=== PATIENT | female | born 1955 | race Caucasian/White ===

== ENCOUNTER 2020-12-08 00:32 | Emergency (ER) | payer MEDICARE, SELFPAY ==
[2020-12-08] VITALS (16 sets, daily range): BP systolic 139–165; BP diastolic 67–77; PULSE 75–88; RESP 11–28; TEMP 36.6–36.9; O2SAT 94–99
--- NOTE | ~2020-12-08 | CT_ITS ---
EXAMINATION: CT brain wo con INDICATION: Headache COMPARISON: None TECHNIQUE: Standard unenhanced head CT. The dose-length product (DLP) was 605.33 mGy-cm. The mA was a djusted according to patient size. Iterative reconstruction technique was employed. FINDINGS: There is no acute intraparenchymal hemorrhage. No evidence of mass lesion. No evidence of a cute infarction. There is mild periventricular and subcortical hypodensity probably related to small vessel ischemic disease. There is mild prominence of the sulci and ventricles related to cerebral atr ophy. Intracranial calcified cerebral atherosclerosis is noted. There are no extra-axial collections. There is no mass effect or midline shift. The orbits and soft tissues are unremarkable. The visuali zed sinuses and mastoid air cells are well aerated. IMPRESSION: 1. No acute intracranial abnormality. 2. Age related findings. Reviewed, dictated and finalized at location A. ER MACHINE OPERATOR
--- NOTE | ~2020-12-08 | XR_ITS ---
EXAMINATION: XR chest 1V INDICATION: Chest pain TECHNIQUE: AP view of the chest is obtained. COMPARISON: 01/26/2017 FINDINGS: The lungs are free of acute opacities. There is no pleural effusion or pneumothorax. The ca rdiomediastinal silhouette is normal. IMPRESSION: 1. No acute cardiopulmonary abnormality. Reviewed, dictated and finalized at location A. RT SPECIALIST
--- NOTE | ~2020-12-08 | CT_ITS ---
EXAMINATION: CT thoracic spine wo con DATE: 12/08/2020 01:36 INDICATION: Back pain TECHNIQUE: Computed tomography (CT) of the thoracic spine was performed without intravenous contrast. The dose-length product (DLP) was 1064.88 mGy-cm. Iterative reconstruction was used. COMPARISON: None FINDINGS: There is no fracture, dislocation, or subluxation. The vertebral body heights are maintaine d. There is mild loss of intervertebral disc space height in the mid and upper thoracic spine. The pr evertebral soft tissues are normal. There is severe lumbar spondylosis at L2-3. IMPRESSION: 1. Mild thoracic spondylosis without acute findings. Reviewed, dictated and finalized at location A. CTOR OF INSTITUTIONAL SALES
--- NOTE | ~2020-12-08 | CT_ITS ---
EXAMINATION: CT cervical spine wo con DATE: 12/08/2020 01:36 INDICATION: Neck pain TECHNIQUE: Computed tomography (CT) of the cervical spine was performed without intravenous contrast. The dose-length product (DLP) was 172.75 mGy-cm. Automated exposure control and iterative reconstruc tion technique were employed. COMPARISON: None FINDINGS: There are 2 mm of retrolisthesis of C5 on C6. No fracture is identified. The odontoid is in tact. There is moderate loss of intervertebral disc space height from C3-4 through C6-7. Vertebral faviola dy heights are maintained. The prevertebral soft tissues are normal. There is moderate right and mild left facet osteoarthritis at C3-4. Moderate to severe multilevel uncovertebral joint osteoarthritis is present. There is partial opacification of the mastoid air cells. IMPRESSION: 1. Moderate cervical spondylosis without acute osseous abnormality. Reviewed, dictated and finalized at location A. SPECIALIST
--- NOTE | 2020-12-08 00:44 | ED.FALL ---
HPI - Fall General Chief Complaint: Fall Stated Complaint: falls Source: RN notes reviewed History of Present Illness HPI Narrative: Patient presents emergency department from home via EMS for a fall. Patient states that she has been having frequent falls approximately once per week states that this evening she fell striking her head on the wall she states that since that time she is been having headache feels pain in her neck and upper back patient does states that she has a history of vertigo and is currently dizzy and takes medication for this she denies any vision changes numbness or tingling in the extremities chest pain shortness of breath abdominal pain nausea or vomiting pain in the extremities or any other symptoms Related Data Allergies Allergy/AdvReac Type Severity Reaction Status Date / Time codeine Allergy Unknown HIVES Verified 05/01/19 17:14 Review of Systems Review of Systems: Narrative: Gen.: Denies fevers or chills Eyes: Denies eye pain or visual change ENT: Denies congestion Respiratory: Denies shortness of breath or cough CV: Denies chest pain or palpitations GI: Denies abdominal pain nausea, emesis or diarrhea denies burning, urgency, frequency or hematuria Musculoskeletal: See HPI Neuro: Denies numbness, tingling, weakness or focal weakness, reports dizziness Skin: Denies rash Except as documented, all other systems reviewed and negative FOR[facility]LY [facility] Past Medical History Medical History (Updated 12/08/20 @ 03:41 by Celio Dominguez DO) COPD (chronic obstructive pulmonary disease) Diabetes Social History Social History (Updated 12/08/20 @ 00:45 by Celio Dominguez DO) Smoking status: Never smoker Exam Narrative: Exam Narrative: APPEARANCE: Well appearing, no apparent distress, well-nourished. HEENT: normocephalic atraumtaic. Oral mucosa moist. No tenderness over bilateral zygomatic arch. Full range of motion of jaw without pain. EYES: PERRL NECK: Supple. No midline tenderness to palpation. Full range of motion without pain turn palpation bilateral para 2 muscles C4-7 RESPIRATORY: No respiratory distress. Clear to auscultation bilaterally CARDIOVASCULAR: Regular rate and rhythm without murmurs rubs or gallops. ABDOMINAL: Soft, nontender, nondistended, no rebound or guarding MUSCULOSKELETAl: Moves all extremities. No tenderness to palpation of bilateral upper and lower extremities. No clubbing cyanosis or edema Back: No midline thoracic or lumbar tenderness to palpation tender palpation bilateral paravertebral muscles T2-T8 Pelvis: Stable, nontender NEURO: Awake and alert ?3. Follows commands. Speech normal. No focal deficits. SKIN:: Warm, dry. Normal Color Course Course Emergency Course: Patient able to get up and ambulate in the emergency department with no difficulty. Patient is 49 walking with a walker at home but states she does not use it as often because there is always room I do feel this is why the patient is falling she does state that she wishes to return home Discussed with patient results of workup and diagnosis. Discussed need for follow-up with primary care, proper use of medication, and reasons to return to the emergency department. Patient understands and agrees to current treatment plan Vital Signs Vital signs: Vital Signs Temperature 98.5 F 12/08/20 00:32 Pulse Rate 88 12/08/20 00:32 Respiratory Rate 17 12/08/20 00:32 Blood Pressure 163/67 H 12/08/20 00:32 Pulse Oximetry 99 12/08/20 00:32 Temperature 98.5 F 12/08/20 00:32 Pulse Rate 80 12/08/20 03:01 Respiratory Rate 16 12/08/20 03:01 Blood Pressure 163/75 H 12/08/20 03:01 Pulse Oximetry 96 12/08/20 03:01 MDM - Fall Lab Data Result diagrams: 12/08/20 00:51 12/08/20 00:51 Labs: Lab Results 12/08/20 12/08/20 12/08/20 Range/Units 00:51 00:51 00:51 WBC 8.7 (4.5-10.0) K/mm3 RBC 3.88 L (4.2-5.4) M/mm3 Hgb 9.7 L (12.0-15.0) g/dL Hct 31.3 L
[2020-12-08 01:08] LABS: Basophils Percent Auto 0.5 % (0.2-1.2); Eosinophils Absolute Auto 0.1 K/mm3 (0-0.3); Eosinophils Percent Auto 1.3 % (0-4.4); Hematocrit 31.3 % (37.0-47.0); Hemoglobin 9.7 g/dL (12.0-15.0); Immature Granulocyte Absolute 0.02 K/mm3 (0.00-0.031); Immature Granulocyte Percent A 0.2 % (0-0.5); Lymphocytes Absolute Auto 2.38 K/mm3 (0.9-3.2); Lymphocytes Percent Auto 27.5 % (18.3-44.2); Mean Corpuscular Volume 80.7 fl (80-100); Mean Platelet Volume 10.5 fl (7.4-10.4); Monocytes Absolute Auto 0.6 K/mm3 (0.1-0.6); Monocytes Percent Auto 6.8 % (2.6-8.5); Neutrophils Absolute Auto 5.5 K/mm3 (1.3-6.7); Neutrophils Percent Auto 63.7 % (45.5-73.1); Platelet Count Result 405 k/mm3 (150-375); Red Blood Count 3.88 M/mm3 (4.2-5.4); White Blood Count 8.7 K/mm3 (4.5-10.0)
[2020-12-08 01:12] LABS: Anion Gap 7 mmol/L (8-16); Blood Urea Nitrogen 11 mg/dL (7-17); Calcium 8.7 mg/dL (8.4-10.2); Carbon Dioxide 25 mmol/L (22-30); Chloride 105 mmol/L (98-107); Estimated Glomerular Filt Rate > 60; Glucose 132 mg/dL (65-105); Partial Thromboplastin Time 29.2 SECONDS (22.3-36.8); Potassium 4.1 mmol/L (3.4-5.0); Sodium 137 mmol/L (137-145)
--- NOTE | 2020-12-08 01:12 | ECG_ITS ---
Measurements Intervals [place] Rate: 86 P: 37 [place]: 168 QRS: 28 QRSD: 82 T: 44 QT: 375 QTc: 450 Interpretive Statements SINUS RHYTHM POSSIBLE LEFT ATRIAL ENLARGEMENT BASELINE ARTIFACT- I, III, AVL, V5-V6 BORDERLINE ECG Electronically Signed On 12-08-2020 7:14:17 VETERINARY SURGERY TECHNOLOGIST by Chi Abraham D.O.
[2020-12-08 02:12] LABS: Add Urine Microscopic? NO; Appearance Urine Clear (Clear); Bilirubin Urine Negative (Negative); Blood Urine Negative (Negative); Color Urine Straw (Yellow); Glucose Urine UA Negative (Negative); Ketones Urine Negative (Negative); Leukocyte Esterase Ur Negative LEU/UL (Negative); Nitrate Urine Negative (Negative); Protein Urine Negative (Negative); RBC Urine 0-2 /hpf (0-2); Specific Grav Ur 1.006 (1.001-1.035); Urobilinogen Urine Negative mg/dL (<2.0); WBC Urine 0-3 /hpf
[2020-12-08] MEDS: ACETAMINOPHEN 325 MG TABLET 650 MG PO (03:53)
== END 2020-12-08 04:08 | disposition home or self-care (01) ==
PROVIDERS: Emergency Provider Emergency Medicine; PCP Family Medicine
DX: S00.93XA Contusion of unspecified part of head, initial encounter (principal); S16.1XXA Strain of muscle, fascia and tendon at neck level, initial encounter; M54.6 Pain in thoracic spine; J44.9 Chronic obstructive pulmonary disease, unspecified; E11.9 Type 2 diabetes mellitus without complications; R29.6 Repeated falls; W01.198A Fall on same level from slipping, tripping and stumbling with subsequent striking against other object, initial encounter
CPT/HCPCS: 36415; 51701; 70450; 71045; 72125; 72128; 80048; 81003; 85025; 85610; 85730; 93005; 99284; A9270

== ENCOUNTER 2021-10-16 13:59 | Emergency (ER) | payer MEDICARE, SELFPAY ==
--- NOTE | ~2021-10-16 | CT_ITS ---
EXAMINATION: CT brain wo con DATE: 10/16/2021 14:44 INDICATION: Altered mental status. TECHNIQUE: Computed tomography (CT) of the head was performed without intravenous contrast. The mA wa s adjusted according to patient size. Iterative reconstruction technique was employed. The dose-lengt h product was 605.33 mGy-cm. COMPARISON: Head CT 12/08/2020 FINDINGS: There are scattered areas of low attenuation in the cerebral white matter, which is within normal limits for the patient's age. There is no intracranial hemorrhage, acute infarction, or abnorm al intracranial mass lesion. The ventricles are normal in size. There is mild mucosal thickening in t he paranasal sinuses. The mastoid air cells are normal. The orbits are normal. IMPRESSION: 1. Stable moderate nonspecific cerebral white matter disease, which likely represents chronic small v essel ischemic disease. Reviewed, dictated and finalized at location A. OR SECURITY ARCHITECT IMPRESSION: 1. Stable moderate nonspecific cerebral white matter disease, which likely repr esents chronic small vessel ischemic disease.
--- NOTE | ~2021-10-16 | CT_ITS ---
EXAMINATION: CT cervical spine wo con DATE: 10/16/2021 14:44 INDICATION: Neck injury. Fall. TECHNIQUE: Computed tomography (CT) of the cervical spine was performed without intravenous contrast. Automated exposure control and iterative reconstruction technique were employed. The dose-length pro duct was 219.59 mGy-cm. COMPARISON: CT cervical spine 12/08/2020 FINDINGS: There is hypolordosis of cervical spine. There is 3 degrees levocurvature of cervical spine . Vertebral body heights are normal. There is moderately decreased disc height at C3-C4 and C4-C5 and severely decreased disc height at C5-C6 and C6-C7 with endplate remodeling. The following disc level s are specifically discussed: C2-C3: There is no uncovertebral joint osteoarthritis. There is moderate bilateral facet joint osteoa rthritis. There is no neural foraminal stenosis. There is no central canal stenosis. C3-C4: There is severe bilateral uncovertebral joint osteoarthritis. There is severe right and mild l eft facet joint osteoarthritis. There is mild bilateral neural foraminal stenosis. There is mild cent ral canal stenosis. C4-C5: There is mild right and severe left uncovertebral joint osteoarthritis. There is mild right an d moderate left facet joint osteoarthritis. There is mild bilateral neural foraminal stenosis. There is mild central canal stenosis. C5-C6: There is severe bilateral uncovertebral joint osteoarthritis. There is mild bilateral facet shantal int osteoarthritis. There is mild bilateral neural foraminal stenosis. There is mild central canal st enosis. C6-C7: There is moderate bilateral uncovertebral joint osteoarthritis. There is mild bilateral facet joint osteoarthritis. There is mild bilateral neural foraminal stenosis. There is mild central canal stenosis. C7-T1: There is no uncovertebral joint osteoarthritis. There is moderate right and severe left facet joint osteoarthritis. There is mild left neural foraminal stenosis. There is no central canal stenosi s. IMPRESSION: 1. No fracture. 2. Severe cervical spondylosis, stable from 12/08/2020. Reviewed, dictated and finalized at location A. LITY ENGINEER
[2021-10-16 14:05] VITALS: BP 184/74; PULSE 94; RESP 18; TEMP 37.1; O2SAT 100
--- NOTE | 2021-10-16 14:25 | ED.FALL ---
HPI - Fall General Chief Complaint: Fall Stated Complaint: AMS Time Seen by Provider: 10/16/21 14:08 Source: patient Mode of arrival: EMS Limitations: no limitations History of Present Illness HPI Narrative: Patient is a 66-year-old female brought in by EMS after a fall at home. Patient states that she went to bend over to fish bait picker her dog's poop, dog pulled the leash and she fell, hitting her head on the floor. Patient does not know if she lost consciousness or not. Patient was able to stand up and ambulate after the fall. Patient denies any neck, chest, abdomen, back, hip or any extremity pain/injury. Patient states that she was asymptomatic prior to the fall. Related Data Allergies Allergy/AdvReac Type Severity Reaction Status Date / Time codeine Allergy Unknown Verified 10/16/21 14:54 Review of Systems Review of Systems: All systems reviewed & are unremarkable except as noted in HPI and below Constitutional: Constitutional: Denies body ache(s), Denies chills, Denies excessive sweating, Denies fatigue, Denies fever(s), Denies headache(s), Denies lethargy, Denies malaise, Denies weakness and Denies weight loss Eyes: Eyes: Denies blurry vision, Denies change in vision and Denies loss of vision ENT: Denies dizziness, Denies ear discharge, Denies headache(s), Denies lip swelling, Denies epistaxis, Denies nasal congestion, Denies neck pain, Denies throat swelling and Denies tongue swelling Cardiovascular: Cardiovascular: Denies chest pain, Denies chest pain at rest, Denies chest pain with activity, Denies diaphoresis, Denies rapid heart rate, Denies edema, Denies irregular heart rhythm, Denies lightheadedness, Denies palpitations, Denies dyspnea and Denies dyspnea on exertion Respiratory: Respiratory: Denies chest congestion, Denies cough, Denies hemoptysis, Denies dyspnea and Denies dyspnea on exertion Gastrointestinal: Gastrointestinal: Denies abdominal pain, Denies melena, Denies hematochezia, Denies diarrhea, Denies nausea, Denies vomiting and Denies hematemesis Musculoskeletal: Musculoskeletal: Denies abnormal gait, Denies deformity, Denies joint swelling, Denies limited range of motion, Denies neck pain and Denies numbness Neurologic: Denies Abnormal speech present, Denies abnormal gait, Denies confusion, Denies dizziness, Denies headache(s), Denies focal weakness, Denies loss of vision, Denies numbness, Denies Other visual disturbances, Denies Sensory deficit (Neuro) and Denies weakness Psychiatric: Psychiatric: Denies confusion, Denies depression, Denies auditory hallucinations, Denies homicidal ideation and Denies suicidal ideation Endocrine: Endocrine: Denies cold intolerance, Denies excessive sweating, Denies fatigue, Denies heat intolerance and Denies palpitations Hematologic/Lymphatic: Hematologic/Lymphatic: Denies easy bleeding and Denies easy bruising Allergic/Immunologic: Allergic/Immunologic: Denies lip swelling, Denies throat swelling and Denies tongue swelling PMFSH Comments Past medical history: COPD, hypertension, diabetes, neuropathy Family history: Hypertension diabetes Social history: Positive for smoker, no EtOH or drug use, lives at home alone Exam Const: General: cooperative, healthy appearing, comfortable, no acute distress, well developed, alert and awake; No confusion Orientation/consciousness: oriented to person, oriented to place, oriented to time, patient oriented x3 and No confusion Limitations: no limitations HENMT: Ears: hearing grossly normal bilaterally, TM normal on the right and TM normal on the left General nose exam: Normal external nose present, Normal nares present and No nasal discharge present Face and sinus: normal facial exam Mouth: Yes Normal oral and palatal mucosa present, Yes lip normal, Yes tongue normal and Yes oropharynx normal Throat: posterior oropharynx normal, tonsils normal and uvula midline Other: Abrasion left frontal temporal area Eyes: General: appearance normal,
[2021-10-16] MEDS: TETANUS,DIPHTHERIA,AC PERTUSSIS ADULT (0.5 ML) BOOSTRIX IM (14:55)
[2021-10-16] MEDS: ACETAMINOPHEN 325 MG TABLET 650 MG PO (15:36)
[2021-10-16 15:44] VITALS: BP 163/71; PULSE 81; RESP 18; O2SAT 98
[2021-10-16 16:00] VITALS: TEMP 37.1
== END 2021-10-16 15:50 | disposition home or self-care (01) ==
PROVIDERS: Emergency Provider Emergency Medicine; PCP Family Medicine
DX: S09.90XA Unspecified injury of head, initial encounter (principal); S16.1XXA Strain of muscle, fascia and tendon at neck level, initial encounter; S00.81XA Abrasion of other part of head, initial encounter; Z23 Encounter for immunization; J44.9 Chronic obstructive pulmonary disease, unspecified; I10 Essential (primary) hypertension; E11.40 Type 2 diabetes mellitus with diabetic neuropathy, unspecified; F17.200 Nicotine dependence, unspecified, uncomplicated; W18.39XA Other fall on same level, initial encounter; Y93.K1 Activity, walking an animal
CPT/HCPCS: 70450; 72125; 90471; 90715; 96372; 99284; A9270

== ENCOUNTER 2021-10-23 11:12 | Inpatient (IN) | payer MEDICARE, SELFPAY ==
[2021-10-23] VITALS (32 sets, daily range): BP systolic 102–205; BP diastolic 55–99; PULSE 66–122; RESP 9–29; TEMP 36.1–36.9; O2SAT 95–100; BMI 27.0
--- NOTE | ~2021-10-23 | XR_ITS ---
EXAMINATION: XR chest 1V portable DATE: 11/14/2021 06:06 INDICATION: Respiratory failure. TECHNIQUE: A single frontal view of the chest was obtained. COMPARISON: Chest single view 11/13/2021, chest CT 11/13/2021 FINDINGS: The patient is rotated to her right. There are mild airspace opacities in the lower lung zo norbert. No pleural effusion or pneumothorax. Cardiomegaly is noted. There is a tracheostomy tube in expe cted position. Right-sided rib fractures are noted. IMPRESSION: 1. Metastases opacities in the lower lung zones, consistent with atelectasis versus pneumonia. 2. Cardiomegaly. Reviewed, dictated and finalized at location A. D OFFICER IMPRESSION: 1. Metastases opacities in the lower lung zones, consistent with atelectasis ve rsus pneumonia. 2. Cardiomegaly.
--- NOTE | ~2021-10-23 | XR_ITS ---
EXAMINATION: XR chest 1V portable DATE: 11/06/2021 06:11 INDICATION: Respiratory failure. TECHNIQUE: A single frontal view of the chest was obtained. COMPARISON: Chest single view 11/05/2021, chest CT 10/31/2021 FINDINGS: There is mild scarring at the lung apices. The patient is rotated to her left. There are ai rspace opacities in right lower lung zone. There is a small right pleural effusion. No pneumothorax. The heart size is normal. A tracheostomy tube is noted. A right upper extremity peripherally inserted central venous catheter (PICC) is seen with tip in the superior vena cava. IMPRESSION: 1. Stable airspace opacities in right lower lung zone, consistent with atelectasis versus pneumonia. 2. Small right pleural effusion. Reviewed, dictated and finalized at location A. TECH IMPRESSION: 1. Stable airspace opacities in right lower lung zone, consistent with atelecta sis versus pneumonia. 2. Small right pleural effusion.
--- NOTE | ~2021-10-23 | CT_ITS ---
EXAMINATION: CT sinus wo con DATE: 10/31/2021 18:40 INDICATION: Fever. TECHNIQUE: Computed tomography (CT) of the paranasal sinuses was performed without intravenous contra st. Iterative reconstruction technique was employed. The dose-length product was 307.17 mGy-cm. COMPARISON: Head CT 10/23/2021 FINDINGS: There are bilateral mastoid effusions. The frontal, ethmoid, sphenoid, and right maxillary sinuses are clear. There is mild mucosal thickening in left maxillary sinus. There is leftward deviat ion of the nasal septum with a left lateral spur. The ostiomeatal units are widely patent. IMPRESSION: 1. Mild mucosal thickening in left maxillary sinus. 2. Leftward deviation of the nasal septum. Reviewed, dictated and finalized at location A. STOS ABATEMENT TECHNICIAN
--- NOTE | ~2021-10-23 | XR_ITS ---
EXAMINATION: XR chest 1V portable INDICATION: Respiratory failure TECHNIQUE: Portable AP chest at 0506 hours COMPARISON: 11/10/2021 FINDINGS: A tracheostomy is in expected position. A right upper extremity PICC appears to coil in the subclavian vein. There are minimal airspace opacities of the lung bases. No pleural effusion or pneu mothorax is identified. The cardiomediastinal silhouette is normal. IMPRESSION: 1. Minimal bibasilar airspace opacity, consistent with atelectasis versus pneumonia. 2. Right upper extremity PICC with its tip coiling in the subclavian vein. Reviewed, dictated and finalized at location A. T SALES REPRESENTATIVE IMPRESSION: 1. Minimal bibasilar airspace opacity, consistent with atelectasis versus pneum onia. 2. Right upper extremity PICC with its tip coiling in the subclavian vein.
--- NOTE | ~2021-10-23 | XR_ITS ---
EXAMINATION: XR chest 1V portable INDICATION: Acute respiratory failure TECHNIQUE: Portable AP chest at 0457 hours COMPARISON: 10/24/2021 FINDINGS: The endotracheal tube ends approximately 4.2 cm above the lucius. The tip of nasogastric tu be is in the stomach. The proximal side port is just on the gastroesophageal junction. There are patc hy opacities throughout all lung zones with slight improvement in the upper lung zones. Small pleural effusions are present. There is no pneumothorax. Cardiomegaly is noted. IMPRESSION: 1. Stable diffuse lung disease, consistent with pneumonia. 2. Stable cardiomegaly. Reviewed, dictated and finalized at location A. UT DESIGNER
--- NOTE | ~2021-10-23 | XR_ITS ---
EXAMINATION: XR chest PICC line EXAM DATE: 10/26/2021 12:47 INDICATION: PICC line placement . TECHNIQUE: Portable AP frontal chest x-ray was obtained. Comparison is made to prior examination from 10/26/2021. FINDINGS: Previously seen nasogastric tube has been removed. There is a right-sided PICC line with ti p projecting at least to the mid SVC level, tip pointing inferiorly, adequate. Endotracheal tube tip is 4 centimeters above the lucius. There is retrocardiac consolidation with air bronchograms, less amount of right infrahilar edema or p neumonia. There are no sizable pleural effusions. There is no pneumothorax suspected. The cardio mediastinal silhouette is prominent but magnified on this AP technique. The bones and soft tissues are unremarkable. IMPRESSION: 1. Line and tube in position. 2. Moderate amount of ill-defined basilar edema or pneumonia. Reviewed, dictated and finalized at location A. EDITOR
--- NOTE | ~2021-10-23 | XR_ITS ---
EXAMINATION: XR chest PICC line INDICATION: PICC adjustment TECHNIQUE: Portable AP chest at 0938 and 0948 hours COMPARISON: 0506 hours FINDINGS: The right upper extremity PICC loops in the subclavian vein and ends with its tip near the medial head of the right clavicle. Minimal bibasilar airspace opacities persist in the lung bases wit hout significant change. There is no pleural effusion or pneumothorax. A tracheostomy is unchanged in position. IMPRESSION: 1. Right upper extremity PICC looping in the subclavian vein. This finding was discussed with Sue cates at 0950 hours on 11/11/2021. 2. Bibasilar airspace opacity, consistent with atelectasis versus pneumonia. Reviewed, dictated and finalized at location A. NG PIN GAUGER IMPRESSION: 1. Right upper extremity PICC looping in the subclavian vein. This finding was discussed with Sue Gillespie at 0950 hours on 11/11/2021. 2. Bibasilar airspace opacity, consistent with atelectasis versus pneumonia.
--- NOTE | ~2021-10-23 | XR_ITS ---
EXAMINATION: XR chest 1V portable DATE: 10/29/2021 05:54 INDICATION: Acute respiratory failure TECHNIQUE: frontal view of the chest was obtained. COMPARISON: Chest radiograph dated 10/28/2021 FINDINGS: Endotracheal tube tip 3.9 cm above the lucius. Right upper extremity peripherally inserted central ve nous catheter (PICC) tip at the mid superior vena cava. Nasogastric tube has withdrawn further, now in the mid esophagus. Increasing diffuse interstitial pattern throughout both lungs with Manish B-lines at the lateral mid to lower lung zones. Superimposed small posterior layering right pleural effusion. No pneumothorax. T he cardiomediastinal silhouette is normal. IMPRESSION: 1. Increasing diffuse mild pulmonary edema and new small right pleural effusion. 2. Nasogastric tube in the mid esophagus. Recommend advancement by 25-30 cm. Reviewed, dictated and finalized at location A. NEERING WRITER IMPRESSION: 1. Increasing diffuse mild pulmonary edema and new small right pleural effusion . 2. Nasogastric tube in the mid esophagus. Recommend advancement by 25-30 cm.
--- NOTE | ~2021-10-23 | US_ITS ---
EXAMINATION: US venous doppler UE EXAM DATE: 10/29/2021 09:12 INDICATION: Left arm swelling. TECHNIQUE: Multiple grayscale, color flow, Doppler sonographic images of the left upper extremity vei ns obtained by technologist. Compression was performed where able. There is no prior study for leonela garrett. FINDINGS: Left upper extremity: Jugular vein: ------------> Normal. Subclavian vein: --------> Normal. Axillary vein:------------> Normal. Brachial vein:-----------> Normal. Basilic vein: ------------> Thrombosed. Cephalic vein: ----------> Thrombosed. Radial vein: ------------> Normal. Ulnar vein: > Normal. IMPRESSION: 1. Left basilic and cephalic superficial venous thrombosis. 2. No DVT. Reviewed, dictated and finalized at location A. VERY TRUCK DRIVER
--- NOTE | ~2021-10-23 | XR_ITS ---
EXAMINATION: XR chest 1V portable INDICATION: Respiratory failure TECHNIQUE: Portable AP chest at 0500 hours COMPARISON: 11/06/2021 FINDINGS: A tracheostomy unchanged in position. A right upper extremity PICC ends with its tip in the superior vena cava. Airspace opacities of the right lower lung zone persists without significant sally nge. There is a small, stable right pleural effusion. No pneumothorax is identified. The cardiomedias tinal silhouette is stable. IMPRESSION: 1. Stable right basilar airspace opacity, consistent with atelectasis versus pneumonia. 2. Small right pleural effusion. Reviewed, dictated and finalized at location A. SFER DRIVER IMPRESSION: 1. Stable right basilar airspace opacity, consistent with atelectasis versus pn eumonia. 2. Small right pleural effusion.
--- NOTE | ~2021-10-23 | XR_ITS ---
EXAMINATION: XR chest 1V portable INDICATION: Chest pain TECHNIQUE: Portable AP chest at 1124 hours COMPARISON: 12/08/2020 FINDINGS: There are interstitial and airspace opacities with a mid and lower lung zone predominance. No pleural effusion or pneumothorax is identified. The heart size is upper limits of normal for techn ique. IMPRESSION: 1. Opacities of the mid and lower lung zone, consistent with pulmonary edema and/or pneumonia. Reviewed, dictated and finalized at location A. SHOOTER IMPRESSION: 1. Opacities of the mid and lower lung zone, consistent with pulmonary edema an d/or pneumonia.
--- NOTE | ~2021-10-23 | US_ITS ---
EXAMINATION: US right upper quadrant EXAM DATE: 10/27/2021 11:24 INDICATION: Elevated liver function tests. TECHNIQUE: Multiple grayscale and Doppler images of the abdomen right upper quadrant were obtained (b y a technologist who performed the scan) and subsequently reviewed. There is no prior study for leonela garrett. FINDINGS: The pancreatic head and body are normal in appearance. The pancreatic tail is not visualized. The l iver has normal echogenicity and contour. There are no focal liver lesions identified. There is no evidence of intrahepatic biliary duct dilation. Portal venous flow was seen in the hepatopedal, nor mal direction and has normal Doppler waveform. No right-sided hydronephrosis. Common bile duct measures 6 mm, which is normal. The gallbladder wall is normal in thickness, with ex pected amount of distention. No sonographic evidence of pericholecystic fluid. There is no cholelit hiases. Technologist performing exam reports patient did not demonstrate sonographic Pendleton's sign. Please note that this sign is less reliable in patients who have received pain medication. IMPRESSION: Unremarkable abdominal ultrasound exam. Reviewed, dictated and finalized at location A. Y DEPOSITING MACHINE OPERATOR
--- NOTE | ~2021-10-23 | XR_ITS ---
EXAMINATION: XR chest PICC line DATE: 10/27/2021 11:12 INDICATION: Reassess PICC line positioning. TECHNIQUE: frontal view of the chest was obtained. COMPARISON: Chest radiograph dated 10/27/2021 at 5:07 AM FINDINGS: Right upper extremity peripherally inserted central venous catheter (PICC) has been repositioned with distal tip again within the Endotracheal tube tip 4.1 cm above the lucius. Nasogastric tube extends below the left hemidiaphragm with distal tip collimated off the study. Improved aeration of the lungs with resolution of prior right perihilar opacities. There is also been some improvement in the retrocardiac airspace opacities in the left lower lung zone. No new airspace opacities, pulmonary edema, pleural effusion or pneumothorax. The cardiomediastinal silhouette is no rmal. IMPRESSION: 1. Successful repositioning of a right PICC line with distal tip now in the midsuperior vena cava. 2. Improved aeration of lungs with some improvement in opacities in the left lower lung zone which co uld represent pneumonia and/or atelectasis. Reviewed, dictated and finalized at location A. IT COLLECTIONS MANAGER IMPRESSION: 1. Successful repositioning of a right PICC line with distal tip now in the mid superior vena cava. 2. Improved aeration of lungs with some improvement in opacities in the left lo wer lung zone which could represent pneumonia and/or atelectasis.
--- NOTE | ~2021-10-23 | XR_ITS ---
EXAMINATION: XR chest 1V portable EXAM DATE: 11/08/2021 09:09 INDICATION: Respiratory failure. TECHNIQUE: Portable AP frontal chest x-ray was obtained. Comparison is made to prior examination from 11/07/2021, 11/05. FINDINGS: Tracheostomy tube. Right-sided PICC line. Moderate amount of bilateral ill-defined airspace disease, pneumonia or edema, mild interval progress ion compared to last several days. There are no sizable pleural effusions. There is no pneumothorax suspected. The cardiomediastinal silhouette is prominent but magnified on this AP technique. The bones and soft tissues are unremarkable. IMPRESSION: 1. Line and tube in position. 2. Moderate amount of bilateral pneumonia or edema. Reviewed, dictated and finalized at location A. KING MACHINE SET UP OPERATOR
--- NOTE | ~2021-10-23 | XR_ITS ---
EXAMINATION: XR chest 1V portable DATE: 11/10/2021 06:50 INDICATION: Respiratory failure TECHNIQUE: frontal view of the chest was obtained. COMPARISON: Chest radiograph dated 11/09/2021 FINDINGS: Tracheostomy tube in expected position at the thoracic inlet. Right upper extremity peripherally inse rted central venous catheter (PICC) tip at the mid superior vena cava. Resolution of prior pulmonary edema. There is also been improvement in streaky opacities at the left lung base and favor atelectasis over pneumonia. No pleural effusion or pneumothorax. The cardiomedias tinal silhouette is normal. IMPRESSION: 1. Resolution of prior pulmonary edema and decrease in mild streaky opacities at the left lung base a nd favor atelectasis over pneumonia. Reviewed, dictated and finalized at location A. ATRIC GENETICIST IMPRESSION: 1. Resolution of prior pulmonary edema and decrease in mild streaky opacities a t the left lung base and favor atelectasis over pneumonia.
--- NOTE | ~2021-10-23 | XR_ITS ---
EXAMINATION: XR chest 1V portable DATE: 11/16/2021 06:02 INDICATION: Respiratory failure. TECHNIQUE: A single frontal view of the chest was obtained. COMPARISON: Chest single view 11/15/2021 FINDINGS: There is a small posteriorly layering right pleural effusion. There are airspace opacities in right mid and lower lung zones. No pneumothorax. Cardiomegaly is noted. There is a tracheostomy tu be in expected position. IMPRESSION: 1. Stable small right pleural effusion. 2. Stable airspace opacities in right mid and lower lung zones, consistent with atelectasis versus pn eumonia. 3. Cardiomegaly. Reviewed, dictated and finalized at location A. ARCHITECT IMPRESSION: 1. Stable small right pleural effusion. 2. Stable airspace opacities in right mid and lower lung zones, consistent with atelectasis versus pneumonia. 3. Cardiomegaly.
--- NOTE | ~2021-10-23 | XR_ITS ---
EXAMINATION: XR chest 1V portable DATE: 10/27/2021 05:37 INDICATION: Acute respiratory failure TECHNIQUE: frontal view of the chest was obtained. COMPARISON: Chest radiograph dated 10/26/2021 FINDINGS: Endotracheal tube tip 3.1 cm above the lucius. Nasogastric tube extends below the left hemidiaphragm with distal tip collimated off the study. Right upper extremity peripherally inserted central venous catheter (PICC) has changed in position, now looped back upon itself within the right internal jugul ar vein. Lung volumes have decreased with new patchy airspace opacities in the right perihilar region and no s ignificant change in consolidation with some air bronchograms in the left lower lung zone. The left m ainstem bronchus appears diffusely narrowed relative to the prior study which could be due to broncho malacia and expiratory phase of imaging. The cardiomediastinal silhouette is within normal limits for AP technique. IMPRESSION: 1. Right PICC line has spontaneously repositioned with distal tip now coiled in the caudal right inte rnal jugular vein. Could consider rapid saline flush which can sometimes reposition the catheter. 2. Unchanged consolidation in the left lower lung zone concerning for pneumonia. 3. New opacities in the right perihilar region which could represent additional pneumonia, pulmonary edema or atelectasis related to likely expiratory phase of imaging with decreased lung volumes and di ffuse narrowing at the left mainstem bronchus. Reviewed, dictated and finalized at location A. NSION SUPERVISOR IMPRESSION: 1. Right PICC line has spontaneously repositioned with distal tip now coiled in the caudal right internal jugular vein. Could consider rapid saline flush whic h can sometimes reposition the catheter. 2. Unchanged consolidation in the left lower lung zone concerning for pneumonia . 3. New opacities in the right perihilar region which could represent additional pneumonia, pulmonary edema or atelectasis related to likely expiratory phase o f imaging with decreased lung volumes and diffuse narrowing at the left mainste m bronchus.
--- NOTE | ~2021-10-23 | XR_ITS ---
EXAMINATION: XR chest 1V portable DATE: 11/18/2021 06:28 INDICATION: Respiratory failure. TECHNIQUE: A single frontal view of the chest was obtained. COMPARISON: Chest single view 11/17/2021 FINDINGS: There is a diffuse interstitial pattern. There are mild airspace opacities in the lower ac g zones. No pleural effusion or pneumothorax. Cardiomegaly is noted. There is a tracheostomy tube in expected position. IMPRESSION: 1. Diffuse lung disease, likely mild pulmonary edema and basilar atelectasis versus pneumonia. 2. Cardiomegaly. Reviewed, dictated and finalized at location A. AZZO TILE SETTER IMPRESSION: 1. Diffuse lung disease, likely mild pulmonary edema and basilar atelectasis ve rsus pneumonia. 2. Cardiomegaly.
--- NOTE | ~2021-10-23 | XR_ITS ---
EXAMINATION: XR chest ET placement EXAM DATE: 10/29/2021 08:52 INDICATION: Tube adjustment TECHNIQUE: Portable AP frontal chest x-ray was obtained. Comparison is made to prior examination from earlier same date. FINDINGS: Endotracheal tube tip is 3 centimeters above the lucius, expected position. There is a rig ht-sided PICC line in position. There is a nasogastric tube seen with tip collimated off the study, b ut below the left hemidiaphragm. There is moderate amount of ill-defined bibasilar edema or pneumonia unchanged. Small pleural effusi ons. There is no pneumothorax suspected. Cardiac silhouette is stable in size compared to prior ex am. There are no osseous abnormalities identified. IMPRESSION: 1. Line and tube(s) in position. 2. Stable airspace disease and other findings as above. Reviewed, dictated and finalized at location A. ENTREE COOK AND CASHIER
--- NOTE | ~2021-10-23 | XR_ITS ---
EXAMINATION: XR abdomen NG/feed tube rechec, XR abdomen NG/feed tube insert DATE: 10/28/2021 initial imaging at 9:28 AM with subsequent imaging at 9:33 AM INDICATION: Nasogastric tube replacement TECHNIQUE: 1. A supine view of the abdomen and lower chest was obtained for evaluation of feeding tube placement . 2. A second subsequent supine view of the abdomen and lower chest was obtained for evaluation of feed ing tube placement. COMPARISON: None. FINDINGS: Nasogastric tube tip is in the mid to distal esophagus on the initial image. Subsequent image demonst rates opacification of the nasogastric tube with proximal side-port in the body of the stomach and di stal tip extending below the inferior margin of the [id number] likely in the more distal gastric b preston. Endotracheal tube tip 4.2 cm above the lucius. Right upper extremity peripherally inserted central ve nous catheter (PICC) tip at the mid superior vena cava. Mild bibasilar opacities which could represe nt atelectasis and/or pneumonia. IMPRESSION: 1. Nasogastric tube in the stomach on the final image. Reviewed, dictated and finalized at location A. RIAL HANDLER 1ST SHIFT IMPRESSION: 1. Nasogastric tube in the stomach on the final image.
--- NOTE | ~2021-10-23 | XR_ITS ---
EXAMINATION: XR abdomen NG/feed tube insert DATE: 10/26/2021 13:20 INDICATION: New orogastric tube insertion TECHNIQUE: A supine view of the abdomen and lower chest was obtained for evaluation of feeding tube placement. COMPARISON: 10/23/2021 FINDINGS: Orogastric tube with proximal side-port in the visualized stomach and distal tip collimated beyond th e inferior margin of the [id number] also likely within the body of the stomach. Gas is seen within the stomach, colon and nondilated small bowel. The left lower quadrant and pelvis are excluded from the [id number]. Opacities at the left lower lung zone which represents small pleural effusion, ate lectasis and/or pneumonia. Heart size within normal limits for AP technique. IMPRESSION: 1. Nasogastric tube in stomach. 2. Left basilar opacities which could represent small pleural effusion, atelectasis, pneumonia or robina e combination thereof. Reviewed, dictated and finalized at location A. CTORY CLERK IMPRESSION: 1. Nasogastric tube in stomach. 2. Left basilar opacities which could represent small pleural effusion, atelect asis, pneumonia or some combination thereof.
--- NOTE | ~2021-10-23 | XR_ITS ---
EXAMINATION: XR chest 1V portable DATE: 11/09/2021 06:36 INDICATION: Respiratory failure TECHNIQUE: frontal view of the chest was obtained. COMPARISON: Chest radiograph dated 11/08/2021 FINDINGS: Tracheostomy tube remains in expected position at the thoracic inlet. Right upper extremity periphera lly inserted central venous catheter (PICC) tip at the cephalad superior vena cava. Slight improvement in mild focal airspace opacities at the left lower lung zone which could represent atelectasis and/or pneumonia. Mild increased interstitial pattern in the bilateral lower lung zones more likely mild pulmonary edema. No pleural effusion or pneumothorax. The cardiomediastinal silhouet te is within normal limits for AP technique. IMPRESSION: 1. Mild pulmonary edema in the lower lung zones. 2. Slight improvement in mild patchy opacities in the left lower lung zone which could represent atel ectasis/or pneumonia. Reviewed, dictated and finalized at location A. IT PRODUCT ANALYST IMPRESSION: 1. Mild pulmonary edema in the lower lung zones. 2. Slight improvement in mild patchy opacities in the left lower lung zone whic h could represent atelectasis/or pneumonia.
--- NOTE | ~2021-10-23 | XR_ITS ---
XR chest ET placement 10/23/2021 17:24 Indication: Endotracheal tube placement. Procedure: AP portable chest Comparison: 10/23 and 12/08/2020 Findings: Endotracheal tube tip 4.7 cm above the lucius. Cardiomegaly. Mild interstitial edema. No si gnificant effusion. No pneumothorax. No acute osseous abnormality. Impression: 1: Cardiomegaly with interstitial edema. Cannot exclude superimposed pneumonia. Reviewed, dictated and finalized at location A. CTOR PUBLIC Impression: 1: Cardiomegaly with interstitial edema. Cannot exclude superimposed pneumonia.
--- NOTE | ~2021-10-23 | XR_ITS ---
EXAMINATION: XR abdomen NG/feed tube rechec DATE: 10/29/2021 07:44 INDICATION: Orogastric tube advancement TECHNIQUE: A supine view of the abdomen and lower chest was obtained for evaluation of feeding tube placement. COMPARISON: 10/28/2021 FINDINGS: Orogastric tube tip in proximal side port in the body of the stomach. No dilated loops of gas-filled bowel in the visualized abdomen. Small right pleural effusion. Diffuse increased interstitial pattern in the bilateral mid to lower lung zones consistent with mild pulmonary edema. Heart size within nor mal limits for AP technique. IMPRESSION: 1. Orogastric tube tip in the stomach. 2. Mild pulmonary edema and small right pleural effusion. Reviewed, dictated and finalized at location A. BASE MANAGEMENT SYSTEM SPECIALIST
--- NOTE | ~2021-10-23 | XR_ITS ---
EXAMINATION: XR chest 1V portable DATE: 10/26/2021 05:42 INDICATION: Acute respiratory failure TECHNIQUE: frontal view of the chest was obtained. COMPARISON: Chest radiograph dated 10/25/2021 FINDINGS: Endotracheal tube tip 2.7 cm above the lucius. Nasogastric tube has withdrawn with distal tip now in the upper thoracic esophagus. Hazy opacity in the right mid to lower lung zone with obscuration of the right costophrenic angle con sistent with small posterior layering right pleural effusion. More patchy airspace opacities in the r ight mid and left lower lung zones which could represent atelectasis and/or pneumonia. Minimal pulmon christiano edema with subtle peribronchial cuffing in the left hilar region. No pneumothorax or left-sided p leural effusion. Cardiomediastinal silhouette is normal. IMPRESSION: 1. Nasogastric tube has withdrawn with distal tip now in the cephalad thoracic esophagus approximatel y 18 cm above the level of the gastroesophageal junction. Would recommend advancement by 30 cm. 2. Minimal pulmonary edema and small right pleural effusion. 3. Patchy atelectasis and/or pneumonia the right mid and left lower lung zones. Reviewed, dictated and finalized at location A. NG MANAGER IMPRESSION: 1. Nasogastric tube has withdrawn with distal tip now in the cephalad thoracic esophagus approximately 18 cm above the level of the gastroesophageal junction. Would recommend advancement by 30 cm. 2. Minimal pulmonary edema and small right pleural effusion. 3. Patchy atelectasis and/or pneumonia the right mid and left lower lung zones.
--- NOTE | ~2021-10-23 | XR_ITS ---
EXAMINATION: XR chest 1V portable INDICATION: Respiratory failure TECHNIQUE: Portable AP chest at 0807 hours COMPARISON: 11/12/2021 FINDINGS: A tracheostomy is in expected position. Diffuse opacities persist with interval improvement in the right lung base. The previously described right upper extremity PICC has been removed. There is no pleural effusion or pneumothorax. The cardiomediastinal silhouette is normal. IMPRESSION: 1. Diffuse lung disease with improved opacities of the right lung base, likely atelectasis. 2. Right upper extremity PICC removed. Reviewed, dictated and finalized at location A. R STREET LIGHT
--- NOTE | ~2021-10-23 | XR_ITS ---
EXAMINATION: XR chest PICC line INDICATION: PICC insertion TECHNIQUE: Portable AP chest at 1622 hours COMPARISON: 0508 hours FINDINGS: The right upper extremity PICC has been repositioned and now ends with its tip in the proxi mal superior vena cava. The endotracheal tube ends approximately 4.1 cm above the lucius. The nasogas tric tube is followed as far as the stomach. Its tip is beyond the inferior margin of the radiograph. There are unchanged minimal opacities of the lower lung zones. No pleural effusion or pneumothorax i s identified. Cardiomegaly is noted. IMPRESSION: 1. Repositioned right upper chart PICC ending with its tip in the proximal superior vena cava. Otherw ise no change. Reviewed, dictated and finalized at location A. REPORTER IMPRESSION: 1. Repositioned right upper chart PICC ending with its tip in the proximal supe rior vena cava. Otherwise no change.
--- NOTE | ~2021-10-23 | XR_ITS ---
EXAMINATION: XR chest 1V portable DATE: 11/15/2021 06:01 INDICATION: Respiratory failure. TECHNIQUE: A single frontal view of the chest was obtained. COMPARISON: Chest single view 11/14/2021, chest CT 11/13/2021 FINDINGS: There is a small posteriorly layering right pleural effusion. There are airspace opacities in all right lung zones. No pneumothorax. Cardiomegaly is noted. There is a tracheostomy tube in expe cted position. IMPRESSION: 1. Stable small right pleural effusion. 2. Airspace opacities in right lung, consistent with atelectasis or less likely pneumonia. 3. Cardiomegaly. Reviewed, dictated and finalized at location A. [facility] PROGRAM COORDINATOR
--- NOTE | ~2021-10-23 | XR_ITS ---
EXAMINATION: XR chest 1V portable DATE: 10/30/2021 06:16 INDICATION: Respiratory failure TECHNIQUE: frontal view of the chest was obtained. COMPARISON: Chest radiograph dated 10/29/2021 FINDINGS: Endotracheal tube tip 4.3 cm above the lucius. Nasogastric tube extends below the left hemidiaphragm with distal tip collimated off the study. Right upper extremity peripherally inserted central venous catheter (PICC) is repositioned with distal tip now extending cephalad into the right internal jugul ar vein. Persistent mild opacities at the bilateral lower lung zones. No pleural effusion or pneumothorax. Car diomediastinal silhouette is within normal limits for AP technique. IMPRESSION: 1. Mild opacities in bilateral lower lung zones which could represent atelectasis, pneumonia, mild pu lmonary edema or some combination thereof. Reviewed, dictated and finalized at location A. ER AND CAPPER MACHINE OPERATOR IMPRESSION: 1. Mild opacities in bilateral lower lung zones which could represent atelectas is, pneumonia, mild pulmonary edema or some combination thereof.
--- NOTE | ~2021-10-23 | XR_ITS ---
XR abdomen NG/feed tube insert INDICATION: Evaluate NG tube position. TECHNIQUE: Limited KUB perform for evaluating NG tube . COMPARISON: No prior studies for comparison. FINDINGS: NG tube tip in the stomach. Visualized bowel gas pattern is unremarkable. IMPRESSION: 1: NG tube tip in the stomach. Reviewed, dictated and finalized at location A. SORTER
--- NOTE | ~2021-10-23 | XR_ITS ---
EXAMINATION: XR chest 1V portable INDICATION: Respiratory failure TECHNIQUE: Portable AP chest at 0507 hours COMPARISON: 11/11/2021 FINDINGS: A tracheostomy is in expected position. There are new airspace opacities of the right lung base. The right upper extremity PICC is again noted to coil in the subclavian vein. There is no pleur al effusion or pneumothorax. The cardiomediastinal silhouette is normal. IMPRESSION: 1. New right basilar airspace opacity, likely atelectasis. 2. Right upper extremity PICC remains coiled in the subclavian vein. Reviewed, dictated and finalized at location A. STANT PROFESSOR OF PSYCHOLOGY
--- NOTE | ~2021-10-23 | XR_ITS ---
EXAMINATION: XR chest 1V portable DATE: 11/04/2021 05:44 INDICATION: Respiratory failure. TECHNIQUE: A single frontal view of the chest was obtained. COMPARISON: Chest single view 11/03/2021, chest CT 10/31/2021 FINDINGS: There is mild scarring at the lung apices. There is mild atelectasis in the lower lung zone s. No pleural effusion or pneumothorax. The heart size is normal. The endotracheal tube tip is 4.1 cm above the lucius. The nasogastric tube tip is beyond the inferior margin of the radiograph, but at l east to the stomach. A right upper extremity peripherally inserted central venous catheter (PICC) is seen with tip in the superior vena cava. IMPRESSION: 1. Mild atelectasis in the lower lung zones. 2. Stable mild scarring at the lung apices. Reviewed, dictated and finalized at location A. CLEANER
--- NOTE | ~2021-10-23 | CT_ITS ---
EXAMINATION: CT diagnostic chest wo con DATE: 11/13/2021 17:32 INDICATION: Pneumonia. Atelectasis. Congestive heart failure. TECHNIQUE: Computed tomography (CT) of the chest was performed without intravenous contrast. Automate d exposure control and iterative reconstruction technique were employed. Exam dose: 218.15 mGy-cm to veronica exam DLP. COMPARISON: 11/13/2021 portable AP chest FINDINGS: A tracheostomy tube is present. There is trace pericardial effusion. Mild cardiomegaly. No thoracic aortic aneurysm is evident. Blood pool appears relatively low-attenuation, suggesting ane marta. No hilar or mediastinal mass lesion or lymphadenopathy is noted. There is mild right and slight left pleural effusion. There is bilateral lower lobe dependent atelectasis with air bronchograms, right greater than left. IMPRESSION: Mild right and slight left pleural effusion with associated bilateral lower lobe depende nt atelectasis with air bronchograms, right greater than left Trace pericardial effusion Anemia is suggested Tracheostomy tube Reviewed, dictated and finalized at Location A. Reviewed, dictated and finalized at location A. E TECHNICIAN IMPRESSION: Mild right and slight left pleural effusion with associated bilate ral lower lobe dependent atelectasis with air bronchograms, right greater than left Trace pericardial effusion Anemia is suggested Tracheostomy tube
--- NOTE | ~2021-10-23 | XR_ITS ---
EXAMINATION: XR chest 1V portable DATE: 11/05/2021 06:02 INDICATION: Respiratory failure. TECHNIQUE: A single frontal view of the chest was obtained. COMPARISON: Chest single view 11/04/2021, chest CT 10/31/2021 FINDINGS: There is a diffuse interstitial pattern in the lungs, consistent with mild pulmonary edema. There is mild scarring at the lung apices. There are airspace opacities in right lower lung zone. No pleural effusion or pneumothorax. The heart size is normal. The endotracheal tube tip is 5.1 cm abov e the lucius. A right upper extremity peripherally inserted central venous catheter (PICC) is seen wi th tip in the superior vena cava. IMPRESSION: 1. Mild pulmonary edema. 2. Worsened airspace opacities in right lower lung zone, consistent with atelectasis versus pneumonia . Reviewed, dictated and finalized at location A. TRICAL WORKER IMPRESSION: 1. Mild pulmonary edema. 2. Worsened airspace opacities in right lower lung zone, consistent with atelec tasis versus pneumonia.
--- NOTE | ~2021-10-23 | XR_ITS ---
EXAMINATION: XR chest 1V portable DATE: 10/28/2021 06:22 INDICATION: Acute respiratory failure TECHNIQUE: frontal view of the chest was obtained. COMPARISON: Chest radiograph dated 10/27/2021 FINDINGS: Endotracheal tube tip 6.6 cm above the lucius. Nasogastric tube tip terminates in the midesophagus ap proximately 12 cm above level of the gastroesophageal junction. Right upper extremity peripherally in serted central venous catheter (PICC) tip at the mid superior vena cava. Continued decrease in retrocardiac opacities at the left lower lung zone. No new airspace opacities, pulmonary edema, pleural effusion or pneumothorax. The cardiomediastinal silhouette is normal. IMPRESSION: 1. Endotracheal tube tip 6.6 cm above the lucius and consider advancement by 4 cm. 2. Nasogastric tube tip in the mid esophagus. Recommend advancement by 20 cm. 3. Decreasing opacities in the left lower lobe consistent with improving pneumonia and/or atelectasis . Reviewed, dictated and finalized at location A. NALISM INTERN IMPRESSION: 1. Endotracheal tube tip 6.6 cm above the lucius and consider advancement by 4 cm. 2. Nasogastric tube tip in the mid esophagus. Recommend advancement by 20 cm. 3. Decreasing opacities in the left lower lobe consistent with improving pneumo ricardo and/or atelectasis.
--- NOTE | ~2021-10-23 | CT_ITS ---
EXAMINATION: CT chest abdomen pelvis wo con DATE: 10/31/2021 18:40 INDICATION: Fever. TECHNIQUE: Computed tomography (CT) of the chest, abdomen, and pelvis was performed without intraveno us contrast. Automated exposure control and iterative reconstruction technique were employed. The dos e-length product was 1103.40 mGy-cm. COMPARISON: None FINDINGS: CHEST CT: There are small pleural effusions, right worse than left. There is smooth septal thickening bilateral ly, consistent with mild pulmonary edema. There is mild scarring at the lung apices. There are blebs in left lung apex. There is dependent atelectasis bilaterally. The endotracheal tube tip is in expect ed position above the lucius. The nasogastric tube tip is in the proximal duodenum. There is left atr ial enlargement of the heart. There are coronary artery calcifications. There is a small pericardial effusion. There is mild mediastinal lymphadenopathy, likely reactive. ABDOMEN/PELVIS CT: The liver and spleen are normal. There is contrast in the gallbladder, which is distended. The pancre as, adrenal glands, and kidneys are normal. There are no dilated loops of bowel. There is liquid stoo l in the colon suggestive of diarrhea. There is an endoscopy clip in the cecum. There are no patholog ically enlarged lymph nodes. There is no free intraperitoneal fluid. Pelvic floor relaxation is noted . Severe lumbar spondylosis. IMPRESSION: 1. Small pleural effusions, right worse than left, worsened from 10/23/21. 2. Mild pulmonary edema. 3. Nasogastric tube tip in the proximal duodenum. 4. Small pericardial effusion. 5. Mild mediastinal lymphadenopathy, likely reactive. 6. New gallbladder distention, which may secondary to fasting. Reviewed, dictated and finalized at location A. BATTLE MANAGER
--- NOTE | ~2021-10-23 | XR_ITS ---
EXAMINATION: XR chest 1V portable DATE: 11/17/2021 05:58 INDICATION: Respiratory failure. TECHNIQUE: A single frontal view of the chest was obtained. COMPARISON: Chest single view 11/16/2021, chest CT 11/13/2021 FINDINGS: There is a small right pleural effusion. There are airspace opacities in right mid and lowe r lung zones and left lower lung zone. No pneumothorax. Cardiomegaly is noted. There is a tracheostom y tube in expected position. IMPRESSION: 1. Stable small right pleural effusion. 2. Airspace opacities in right mid and lower lung zones and left lower lung zone with worsening on th e left, consistent with atelectasis versus pneumonia. 3. Cardiomegaly. Reviewed, dictated and finalized at location A. BEAM FITTER IMPRESSION: 1. Stable small right pleural effusion. 2. Airspace opacities in right mid and lower lung zones and left lower lung zon e with worsening on the left, consistent with atelectasis versus pneumonia. 3. Cardiomegaly.
--- NOTE | ~2021-10-23 | XR_ITS ---
EXAMINATION: XR chest 1V portable DATE: 11/03/2021 06:03 INDICATION: Respiratory failure. TECHNIQUE: A single frontal view of the chest was obtained. COMPARISON: Chest single view 10/30/2021, chest CT 10/31/2021 FINDINGS: There are mild airspace opacities in the lower lung zones. No pleural effusion or pneumotho rax. Cardiomegaly is noted. The endotracheal tube tip is 4.4 cm above the lucius. The nasogastric tub e tip is beyond the inferior margin of the radiograph, but at least to the stomach. A right upper ext remity peripherally inserted central venous catheter (PICC) is seen with tip in the right internal ju gular vein beyond the superior margin of the radiograph. IMPRESSION: 1. Stable mild airspace opacities in the lower lung zones, consistent with atelectasis versus pneumon ia. 2. Cardiomegaly. 3. PICC tip in the right internal jugular vein beyond the superior margin of the radiograph. Reviewed, dictated and finalized at location A. CLE FARE COLLECTOR IMPRESSION: 1. Stable mild airspace opacities in the lower lung zones, consistent with atel ectasis versus pneumonia. 2. Cardiomegaly. 3. PICC tip in the right internal jugular vein beyond the superior margin of th e radiograph.
--- NOTE | ~2021-10-23 | CT_ITS ---
EXAMINATION: CTA chest abdomen pelvis DATE: 10/23/2021 17:53 BARREL MAKER INDICATION: Chest and abdomen pain. Cardiopulmonary arrest. TECHNIQUE: Computed tomography (CT) of the chest, abdomen, and pelvis was performed with 100 cc Omnip aque 350 intravenous contrast. The dose-length product was 742.28 mGy-cm. Automated exposure control and iterative reconstruction technique were employed. COMPARISON: None FINDINGS: CHEST CT: There is an endotracheal tube present. NG tube in the stomach which is moderately distended with gas and fluid. There is mediastinal lymphadenopathy. There is right hilar lymphadenopathy. Small pleural effusions. Extensive bilateral airspace disease with patchy groundglass opacification, consistent wit h pneumonia. No endobronchial lesions. No pneumothorax. There is extensive interlobular septal thicke abram. There is lumbar spondylosis. No acute osseous abnormality. No focal lytic or blastic lesions. ABDOMEN/PELVIS CT: Fatty infiltration of the liver. Gallbladder is present. The spleen, pancreas, adrenal glands and kid neys are unremarkable. Nonobstructive bowel gas pattern. Small fat-containing umbilical hernia. Krishna catheter present in decompressed bladder. No abnormal pelvic masses or fluid collections. No free ai r or free fluid. IMPRESSION: 1. Extensive patchy bilateral airspace disease, compatible with pneumonia. 2: Mediastinal lymphadenopathy, likely reactive. 3: Small pleural effusions. Reviewed, dictated and finalized at location A. EL MAKER
--- NOTE | ~2021-10-23 | CT_ITS ---
EXAMINATION: CT brain wo con DATE: 10/23/2021 17:48 INDICATION: Status post fall. Head trauma. TECHNIQUE: Computed tomography (CT) of the head was performed without intravenous contrast. The dose- length product was 681.00 mGy-cm. Automated exposure control and iterative reconstruction technique w ere employed. COMPARISON: 10/16/2021 FINDINGS: No acute intracranial hemorrhage, infarction, mass or mass effect. Generalized atrophy. The re are scattered moderate periventricular and subcortical white matter changes, most likely related t o small vessel ischemic disease (microangiopathy). No ventriculomegaly or midline shift. Basilar cist erns are patent. Paranasal sinuses and mastoids are pneumatized. No depressed skull fractures. IMPRESSION: 1. No acute intracranial abnormality. 2: Chronic age-related findings. Reviewed, dictated and finalized at location A. SHER AND SANDER
--- NOTE | 2021-10-23 11:20 | ECG_ITS ---
Measurements Intervals [place] Rate: 115 P: 58 [place]: 170 QRS: 63 QRSD: 81 T: 51 QT: 321 QTc: 445 Interpretive Statements SINUS TACHYCARDIA POSSIBLE LEFT ATRIAL ENLARGEMENT BASELINE ARTIFACT- I, II, III, AVR, AVL, AVF, V1-V6 ABNORMAL ECG Electronically Signed On 10-23-2021 11:38:14 SHEEPSKIN PICKLER by Chi Abraham D.O.
[2021-10-23 11:41] LABS: Basophils Absolute Auto 0.1 K/mm3 (0.0-0.1); Basophils Percent Auto 0.6 % (0.2-1.2); Eosinophils Absolute Auto 0.2 K/mm3 (0-0.3); Eosinophils Percent Auto 1.4 % (0-4.4); Hematocrit 23.1 % (37.0-47.0); Immature Granulocyte Absolute 0.04 K/mm3 (0.00-0.031); Immature Granulocyte Percent A 0.4 % (0-0.5); Lymphocytes Absolute Auto 2.46 K/mm3 (0.9-3.2); Lymphocytes Percent Auto 22.7 % (18.3-44.2); Mean Corpuscular HGB Conc 27.7 g/dl (32-36); Mean Corpuscular Hemoglobin 19.2 pg (26-34); Mean Corpuscular Volume 69.4 fl (80-100); Mean Platelet Volume 10.1 fl (7.4-10.4); Monocytes Absolute Auto 0.7 K/mm3 (0.1-0.6); Monocytes Percent Auto 6.7 % (2.6-8.5); Neutrophils Absolute Auto 7.4 K/mm3 (1.3-6.7); Neutrophils Percent Auto 68.2 % (45.5-73.1); Platelet Count Result 486 k/mm3 (150-375); Red Blood Count 3.33 M/mm3 (4.2-5.4); Red Cell Distribution Width 19.3 % (11.5-14.5); White Blood Count 10.8 K/mm3 (4.5-10.0)
[2021-10-23 11:51] LABS: Alanine Aminotransferase 14 U/L (4-35); Albumin Level 4.3 g/dL (3.5-5.1); Alkaline Phosphatase 75 U/L (38-126); Anion Gap 10 mmol/L (8-16); Aspartate Amino Transferase 23 U/L (14-36); Bilirubin,Total 0.2 mg/dL (0.2-1.3); Blood Urea Nitrogen 17 mg/dL (7-17); Calcium 8.9 mg/dL (8.4-10.2); Carbon Dioxide 25 mmol/L (22-30); Chloride 100 mmol/L (98-107); Estimated Glomerular Filt Rate > 60; Glucose 255 mg/dL (65-110); Lipase 352 U/L (23-300); Potassium 3.8 mmol/L (3.4-5.0); Sodium 135 mmol/L (137-145)
[2021-10-23 11:52] LABS: Prothrombin Time 12.8 Seconds (11.1-14.7)
[2021-10-23 11:53] LABS: Partial Thromboplastin Time 26.5 SECONDS (22.3-36.8)
[2021-10-23 12:03] LABS: NT Pro B Type Natriuretic Pept 717 pg/mL (5-100); Troponin I 0.014 ng/mL (0.000-0.034)
[2021-10-23 12:10] LABS: Hemoglobin 6.4 g/dL (12.0-15.0)
[2021-10-23 12:11] LABS: Hypochromasia 3+ (NORMAL)
[2021-10-23 12:12] LABS: Large Platelets Present
[2021-10-23 12:13] LABS: Stomatocytes 2+ (NORMAL)
--- NOTE | 2021-10-23 12:22 | ED.CHESTPAIN ---
HPI - Chest Pain General Chief Complaint: Chest Pain Stated Complaint: CP Time Seen by Provider: 10/23/21 11:19 Source: patient History of Present Illness HPI narrative: Patient presents with chest pain. Reports her symptoms started last night she did monitor her symptoms at home they persisted this morning so she came to the ER for evaluation. Rates the pain as an achy sensation in the middle of her chest no clear aggravating or alleviating factors does not radiate down to her abdomen. She does report associated nausea but has not had emesis. She reports diarrhea since last night. She does note scant blood when she wipes. She report associated shortness of breath with her chest pain. She denies any lightheadedness or dizziness denies cough congestion or fevers Related Data Home Medications Medication Instructions Recorded Confirmed clonazepam 1 mg PO TID 10/23/21 10/23/21 cyclobenzaprine 10 mg PO TID PRN 10/23/21 10/23/21 dexlansoprazole [Dexilant] 60 mg PO DAILY 10/23/21 10/23/21 duloxetine 60 mg PO BID 10/23/21 10/23/21 ergocalciferol (vitamin D2) 50,000 unit PO WEEKLY 10/23/21 10/23/21 ezetimibe 10 mg PO DAILY 10/23/21 10/23/21 lancets [Accu-Chek Fastclix Lancet 10/23/21 10/23/21 Drum] lancets [Micro Thin Lancets] 10/23/21 10/23/21 lisinopril 40 mg PO DAILY 10/23/21 10/23/21 meclizine 25 mg PO TID PRN 10/23/21 10/23/21 metformin 1,000 mg PO BID 10/23/21 10/23/21 mirtazapine 30 mg PO HS 10/23/21 10/23/21 quetiapine 600 mg PO HS 10/23/21 10/23/21 sitagliptin [Januvia] 100 mg PO DAILY 10/23/21 10/23/21 triamcinolone acetonide 1 applic TOPICAL TID PRN 10/23/21 10/23/21 Allergies Allergy/AdvReac Type Severity Reaction Status Date / Time codeine Allergy Mild Hives Verified 10/23/21 14:49 Review of Systems Review of Systems: CONSTITUTIONAL: Denies fever, chills, or sweats. EYES: Denies visual changes, redness, or discharge. ENT: Denies rhinorrhea, congestion, sore throat, or otalgia. CARDIOVASCULAR: Denies palpitations, or edema. RESPIRATORY: Reports shortness of breath GASTROINTESTINAL: Denies abdominal pain, nausea, vomiting, or diarrhea. GENITOURINARY: Denies dysuria or hematuria. SKIN: Denies rash or itching. MUSCULOSKELETAL: Denies back pain, joint pain, or myalgia. NEUROLOGIC: Denies headache, numbness, dizziness, or weakness. PSYCHIATRIC: Denies anxiety or depression. All systems reviewed & are unremarkable except as noted in HPI and below PMFSH Past Medical History Medical History (Updated 10/23/21 @ 13:45 by Nikkie Graff PA-C) Anxiety Bipolar disorder Chronic obstructive pulmonary disease Depression Dyslipidemia Gastroesophageal reflux disease Hypertension Type 2 diabetes mellitus Social History Social History (Updated 10/23/21 @ 13:39 by Nikkie Graff PA-C) Social History: Surrogate decision maker: Code status: Smoking packs per day: 0.5 Smoking cigarettes per day: 10.0 Smoking status: Current every day smoker Alcohol intake: never Substance use: never Spiritual care concerns: No Exam Narrative: CONSTITUTIONAL: Denies fever, chills, or sweats. EYES: Denies visual changes, redness, or discharge. ENT: Denies rhinorrhea, congestion, sore throat, or otalgia. CARDIOVASCULAR: Denies chest pain, palpitations, or edema. RESPIRATORY: Denies cough or dyspnea. GASTROINTESTINAL: Reports abdominal pain nausea and diarrhea RECTA: Pit Shoveler present no obvious bleeding no melena guaiac is negative GENITOURINARY: Denies dysuria or hematuria. SKIN: Denies rash or itching. MUSCULOSKELETAL: Denies back pain, joint pain, or myalgia. NEUROLOGIC: Denies headache, numbness, dizziness, or weakness. PSYCHIATRIC: Denies anxiety or depression. Course Reevaluation(s) Reevaluation #1: Patient is resting comfortably reports feeling improved results reviewed with patient. Due to her anemia without clear etiology she will be admitted for further management. Patient is comfortable inpatie
[2021-10-23 13:02] LABS: Immature Reticulocyte Fraction 15.3 % (3.0-15.9); Reticulocyte Hemoglobin Conten 17.6 pg (28.2-35.7); Reticulocyte Percent 1.75 % (0.7-4.3); Reticulocytes Absolute 0.06 B/L (32.2-175.7)
[2021-10-23 13:13] LABS: Add Urine Microscopic? YES; Appearance Urine Clear (Clear); Bilirubin Urine Negative (Negative); Blood Urine Negative (Negative); Color Urine Yellow (Yellow); Glucose Urine UA 3+ mg/dL (Negative); Ketones Urine Negative (Negative); Leukocyte Esterase Ur Negative LEU/UL (Negative); Nitrate Urine Negative (Negative); Protein Urine Negative (Negative); RBC Urine 0-2 /hpf (0-2); Specific Grav Ur 1.016 (1.001-1.035); Squamous Epithelial Cell Urine Rare /hpf (Few); Urobilinogen Urine Negative mg/dL (<2.0); WBC Urine 0-3 /hpf
[2021-10-23 13:17] LABS: Lactate Dehydrogenase 422 U/L (313-618)
[2021-10-23 13:17] LABS: Lactic Acid Reflex 3.5 mmol/L (0.7-2.1)
[2021-10-23 13:29] LABS: Iron 11 ug/dL (37-170)
[2021-10-23 13:38] LABS: Percent Iron Saturation 2 % (20-50)
--- NOTE | 2021-10-23 13:57 | PC.NURSE ---
Rocephin was started after blood cultures were drawn.
[2021-10-23 14:05] LABS: Ferritin 4.38 ng/mL (11.1-264)
[2021-10-23 14:15] LABS: Transferrin 350 mg/dL (206-381)
--- NOTE | 2021-10-23 14:31 | ADMGEN ---
This patient, Albertina Orlando, was admitted to [facility] Surg Room 305-01. Patient/family oriented to hospital policies and general routines including ID bracelet, bed and alarms, visiting hours, pain management, procedures, bathroom and other care routines, personal items, smoking policy, room service/diet, and visiting hours. Information on how to activate the Rapid Response Team has been discussed. Patient/Family are encouraged to report perceived risks to care and to ask questions if they do not understand what they are told or what they should do.
[2021-10-23 15:28] LABS: Lactic Acid Reflex 3.9 mmol/L (0.7-2.1)
[2021-10-23 15:33] LABS: CRP < 0.5 mg/dL (<1.0)
[2021-10-23 15:42] LABS: Hemoglobin A1C 6.9 % (<5.7)
[2021-10-23 15:44] LABS: Troponin I 0.058 ng/mL (0.000-0.034)
[2021-10-23 15:55] LABS: Reflex Lactic Acid Yes or No Add Lactic
--- NOTE | 2021-10-23 16:21 | ECG_ITS ---
Measurements Intervals [place] Rate: 74 P: 51 [place]: 186 QRS: 44 QRSD: 81 T: 55 QT: 410 QTc: 457 Interpretive Statements SINUS RHYTHM BASELINE ARTIFACT- I, II, III, AVR, AVL, V1-V2, V4-V6 NORMAL ECG Electronically Signed On 10-27-2021 17:48:29 HELP DESK REPRESENTATIVE by Chi Abraham D.O.
[2021-10-23 16:45] LABS: Glucose Point of Care 279 mg/dl (65-105)
[2021-10-23 16:48] LABS: Lactic Acid 4.8 mmol/L (0.7-2.1)
--- NOTE | 2021-10-23 16:50 | PDCODEBLUE ---
Code Blue Note Code Blue Note Time Arrived at Code Blue: 16:51 Initial Rhythm on Arrival: PEA. Airway Management: Pt intubated during resuscitation Chest Compressions: In process on arrival to bedside Result of Code Blue: Pt transferred to ICU Cardiac Rhythm Post Code: Sinus rhythm. Code Blue Summary: A rapid response was called overhead as the patient was found bradycardic, minimally responsive, and with agonal breathing. Shortly thereafter the nurse was unable to palpate a pulse and at 16:50 and a code blue was called. I was in route to the room at that time and arrived within a minute or less. On arrival I found CPR in progress and was told that the patient had been in PEA. She received 1 mg of epinephrine and had return of spontaneous circulation within a couple of minutes. She was intubated easily, atraumatically, and on 1st attempt using direct laryngoscopy by myself. Patient was stabilized and transferred to the ICU after discussing the case with Dr. Young. Dr. Singh, attending ED physician, was at bedside during the code.
--- NOTE | 2021-10-23 17:00 | WPDPROCEDUR ---
Procedures Intubation Intubation Date: 10/23/21 <JOHNNIE Chester Last Filed: 10/23/21 19:14> Intubation Time: 17:00 <JOHNNIE Chester Last Filed: 10/23/21 19:14> Consent: Performed emergently. <JOHNNIE Chester Last Filed: 10/23/21 19:14> A pre-procedural Time-Out was completed immediately before starting the procedure and confirmed: Patient Identification, Site, Procedure, Patient Position and the Availability of Requisite Equipment: Yes <JOHNNIE Chester Last Filed: 10/23/21 19:14> Sedative: etomidate <JOHNNIE Chester Last Filed: 10/23/21 19:14> Mg given: 15 <JOHNNIE Chester Last Filed: 10/23/21 19:14> Mg given: 80 <JOHNNIE Chester Last Filed: 10/23/21 19:14> Laryngoscope: Edward (3) <JOHNNIE Chester Last Filed: 10/23/21 19:14> ET tube size: 7.5 <JOHNNIE Chester Last Filed: 10/23/21 19:14> Tube secured depth (cm): 22 <JOHNNIE Chester Last Filed: 10/23/21 19:14> Tube secured location: teeth <JOHNNIE Chester Last Filed: 10/23/21 19:14> Tube placement confirmation: visualized tube passing through cords, equal breath sounds bilaterally, no breath sounds over epigastrium and confirmation by capnometry <JOHNNIE Chester Last Filed: 10/23/21 19:14> Patient tolerated procedure: well <JOHNNIE Chester Last Filed: 10/23/21 19:14> Intubation complications: none <JOHNNIE Chester Last Filed: 10/23/21 19:14> Additional comments: Chest x-ray shows ET tube about 4 cm above the lucius. Ventilator management as per human resources manager manufacturing. Dr. Julio Singh, attending ED physician, was at bedside. <Nikkie Graff PA-C - Last Filed: 10/23/21 19:14>
--- NOTE | 2021-10-23 17:00 | PM.IMHP ---
H&P: HPI History of Present Illness Date/Time: 10/23/21 17:00 Chief Complaint: Chest pain. Narrative: This is a 66-year-old female smoker with hypertension, diabetes, GERD, COPD, and depression who presented to the emergency department earlier today via EMS from home for evaluation of chest pain. I did not have my 1st encounter with the patient until she was found unresponsive and thus all of the following history is obtained via a review of her electronic medical records as well as discussions with her daughter Zeinab and son-in-law Ephraim. The patient lives in her own home and it sounds as though she is very reclusive and typically only interacts with her family and her neighbors. She is independent of activities of daily living however her daughter reports that she has had frequent falls over the last couple of years, most recently on 10/16/2021 in which she was seen in the emergency department after she fell while out walking her dog. At that time she reportedly bent over to brain picker her dogs waste and she fell to the sidewalk, hitting her head with possible brief loss of consciousness. She has not complained to family members since that time of any new issues however Zeinab reports that the patient has frequent chest and abdominal pain. In fact she has had an order for stress test for nearly 2 years though she has been reluctant to go have it done. Zeinab has never heard her complain of exertional chest pain or shortness of breath, however. According to the ED physician documentation, the patient began having chest pain sometime last evening which she described as an aching sensation in the mid chest with some nausea and mild shortness of breath. She was found to be profoundly anemic with a hemoglobin of 6.4 and a subsequent rectal exam was reportedly negative for occult blood. With further questioning Zeinab does report that her mother has a history of ulcers in the past for which she takes dexlansoprazole although she frequently has difficulties refilling that with the pharmacy and she seems to miss a week of medication due to delays each month. In any regard the patient was admitted to the medical floor for transfusion and further evaluation. I received a phone call from the patient's nurse at around 15:35 with reports of the patient's blood pressure being 177/91 as well as audible wheezing. When I returned the phone call the nurse then reported that the patient was once again complaining of chest pain and a stat troponin and EKG were ordered. Approximately 20 minutes thereafter a rapid response was called overhead to the patient's room and shortly before I entered the room the call was changed to a code blue. According to the nurse she had become bradycardic for several minutes prior to the arrest and she seemed to be very agitated and restless. Return of spontaneous circulation was obtained within a couple of minutes and she did receive 1 mg of epinephrine and an amp of bicarb during CPR. She was following commands within approximately 15 minutes thereafter and she has since been moved to the ICU. She is able to shake her head no when questioned if she has any pain with palpation of the chest and abdomen. According to family members, she has no known history of cardiac disease, dysrhythmia, or venous thromboembolism. Review of Systems Review of Systems: Unable to be obtained accurately as she is intubated and now sedated. [facility] Past Medical History Medical History (Updated 10/23/21 @ 22:16 by Nikkie Graff PA-C) Anxiety Bipolar disorder Chronic obstructive pulmonary disease Depression Dyslipidemia Gastroesophageal reflux disease Hypertension Posttraumatic stress disorder Suicide attempt by drug ingestion 16 years ago. Tobacco dependence Type 2 diabetes mellitus Surgical History Surgical History (Updated 10/23/21 @ 21:52 by Nikkie Graff PA-C) No pertinent past surgical history Family History Family History (Updated 10/23/21 @ 21:52 by Malachi
--- NOTE | 2021-10-23 17:47 | PC.NURSE ---
4:48 pm went into room to administer blood. patient found unresponsive, agonial breathing, faint pulse in the 40. rapid response called. unable to find a pulse at 4:50 pm and code blue called. Zeinab, patient's daughter and POA notified. Questions answered at this time. patient intubated and moved to ICU 2. Report given to Angelica in ICU. Son in law Gimenez in waiting room and update given.
[2021-10-23 18:05] LABS: Basophils Absolute Auto 0.1 K/mm3 (0.0-0.1); Basophils Percent Auto 0.3 % (0.2-1.2); Eosinophils Percent Auto 0.1 % (0-4.4); Immature Granulocyte Absolute 0.46 K/mm3 (0.00-0.031); Immature Granulocyte Percent A 2.2 % (0-0.5); Lymphocytes Absolute Auto 1.83 K/mm3 (0.9-3.2); Lymphocytes Percent Auto 8.7 % (18.3-44.2); Mean Corpuscular HGB Conc 27.1 g/dl (32-36); Mean Corpuscular Hemoglobin 19.3 pg (26-34); Mean Corpuscular Volume 71.2 fl (80-100); Monocytes Percent Auto 4.7 % (2.6-8.5); Neutrophils Absolute Auto 17.7 K/mm3 (1.3-6.7); Platelet Count Result 482 k/mm3 (150-375); Red Blood Count 2.85 M/mm3 (4.2-5.4); Red Cell Distribution Width 18.9 % (11.5-14.5); White Blood Count 21.1 K/mm3 (4.5-10.0)
[2021-10-23 18:09] LABS: Fractional Inspired Oxygen 70 %; HCO3 ABG 17.7 mEq/l (22.0-26.0); Methemoglobin ABG 0.4 %THb (0-1.5); Oxygen Content ABG 8.4 %vol (16.0-22.0); Oxygen Saturation ABG 97.1 % (95.0-100.0); Oxyhemoglobin 94.6 % THb (90.0-100.0); PCO2 ABG 42.5 mmHg (35.0-45.0); PO2 ABG 108.4 mmHg (80.0-100.0); PO2 FiO2 Ratio Arterial Blood 1.55 %
[2021-10-23 18:10] LABS: pH ABG 7.237 (7.350-7.450)
[2021-10-23 18:11] LABS: Arterial Blood Gas PEEP 5 cmH2O; Arterial Blood Gas Tidal Volume 350 ml; Arterial Blood Gas Vent Mode CMV; Arterial Blood Gas Ventilator rate 18 /MIN; Device VENTILATOR; Modified Allen's Test Pass; Site Drawn LEFT RADIAL; Total Hemoglobin 6.1 g/dL (12.0-18.0)
[2021-10-23 18:15] LABS: INR 1.2; Prothrombin Time 15.1 Seconds (11.1-14.7)
[2021-10-23] MEDS: MIDAZOLAM 100MG/NS 100ML(*CRX) 100 MG/100 ML BAG IV CONT (18:19)
[2021-10-23 18:20] LABS: Alanine Aminotransferase 37 U/L (4-35); Albumin Level 3.5 g/dL (3.5-5.1); Alkaline Phosphatase 69 U/L (38-126); Anion Gap 13 mmol/L (8-16); Aspartate Amino Transferase 55 U/L (14-36); Bilirubin,Total 0.2 mg/dL (0.2-1.3); Blood Urea Nitrogen 15 mg/dL (7-17); Calcium 7.8 mg/dL (8.4-10.2); Carbon Dioxide 19 mmol/L (22-30); Chloride 98 mmol/L (98-107); Estimated CRCL calculation 62 ml/min; Estimated Glomerular Filt Rate > 60; Glucose 353 mg/dL (65-110); Magnesium 1.5 mg/dL (1.6-2.3); Phosphorus 4.5 mg/dL (2.5-4.5); Potassium 3.8 mmol/L (3.4-5.0); Sodium 130 mmol/L (137-145)
[2021-10-23 18:21] LABS: Lactic Acid Reflex 8.4 mmol/L (0.7-2.1)
[2021-10-23] MEDS: FENTANYL 2,500MCG/NS250ML(*CRX 2,500 MCG/250 ML BAG 15 MCG IV CONT (18:21)
[2021-10-23 18:34] LABS: Hematocrit 20.3 % (37.0-47.0); Hemoglobin 5.5 g/dL (12.0-15.0)
[2021-10-23 18:35] LABS: Hypochromasia 2+ (NORMAL); Ovalocytes 1+ (NORMAL); Platelet Estimate Increased (Adequate)
[2021-10-23 18:36] LABS: Anisocytosis 1+ (NORMAL); Target Cells 1+ (NORMAL)
[2021-10-23 18:36] LABS: Troponin I 0.047 ng/mL (0.000-0.034)
--- NOTE | 2021-10-23 18:40 | PC.NURSE ---
This patient, Albertina Orlando, was received from [[id number]] on 10/23/21 at 1715. Patient/family oriented to unit policies and routines
[2021-10-23] MEDS: LACTATED RINGERS 1,000 ML 999 ML IV CONT (19:06)
[2021-10-23] MEDS: MAGNESIUM SULF 2 GM/WATER 50ML 2 GM/50 ML BAG IVPB (20:03)
[2021-10-23] MEDS: MINERAL OIL/WHITE PETROLATUM OINTMENT 1 APPLIC EACH EYE (20:03)
[2021-10-23] MEDS: PANTOPRAZOLE SODIUM IV 40 MG VIAL IV PUSH (20:03)
[2021-10-23] MEDS: INSULIN ASPART (*BKC) 100 UNITS/ML 8 UNITS SUB-Q (20:04)
[2021-10-23 22:21] LABS: Alveolar/Arterial O2 Gradient 157.4 mmHg; Base Excess ABG -0.5 mEq/l (+/-2.0); Carboxyhemoglobin 0.2 % THb (0-2.0); Fractional Inspired Oxygen 40 %; HCO3 ABG 25.9 mEq/l (22.0-26.0); Methemoglobin ABG 0.3 %THb (0-1.5); Oxygen Content ABG 9.3 %vol (16.0-22.0); Oxygen Saturation ABG 91.2 % (95.0-100.0); Oxyhemoglobin 90.5 % THb (90.0-100.0); PO2 ABG 66.9 mmHg (80.0-100.0); PO2 FiO2 Ratio Arterial Blood 1.67 %; pH ABG 7.307 (7.350-7.450)
[2021-10-23 22:26] LABS: Total Hemoglobin 7.2 g/dL (12.0-18.0)
[2021-10-23 22:27] LABS: Arterial Blood Gas Vent Mode CMV; Arterial Blood Gas Ventilator rate 18 /MIN; Device VENTILATOR; Modified Allen's Test Pass; Site Drawn RIGHT RADIAL
[2021-10-23 22:28] LABS: Arterial Blood Gas PEEP 5 cmH2O; Arterial Blood Gas Tidal Volume 350 ml
[2021-10-23 22:49] LABS: NT Pro B Type Natriuretic Pept 1070 pg/mL (5-100)
[2021-10-24] VITALS (41 sets, daily range): BP systolic 101–158; BP diastolic 46–78; PULSE 61–92; RESP 13–23; TEMP 36.1–37.6; O2SAT 92–100
[2021-10-24 00:07] LABS: Amphetamine Screen Urine Negative (Negative); Barbiturate Screen Urine Negative (Negative); Benzodiazepines Screen Urine Positive (Negative); Cannabinoid Screen Urine Negative (Negative); Cocaine Screen Urine Negative (Negative); Methadone Screen Urine Negative (Negative); Opiate Screen Urine Negative (Negative); Phencyclidine Screen Urine Negative (Negative)
[2021-10-24 00:15] LABS: Glucose Point of Care 91 mg/dl (65-105)
[2021-10-24 02:44] LABS: Hemoglobin 7.6 g/dL (12.0-15.0); Mean Corpuscular HGB Conc 29.2 g/dl (32-36); Mean Corpuscular Hemoglobin 22.2 pg (26-34); Mean Corpuscular Volume 75.8 fl (80-100); Mean Platelet Volume 10.1 fl (7.4-10.4); Platelet Count Result 339 k/mm3 (150-375); Red Blood Count 3.43 M/mm3 (4.2-5.4); Red Cell Distribution Width 22.5 % (11.5-14.5)
[2021-10-24 02:54] LABS: Lactic Acid Reflex 1.1 mmol/L (0.7-2.1)
[2021-10-24 02:56] LABS: Anion Gap 3 mmol/L (8-16); Blood Urea Nitrogen 16 mg/dL (7-17); CRP 0.9 mg/dL (<1.0); Calcium 8.3 mg/dL (8.4-10.2); Carbon Dioxide 30 mmol/L (22-30); Chloride 103 mmol/L (98-107); Estimated CRCL calculation 62 ml/min; Estimated Glomerular Filt Rate > 60; Glucose 71 mg/dL (65-110); Lipase 38 U/L (23-300); Magnesium 2.3 mg/dL (1.6-2.3); Potassium 4.2 mmol/L (3.4-5.0); Sodium 136 mmol/L (137-145)
[2021-10-24 05:11] LABS: Alveolar/Arterial O2 Gradient 149.6 mmHg; Base Excess ABG -2.1 mEq/l (+/-2.0); Fractional Inspired Oxygen 40 %; HCO3 ABG 24.9 mEq/l (22.0-26.0); Methemoglobin ABG 0.3 %THb (0-1.5); Oxygen Content ABG 11.5 %vol (16.0-22.0); Oxygen Saturation ABG 92.5 % (95.0-100.0); Oxyhemoglobin 92.1 % THb (90.0-100.0); PCO2 ABG 54.5 mmHg (35.0-45.0); PO2 ABG 72.9 mmHg (80.0-100.0); PO2 FiO2 Ratio Arterial Blood 1.82 %; Reduced Hemoglobin 7.6 %THb (0-5.0); Total Hemoglobin 8.8 g/dL (12.0-18.0)
[2021-10-24 05:13] LABS: Device VENTILATOR; Site Drawn RIGHT RADIAL; pH ABG 7.278 (7.350-7.450)
[2021-10-24 05:14] LABS: Arterial Blood Gas PEEP 5 cmH2O; Arterial Blood Gas Tidal Volume 350 ml; Arterial Blood Gas Vent Mode CMV; Arterial Blood Gas Ventilator rate 18 /MIN
[2021-10-24 06:34] LABS: Glucose Point of Care 96 mg/dl (65-105)
[2021-10-24] MEDS: IPRATROPIUM BR 0.02% INH SOLN 0.5 MG/2.5 ML VIAL INHALATION ×2 (08:07→20:00)
[2021-10-24] MEDS: ALBUTEROL SULFATE NEB 2.5 MG/0.5 ML INH INHALATION ×2 (08:07→20:00)
[2021-10-24] MEDS: FENTANYL 2,500MCG/NS250ML(*CRX 2,500 MCG/250 ML BAG 17.5 MCG IV CONT (08:27)
[2021-10-24] MEDS: MINERAL OIL/WHITE PETROLATUM OINTMENT 1 APPLIC EACH EYE ×2 (08:31→20:31)
[2021-10-24] MEDS: PANTOPRAZOLE SODIUM IV 40 MG VIAL IV PUSH ×2 (08:31→20:30)
[2021-10-24 08:54] LABS: Troponin I 0.148 ng/mL (0.000-0.034)
[2021-10-24] MEDS: MIDAZOLAM 100MG/NS 100ML(*CRX) 100 MG/100 ML BAG IV CONT (09:27)
--- NOTE | 2021-10-24 09:30 | WPDCNINT ---
Assessment and Plan Assessment and plan (1) Cardiopulmonary arrest with successful resuscitation: Code(s): I46.9 - Cardiac arrest, cause unspecified Status: Acute Assessment and Plan: Patient with cardiopulmonary arrest with successful ROSC after 1 round of epinephrine and 1 amp of bicarb along with CPR. -patient was following commands post ROSC, not a candidate for targeted temperature management/hypothermia -could be multifactorial, proxy a versus coronary artery disease versus severe anemia. -troponins are elevated, -patient currently hemodynamically stable -echocardiogram was done this morning to evaluate wall motion abnormality and cardiac function, report is pending, (2) Chest pain: Qualifiers: Chest pain type: unspecified Qualified Code(s): R07.9 - Chest pain, unspecified Code(s): R07.9 - Chest pain, unspecified Status: Acute Assessment and Plan: Patient presented with chest pain, shortness of breath, nausea with no vomiting, -elevated troponin, could be related to ischemic event versus cardiac arrest and CPR this was very brief -EKG did not show any ST-T changes -cardiology has been consulted (3) Acute respiratory failure: Code(s): J96.00 - Acute respiratory failure, unspecified whether with hypoxia or hypercapnia Status: Acute Assessment and Plan: Acute respiratory failure likely related to cardiac arrest 09/22/2021: CTA chest abdomen and pelvis showed extensive patchy bilateral airspace disease compatible with pneumonia, mediastinal lymphadenopathy, likely reactive, small pleural effusions. -patient has been started on azithromycin, ceftriaxone, vancomycin -currently on CMV mode of ventilation, peep of 5, 40% FiO2 -continue bronchodilators -diurese patient today -sedated with fentanyl and Versed, daily sedation vacation (4) Suspected 2019 novel coronavirus infection: Code(s): Z20.822 - Contact with and (suspected) exposure to COVID-19 Status: Acute Assessment and Plan: Chest x-ray and CTA chest shows extensive patchy bilateral airspace disease -SARS-CoV-2 PCR has been ordered and pending -LDH and to is within normal limits -CRP <0.5 -continue airborne, droplet, contact isolation/precautions (5) Abnormal finding on lung imaging: Code(s): R91.8 - Other nonspecific abnormal finding of lung field Status: Acute Assessment and Plan: Chest x-ray a showed cardiomegaly with interstitial edema, cannot exclude superimposed pneumonia 10/23/2021: CTA chest showed extensive patchy bilateral airspace disease compatible with pneumonia, mediastinal lymphadenopathy, likely reactive, small pleural effusion Patient has been started on azithromycin, ceftriaxone and vancomycin (initiated on 10/23/2020) (6) Anemia: Qualifiers: Anemia type: unspecified type Qualified Code(s): D64.9 - Anemia, unspecified Code(s): D64.9 - Anemia, unspecified Status: Acute Assessment and Plan: Patient presented with anemia could be related to GI bleed -hemoglobin on admission was 5.5, received 2 units of packed RBCs on 10/23/2021: Repeat hemoglobin this morning is 7.6 -patient has been started on Protonix IV q.12 hours -GI has been consulted (7) GI bleed: Code(s): K92.2 - Gastrointestinal hemorrhage, unspecified Status: Acute Assessment and Plan: According the records patient did have some blood streaking when she was wiping her stool -anemia as above (8) COPD (chronic obstructive pulmonary disease): Code(s): J44.9 - Chronic obstructive pulmonary disease, unspecified Status: Acute Assessment and Plan: Patient with history of COPD, will continue bronchodilators and antibiotics. Patient on mechanical ventilator at this time (9) Diabetes: Code(s): E11.9 - Type 2 diabetes mellitus without complications Status: Acute Assessment and Plan: Accu-Cheks and sliding scale insul
[2021-10-24] MEDS: FUROSEMIDE INJ 40 MG/4 ML VIAL IV PUSH (11:09)
[2021-10-24 11:51] LABS: Glucose Point of Care 115 mg/dl (65-105)
--- NOTE | 2021-10-24 12:33 | PM.CNCAR ---
Assessment and Plan Additional Plan NSTEMI, elevated trop likely related to acute anemia and cardiac arrest but could be secondary to NSTEMI, plan rule out acute bleeding and correct HGB to > 8 gm/dL, cont track troponin, TTE, LHC after diagnosis of her acute anemia History of Present Illness History of Present Illness Consult date/time: 10/24/21 12:33 Consult reason: Other (cardiac arrest) Reason For Visit: Anemia Narrative: Patient presented to hospital with chest pain last evening, aching sensation in mid chest and presented to ER where she was found to have severe anemia with HGB 6.4. Soon after admission she was found to have bradycardia followed by cardiac arrest for few minutes. She had PEA arrest. currently she is in ICU and intubated. Review of Systems Review of Systems: All systems reviewed & are unremarkable except as noted in HPI and below ROS unobtainable: Yes unobtainable due to endotracheal tube and unobtainable due to mental status PMFSH Past Medical History Medical History (Updated 10/24/21 @ 11:13 by Vane Young MD) Anxiety Bipolar disorder Chronic obstructive pulmonary disease Depression Dyslipidemia Gastroesophageal reflux disease Hypertension Posttraumatic stress disorder Suicide attempt by drug ingestion 16 years ago. Tobacco dependence Type 2 diabetes mellitus Surgical History Surgical History (Updated 10/23/21 @ 21:52 by Nikkie Graff PA-C) No pertinent past surgical history Family History Family History (Updated 10/23/21 @ 21:52 by Nikkie Graff PA-C) Mother Acute myocardial infarction Social History Social History (Updated 10/23/21 @ 21:53 by Nikkie Graff PA-C) Social History: Surrogate decision maker: Zeinab Carvalho, daughter. Code status: Full code. Smoking packs per day: 1 Smoking cigarettes per day: 20.0 Smoking status: Current every day smoker Alcohol intake: never Substance use: never Additional living arrangements comments: The patient lives in her own home in [place]. Additional occupation/education comments: Retired. Meds Home Medications and Allergies Home Medications Medication Instructions Recorded Confirmed Type clonazepam 1 mg PO TID 10/23/21 10/23/21 History cyclobenzaprine 10 mg PO TID PRN 10/23/21 10/23/21 History dexlansoprazole [Dexilant] 60 mg PO DAILY 10/23/21 10/23/21 History duloxetine 60 mg PO BID 10/23/21 10/23/21 History ergocalciferol (vitamin D2) 50,000 unit PO WEEKLY 10/23/21 10/23/21 History ezetimibe 10 mg PO DAILY 10/23/21 10/23/21 History lancets [Accu-Chek Fastclix Lancet 10/23/21 10/23/21 History Drum] lancets [Micro Thin Lancets] 10/23/21 10/23/21 History lisinopril 40 mg PO DAILY 10/23/21 10/23/21 History meclizine 25 mg PO TID PRN 10/23/21 10/23/21 History metformin 1,000 mg PO BID 10/23/21 10/23/21 History mirtazapine 30 mg PO HS 10/23/21 10/23/21 History quetiapine 600 mg PO HS 10/23/21 10/23/21 History sitagliptin [Januvia] 100 mg PO DAILY 10/23/21 10/23/21 History triamcinolone acetonide 1 applic TOPICAL TID PRN 10/23/21 10/23/21 History Allergies Allergy/AdvReac Type Severity Reaction Status Date / Time codeine Allergy Mild Hives Verified 10/23/21 14:49 Vital Signs Vital Signs - 24 hr 10/23/21 12:45 10/23/21 13:00 10/23/21 13:01 Temperature Pulse Rate 104 H 105 H 104 H Respiratory Rate 29 H 21 H 17 Blood Pressure 182/93 H Pulse Oximetry 98 100 100 10/23/21 13:15 10/23/21 13:30 10/23/21 13:45 Temperature Pulse Rate 105 H 105 H 102 H Respiratory Rate 18 21 H 20 Blood Pressure Pulse Oximetry 97 98 98 10/23/21 15:16 10/23/21 16:00 10/23/21 17:20 Temperature 36.6 C Pulse Rate 109 H 120 H 104 H Respiratory Rate 16 Blood Pressure 177/91 H Pulse Oximetry 96 100 10/23/21 18:09 10/23/21 18:19 10/23/21 18:21 Temperature 36.9 C Pulse Rate 101 H 95 94 Respiratory Rate 27 H 9 L 20 Blood Pressure 163/70 H Pulse Oximetry
[2021-10-24] MEDS: PROPOFOL IV EMULSION 100 ML 2.08 MG IV CONT (12:55)
--- NOTE | 2021-10-24 13:35 | WPDGICN ---
Assessment and Plan Assessment and plan (1) Acute blood loss anemia: Code(s): D62 - Acute posthemorrhagic anemia Status: Acute Assessment and Plan: no overt gib, she had recent cardiac arrest and intubated we will continue to monitor and based on clinical course we will decide when/if need to proceed with endoscopic evaluation she is also on isolation for possible COVID (reviewed CT scan findings) (2) GI bleed: Code(s): K92.2 - Gastrointestinal hemorrhage, unspecified Status: Acute Assessment and Plan: report of small amount blood after wiping but no overt gib here hb responded appropriately to blood transfusion trend h/h iv protonix (3) Acute respiratory failure: Code(s): J96.00 - Acute respiratory failure, unspecified whether with hypoxia or hypercapnia Status: Acute Assessment and Plan: intubated, also pneumonia, ? COVID (4) Suspected 2019 novel coronavirus infection: Code(s): Z20.822 - Contact with and (suspected) exposure to COVID-19 Status: Acute (5) Lactic acidosis: Code(s): E87.2 - Acidosis Status: Acute Assessment and Plan: resolved, s/p cardiac arrest (6) Nausea: Code(s): R11.0 - Nausea Status: Acute (7) Pneumonia: Code(s): J18.9 - Pneumonia, unspecified organism Status: Acute (8) Cardiopulmonary arrest with successful resuscitation: Code(s): I46.9 - Cardiac arrest, cause unspecified Status: Acute Assessment and Plan: ring attacher and cardiology on board (9) Chronic obstructive pulmonary disease: Code(s): J44.9 - Chronic obstructive pulmonary disease, unspecified Status: Acute GI Consult Note Consult date/time: 10/24/21 13:35 Reason for consult: severe anemia HPI: Albertina Orlando is a 66 year old female with past medical history of anxiety, bipolar disorder, chronic obstructive pulmonary disease, essential hypertension, type 2 diabetes, tobacco dependence admitted on 10/23 with complains of chest pain, also nausea but no vomiting, also some diarrhea and scant blood after wiping (history obtained from records as she is intubated now). ED evaluated found severe anemia with hemoglobin of 5.5. INR was 1.0, proBNP was 717, lipase 352 then admitted to the medical floor for blood transfusion where she had more chest pain, EKG showed sinus tachycardia with no ST-T changes. There was a rapid response and after that patient was bradycardic and lost a pulse with cardiac arrest, return pulse within couple of minutes after 1 round of epinephrine and an amp of bicarb, she also was intubated and transferred to ICU. CT scan of the brain did not show any acute intracranial abnormalities. CTA chest abdomen and pelvis reviewed, showed extensive patchy bilateral airspace disease compatible with pneumonia, mediastinal lymphadenopathy, likely reactive, small pleural effusions. She is on isolation for COVID (did not get vaccine), she is sedated, not requiring pressors and RN has not seen obvious bleeding. She responded appropriately to blood transfusion. Lactic acid is 1.1 (from 8.4 post arrest), hb 7.7 Review of Systems Constitutional: Constitutional: Reports weakness Eyes: Eyes: Reports no additional eye complaints ENT: Reports system reviewed and no additional complaints, except as documented Cardiovascular: Cardiovascular: Reports chest pain Respiratory: Respiratory: Denies cough Gastrointestinal: Gastrointestinal: Reports abdominal pain and Reports nausea Genitourinary: Genitourinary: Denies hematuria Musculoskeletal: Musculoskeletal: Reports no additional musculoskeletal complaints Integumentary/Breasts: Skin/Breast: Reports system reviewed and no additional complaints, except as docu Neurologic: Reports system reviewed and no additional complaints, except as documented Psychiatric: Psychiatric: Reports no additional psychiatric complaints PMFSH Past Medical History
[2021-10-24 15:04] LABS: Hematocrit 26.6 % (37.0-47.0); Hemoglobin 7.7 g/dL (12.0-15.0)
[2021-10-24 17:48] LABS: Glucose Point of Care 123 mg/dl (65-105)
[2021-10-24 19:57] LABS: SARS-CoV-2 RNA PCR Negative
[2021-10-24 20:12] LABS: Hematocrit 24.9 % (37.0-47.0); Hemoglobin 7.6 g/dL (12.0-15.0)
[2021-10-24] MEDS: PROPOFOL IV EMULSION 100 ML 12.46 MG IV CONT (20:31)
[2021-10-24] MEDS: FENTANYL 2,500MCG/NS250ML(*CRX 2,500 MCG/250 ML BAG 20 MCG IV CONT (20:32)
--- NOTE | 2021-10-24 22:19 | ECHO_ITS ---
Patient Info Name: Albertina Orlando Age: 66 years : 1955 Gender: Female Ht: 62 in Wt: 150 lbs BSA: 1.74 m2 HR: 87 bpm BP: 107 / 56 mmHg Technical Quality: Poor Exam Date: 10/24/2021 8:37 AM Exam Location: [facility] Patient Status: Outpatient Admit Date: 10/23/2021 Staff Ordering Physician: Nikkie Graff PA-C Glass Sagger: Holly Castro RDCS Attending Provider: Nam Reddy MD Referring Physician: Dajuan WAITE; Exam Type: CA echo dop color flow w con Study Info Indications R07.89 - Other chest pain Complete two-dimensional, color flow and Doppler transthoracic echocardiogram is performed with contrast to opacify the left ventricle and to improve the deliniation of the left ventricle endocardial borders. Contrast/Agitated Saline Contrast/Ag. Saline: Definity Amount: 4.00 ml Summary 1. Left ventricular chamber dimension is normal. 2. Left ventricular systolic function is normal, estimated at >70%. 3. There is no increased left ventricular wall thickness. 4. Left ventricular septal wall motion is normal. 5. The left ventricular diastolic function is grade II diastolic dysfunction. 6. Right ventricular chamber dimension is normal. 7. Right ventricular systolic function is normal. 8. Left atrial chamber dimension is severely enlarged. 9. There is mild to moderate mitral valve regurgitation. Left Ventricle Left ventricular chamber dimension is normal. Left ventricular systolic function is normal, estimated at >70%. There is no increased left ventricular wall thickness. Left ventricular septal wall motion is normal. The left ventricular diastolic function is grade II diastolic dysfunction. Right Ventricle Right ventricular chamber dimension is normal. Right ventricular systolic function is normal. Left Atria Left atrial chamber dimension is severely enlarged. Right Atria Right atrial chamber dimension is normal. Aortic Valve The aortic valve is trileaflet. There is no aortic valve sclerosis. There is no aortic valve stenosis. There is no aortic valve regurgitation. Pulmonic Valve There is no pulmonic valve stenosis. There is no pulmonic regurgitation. Pulmonary valve is not well visualized. Mitral Valve The mitral valve has normal leaflets. There is no mitral valve stenosis. There is mild to moderate mitral valve regurgitation. Tricuspid Valve The tricuspid valve is not well visualized. There is no significant tricuspid valve stenosis. There is mild tricuspid valve regurgitation. Left Ventricular Outflow Tract Name Value Normal LVOT 2D LVOT Diameter 1.86 cm LVOT Doppler LVOT Peak Gradient 6 mmHg LVOT Mean Gradient 3 mmHg LVOT VTI 24.80 cm LVOT VTI/AV VTI Ratio 0.74 LVOT Stroke Volume 67.66 ml LVOT CO 5.74 l/min LVOT CI 3.29 L/min/m2 Pulmonic Valve
[2021-10-24 23:51] LABS: Glucose Point of Care 94 mg/dl (65-105)
[2021-10-25] VITALS (45 sets, daily range): BP systolic 103–182; BP diastolic 47–73; PULSE 56–92; RESP 12–33; TEMP 36.6–38.9; O2SAT 91–99
[2021-10-25] MEDS: PROPOFOL IV EMULSION 100 ML 12.46 MG IV CONT (03:00)
[2021-10-25] MEDS: IPRATROPIUM BR 0.02% INH SOLN 0.5 MG/2.5 ML VIAL INHALATION ×4 (03:00→21:41)
[2021-10-25] MEDS: ALBUTEROL SULFATE NEB 2.5 MG/0.5 ML INH INHALATION ×4 (03:01→21:41)
[2021-10-25 03:17] LABS: Hematocrit 26.6 % (37.0-47.0); Hemoglobin 7.8 g/dL (12.0-15.0); Mean Corpuscular HGB Conc 29.3 g/dl (32-36); Mean Corpuscular Hemoglobin 22.2 pg (26-34); Mean Corpuscular Volume 75.6 fl (80-100); Mean Platelet Volume 10.4 fl (7.4-10.4); Platelet Count Result 318 k/mm3 (150-375); Red Blood Count 3.52 M/mm3 (4.2-5.4); Red Cell Distribution Width 22.5 % (11.5-14.5); White Blood Count 10.8 K/mm3 (4.5-10.0)
[2021-10-25 03:23] LABS: Alanine Aminotransferase 30 U/L (4-35); Alkaline Phosphatase 61 U/L (38-126); Anion Gap 3 mmol/L (8-16); Aspartate Amino Transferase 34 U/L (14-36); Bilirubin,Total 0.3 mg/dL (0.2-1.3); Blood Urea Nitrogen 13 mg/dL (7-17); Calcium 8.5 mg/dL (8.4-10.2); Carbon Dioxide 31 mmol/L (22-30); Chloride 100 mmol/L (98-107); Estimated CRCL calculation 55 ml/min; Estimated Glomerular Filt Rate > 60; Glucose 107 mg/dL (65-110); Lactic Acid Reflex 1.2 mmol/L (0.7-2.1); Magnesium 1.8 mg/dL (1.6-2.3); Phosphorus 3.2 mg/dL (2.5-4.5); Potassium 3.2 mmol/L (3.4-5.0); Sodium 134 mmol/L (137-145)
[2021-10-25 06:34] LABS: Glucose Point of Care 109 mg/dl (65-105)
[2021-10-25 07:06] LABS: Alveolar/Arterial O2 Gradient 102.8 mmHg; Base Excess ABG 0.6 mEq/l (+/-2.0); Carboxyhemoglobin 0.3 % THb (0-2.0); Fractional Inspired Oxygen 30 %; Methemoglobin ABG 0.2 %THb (0-1.5); Oxygen Content ABG 10.7 %vol (16.0-22.0); PCO2 ABG 45.7 mmHg (35.0-45.0); PO2 ABG 57.4 mmHg (80.0-100.0); PO2 FiO2 Ratio Arterial Blood 1.91 %; Reduced Hemoglobin 12.5 %THb (0-5.0); Total Hemoglobin 8.7 g/dL (12.0-18.0); pH ABG 7.373 (7.350-7.450)
[2021-10-25 07:08] LABS: Device VENTILATOR; Modified Allen's Test Pass; Site Drawn RIGHT RADIAL
[2021-10-25 07:09] LABS: Arterial Blood Gas PEEP 5 cmH2O; Arterial Blood Gas Tidal Volume 350 ml; Arterial Blood Gas Vent Mode CMV; Arterial Blood Gas Ventilator rate 22 /MIN
[2021-10-25] MEDS: ACETAMINOPHEN ELIXIR 325 MG/10.15 ML UDC 650 MG PO (07:32)
[2021-10-25] MEDS: FUROSEMIDE INJ 40 MG/4 ML VIAL IV PUSH (08:13)
[2021-10-25] MEDS: POTASSIUM CHLORIDE 20 MEQ PACKET (FOR LIQUID) 80 MEQ FEED TUBE (08:14)
[2021-10-25] MEDS: MAGNESIUM SULF 2 GM/WATER 50ML 2 GM/50 ML BAG IVPB (08:14)
[2021-10-25] MEDS: MINERAL OIL/WHITE PETROLATUM OINTMENT 1 APPLIC EACH EYE (08:14)
[2021-10-25] MEDS: PANTOPRAZOLE SODIUM IV 40 MG VIAL IV PUSH ×2 (08:14→19:55)
[2021-10-25] MEDS: PROPOFOL IV EMULSION 100 ML 16.61 MG IV CONT (08:34)
[2021-10-25] MEDS: FENTANYL 2,500MCG/NS250ML(*CRX 2,500 MCG/250 ML BAG 17.5 MCG IV CONT (08:36)
[2021-10-25 08:40] LABS: Hematocrit 25.1 % (37.0-47.0); Hemoglobin 7.4 g/dL (12.0-15.0)
[2021-10-25] MEDS: dexmedeTOMIDine 400 MCG/100 ML 400 MCG/100 ML BAG IV CONT (11:02)
--- NOTE | 2021-10-25 11:05 | PCRCNOTE ---
10/24 1400 neb treatment not given. Window of time for administration has passed. See next scheduled administration.
--- NOTE | 2021-10-25 11:12 | PM.IMPN ---
Progress Note: A&P Assessment and Plan (1) Cardiopulmonary arrest with successful resuscitation: Code(s): I46.9 - Cardiac arrest, cause unspecified Status: Acute Assessment and Plan: Patient with cardiopulmonary arrest with successful ROSC after 1 round of epinephrine and 1 amp of bicarb along with CPR. -patient was following commands post ROSC, not a candidate for targeted temperature management/hypothermia -could be multifactorial, proxy a versus coronary artery disease versus severe anemia. -troponins are elevated, -patient currently hemodynamically stable (2) Chest pain: Qualifiers: Chest pain type: unspecified Qualified Code(s): R07.9 - Chest pain, unspecified Code(s): R07.9 - Chest pain, unspecified Status: Acute Assessment and Plan: Patient presented with chest pain, shortness of breath, nausea with no vomiting, -elevated troponin, could be related to ischemic event versus cardiac arrest and CPR this was very brief -EKG did not show any ST-T changes -cardiology has been consulted (3) Acute respiratory failure: Code(s): J96.00 - Acute respiratory failure, unspecified whether with hypoxia or hypercapnia Status: Acute Assessment and Plan: Acute respiratory failure likely related to cardiac arrest 09/22/2021: CTA chest abdomen and pelvis showed extensive patchy bilateral airspace disease compatible with pneumonia, mediastinal lymphadenopathy, likely reactive, small pleural effusions. -patient has been started on azithromycin, ceftriaxone, vancomycin -currently on CMV mode of ventilation, peep of 5, 40% FiO2 -continue bronchodilators -diurese patient today -sedated with fentanyl and Versed, daily sedation vacation (4) Suspected 2019 novel coronavirus infection: Code(s): Z20.822 - Contact with and (suspected) exposure to COVID-19 Status: Acute Assessment and Plan: Chest x-ray and CTA chest shows extensive patchy bilateral airspace disease -SARS-CoV-2 PCR has been ordered and pending -LDH and to is within normal limits -CRP <0.5 -continue airborne, droplet, contact isolation/precautions (5) Abnormal finding on lung imaging: Code(s): R91.8 - Other nonspecific abnormal finding of lung field Status: Acute Assessment and Plan: Chest x-ray a showed cardiomegaly with interstitial edema, cannot exclude superimposed pneumonia 10/23/2021: CTA chest showed extensive patchy bilateral airspace disease compatible with pneumonia, mediastinal lymphadenopathy, likely reactive, small pleural effusion Patient has been started on azithromycin, ceftriaxone and vancomycin (initiated on 10/23/2020) (6) Anemia: Qualifiers: Anemia type: unspecified type Qualified Code(s): D64.9 - Anemia, unspecified Code(s): D64.9 - Anemia, unspecified Status: Acute Assessment and Plan: Patient presented with anemia could be related to GI bleed -hemoglobin on admission was 5.5, received 2 units of packed RBCs on 10/23/2021: Repeat hemoglobin this morning is 7.6 -patient has been started on Protonix IV q.12 hours -GI has been consulted (7) GI bleed: Code(s): K92.2 - Gastrointestinal hemorrhage, unspecified Status: Acute Assessment and Plan: According the records patient did have some blood streaking when she was wiping her stool -anemia as above (8) COPD (chronic obstructive pulmonary disease): Code(s): J44.9 - Chronic obstructive pulmonary disease, unspecified Status: Acute Assessment and Plan: Patient with history of COPD, will continue bronchodilators and antibiotics. Patient on mechanical ventilator at this time (9) Diabetes: Code(s): E11.9 - Type 2 diabetes mellitus without complications Status: Acute Assessment and Plan: Accu-Cheks and sliding scale insulin (10) Lactic acidosis: Code(s): E87.2 - Acidosis Status: Acute Assessment and Plan: [place]
--- NOTE | 2021-10-25 11:21 | WPDGIPROGNO ---
Progress Note: A&P Assessment and Plan (1) Acute blood loss anemia: Code(s): D62 - Acute posthemorrhagic anemia Status: Acute Assessment and Plan: responded to blood transfusion, no overt gib wonder if chronic blood loss will talk to icu and cardiology to decide best timing to proceed with scopes, specially if cardiology is planning to proceed with cardiac cath and potential use of blood thinners still intubated and sedated covid-19 negative (2) Pneumonia: Code(s): J18.9 - Pneumonia, unspecified organism Status: Acute Assessment and Plan: on treatment (3) Acute respiratory failure: Code(s): J96.00 - Acute respiratory failure, unspecified whether with hypoxia or hypercapnia Status: Acute Assessment and Plan: still intubated (4) NSTEMI (non-ST elevated myocardial infarction): Code(s): I21.4 - Non-ST elevation (NSTEMI) myocardial infarction Status: Acute Assessment and Plan: had cardiac arrest, PEA and noted elevated troponin cardiology on board (5) Cardiopulmonary arrest with successful resuscitation: Code(s): I46.9 - Cardiac arrest, cause unspecified Status: Acute Subjective Date/time seen: 10/25/21 11:21 Interval history: no report of over gib, still intubated Review of Systems Review of Systems: All systems reviewed & are unremarkable except as noted in HPI and below Exam Const: Other: intubated and sedated HENMT: General nose exam: Normal nares present Eyes: General: appearance normal, both eyes and all related structures Neck: Neck: supple Resp: Auscultation: no wheezes Other: coarse breath sounds Cardio: Rate: regular rate GI: GI Palp: Yes Soft to palpation, No Tenderness to palpation present (GI) and No Guarding due to palpation present (GI) Auscultation: normal bowel sounds Skin: General skin exam: no rashes or lesions noted Neuro: Other: sedated but open eyes to command Extrem: General: normal to inspection Psych: Other: unable to assess Objective Data Vital Signs Vital Signs: Vital Signs - 24 hr 10/24/21 11:29 10/24/21 12:00 10/24/21 12:55 Temperature 99.7 F H 99.7 F H Pulse Rate 85 82 Respiratory Rate 22 H 22 H Blood Pressure 158/68 H Pulse Oximetry 92 10/24/21 13:30 10/24/21 14:00 10/24/21 14:30 Temperature Pulse Rate 74 73 75 Respiratory Rate 22 H 22 H 22 H Blood Pressure 126/55 L Pulse Oximetry 97 10/24/21 14:50 10/24/21 15:00 10/24/21 15:46 Temperature Pulse Rate 71 73 70 Respiratory Rate 22 H 22 H Blood Pressure Pulse Oximetry 98 10/24/21 15:47 10/24/21 16:00 10/24/21 17:24 Temperature 99.7 F H Pulse Rate 73 72 66 Respiratory Rate 22 H 22 H 22 H Blood Pressure 119/52 L Pulse Oximetry 97 10/24/21 17:25 10/24/21 18:00 10/24/21 18:25 Temperature Pulse Rate 66 65 63 Respiratory Rate 22 H 22 H 22 H Blood Pressure 132/56 L Pulse Oximetry 100 10/24/21 20:00 10/24/21 20:02 10/24/21 20:10 Temperature 99 F Pulse Rate 62 62 62 Respiratory Rate 22 H 22 H 22 H Blood Pressure 120/46 L Pulse Oximetry 100 100 10/24/21 20:31 10/24/21 20:32 10/24/21 21:36 Temperature Pulse Rate 62 62 65 Respiratory Rate 13 22 H 22 H Blood Pressure 120/46 L Pulse Oximetry 97 10/24/21 23:00 10/25/21 00:00 10/25/21 02:00 Temperature 98.7 F Pulse Rate 71 69 72 Respiratory Rate 22 H 22 H Blood Pressure 131/52 L 132/47 L Pulse Oximetry 94 94 99 10/25/21 02:02 10/25/21 03:00 10/25/21 03:01 Temperature Pulse Rate 72 79 74 Respiratory Rate 22 H 22 H Blood Pressure Pulse Oximetry 95 10/25/21 03:08 10/25/21 03:55 10/25/21 04:00 Temperature 100.5 F H Pulse Rate 71 76 76 Respiratory Rate 22 H 22 H 22 H Blood Pressure 149/54 H Pulse Oximetry 92 92 10/25/21 04:19 10/25/21 05:00 10/25/21 05:40 Temperature Pulse Rate 79 82 72 Respiratory Rate 22 H 22 H Blood Pressure 144/58 H Pulse
--- NOTE | 2021-10-25 11:23 | WPDINTPN ---
Progress Note: A&P Assessment and Plan (1) Cardiopulmonary arrest with successful resuscitation: Code(s): I46.9 - Cardiac arrest, cause unspecified Status: Acute Assessment and Plan: Patient with cardiopulmonary arrest with successful ROSC after 1 round of epinephrine and 1 amp of bicarb along with CPR. -patient was following commands post ROSC, not a candidate for targeted temperature management/hypothermia -could be multifactorial, proxy a versus coronary artery disease/NSTEMI versus severe anemia. -troponins are elevated, -patient currently hemodynamically stable -echocardiogram 06/23/2021: LV chamber is normal, LV systolic function is normal, EF estimated 70%. Left ventricular septal wall motion is normal, grade 2 diastolic dysfunction, RV chambers normal, RV systolic function is normal. Left atrial chamber dimension severely enlarged there is mild to moderate mitral valve regurgitation. -cardiology following the patient (2) Chest pain: Qualifiers: Chest pain type: unspecified Qualified Code(s): R07.9 - Chest pain, unspecified Code(s): R07.9 - Chest pain, unspecified Status: Acute Assessment and Plan: NSTEMI Patient presented with chest pain, shortness of breath, nausea with no vomiting, -elevated troponin, could be related to ischemic event versus cardiac arrest and CPR this was very brief -EKG did not show any ST-T changes -appreciate cardiology recommendation - patient will require further studies and possibly left heart catheterization this admission (3) Acute respiratory failure: Code(s): J96.00 - Acute respiratory failure, unspecified whether with hypoxia or hypercapnia Status: Acute Assessment and Plan: Acute respiratory failure likely related to cardiac arrest 09/22/2021: CTA chest abdomen and pelvis showed extensive patchy bilateral airspace disease compatible with pneumonia, mediastinal lymphadenopathy, likely reactive, small pleural effusions. -patient has been started on azithromycin, ceftriaxone, vancomycin -currently on CMV mode of ventilation, peep of 5, 30% FiO2 -continue bronchodilators -diurese patient today -will decrease sedation, start patient on Precedex, once more awake she will be placed on SBT to evaluate for extubation (4) Suspected 2019 novel coronavirus infection: Code(s): Z20.822 - Contact with and (suspected) exposure to COVID-19 Status: Acute Assessment and Plan: Chest x-ray and CTA chest shows extensive patchy bilateral airspace disease -SARS-CoV-2 PCR is NEGATIVE -LDH and to is within normal limits -CRP <0.5 -discontinue isolation/precautions (5) Abnormal finding on lung imaging: Code(s): R91.8 - Other nonspecific abnormal finding of lung field Status: Acute Assessment and Plan: Chest x-ray a showed cardiomegaly with interstitial edema, cannot exclude superimposed pneumonia 10/23/2021: CTA chest showed extensive patchy bilateral airspace disease compatible with pneumonia, mediastinal lymphadenopathy, likely reactive, small pleural effusion Continue azithromycin, ceftriaxone and vancomycin (initiated on 10/23/2020) (6) Anemia: Qualifiers: Anemia type: unspecified type Qualified Code(s): D64.9 - Anemia, unspecified Code(s): D64.9 - Anemia, unspecified Status: Acute Assessment and Plan: Patient presented with anemia could be related to GI bleed -hemoglobin on admission was 5.5, received 2 units of packed RBCs on 10/23/2021: Hemoglobin has been stable -patient has been started on Protonix IV q.12 hours -appreciate GI evaluation recommendation, patient will need endoscopy and colonoscopy, GI to check with Cardiology the best time to proceed with the scopes. (7) GI bleed: Code(s): K92.2 - Gastrointestinal hemorrhage, unspecified Status: Acute Assessment and Plan: According the records patient did have some blood streaking when she was wiping her s
--- NOTE | 2021-10-25 11:23 | PM.PNCARD ---
Progress Note: A&P Additional Plan NSTEMI, elevated trop likely related to acute anemia and cardiac arrest could be secondary to NSTEMI, plan rule out acute bleeding and correct HGB to > 8 gm/dL, cont track troponin, TTE, LHC after diagnosis of cause of her acute anemia. Subjective Date/time seen: 10/25/21 11:23 Interval history: no acute events still intubated Review of Systems Review of Systems: ROS unobtainable: Yes unobtainable due to endotracheal tube Exam Const: General: no acute distress and confusion Orientation/consciousness: confusion Other: Able to lie flat HENMT: General nose exam: Normal nares present and no epistaxis Mouth: Yes moist mucous membranes Eyes: Sclera: sclerae normal Pupils: Equal, round and reactive pupils present Neck: Neck: supple and no JVD Carotids: no bruits Resp: Auscultation: clear to auscultation bilaterally and lung sounds not diminished Other: No chest wall tenderness Cardio: Rate: regular rate Rhythm: regular rhythm Heart sounds: no gallops, no murmurs and no rubs GI: Auscultation: normal bowel sounds Skin: General skin exam: normal color, rashes and/or lesions noted and no erythema Other: Warm Neuro: General: confusion Cranial nerves: Yes Equal, round and reactive pupils present Other: No obvious focal deficit or facial asymmetry Extrem: General: no edema Other: Normal capillary refills Intact distal pulses. Objective Data Vital Signs Vital Signs: Vital Signs - 24 hr 10/24/21 11:29 10/24/21 12:00 10/24/21 12:55 Temperature 37.6 C H 37.6 C H Pulse Rate 85 82 Respiratory Rate 22 H 22 H Blood Pressure 158/68 H Pulse Oximetry 92 10/24/21 13:30 10/24/21 14:00 10/24/21 14:30 Temperature Pulse Rate 74 73 75 Respiratory Rate 22 H 22 H 22 H Blood Pressure 126/55 L Pulse Oximetry 97 10/24/21 14:50 10/24/21 15:00 10/24/21 15:46 Temperature Pulse Rate 71 73 70 Respiratory Rate 22 H 22 H Blood Pressure Pulse Oximetry 98 10/24/21 15:47 10/24/21 16:00 10/24/21 17:24 Temperature 37.6 C H Pulse Rate 73 72 66 Respiratory Rate 22 H 22 H 22 H Blood Pressure 119/52 L Pulse Oximetry 97 10/24/21 17:25 10/24/21 18:00 10/24/21 18:25 Temperature Pulse Rate 66 65 63 Respiratory Rate 22 H 22 H 22 H Blood Pressure 132/56 L Pulse Oximetry 100 10/24/21 20:00 10/24/21 20:02 10/24/21 20:10 Temperature 37.2 C Pulse Rate 62 62 62 Respiratory Rate 22 H 22 H 22 H Blood Pressure 120/46 L Pulse Oximetry 100 100 10/24/21 20:31 10/24/21 20:32 10/24/21 21:36 Temperature Pulse Rate 62 62 65 Respiratory Rate 13 22 H 22 H Blood Pressure 120/46 L Pulse Oximetry 97 10/24/21 23:00 10/25/21 00:00 10/25/21 02:00 Temperature 37.1 C Pulse Rate 71 69 72 Respiratory Rate 22 H 22 H Blood Pressure 131/52 L 132/47 L Pulse Oximetry 94 94 99 10/25/21 02:02 10/25/21 03:00 10/25/21 03:01 Temperature Pulse Rate 72 79 74 Respiratory Rate 22 H 22 H Blood Pressure Pulse Oximetry 95 10/25/21 03:08 10/25/21 03:55 10/25/21 04:00 Temperature 38.1 C H Pulse Rate 71 76 76 Respiratory Rate 22 H 22 H 22 H Blood Pressure 149/54 H Pulse Oximetry 92 92 10/25/21 04:19 10/25/21 05:00 10/25/21 05:40 Temperature Pulse Rate 79 82 72 Respiratory Rate 22 H 22 H Blood Pressure 144/58 H Pulse Oximetry 94 92 10/25/21 07:22 10/25/21 07:23 10/25/21 07:27 Temperature Pulse Rate 77 78 77 Respiratory Rate 22 H 22 H 22 H Blood Pressure Pulse Oximetry 10/25/21 07:32 10/25/21 08:00 10/25/21 08:34 Temperature 38.9 C H 38.9 C H Pulse Rate 73 68 Respiratory Rate 22 H 22 H Blood Pressure 121/47 L Pulse Oximetry 94 10/25/21 08:36 10/25/21 09:21 10/25/21 09:25 Temperature 38.2 C H Pulse Rate 67 63 Respiratory Rate 22 H 22 H Blood Pressure Pulse Oximetry 10/25/21 09:30 10/25/21 09:45 10/25/21 10:00 Temperature Pulse Rate 62 63 64 Respi
[2021-10-25 12:25] LABS: Glucose Point of Care 130 mg/dl (65-105)
[2021-10-25] MEDS: INSULIN ASPART (*BKC) 100 UNITS/ML SUB-Q (16:57)
[2021-10-25 18:30] LABS: Glucose Point of Care 208 mg/dl (65-105)
[2021-10-25] MEDS: dexmedeTOMIDine 400 MCG/100 ML 400 MCG/100 ML BAG 11.99 MCG IV CONT (19:23)
[2021-10-25] MEDS: hydrALAZINE HCL 20 MG/ML VIAL 10 MG IV PUSH (19:24)
[2021-10-25] MEDS: PROPOFOL IV EMULSION 100 ML 4.15 MG IV CONT (19:50)
[2021-10-26] VITALS (35 sets, daily range): BP systolic 100–174; BP diastolic 57–67; PULSE 56–130; RESP 18–36; TEMP 35.9–38.9; O2SAT 91–100; BMI 28.3
[2021-10-26 00:36] LABS: Glucose Point of Care 182 mg/dl (65-105)
[2021-10-26] MEDS: PROPOFOL IV EMULSION 100 ML 4.15 MG IV CONT (01:56)
[2021-10-26] MEDS: dexmedeTOMIDine 400 MCG/100 ML 400 MCG/100 ML BAG 13.7 MCG IV CONT ×2 (01:57→09:38)
[2021-10-26] MEDS: IPRATROPIUM BR 0.02% INH SOLN 0.5 MG/2.5 ML VIAL INHALATION ×4 (02:28→20:38)
[2021-10-26] MEDS: ALBUTEROL SULFATE NEB 2.5 MG/0.5 ML INH INHALATION ×4 (02:29→20:38)
[2021-10-26 04:33] LABS: Alveolar/Arterial O2 Gradient 99.2 mmHg; Base Excess ABG 1.8 mEq/l (+/-2.0); Carboxyhemoglobin 0.3 % THb (0-2.0); Fractional Inspired Oxygen 30 %; HCO3 ABG 25.3 mEq/l (22.0-26.0); Methemoglobin ABG 0.2 %THb (0-1.5); Oxygen Content ABG 13.4 %vol (16.0-22.0); Oxygen Saturation ABG 95.7 % (95.0-100.0); Oxyhemoglobin 93.8 % THb (90.0-100.0); PCO2 ABG 35.3 mmHg (35.0-45.0); PO2 ABG 73.2 mmHg (80.0-100.0); PO2 FiO2 Ratio Arterial Blood 2.44 %; Reduced Hemoglobin 5.7 %THb (0-5.0); Total Hemoglobin 10.1 g/dL (12.0-18.0); pH ABG 7.473 (7.350-7.450)
[2021-10-26 04:35] LABS: Device VENTILATOR; Modified Allen's Test Pass; Site Drawn RIGHT RADIAL
[2021-10-26 04:36] LABS: Arterial Blood Gas PEEP 5 cmH2O; Arterial Blood Gas Tidal Volume 350 ml; Arterial Blood Gas Vent Mode CMV; Arterial Blood Gas Ventilator rate 22 /MIN
[2021-10-26 05:19] LABS: Hematocrit 28.6 % (37.0-47.0); Hemoglobin 8.5 g/dL (12.0-15.0); Mean Corpuscular HGB Conc 29.7 g/dl (32-36); Mean Corpuscular Hemoglobin 22.1 pg (26-34); Mean Corpuscular Volume 74.3 fl (80-100); Mean Platelet Volume 10.4 fl (7.4-10.4); Platelet Count Result 357 k/mm3 (150-375); Red Blood Count 3.85 M/mm3 (4.2-5.4); Red Cell Distribution Width 23.2 % (11.5-14.5); White Blood Count 11.6 K/mm3 (4.5-10.0)
[2021-10-26 05:32] LABS: Alanine Aminotransferase 28 U/L (4-35); Albumin Level 3.3 g/dL (3.5-5.1); Alkaline Phosphatase 71 U/L (38-126); Anion Gap 6 mmol/L (8-16); Aspartate Amino Transferase 28 U/L (14-36); Bilirubin,Total 0.5 mg/dL (0.2-1.3); Blood Urea Nitrogen 13 mg/dL (7-17); Calcium 8.9 mg/dL (8.4-10.2); Carbon Dioxide 30 mmol/L (22-30); Chloride 98 mmol/L (98-107); Estimated CRCL calculation 62 ml/min; Estimated Glomerular Filt Rate > 60; Glucose 181 mg/dL (65-110); Phosphorus 3.5 mg/dL (2.5-4.5); Potassium 3.8 mmol/L (3.4-5.0); Sodium 134 mmol/L (137-145)
[2021-10-26 05:54] LABS: Vancomycin Trough 6.2 ug/mL (10.0-20.0)
[2021-10-26 06:11] LABS: Glucose Point of Care 184 mg/dl (65-105)
[2021-10-26] MEDS: hydrALAZINE HCL 20 MG/ML VIAL 10 MG IV PUSH (06:13)
--- NOTE | 2021-10-26 09:02 | PM.IMPN ---
Progress Note: A&P Assessment and Plan (1) Acute respiratory failure: Code(s): J96.00 - Acute respiratory failure, unspecified whether with hypoxia or hypercapnia Status: Acute Assessment and Plan: Acute respiratory failure related to cardiac arrest and PNA. CTA chest on admission showed extensive patchy bilateral airspace disease compatible with pneumonia. Patient was started on azithromycin, ceftriaxone, and vancomycin. BCx NGTD. Sputum cx pending. Wean MV as toelrated. Appreciate steel sampler input. (2) Cardiopulmonary arrest with successful resuscitation: Code(s): I46.9 - Cardiac arrest, cause unspecified Status: Acute Assessment and Plan: Patient with cardiopulmonary arrest with successful ROSC after 1 round of epinephrine and 1 amp of bicarb along with CPR. Patient was following commands post ROSC so was not a candidate for targeted temperature management/hypothermia. Etiology could be multifactorial related to the sepsis/PNA, profound anemia and/or underlying CAD with ischemia. Troponiins elevated to 0.148. Echo not showing any WM abnormalities. Cardiology following along and apprecaite their input (3) Sepsis: Code(s): A41.9 - Sepsis, unspecified organism Status: Acute Assessment and Plan: Patient presents with chest pain and found to have tachycardia, tachypnea, leukocytosis, lactic acidosis and now fevers. Sepsis present on admission related to PNA. BCx NGTD. COntinue current abx. (4) NSTEMI (non-ST elevated myocardial infarction): Code(s): I21.4 - Non-ST elevation (NSTEMI) myocardial infarction Status: Acute Assessment and Plan: Patient presented with chest pain, SOB and nausea. Trop as high as 0.148. EKG showing possible LAE but no acute ST changes. NSTEMI per cardiology notes. Patient also with cardiac arrest, profiund anemia and PNA with sepsis that could be the etiology of the elevated Trop. Echo showing EF 70% with grade II diastolic dysfunction and mild-mod MR but no wall motion abnormalities. Appreciate cardiology recommendation. No ASA due to the possible GI bleed. Add statin therapy when able. (5) Pneumonia: Code(s): J18.9 - Pneumonia, unspecified organism Status: Acute Assessment and Plan: Chest x-ray on admission showing cardiomegaly with interstitial edema but cannot exclude superimposed pneumonia. CTA chest 10/23 showing extensive patchy bilateral airspace disease compatible with pneumonia and small pleural effusion. Started on Rocephin/Azithromycin 10/23 and Vanco added 10/24. Fever developed 10/25 to 102. Sputum pending. BCx NGTD. Continue current abx. (6) GI bleed: Code(s): K92.2 - Gastrointestinal hemorrhage, unspecified Status: Acute Assessment and Plan: Patient presented with anemia that could be related to GI bleed. Stool guaiac negative in ED but according to the records, the patient did have some blood streaking when she was wiping her stool. Hgb 6.4 on admission but dropped to 5.5. Iron deficiency anemia noted. She may be intermittently bleeding or related to poor oral intake and malnutrition. She has received 2 units of packed RBCs on 10/23/2021. Hgb climbed to 7-8 range and has remained stable. No evidence of acute blood loss. Continue Protonix IV q.12 hours. Appreciate GI evaluation and recommendations. Plan for EGD and colonoscopy and GI to check with Cardiology the best time to proceed. (7) Anemia: Qualifiers: Anemia type: unspecified type Qualified Code(s): D64.9 - Anemia, unspecified Code(s): D64.9 - Anemia, unspecified Status: Acute Assessment and Plan: As above. Patient has iron deficiency anemia. (8) COPD (chronic obstructive pulmonary disease): Code(s): J44.9 - Chronic obstructive pulmonary disease, unspecified Status: Acute Assessment and Plan: Patient with history of COPD, will continue bronchodilators and antibioti
[2021-10-26] MEDS: MINERAL OIL/WHITE PETROLATUM OINTMENT 1 APPLIC EACH EYE ×2 (09:37→21:03)
[2021-10-26] MEDS: PANTOPRAZOLE SODIUM IV 40 MG VIAL IV PUSH ×2 (09:37→21:03)
--- NOTE | 2021-10-26 09:39 | WPDINTPN ---
Progress Note: A&P Assessment and Plan (1) Cardiopulmonary arrest with successful resuscitation: Code(s): I46.9 - Cardiac arrest, cause unspecified Status: Acute Assessment and Plan: Patient with cardiopulmonary arrest with successful ROSC after 1 round of epinephrine and 1 amp of bicarb along with CPR. -patient was following commands post ROSC, not a candidate for targeted temperature management/hypothermia -could be multifactorial, proxy a versus coronary artery disease/NSTEMI versus severe anemia. -troponins are elevated, -patient currently hemodynamically stable -echocardiogram 06/23/2021: LV chamber is normal, LV systolic function is normal, EF estimated 70%. Left ventricular septal wall motion is normal, grade 2 diastolic dysfunction, RV chambers normal, RV systolic function is normal. Left atrial chamber dimension severely enlarged there is mild to moderate mitral valve regurgitation. -cardiology following the patient (2) Chest pain: Qualifiers: Chest pain type: unspecified Qualified Code(s): R07.9 - Chest pain, unspecified Code(s): R07.9 - Chest pain, unspecified Status: Acute Assessment and Plan: NSTEMI Patient presented with chest pain, shortness of breath, nausea with no vomiting, -elevated troponin, could be related to ischemic event versus cardiac arrest and CPR this was very brief -EKG did not show any ST-T changes -appreciate cardiology recommendation - patient will require further studies and possibly left heart catheterization this admission -will hold aspirin due to recent severe S patient presented with the hemoglobin of 5.5. -borderline blood pressures will hold beta-rajendra (3) Acute respiratory failure: Code(s): J96.00 - Acute respiratory failure, unspecified whether with hypoxia or hypercapnia Status: Acute Assessment and Plan: Acute respiratory failure likely related to cardiac arrest 09/22/2021: CTA chest abdomen and pelvis showed extensive patchy bilateral airspace disease compatible with pneumonia, mediastinal lymphadenopathy, likely reactive, small pleural effusions. -patient has been started on azithromycin, ceftriaxone, vancomycin -currently on CMV mode of ventilation, peep of 5, 30% FiO2 -continue bronchodilators -diurese patient today -currently on Precedex and propofol infusion will try and wean propofol and increase Precedex. Once patient is more awake will place her on SBT and evaluate for extubation -patient on clonazepam, Seroquel and mirtazapine which are all home medications (4) Suspected 2019 novel coronavirus infection: Code(s): Z20.822 - Contact with and (suspected) exposure to COVID-19 Status: Acute Assessment and Plan: Chest x-ray and CTA chest shows extensive patchy bilateral airspace disease -SARS-CoV-2 PCR is NEGATIVE -LDH and to is within normal limits -CRP <0.5 -discontinue isolation/precautions (5) Abnormal finding on lung imaging: Code(s): R91.8 - Other nonspecific abnormal finding of lung field Status: Acute Assessment and Plan: Chest x-ray a showed cardiomegaly with interstitial edema, cannot exclude superimposed pneumonia 10/23/2021: CTA chest showed extensive patchy bilateral airspace disease compatible with pneumonia, mediastinal lymphadenopathy, likely reactive, small pleural effusion Continue azithromycin, ceftriaxone and vancomycin (initiated on 10/23/2020) (6) Anemia: Qualifiers: Anemia type: unspecified type Qualified Code(s): D64.9 - Anemia, unspecified Code(s): D64.9 - Anemia, unspecified Status: Acute Assessment and Plan: Patient presented with anemia could be related to GI bleed -hemoglobin on admission was 5.5, received 2 units of packed RBCs on 10/23/2021: Hemoglobin has been stable -patient has been started on Protonix IV q.12 hours -appreciate GI evaluation recommendation, patient will need endoscopy and colonoscopy, GI to [facility]
[2021-10-26] MEDS: PROPOFOL IV EMULSION 100 ML 16.61 MG IV CONT (11:08)
[2021-10-26 11:26] LABS: Troponin I 0.498 ng/mL (0.000-0.034)
[2021-10-26] MEDS: LIDOCAINE HCL 1% PF INJ 5 ML VIAL INFILTRATE (12:00)
--- NOTE | 2021-10-26 12:49 | PM.PNCARD ---
Progress Note: A&P Additional Plan 66-year-old lady with: PE a arrest presumably due to profound anemia with which she was admitted to the hospital. There was no other clinical evidence of acute coronary event her ECG does not suggest this and the echocardiogram does not demonstrate any significant regional wall motion abnormalities. In this setting I would recommend proceeding with her anemia workup including endoscopic procedures that are necessary before there is any discussion of bringing this lady to the cardiac catheterization lab. Agree with the gastroenterology consultants opinion that anti-platelet therapy and anticoagulation therapy should be avoided at this time. Unless there is clinical change I would defer any ischemia workup until the anemia workup has been completed in this situation is clarified and she is extubated Hugo Casillas MD [facility] Subjective Date/time seen: Date of service: 10/26/21 12:49 Interval history: Follow-up visit in this 66-year-old woman with: Brief PEA arrest in the setting of severe anemia hemoglobin of 5.5 on admission. Patient is microcytic and iron deficient. Hemoglobin is better following transfusion. Still intubated in the ICU. Presumptive diagnosis is a type 2 CT because of profound anemia. Gastroenterology also consulted for endoscopic evaluation. Check chart reviewed and patient evaluated. Exam Const: General: no acute distress and confusion Orientation/consciousness: confusion Other: Able to lie flat HENMT: General nose exam: Normal nares present and no epistaxis Mouth: Yes moist mucous membranes Eyes: Sclera: sclerae normal Pupils: Equal, round and reactive pupils present Neck: Neck: supple and no JVD Carotids: no bruits Resp: Auscultation: clear to auscultation bilaterally and lung sounds not diminished Other: No chest wall tenderness Cardio: Rate: regular rate Rhythm: regular rhythm Heart sounds: no gallops, no murmurs and no rubs GI: Auscultation: normal bowel sounds Skin: General skin exam: normal color, rashes and/or lesions noted and no erythema Other: Warm Neuro: General: confusion Cranial nerves: Yes Equal, round and reactive pupils present Other: No obvious focal deficit or facial asymmetry Extrem: General: no edema Other: Normal capillary refills Intact distal pulses. Objective Data Vital Signs Vital Signs: Vital Signs - 24 hr 10/25/21 13:00 10/25/21 13:20 10/25/21 14:00 Temperature Pulse Rate 92 57 L 92 Respiratory Rate 22 H 22 H 30 H Blood Pressure 103/51 L Pulse Oximetry 91 10/25/21 14:18 10/25/21 16:00 10/25/21 16:50 Temperature 37.4 C Pulse Rate 56 L 69 64 Respiratory Rate 12 Blood Pressure 159/70 H Pulse Oximetry 98 94 97 10/25/21 16:55 10/25/21 16:56 10/25/21 18:00 Temperature Pulse Rate 63 62 63 Respiratory Rate 22 H 22 H 22 H Blood Pressure 165/64 H Pulse Oximetry 98 10/25/21 19:23 10/25/21 19:50 10/25/21 20:00 Temperature 36.6 C Pulse Rate 63 73 90 Respiratory Rate 22 H 23 H 33 H Blood Pressure 182/73 H Pulse Oximetry 97 10/25/21 21:41 10/25/21 21:48 10/25/21 22:00 Temperature Pulse Rate 68 68 73 Respiratory Rate 22 H 22 H 22 H Blood Pressure 155/57 H Pulse Oximetry 98 10/25/21 23:00 10/26/21 00:00 10/26/21 01:56 Temperature 37.1 C Pulse Rate 64 63 59 L Respiratory Rate 22 H 22 H Blood Pressure 143/59 H Pulse Oximetry 98 97 10/26/21 01:57 10/26/21 02:00 10/26/21 02:29 Temperature Pulse Rate 60 60 58 L Respiratory Rate 22 H 22 H 23 H Blood Pressure 145/58 H Pulse Oximetry 96 10/26/21 02:37 10/26/21 04:00 10/26/21 04:16 Temperature 36.6 C Pulse Rate 59 L 60 60 Respiratory Rate 22 H 22 H Blood Pressure 160/65 H Pulse Oximetry 97 97 10/26/21 06:00 10/26/21 07:59 10/26/21 08:00 Temperature 37.7 C H Pulse Rate 61 130 H 121 H Respiratory Rate 22 H 28 H Blood Pressure 174/59 H 152/66 H Pulse Oximetry 98 91 94
[2021-10-26] MEDS: FUROSEMIDE INJ 40 MG/4 ML VIAL 20 MG IV PUSH (13:19)
[2021-10-26 13:47] LABS: Glucose Point of Care 190 mg/dl (65-105)
[2021-10-26] MEDS: QUEtiapine FUMARATE 100 MG TABLET PO ×2 (13:56→21:03)
[2021-10-26] MEDS: clonazePAM (*CRX) 0.5 MG TABLET 1 MG PO ×2 (13:57→18:21)
[2021-10-26] MEDS: CENTRAL LINE FLUSH 10 ML IV PUSH ×2 (13:58→21:03)
[2021-10-26] MEDS: dexmedeTOMIDine 400 MCG/100 ML 400 MCG/100 ML BAG 15.41 MCG IV CONT (14:17)
--- NOTE | 2021-10-26 15:34 | PC.NURSE ---
[facility] flyer was given to patient.
--- NOTE | 2021-10-26 17:59 | WPDGIPROGNO ---
Progress Note: A&P Assessment and Plan (1) Acute blood loss anemia: Code(s): D62 - Acute posthemorrhagic anemia Status: Acute Assessment and Plan: responded to blood transfusion, no overt gib but she presented with severe anemia and microcytosis, wonder if chronic blood loss will proceed with egd and colonoscopy to assess if gi blood loss, cardiology also agrees to complete work up before doing cardiac cath still intubated and sedated covid-19 negative (2) Pneumonia: Code(s): J18.9 - Pneumonia, unspecified organism Status: Acute Assessment and Plan: on treatment (3) Acute respiratory failure: Code(s): J96.00 - Acute respiratory failure, unspecified whether with hypoxia or hypercapnia Status: Acute Assessment and Plan: still intubated (4) NSTEMI (non-ST elevated myocardial infarction): Code(s): I21.4 - Non-ST elevation (NSTEMI) myocardial infarction Status: Acute Assessment and Plan: had cardiac arrest, PEA and noted elevated troponin cardiology on board they would like to complete GI work up for RETA, holding on any anticoagulant for now (5) Cardiopulmonary arrest with successful resuscitation: Code(s): I46.9 - Cardiac arrest, cause unspecified Status: Acute Subjective Date/time seen: 10/26/21 13:00 Interval history: no overt gib, still intubated Review of Systems Review of Systems: All systems reviewed & are unremarkable except as noted in HPI and below Exam Const: Other: intubated and sedated HENMT: General nose exam: Normal nares present Eyes: General: appearance normal, both eyes and all related structures Neck: Neck: supple Resp: Auscultation: no wheezes Other: coarse breath sounds Cardio: Rate: regular rate GI: GI Palp: Yes Soft to palpation, No Tenderness to palpation present (GI) and No Guarding due to palpation present (GI) Auscultation: normal bowel sounds Skin: General skin exam: no rashes or lesions noted Neuro: Other: sedated but open eyes to command Extrem: General: normal to inspection Psych: Other: unable to assess Objective Data Vital Signs Vital Signs: Vital Signs - 24 hr 10/25/21 18:00 10/25/21 19:23 10/25/21 19:50 Temperature Pulse Rate 63 63 73 Respiratory Rate 22 H 22 H 23 H Blood Pressure 165/64 H Pulse Oximetry 98 10/25/21 20:00 10/25/21 21:41 10/25/21 21:48 Temperature 98 F Pulse Rate 90 68 68 Respiratory Rate 33 H 22 H 22 H Blood Pressure 182/73 H Pulse Oximetry 97 10/25/21 22:00 10/25/21 23:00 10/26/21 00:00 Temperature 98.7 F Pulse Rate 73 64 63 Respiratory Rate 22 H 22 H Blood Pressure 155/57 H 143/59 H Pulse Oximetry 98 98 97 10/26/21 01:56 10/26/21 01:57 10/26/21 02:00 Temperature Pulse Rate 59 L 60 60 Respiratory Rate 22 H 22 H 22 H Blood Pressure 145/58 H Pulse Oximetry 96 10/26/21 02:29 10/26/21 02:37 10/26/21 04:00 Temperature 97.8 F Pulse Rate 58 L 59 L 60 Respiratory Rate 23 H 22 H 22 H Blood Pressure 160/65 H Pulse Oximetry 97 10/26/21 04:16 10/26/21 06:00 10/26/21 07:59 Temperature Pulse Rate 60 61 130 H Respiratory Rate 22 H Blood Pressure 174/59 H Pulse Oximetry 97 98 91 10/26/21 08:00 10/26/21 08:07 10/26/21 09:15 Temperature 99.9 F H Pulse Rate 121 H 94 80 Respiratory Rate 28 H 31 H Blood Pressure 152/66 H Pulse Oximetry 94 10/26/21 09:38 10/26/21 10:00 10/26/21 10:55 Temperature Pulse Rate 79 80 80 Respiratory Rate 29 H 25 H Blood Pressure 106/58 L Pulse Oximetry 96 98 10/26/21 11:08 10/26/21 12:00 10/26/21 13:19 Temperature Pulse Rate 77 64 66 Respiratory Rate 27 H 23 H 26 H Blood Pressure 108/62 Pulse Oximetry 100 10/26/21 13:31 10/26/21 13:32 10/26/21 14:00 Temperature Pulse Rate 64 64 70 Respiratory Rate 22 H 18 Blood Pressure 112/67 Pulse Oximetry 100 100 10/26/21 14:17 10/26/21 16:00 10/26/21 16:40 Temperat
[2021-10-26 18:27] LABS: Glucose Point of Care 238 mg/dl (65-105)
[2021-10-26] MEDS: PROPOFOL IV EMULSION 100 ML 6.23 MG IV CONT (18:28)
[2021-10-26] MEDS: INSULIN ASPART (*BKC) 100 UNITS/ML SUB-Q (18:31)
[2021-10-26] MEDS: polyethylene glycoL 3350 238 GM BOTTLE PO (21:02)
[2021-10-26] MEDS: MIRTAZAPINE 30 MG TABLET PO (21:03)
[2021-10-27] VITALS (41 sets, daily range): BP systolic 95–197; BP diastolic 50–94; PULSE 58–135; RESP 12–35; TEMP 36.5–37.3; O2SAT 96–100
[2021-10-27 00:35] LABS: Glucose Point of Care 188 mg/dl (65-105)
[2021-10-27] MEDS: ALBUTEROL SULFATE NEB 2.5 MG/0.5 ML INH INHALATION ×4 (01:16→20:29)
[2021-10-27] MEDS: IPRATROPIUM BR 0.02% INH SOLN 0.5 MG/2.5 ML VIAL INHALATION ×4 (01:17→20:29)
[2021-10-27] MEDS: dexmedeTOMIDine 400 MCG/100 ML 400 MCG/100 ML BAG 15.41 MCG IV CONT (02:23)
[2021-10-27] MEDS: MAGNESIUM CITRATE 300 ML BTL PO (04:15)
[2021-10-27 04:30] LABS: Hematocrit 27.1 % (37.0-47.0); Hemoglobin 8.3 g/dL (12.0-15.0); Mean Corpuscular HGB Conc 30.6 g/dl (32-36); Mean Corpuscular Hemoglobin 22.6 pg (26-34); Mean Corpuscular Volume 73.6 fl (80-100); Mean Platelet Volume 10.6 fl (7.4-10.4); Platelet Count Result 348 k/mm3 (150-375); Red Blood Count 3.68 M/mm3 (4.2-5.4); Red Cell Distribution Width 23.8 % (11.5-14.5)
[2021-10-27 04:41] LABS: Alanine Aminotransferase 136 U/L (4-35); Albumin Level 3.3 g/dL (3.5-5.1); Alkaline Phosphatase 69 U/L (38-126); Anion Gap 6 mmol/L (8-16); Aspartate Amino Transferase 213 U/L (14-36); Bilirubin,Total 0.4 mg/dL (0.2-1.3); Blood Urea Nitrogen 16 mg/dL (7-17); Calcium 8.9 mg/dL (8.4-10.2); Carbon Dioxide 27 mmol/L (22-30); Chloride 96 mmol/L (98-107); Estimated CRCL calculation 72 ml/min; Estimated Glomerular Filt Rate > 60; Glucose 207 mg/dL (65-110); Magnesium 1.7 mg/dL (1.6-2.3); Phosphorus 3.8 mg/dL (2.5-4.5); Sodium 129 mmol/L (137-145)
[2021-10-27 05:01] LABS: Alveolar/Arterial O2 Gradient 93.3 mmHg; Base Excess ABG 0.2 mEq/l (+/-2.0); Carboxyhemoglobin 0.3 % THb (0-2.0); Fractional Inspired Oxygen 30 %; HCO3 ABG 23.6 mEq/l (22.0-26.0); Methemoglobin ABG 0.1 %THb (0-1.5); Oxygen Content ABG 13.1 %vol (16.0-22.0); Oxygen Saturation ABG 96.7 % (95.0-100.0); Oxyhemoglobin 94.5 % THb (90.0-100.0); PCO2 ABG 33.3 mmHg (35.0-45.0); PO2 ABG 81.5 mmHg (80.0-100.0); PO2 FiO2 Ratio Arterial Blood 2.72 %; Reduced Hemoglobin 5.1 %THb (0-5.0); Total Hemoglobin 9.8 g/dL (12.0-18.0); pH ABG 7.468 (7.350-7.450)
[2021-10-27 05:02] LABS: Arterial Blood Gas PEEP 5 cmH2O; Arterial Blood Gas Vent Mode CMV; Arterial Blood Gas Ventilator rate 22 /MIN; Device VENTILATOR; Modified Allen's Test Pass; Site Drawn RIGHT RADIAL
[2021-10-27 05:03] LABS: Arterial Blood Gas Tidal Volume 350 ml
[2021-10-27] MEDS: PROPOFOL IV EMULSION 100 ML 8.3 MG IV CONT (05:39)
[2021-10-27] MEDS: CENTRAL LINE FLUSH 10 ML IV PUSH ×3 (05:43→21:09)
[2021-10-27 05:54] LABS: Glucose Point of Care 197 mg/dl (65-105)
[2021-10-27 06:32] LABS: Methylmalonic Acid 272 nmol/L (87-318)
--- NOTE | 2021-10-27 08:47 | PC.NURSE ---
Ultrasound scan of right IJ shows the loop of the picc line, as seen on the cxr from this morning. Head of bed raised to sitting position and picc line power flushed with a total of 6- 10 ml of saline flushes. Rescan of the neck with ultrasound does not show picc line in right IJ. Dr. Hough and ATILIO Dominguez, made aware.
--- NOTE | 2021-10-27 09:02 | PC.NURSE ---
Found patient to be on 30mcg/min of Propofol at time of morning assessment. Will inform previous RN of findings so she can correct her charting.
[2021-10-27] MEDS: dexmedeTOMIDine 400 MCG/100 ML 400 MCG/100 ML BAG 17.13 MCG IV CONT ×2 (09:07→14:58)
[2021-10-27] MEDS: PANTOPRAZOLE SODIUM IV 40 MG VIAL IV PUSH ×2 (09:10→21:02)
[2021-10-27] MEDS: MINERAL OIL/WHITE PETROLATUM OINTMENT 1 APPLIC EACH EYE ×2 (09:10→21:03)
[2021-10-27] MEDS: clonazePAM (*CRX) 0.5 MG TABLET 1 MG PO ×3 (09:10→18:34)
[2021-10-27] MEDS: QUEtiapine FUMARATE 100 MG TABLET PO ×2 (09:10→21:03)
[2021-10-27] MEDS: LABETALOL HCL INJ 100 MG/20 ML VIAL 20 MG IV PUSH (09:33)
--- NOTE | 2021-10-27 10:21 | PM.IMPN ---
Progress Note: A&P Assessment and Plan (1) Acute respiratory failure: Code(s): J96.00 - Acute respiratory failure, unspecified whether with hypoxia or hypercapnia Status: Acute Assessment and Plan: Acute respiratory failure related to cardiac arrest and PNA. CTA chest on admission showed extensive patchy bilateral airspace disease compatible with pneumonia. COVID swab was negative. Patient was started on azithromycin, ceftriaxone, and vancomycin. BCx NGTD. Sputum cx no growth. Wean MV as tolerated. 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 (2) Cardiopulmonary arrest with successful resuscitation: Code(s): I46.9 - Cardiac arrest, cause unspecified Status: Acute Assessment and Plan: Patient with cardiopulmonary arrest with successful ROSC after 1 round of epinephrine and 1 amp of bicarb along with CPR. Patient was following commands post ROSC so was not a candidate for targeted temperature management/hypothermia. Etiology could be multifactorial related to the sepsis/PNA, profound anemia and/or underlying CAD with ischemia. Troponiins elevated to 0.148. Echo not showing any WM abnormalities. BP elevated today with episode of sinus tachycardia treated with IV Labetolol. Cardiology following along and appreciate their input. Contineu tele (3) Sepsis: Code(s): A41.9 - Sepsis, unspecified organism Status: Acute Assessment and Plan: Patient presents with chest pain and found to have tachycardia, tachypnea, leukocytosis, lactic acidosis and now fevers. Sepsis present on admission related to PNA. BCx NGTD. No further fevers since 10/25. WBC about the same. Continue current abx. (4) NSTEMI (non-ST elevated myocardial infarction): Code(s): I21.4 - Non-ST elevation (NSTEMI) myocardial infarction Status: Acute Assessment and Plan: Patient presented with chest pain, SOB and nausea. Trop as high as 0.148. EKG showing possible LAE but no acute ST changes. NSTEMI per cardiology notes. Patient also with cardiac arrest, profound anemia and PNA with sepsis that could be the etiology of the elevated Trop. Echo showing EF 70% with grade II diastolic dysfunction and mild-mod MR but no wall motion abnormalities. Appreciate cardiology recommendation. No ASA due to the possible GI bleed. Add statin therapy when able. Heart cath when able. (5) Elevated LFTs: Code(s): R79.89 - Other specified abnormal findings of blood chemistry Status: Acute Assessment and Plan: AST/ALT normal yesterday but up to 213/136 respectfully. No events overnight to explain this and no medications that effect the liver. Will check RUQ US and Hepatitis panel and TCK. Hold acetaminophen. (6) Pneumonia: Code(s): J18.9 - Pneumonia, unspecified organism Status: Acute Assessment and Plan: Chest x-ray on admission showing cardiomegaly with interstitial edema but cannot exclude superimposed pneumonia. CTA chest 10/23 showing extensive patchy bilateral airspace disease compatible with pneumonia and small pleural effusion. Started on Rocephin/Azithromycin 10/23 and Vanco added 10/24. Fever developed 10/25 to 102 but afebrile since. Sputum no growth. BCx NGTD. Continue current abx. (7) GI bleed: Code(s): K92.2 - Gastrointestinal hemorrhage, unspecified Status: Acute Assessment and Plan: Patient presented with anemia that could be related to GI bleed. Stool guaiac negative in ED but according to the records, the patient did have some blood streaking when she was wiping her stool. Hgb 6.4 on admission but dropped to 5.5. Iron deficiency anemia noted. She may be intermittently bleeding or related to poor oral intake and malnutrition. She has received 2 units of packed RBCs on 10/23/2021. Hgb climbed to 7-8 range and has remained stable. No evidence of acute blood loss. Continue Protonix IV q.12 hours. Appreciate GI evaluation and recommendations. Plan for EGD today. Add IV iron when
[2021-10-27] MEDS: MAGNESIUM CITRATE 300 ML BTL FEED TUBE (10:59)
[2021-10-27] MEDS: MAGNESIUM SULF 1 GM/D5W 100 ML 1 GM/100 ML BAG IVPB (10:59)
[2021-10-27 11:29] LABS: Creatine Kinase 110 U/L (30-135)
--- NOTE | 2021-10-27 11:30 | PCNFU ---
Nutrition Follow-Up Complete: Inadequate Oral Intake as related to mechanical vent as evidenced by NPO. Goal: Meet estimated nutritional needs Patient is progressing towards goal. We will continue current goal. Pt current nutrition is Glucerna 1.2 at 50 ml/hr over 22 hours. Last recorded weight is 74.3 kg, up from 71.3 kg on admit. Bowel Motility:+BM reported 10/27 Labs Reviewed:Glu 207, Cr 0.6,Na 129, Alb 3.3 Meds Noted:Propofol at 20.76 ml/hr =548 kcals, Precedex, Rocephin, Fentanyl, Remeron. Skin: WNL Additional Notes: Patient remains on mechanical vent. Tube feedings are currently on hold for colonoscopy today. Recommend to continue tube feedings of Glucerna 1.2 at 20 ml/hr advancing by 10 ml q 4 hours to goal rate of 50 ml/hr. Will monitor daily in ICU rounds and reassessing every Tuesday and Tuesday.
[2021-10-27] MEDS: PROPOFOL IV EMULSION 100 ML 20.76 MG IV CONT (11:31)
[2021-10-27 11:57] LABS: Acetaminophen < 10 ug/mL (10-30)
[2021-10-27 12:01] LABS: Hepatitis B Surface Antigen Negative (Negative)
[2021-10-27 12:07] LABS: HAV RESULT Negative (Negative); Hepatitis B Core IgM Result Negative (Negative)
[2021-10-27 12:14] LABS: Glucose Point of Care 281 mg/dl (65-105)
[2021-10-27 12:18] LABS: Hepatitis C Virus Antibody Negative (Negative)
[2021-10-27] MEDS: INSULIN ASPART (*BKC) 100 UNITS/ML SUB-Q ×2 (12:23→18:21)
--- NOTE | 2021-10-27 12:29 | WPDINTPN ---
Progress Note: A&P Assessment and Plan (1) Cardiopulmonary arrest with successful resuscitation: Code(s): I46.9 - Cardiac arrest, cause unspecified Status: Acute Assessment and Plan: Patient with cardiopulmonary arrest with successful ROSC after 1 round of epinephrine and 1 amp of bicarb along with CPR. -patient was following commands post ROSC, not a candidate for targeted temperature management/hypothermia -could be multifactorial, proxy a versus coronary artery disease/NSTEMI versus severe anemia. -troponins are elevated, -patient currently hemodynamically stable -echocardiogram 06/23/2021: LV chamber is normal, LV systolic function is normal, EF estimated 70%. Left ventricular septal wall motion is normal, grade 2 diastolic dysfunction, RV chambers normal, RV systolic function is normal. Left atrial chamber dimension severely enlarged there is mild to moderate mitral valve regurgitation. -cardiology following the patient and plan for further workup depending on EGD results (2) Chest pain: Qualifiers: Chest pain type: unspecified Qualified Code(s): R07.9 - Chest pain, unspecified Code(s): R07.9 - Chest pain, unspecified Status: Acute Assessment and Plan: NSTEMI Patient presented with chest pain, shortness of breath, nausea with no vomiting, -elevated troponin, could be related to ischemic event versus cardiac arrest and CPR this was very brief -EKG did not show any ST-T changes -appreciate cardiology recommendation - patient will require further studies and possibly left heart catheterization this admission -will hold aspirin due to recent anemia as patient presented with the hemoglobin of 5.5. -resume beta-rajendra (3) Acute respiratory failure: Code(s): J96.00 - Acute respiratory failure, unspecified whether with hypoxia or hypercapnia Status: Acute Assessment and Plan: Acute respiratory failure likely related to cardiac arrest 09/22/2021: CTA chest abdomen and pelvis showed extensive patchy bilateral airspace disease compatible with pneumonia, mediastinal lymphadenopathy, likely reactive, small pleural effusions. -patient has been started on azithromycin, ceftriaxone, vancomycin. Cultures negative hold vancomycin at this time -currently on CMV mode of ventilation, peep of 5, 30% FiO2. Decrease rate to 18 and tidal volume to 320 -continue bronchodilators -DC IV fluids -currently on Precedex and propofol infusion. Will perform sedation holiday post EGD and colonoscopy and evaluate patient for breathing trial -patient on clonazepam, Seroquel and mirtazapine which are all home medications (4) Suspected 2019 novel coronavirus infection: Code(s): Z20.822 - Contact with and (suspected) exposure to COVID-19 Status: Acute Assessment and Plan: Chest x-ray and CTA chest shows extensive patchy bilateral airspace disease -SARS-CoV-2 PCR is NEGATIVE -LDH and to is within normal limits -CRP <0.5 -discontinue isolation/precautions (5) Abnormal finding on lung imaging: Code(s): R91.8 - Other nonspecific abnormal finding of lung field Status: Acute Assessment and Plan: Chest x-ray a showed cardiomegaly with interstitial edema, cannot exclude superimposed pneumonia 10/23/2021: CTA chest showed extensive patchy bilateral airspace disease compatible with pneumonia, mediastinal lymphadenopathy, likely reactive, small pleural effusion Continue azithromycin, ceftriaxone (initiated on 10/23/2020) -cultures are negative will hold vancomycin at this time (6) Anemia: Qualifiers: Anemia type: unspecified type Qualified Code(s): D64.9 - Anemia, unspecified Code(s): D64.9 - Anemia, unspecified Status: Acute Assessment and Plan: Patient presented with anemia could be related to GI bleed -hemoglobin on admission was 5.5, received 2 units of packed RBCs on 10/23/2021: Hemoglobin has been stable. Monitor -patient has been
--- NOTE | 2021-10-27 13:39 | PCCARD ---
10/23/21 a stat EKG ordered at 1621. I went to do test around 1625, Patient refused EKG and was very combative. I notified nursing staff that patient refused EKG and was extremely combative. EKG was no done at this time due to patient refusal.
--- NOTE | 2021-10-27 14:11 | SUR.OPER ---
SEE ICU VITAL SIGNS EGD - [id number] COLONOSCOPY - [phone]
[2021-10-27] MEDS: MIDAZOLAM HCL (*CRX) 2 MG/2 ML VIAL 4 MG IV PUSH (14:15)
[2021-10-27] MEDS: fentaNYL CITRATE INJ (*CRX) 100 MCG/2 ML VIAL 50 MCG IV PUSH (14:15)
[2021-10-27] MEDS: PROPOFOL IV EMULSION 100 ML 16.61 MG IV CONT ×2 (16:39→23:13)
[2021-10-27 18:22] LABS: Glucose Point of Care 233 mg/dl (65-105)
[2021-10-27 18:43] LABS: Hematocrit 23.4 % (37.0-47.0); Hemoglobin 7.4 g/dL (12.0-15.0); Mean Corpuscular HGB Conc 31.6 g/dl (32-36); Mean Corpuscular Hemoglobin 23.9 pg (26-34); Mean Corpuscular Volume 75.5 fl (80-100); Mean Platelet Volume 11.3 fl (7.4-10.4); Platelet Count Result 277 k/mm3 (150-375); Red Cell Distribution Width 23.9 % (11.5-14.5); White Blood Count 11.2 K/mm3 (4.5-10.0)
[2021-10-27] MEDS: MIRTAZAPINE 30 MG TABLET PO (21:03)
[2021-10-28] VITALS (39 sets, daily range): BP systolic 99–186; BP diastolic 53–83; PULSE 50–127; RESP 16–29; TEMP 36.4–37.5; O2SAT 96–100
[2021-10-28] LABS: Glucose Point of Care 168 mg/dl (65-105)
[2021-10-28] MEDS: ALBUTEROL SULFATE NEB 2.5 MG/0.5 ML INH INHALATION ×3 (02:11→19:55)
[2021-10-28] MEDS: IPRATROPIUM BR 0.02% INH SOLN 0.5 MG/2.5 ML VIAL INHALATION ×3 (02:11→19:55)
[2021-10-28] MEDS: dexmedeTOMIDine 400 MCG/100 ML 400 MCG/100 ML BAG 15.41 MCG IV CONT ×2 (02:20→09:11)
[2021-10-28 04:48] LABS: Alveolar/Arterial O2 Gradient 84.4 mmHg; Base Excess ABG 4.5 mEq/l (+/-2.0); Carboxyhemoglobin 0.3 % THb (0-2.0); Fractional Inspired Oxygen 30 %; HCO3 ABG 28.6 mEq/l (22.0-26.0); Methemoglobin ABG 0.2 %THb (0-1.5); Oxygen Content ABG 11.3 %vol (16.0-22.0); Oxygen Saturation ABG 96.6 % (95.0-100.0); Oxyhemoglobin 94.7 % THb (90.0-100.0); PCO2 ABG 40.5 mmHg (35.0-45.0); PO2 ABG 81.9 mmHg (80.0-100.0); PO2 FiO2 Ratio Arterial Blood 2.73 %; Reduced Hemoglobin 4.8 %THb (0-5.0); Total Hemoglobin 8.4 g/dL (12.0-18.0); pH ABG 7.467 (7.350-7.450)
[2021-10-28 04:49] LABS: Device VENTILATOR; Modified Allen's Test Pass; Site Drawn LEFT RADIAL
[2021-10-28 04:50] LABS: Arterial Blood Gas PEEP 5 cmH2O; Arterial Blood Gas Tidal Volume 320 ml; Arterial Blood Gas Vent Mode CMV; Arterial Blood Gas Ventilator rate 18 /MIN
[2021-10-28 05:12] LABS: Hematocrit 25.1 % (37.0-47.0); Hemoglobin 7.5 g/dL (12.0-15.0); Mean Corpuscular HGB Conc 29.9 g/dl (32-36); Mean Corpuscular Hemoglobin 21.9 pg (26-34); Mean Corpuscular Volume 73.2 fl (80-100); Mean Platelet Volume 10.7 fl (7.4-10.4); Platelet Count Result 326 k/mm3 (150-375); Red Blood Count 3.43 M/mm3 (4.2-5.4); Red Cell Distribution Width 24.2 % (11.5-14.5); White Blood Count 10.1 K/mm3 (4.5-10.0)
[2021-10-28 05:28] LABS: Alanine Aminotransferase 128 U/L (4-35); Alkaline Phosphatase 74 U/L (38-126); Anion Gap 6 mmol/L (8-16); Aspartate Amino Transferase 65 U/L (14-36); Bilirubin,Total 0.5 mg/dL (0.2-1.3); Blood Urea Nitrogen 16 mg/dL (7-17); Calcium 8.5 mg/dL (8.4-10.2); Carbon Dioxide 28 mmol/L (22-30); Chloride 96 mmol/L (98-107); Estimated CRCL calculation 64 ml/min; Estimated Glomerular Filt Rate > 60; Glucose 204 mg/dL (65-110); Magnesium 2.6 mg/dL (1.6-2.3); Phosphorus 3.6 mg/dL (2.5-4.5); Potassium 4.4 mmol/L (3.4-5.0); Sodium 130 mmol/L (137-145)
[2021-10-28] MEDS: PROPOFOL IV EMULSION 100 ML 16.61 MG IV CONT (05:46)
[2021-10-28] MEDS: CENTRAL LINE FLUSH 10 ML IV PUSH ×3 (05:50→20:53)
[2021-10-28 06:17] LABS: Glucose Point of Care 187 mg/dl (65-105)
[2021-10-28] MEDS: PANTOPRAZOLE SODIUM IV 40 MG VIAL IV PUSH ×2 (08:57→20:53)
[2021-10-28] MEDS: MINERAL OIL/WHITE PETROLATUM OINTMENT 1 APPLIC EACH EYE ×2 (08:57→20:50)
[2021-10-28] MEDS: clonazePAM (*CRX) 0.5 MG TABLET 1 MG PO ×3 (08:57→18:36)
[2021-10-28] MEDS: QUEtiapine FUMARATE 100 MG TABLET PO ×2 (08:57→20:51)
--- NOTE | 2021-10-28 09:50 | WPDINTPN ---
Progress Note: A&P Assessment and Plan (1) Cardiopulmonary arrest with successful resuscitation: Code(s): I46.9 - Cardiac arrest, cause unspecified Status: Acute Assessment and Plan: Patient with cardiopulmonary arrest with successful ROSC after 1 round of epinephrine and 1 amp of bicarb along with CPR. -patient was following commands post ROSC, not a candidate for targeted temperature management/hypothermia -could be multifactorial, proxy a versus coronary artery disease/NSTEMI versus severe anemia. -troponins are elevated, -patient currently hemodynamically stable -cardiology following the patient and plan for further workup depending on EGD results ECHO Summary 1. Left ventricular chamber dimension is normal. 2. Left ventricular systolic function is normal, estimated at >70%. 3. There is no increased left ventricular wall thickness. 4. Left ventricular septal wall motion is normal. 5. The left ventricular diastolic function is grade II diastolic dysfunction. 6. Right ventricular chamber dimension is normal. 7. Right ventricular systolic function is normal. 8. Left atrial chamber dimension is severely enlarged. 9. There is mild to moderate mitral valve regurgitation. (2) Chest pain: Qualifiers: Chest pain type: unspecified Qualified Code(s): R07.9 - Chest pain, unspecified Code(s): R07.9 - Chest pain, unspecified Status: Acute Assessment and Plan: NSTEMI Patient presented with chest pain, shortness of breath, nausea with no vomiting, -elevated troponin, could be related to ischemic event versus cardiac arrest and CPR this was very brief -EKG did not show any ST-T changes -appreciate cardiology recommendation - patient will require further studies and possibly left heart catheterization this admission -will hold aspirin due to recent anemia as patient presented with the hemoglobin of 5.5. -resume beta-rajendra (3) Acute respiratory failure: Code(s): J96.00 - Acute respiratory failure, unspecified whether with hypoxia or hypercapnia Status: Acute Assessment and Plan: Acute respiratory failure likely related to cardiac arrest 09/22/2021: CTA chest abdomen and pelvis showed extensive patchy bilateral airspace disease compatible with pneumonia, mediastinal lymphadenopathy, likely reactive, small pleural effusions. -patient has been started on azithromycin, ceftriaxone, vancomycin. Cultures negative hold vancomycin at this time -chest x-ray reviewed and advance ET tube by 3 cm. OG tube was also repositioned -currently on CMV mode of ventilation, peep of 5, 30% FiO2. Set rate is at 18 although patient is over breathing and tidal volume to 320 -continue bronchodilators -off IV fluids now -currently on Precedex and propofol infusion. I performed a sedation holiday but I was told by nurse that patient became tachypneic and asynchronous with the ventilator on holding of her propofol. Patient was placed back on sedation. I will maximize Precedex and slowly weaned on propofol -patient on clonazepam, Seroquel and mirtazapine which are all home medications (4) Suspected 2019 novel coronavirus infection: Code(s): Z20.822 - Contact with and (suspected) exposure to COVID-19 Status: Acute Assessment and Plan: Chest x-ray and CTA chest shows extensive patchy bilateral airspace disease -SARS-CoV-2 PCR is NEGATIVE -LDH and to is within normal limits -CRP <0.5 -discontinue isolation/precautions (5) Abnormal finding on lung imaging: Code(s): R91.8 - Other nonspecific abnormal finding of lung field Status: Acute Assessment and Plan: Chest x-ray a showed cardiomegaly with interstitial edema, cannot exclude superimposed pneumonia 10/23/2021: CTA chest showed extensive patchy bilateral airspace disease compatible with pneumonia, mediastinal lymphadenopathy, likely reactive, small pleural effusion Continue azithromycin, ceftriaxone (in
--- NOTE | 2021-10-28 11:22 | PM.PNCARD ---
Progress Note: A&P Additional Plan 66-year-old woman with PEA arrest in the setting of profound anemia. No prior cardiac history and no pathology on her echocardiogram that explains this. I am confident that the anemia is the inciting reason for this event. Following transfusion her hemoglobin is better but still low at 7.5 g. She is obviously microcytic. The reason for this anemia does not appear to be explained following upper and lower endoscopy yesterday. In this setting I personally would not recommend proceeding with a coronary angiogram as I do not believe there is any other evidence to suggest an acute coronary syndrome was the causative event. I will sign-off as of now. If there are cardiac issues please call. Hugo Casillas MD [facility] Subjective Date/time seen: Date of service: 10/28/21 11:22 Interval history: 66-year-old woman with: PE a arrest that occurred in the setting of profound anemia at the time of presentation. Following resuscitation echocardiogram did not show any significant structural cardiac problems and normal left ventricular systolic function without significant wall motion abnormalities. And os could be/colonoscopy has been done with no obvious pathology that explains this degree of anemia according to what I see in the report. Patient remains intubated on ventilator support in the ICU. Exam Const: General: no acute distress and confusion Orientation/consciousness: confusion HENMT: General nose exam: Normal nares present and no epistaxis Mouth: Yes moist mucous membranes Eyes: Sclera: sclerae normal Pupils: Equal, round and reactive pupils present Neck: Neck: supple and no JVD Carotids: no bruits Resp: Auscultation: clear to auscultation bilaterally and lung sounds not diminished Cardio: Rate: regular rate Rhythm: regular rhythm Heart sounds: no gallops, no murmurs and no rubs GI: Auscultation: normal bowel sounds Skin: General skin exam: normal color, rashes and/or lesions noted and no erythema Neuro: General: confusion Cranial nerves: Yes Equal, round and reactive pupils present Extrem: General: no edema Objective Data Vital Signs Vital Signs: Vital Signs - 24 hr 10/27/21 11:31 10/27/21 11:44 10/27/21 12:00 Temperature Pulse Rate 86 83 80 Respiratory Rate 22 H Blood Pressure Pulse Oximetry 98 98 10/27/21 14:00 10/27/21 14:58 10/27/21 15:58 Temperature Pulse Rate 72 75 62 Respiratory Rate 22 H 12 Blood Pressure Pulse Oximetry 10/27/21 16:00 10/27/21 16:06 10/27/21 16:30 Temperature Pulse Rate 80 62 60 Respiratory Rate 20 Blood Pressure Pulse Oximetry 100 100 10/27/21 16:39 10/27/21 17:02 10/27/21 17:25 Temperature Pulse Rate 60 60 60 Respiratory Rate 20 21 H Blood Pressure Pulse Oximetry 99 10/27/21 18:00 10/27/21 18:38 10/27/21 20:00 Temperature 37.3 C 36.5 C Pulse Rate 60 61 61 Respiratory Rate 21 H 20 18 Blood Pressure 101/50 L 105/50 L Pulse Oximetry 99 99 10/27/21 20:29 10/27/21 20:31 10/27/21 20:37 Temperature Pulse Rate 63 62 61 Respiratory Rate 21 H 19 Blood Pressure Pulse Oximetry 100 10/27/21 21:03 10/27/21 22:00 10/27/21 23:13 Temperature Pulse Rate 62 59 L 58 L Respiratory Rate 22 H 20 20 Blood Pressure 95/50 L Pulse Oximetry 100 10/28/21 00:00 10/28/21 01:50 10/28/21 01:55 Temperature 36.4 C Pulse Rate 57 L 64 64 Respiratory Rate 20 18 Blood Pressure 102/53 L Pulse Oximetry 100 100 10/28/21 02:00 10/28/21 02:20 10/28/21 04:00 Temperature 37.5 C Pulse Rate 58 L 62 61 Respiratory Rate 20 22 H 22 H Blood Pressure 113/54 L 121/58 L Pulse Oximetry 100 99 10/28/21 05:15 10/28/21 05:46 10/28/21 06:00 Temperature Pulse Rate 89 89 84 Respiratory Rate 28 H 28 H 28 H Blood Pressure 159/83 H Pulse Oximetry 100 10/28/21 07:52 10/28/21 08:00 10/28/21 08:07 Temperature 37.2 C Pulse Rate 119 H 111 H 121 H Respiratory
--- NOTE | 2021-10-28 12:14 | PCFNICU ---
ICU Rounding Note: Pt current nutrition is Glucerna 1.2 restarted at 20 ml/hr held for procedure. Last recorded weight is 71.3 kg. Bowel Motility:+BM reported 10/28 Labs Reviewed:Mg 2.6, Na 130, Glu 2.4,Na 130, Hct 25.1,Hgb 7.5 Meds Noted:Propofol 16.61 ml/ew=628 kcals, Precedex, Rocephin, Fentanyl,Seroquel, Remeron, Atrovent, Protonix. Skin:WNL Additional Notes: Patient remains on mechanical vent. Tube feeding held for colonoscopy. Finding of gastritis. Spoke with MD today plans for tube feedings to restart of Glucerna 1.2 at 20 ml/hr advance by 10 ml q 4 hours to goal rate of 50 ml/hr. Following daily in ICU rounds. Assessing/reassessing every Tuesday and Tuesday.
[2021-10-28 12:28] LABS: Glucose Point of Care 264 mg/dl (65-105)
[2021-10-28] MEDS: PROPOFOL IV EMULSION 100 ML 12.46 MG IV CONT (12:29)
--- NOTE | 2021-10-28 12:36 | WPDGIPROGNO ---
Progress Note: A&P Assessment and Plan (1) Severe anemia: Code(s): D64.9 - Anemia, unspecified Status: Acute Assessment and Plan: most likely culprit of cardiac event, no overt gib egd and colonoscopy showed erosive gastritis and also AVM in colon but no signs of recent bleeding. continue with iv protonix consult hematology (2) Erosive gastritis: Code(s): K29.60 - Other gastritis without bleeding Status: Acute Assessment and Plan: iv protonix (3) AVM (arteriovenous malformation) of colon: Code(s): K55.20 - Angiodysplasia of colon without hemorrhage Status: Acute Assessment and Plan: non-bleeding avm and small treated with APC (4) Cardiac arrest: Code(s): I46.9 - Cardiac arrest, cause unspecified Status: Acute (5) NSTEMI (non-ST elevated myocardial infarction): Code(s): I21.4 - Non-ST elevation (NSTEMI) myocardial infarction Status: Acute (6) Pneumonia: Code(s): J18.9 - Pneumonia, unspecified organism Status: Acute Assessment and Plan: still 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 She is still intubated, RN reports that she became more tachycardic after breathing trial- still not ready for extubation. No report of GIB Review of Systems Review of Systems: All systems reviewed & are unremarkable except as noted in HPI and below Exam Const: Other: intubated and sedated HENMT: General nose exam: Normal nares present Eyes: General: appearance normal, both eyes and all related structures Neck: Neck: supple Resp: Auscultation: no wheezes Other: coarse breath sounds Cardio: Rate: regular rate GI: GI Palp: Yes Soft to palpation, No Tenderness to palpation present (GI) and No Guarding due to palpation present (GI) Auscultation: normal bowel sounds Skin: General skin exam: no rashes or lesions noted Neuro: Other: sedated but open eyes to command Extrem: General: normal to inspection Psych: Other: unable to assess Objective Data Vital Signs Vital Signs: Vital Signs - 24 hr 10/27/21 14:00 10/27/21 14:58 10/27/21 15:58 Temperature Pulse Rate 72 75 62 Respiratory Rate 22 H 12 Blood Pressure Pulse Oximetry 10/27/21 16:00 10/27/21 16:06 10/27/21 16:30 Temperature Pulse Rate 80 62 60 Respiratory Rate 20 Blood Pressure Pulse Oximetry 100 100 10/27/21 16:39 10/27/21 17:02 10/27/21 17:25 Temperature Pulse Rate 60 60 60 Respiratory Rate 20 21 H Blood Pressure Pulse Oximetry 99 10/27/21 18:00 10/27/21 18:38 10/27/21 20:00 Temperature 99.1 F 97.7 F Pulse Rate 60 61 61 Respiratory Rate 21 H 20 18 Blood Pressure 101/50 L 105/50 L Pulse Oximetry 99 99 10/27/21 20:29 10/27/21 20:31 10/27/21 20:37 Temperature Pulse Rate 63 62 61 Respiratory Rate 21 H 19 Blood Pressure Pulse Oximetry 100 10/27/21 21:03 10/27/21 22:00 10/27/21 23:13 Temperature Pulse Rate 62 59 L 58 L Respiratory Rate 22 H 20 20 Blood Pressure 95/50 L Pulse Oximetry 100 10/28/21 00:00 10/28/21 01:50 10/28/21 01:55 Temperature 97.6 F Pulse Rate 57 L 64 64 Respiratory Rate 20 18 Blood Pressure 102/53 L Pulse Oximetry 100 100 10/28/21 02:00 10/28/21 02:20 10/28/21 04:00 Temperature 99.5 F Pulse Rate 58 L 62 61 Respiratory Rate 20 22 H 22 H Blood Pressure 113/54 L 121/58 L Pulse Oximetry 100 99 10/28/21 05:15 10/28/21 05:46 10/28/21 06:00 Temperature Pulse Rate 89 89 84 Respiratory Rate 28 H 28 H 28 H
[2021-10-28] MEDS: dexmedeTOMIDine 400 MCG/100 ML 400 MCG/100 ML BAG 23.98 MCG IV CONT ×3 (13:17→21:22)
[2021-10-28] MEDS: INSULIN ASPART (*BKC) 100 UNITS/ML SUB-Q ×2 (13:22→18:36)
[2021-10-28] MEDS: METOPROLOL TARTRATE 25 MG TABLET PO (14:02)
--- NOTE | 2021-10-28 17:31 | PM.IMPN ---
Progress Note: A&P Assessment and Plan (1) Acute respiratory failure: Code(s): J96.00 - Acute respiratory failure, unspecified whether with hypoxia or hypercapnia Status: Acute Assessment and Plan: Acute respiratory failure related to cardiac arrest and PNA. CTA chest on admission showed extensive patchy bilateral airspace disease compatible with pneumonia. COVID swab was negative. Patient was started on IV abx. BCx NGTD. Sputum cx negative. Wean MV as tolerated. Appreciate front desk input. (2) Cardiopulmonary arrest with successful resuscitation: Code(s): I46.9 - Cardiac arrest, cause unspecified Status: Acute Assessment and Plan: Patient with cardiopulmonary arrest with successful ROSC after 1 round of epinephrine and 1 amp of bicarb along with CPR. Patient was following commands post ROSC so was not a candidate for targeted temperature management/hypothermia. Etiology could be multifactorial related to the sepsis/PNA, profound anemia and/or underlying CAD with ischemia. Troponiins elevated to 0.148. Echo not showing any WM abnormalities. BP elevated yesterday with episode of sinus tachycardia treated with IV Labetolol. Metoprolol added today. Cardiology following along and appreciate their input. Continue tele. (3) Sepsis: Code(s): A41.9 - Sepsis, unspecified organism Status: Acute Assessment and Plan: Patient presents with chest pain and found to have tachycardia, tachypnea, leukocytosis, lactic acidosis and now fevers. Sepsis present on admission related to PNA. BCx NGTD. No further fevers since 10/25. WBC about the same. Continue current abx. (4) NSTEMI (non-ST elevated myocardial infarction): Code(s): I21.4 - Non-ST elevation (NSTEMI) myocardial infarction Status: Acute Assessment and Plan: Patient presented with chest pain, SOB and nausea. Trop as high as 0.148. EKG showing possible LAE but no acute ST changes. NSTEMI per cardiology notes. Patient also with cardiac arrest, profound anemia and PNA with sepsis that could be the etiology of the elevated Trop. Echo showing EF 70% with grade II diastolic dysfunction and mild-mod MR but no wall motion abnormalities. Appreciate cardiology recommendation. No ASA due to the possible GI bleed. Add statin therapy when able. (5) Elevated LFTs: Code(s): R79.89 - Other specified abnormal findings of blood chemistry Status: Acute Assessment and Plan: AST/ALT climbed to 213/136 respectfully on 10/27. No events overnight to explain this and no medications that affects the liver. RUQ US normal and Hepatitis panel negative. levels trending down. (6) Pneumonia: Code(s): J18.9 - Pneumonia, unspecified organism Status: Acute Assessment and Plan: Chest x-ray on admission showing cardiomegaly with interstitial edema but cannot exclude superimposed pneumonia. CTA chest 10/23 showing extensive patchy bilateral airspace disease compatible with pneumonia and small pleural effusion. Started on Rocephin/Azithromycin 10/23 and Vanco added 10/24. Fever developed 10/25 to 102 but afebrile since. Sputum negative. BCx NGTD. Vancomycin stopped. Continue current abx. (7) GI bleed: Code(s): K92.2 - Gastrointestinal hemorrhage, unspecified Status: Acute Assessment and Plan: Patient presented with anemia that could be related to GI bleed. Stool guaiac negative in ED but according to the records, the patient did have some blood streaking when she was wiping her stool. Hgb 6.4 on admission but dropped to 5.5. Iron deficiency anemia noted. She may be intermittently bleeding or related to poor oral intake and malnutrition. She has received 2 units of packed RBCs on 10/23/2021. Hgb climbed to 7-8 range and has remained stable. No evidence of acute blood loss. EGD showing gastritis and colo showing cecal AVMs that were treated and 3 small polyps removed from the cecum on 10/27. Continue Prot
[2021-10-28 18:33] LABS: Glucose Point of Care 238 mg/dl (65-105)
[2021-10-28] MEDS: MIRTAZAPINE 30 MG TABLET PO (20:51)
[2021-10-28] MEDS: PROPOFOL IV EMULSION 100 ML 6.23 MG IV CONT (21:21)
[2021-10-29] VITALS (43 sets, daily range): BP systolic 103–166; BP diastolic 54–76; PULSE 51–102; RESP 17–35; TEMP 36.4–37.2; O2SAT 95–100
[2021-10-29 00:17] LABS: Glucose Point of Care 146 mg/dl (65-105)
[2021-10-29] MEDS: dexmedeTOMIDine 400 MCG/100 ML 400 MCG/100 ML BAG 23.98 MCG IV CONT ×4 (00:40→11:25)
[2021-10-29] MEDS: IPRATROPIUM BR 0.02% INH SOLN 0.5 MG/2.5 ML VIAL INHALATION ×4 (02:05→20:00)
[2021-10-29] MEDS: ALBUTEROL SULFATE NEB 2.5 MG/0.5 ML INH INHALATION ×4 (02:05→20:00)
[2021-10-29 04:55] LABS: Hematocrit 27.9 % (37.0-47.0); Hemoglobin 8.1 g/dL (12.0-15.0); Mean Corpuscular Hemoglobin 22.1 pg (26-34); Mean Platelet Volume 10.8 fl (7.4-10.4); Platelet Count Result 365 k/mm3 (150-375); Red Blood Count 3.67 M/mm3 (4.2-5.4); Red Cell Distribution Width 24.4 % (11.5-14.5); White Blood Count 9.2 K/mm3 (4.5-10.0)
[2021-10-29 05:07] LABS: Alanine Aminotransferase 105 U/L (4-35); Albumin Level 3.3 g/dL (3.5-5.1); Alkaline Phosphatase 87 U/L (38-126); Anion Gap 6 mmol/L (8-16); Aspartate Amino Transferase 29 U/L (14-36); Bilirubin,Total 0.5 mg/dL (0.2-1.3); Blood Urea Nitrogen 20 mg/dL (7-17); Calcium 9.3 mg/dL (8.4-10.2); Carbon Dioxide 29 mmol/L (22-30); Chloride 99 mmol/L (98-107); Estimated CRCL calculation 72 ml/min; Estimated Glomerular Filt Rate > 60; Glucose 197 mg/dL (65-110); Magnesium 2.2 mg/dL (1.6-2.3); Phosphorus 3.2 mg/dL (2.5-4.5); Sodium 134 mmol/L (137-145)
[2021-10-29 05:52] LABS: Alveolar/Arterial O2 Gradient 89.2 mmHg; Base Excess ABG 1.8 mEq/l (+/-2.0); Carboxyhemoglobin 0.3 % THb (0-2.0); Fractional Inspired Oxygen 30 %; Methemoglobin ABG 0.2 %THb (0-1.5); Oxygen Content ABG 13.5 %vol (16.0-22.0); Oxygen Saturation ABG 97.1 % (95.0-100.0); Oxyhemoglobin 95.2 % THb (90.0-100.0); PCO2 ABG 33.7 mmHg (35.0-45.0); PO2 ABG 85.1 mmHg (80.0-100.0); PO2 FiO2 Ratio Arterial Blood 2.84 %; Reduced Hemoglobin 4.3 %THb (0-5.0); pH ABG 7.488 (7.350-7.450)
[2021-10-29 05:53] LABS: Device VENTILATOR; Modified Allen's Test Unable to perform; Site Drawn LEFT RADIAL
[2021-10-29 05:54] LABS: Arterial Blood Gas PEEP 5 cmH2O; Arterial Blood Gas Tidal Volume 320 ml; Arterial Blood Gas Vent Mode CMV; Arterial Blood Gas Ventilator rate 18 /MIN
[2021-10-29] MEDS: CENTRAL LINE FLUSH 10 ML IV PUSH ×3 (06:15→21:26)
[2021-10-29] MEDS: clonazePAM (*CRX) 0.5 MG TABLET 1 MG PO ×3 (07:25→17:21)
[2021-10-29] MEDS: MINERAL OIL/WHITE PETROLATUM OINTMENT 1 APPLIC EACH EYE ×2 (07:25→21:16)
[2021-10-29] MEDS: PANTOPRAZOLE SODIUM IV 40 MG VIAL IV PUSH ×2 (07:25→21:16)
[2021-10-29] MEDS: METOPROLOL TARTRATE 25 MG TABLET PO ×2 (07:26→21:16)
[2021-10-29] MEDS: QUEtiapine FUMARATE 100 MG TABLET PO (07:26)
[2021-10-29] MEDS: LABETALOL HCL INJ 100 MG/20 ML VIAL 20 MG IV PUSH (10:21)
[2021-10-29] MEDS: QUEtiapine FUMARATE 25 MG TABLET 50 MG PO ×2 (10:22→21:17)
[2021-10-29] MEDS: FUROSEMIDE INJ 40 MG/4 ML VIAL IV PUSH (10:24)
--- NOTE | 2021-10-29 11:09 | PCFNICU ---
ICU Rounding Note: Pt current nutrition is NPO. Last recorded weight is 71.4 kg, up from 71.3 kg on admit. Bowel Motility:+BM reported 10/28 Labs Reviewed:Na 134, BUN 20, Cr 0.6,Glu 197, Hgb 8.1, Hct 27.9 Meds Noted:Atrovent, Rocephin, Remeron, Precedex,Klonopin, Zithromax, Lopressor,Albuterol, Seroquel, Protonix. Skin:WNL Additional Notes: Patient currently on breathing trial. Tube feedings on hold. Following daily in ICU rounds. Assessing/reassessing every Tuesday and Tuesday.
[2021-10-29 12:16] LABS: Alveolar/Arterial O2 Gradient 97.2 mmHg; Base Excess ABG 5.2 mEq/l (+/-2.0); Fractional Inspired Oxygen 30 %; HCO3 ABG 27.7 mEq/l (22.0-26.0); Oxygen Content ABG 13.2 %vol (16.0-22.0); Oxygen Saturation ABG 96.9 % (95.0-100.0); Oxyhemoglobin 94.8 % THb (90.0-100.0); PCO2 ABG 32.8 mmHg (35.0-45.0); PO2 ABG 78.2 mmHg (80.0-100.0); PO2 FiO2 Ratio Arterial Blood 2.61 %; Total Hemoglobin 9.8 g/dL (12.0-18.0)
[2021-10-29 12:17] LABS: Arterial Blood Gas Vent Mode SPONTANEOUS; Device VENTILATOR; Modified Allen's Test Pass; Site Drawn RIGHT RADIAL; pH ABG 7.544 (7.350-7.450)
[2021-10-29 12:18] LABS: Arterial Blood Gas PEEP 5 cmH2O; Arterial Blood Gas Pressure Support 5 cmH2O
--- NOTE | 2021-10-29 12:23 | WPDINTPN ---
Progress Note: A&P Assessment and Plan (1) Acute respiratory failure: Code(s): J96.00 - Acute respiratory failure, unspecified whether with hypoxia or hypercapnia Status: Acute Assessment and Plan: Acute respiratory failure likely related to cardiac arrest 09/22/2021: CTA chest abdomen and pelvis showed extensive patchy bilateral airspace disease compatible with pneumonia, mediastinal lymphadenopathy, likely reactive, small pleural effusions. -patient has been started on azithromycin, ceftriaxone, vancomycin. Cultures negative hold vancomycin at this time -chest x-ray reviewed -I placed patient on pressure support weaning trial on Precedex this morning but patient failed due to high RSBI. On 04/01 her respiratory rate was in 40s. I was able to get a good RSBI with 11/01. She did complain of pain in the chest at the site of CPR which could be contributing. Will place a Lidoderm patch to help with pain -continue diuresis -continue bronchodilators -off IV fluids now -patient on clonazepam, Seroquel and mirtazapine which are all home medications (2) Cardiopulmonary arrest with successful resuscitation: Code(s): I46.9 - Cardiac arrest, cause unspecified Status: Acute Assessment and Plan: Patient with cardiopulmonary arrest with successful ROSC after 1 round of epinephrine and 1 amp of bicarb along with CPR. -patient was following commands post ROSC, not a candidate for targeted temperature management/hypothermia -could be multifactorial, proxy a versus coronary artery disease/NSTEMI versus severe anemia. -troponins are elevated, -patient currently hemodynamically stable -cardiology following the patient and plan for further workup depending on EGD results ECHO Summary 1. Left ventricular chamber dimension is normal. 2. Left ventricular systolic function is normal, estimated at >70%. 3. There is no increased left ventricular wall thickness. 4. Left ventricular septal wall motion is normal. 5. The left ventricular diastolic function is grade II diastolic dysfunction. 6. Right ventricular chamber dimension is normal. 7. Right ventricular systolic function is normal. 8. Left atrial chamber dimension is severely enlarged. 9. There is mild to moderate mitral valve regurgitation. (3) Chest pain: Qualifiers: Chest pain type: unspecified Qualified Code(s): R07.9 - Chest pain, unspecified Code(s): R07.9 - Chest pain, unspecified Status: Acute Assessment and Plan: NSTEMI Patient presented with chest pain, shortness of breath, nausea with no vomiting, -elevated troponin, could be related to ischemic event versus cardiac arrest and CPR this was very brief -EKG did not show any ST-T changes -appreciate cardiology recommendation - patient will require further studies and possibly left heart catheterization this admission -not on aspirin due to recent anemia as patient presented with the hemoglobin of 5.5. -continue beta-rajendra (4) Suspected 2018 novel coronavirus infection: Code(s): Z20.822 - Contact with and (suspected) exposure to COVID-19 Status: Acute Assessment and Plan: Chest x-ray and CTA chest shows extensive patchy bilateral airspace disease -SARS-CoV-2 PCR is NEGATIVE -LDH and to is within normal limits -CRP <0.5 -discontinue isolation/precautions (5) Abnormal finding on lung imaging: Code(s): R91.8 - Other nonspecific abnormal finding of lung field Status: Acute Assessment and Plan: Chest x-ray a showed cardiomegaly with interstitial edema, cannot exclude superimposed pneumonia 10/23/2021: CTA chest showed extensive patchy bilateral airspace disease compatible with pneumonia, mediastinal lymphadenopathy, likely reactive, small pleural effusion Continue azithromycin, ceftriaxone (initiated on 10/23/2020) -cultures are negative will hold vancomycin at this time -Lasix for pulmonary edema (6) Anemia: Qualifiers
--- NOTE | 2021-10-29 12:29 | WPDGIPROGNO ---
Progress Note: A&P Assessment and Plan (1) Severe anemia: Code(s): D64.9 - Anemia, unspecified Status: Acute Assessment and Plan: most likely culprit of cardiac event, no overt gib hb low but stable after blood transfusion egd and colonoscopy showed erosive gastritis and also AVM in colon but no signs of recent bleeding. continue with iv protonix hematology to see patient (2) Erosive gastritis: Code(s): K29.60 - Other gastritis without bleeding Status: Acute Assessment and Plan: iv protonix (3) AVM (arteriovenous malformation) of colon: Code(s): K55.20 - Angiodysplasia of colon without hemorrhage Status: Acute Assessment and Plan: non-bleeding avm in colon treated with APC (4) Cardiac arrest: Code(s): I46.9 - Cardiac arrest, cause unspecified Status: Acute (5) NSTEMI (non-ST elevated myocardial infarction): Code(s): I21.4 - Non-ST elevation (NSTEMI) myocardial infarction Status: Acute Assessment and Plan: by cardiology, medical management (6) Pneumonia: Code(s): J18.9 - Pneumonia, unspecified organism Status: Acute Assessment and Plan: still intubated but hope to extubate later today, 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 (7) Elevated LFTs: Code(s): R79.89 - Other specified abnormal findings of blood chemistry Status: Acute Assessment and Plan: noted mild elevation monitor hepatitis panel negative Subjective Date/time seen: 10/29/21 12:29 Interval history: on breathing trial and hopefully will be extubated later today, no report of gib Review of Systems Review of Systems: All systems reviewed & are unremarkable except as noted in HPI and below Exam Const: Other: intubated and sedated HENMT: General nose exam: Normal nares present Eyes: General: appearance normal, both eyes and all related structures Neck: Neck: supple Resp: Auscultation: no wheezes Other: coarse breath sounds Cardio: Rate: regular rate GI: GI Palp: Yes Soft to palpation, No Tenderness to palpation present (GI) and No Guarding due to palpation present (GI) Auscultation: normal bowel sounds Skin: General skin exam: no rashes or lesions noted Neuro: Other: sedated but open eyes to command Extrem: General: normal to inspection Psych: Other: unable to assess Objective Data Vital Signs Vital Signs: Vital Signs - 24 hr 10/28/21 13:17 10/28/21 13:28 10/28/21 14:00 Temperature 99.2 F Pulse Rate 96 92 78 Respiratory Rate 22 H 21 H 20 Blood Pressure 110/62 Pulse Oximetry 98 10/28/21 14:02 10/28/21 14:05 10/28/21 14:15 Temperature Pulse Rate 78 74 75 Respiratory Rate 19 19 Blood Pressure Pulse Oximetry 99 10/28/21 16:00 10/28/21 16:25 10/28/21 17:23 Temperature 99.2 F Pulse Rate 61 70 69 Respiratory Rate 20 21 H Blood Pressure 109/58 L Pulse Oximetry 100 100 10/28/21 18:00 10/28/21 18:34 10/28/21 19:55 Temperature 99.1 F Pulse Rate 61 68 53 L Respiratory Rate 20 21 H 20 Blood Pressure 109/58 L Pulse Oximetry 100 10/28/21 19:56 10/28/21 20:00 10/28/21 20:02 Temperature 97.6 F Pulse Rate 51 L 50 L 51 L Respiratory Rate 17 18 Blood Pressure 99/54 L Pulse Oximetry 100 100 10/28/21 20:49 10/28/21 20:53 10/28/21 20:55 Temperature Pulse Rate 50 L 50 L 50 L Respiratory Rate 17 17 Blood Pressure Pulse Oximetry 10/28/21 21:21 10/28/21 21:22 10/28/21 22:00 Temperature Pulse Rate 50 L 50 L 53 L Respiratory Rate 16 16 17 Blood Pressure 100/53 L Pulse Oximetry 100 10/28/21 23:00 10/29/21 00:00 10/29/21 00:37 Temperature 97.5 F L Pulse Rate 53 L 54 L 54 L Respiratory Rate 17 17 Blood Pressure 103/55 L Pulse Oximetry 100 100 10/29/21 00:40 10/29/21 02:00 10/29/21 02:05 Temperature Pulse Rate 51 L 61 59 L Respiratory Rate 17 21 H 19 Blood Pressure 115/57 L Pulse Oximetry 100 10/29/21 02:20 10/29/21 03:
[2021-10-29] MEDS: fentaNYL CITRATE INJ (*CRX) 100 MCG/2 ML VIAL 50 MCG IV PUSH ×2 (12:31→15:37)
[2021-10-29] MEDS: INSULIN ASPART (*BKC) 100 UNITS/ML SUB-Q ×3 (12:40→23:57)
[2021-10-29 12:49] LABS: Glucose Point of Care 211 mg/dl (65-105)
--- NOTE | 2021-10-29 12:57 | PDONCCN ---
HPI - Date of Consult Date/Time: 10/29/21 12:57 Requesting Physician: Ken Reddy MD Primary Care Provider: Srinivasan Sotelo MD - Consult Narrative Reason for consult: Anemia and thrombosis Narrative: Albertina Orlando is a 66 year old female with history of diabetes, hypertension and COPD came into the hospital with chest pain evaluation. Patient is currently intubated and sedated. Labs showed profound anemia with hemoglobin of 6.4. Hemoccult stool was negative. Patient had EGD and colonoscopy performed. Colonoscopy from October 27 showed AV malformation with colonic polyp without any evidence of bleeding. Lesions were ablated as well. EGD showed gastritis. Patient received 2 units of packed red blood cell. Hemoglobin improved from 5.5-8.1. There is no obvious bleeding at this time. Labs noted that showed significant iron deficiency and low vitamin B12 level. Review of Systems - Review of Systems All systems reviewed & are unremarkable except as noted in HPI and bel - Neurologic Reports system reviewed and no additional complaints, except as documented, Reports confusion, Reports weakness [facility] Medical History: Medical History (Last Updated 10/28/21 @ 12:38 by Calin Salamanca MD) Acute blood loss anemia Anxiety AVM (arteriovenous malformation) of colon Bipolar disorder Cardiac arrest Chronic obstructive pulmonary disease Depression Dyslipidemia Erosive gastritis Gastroesophageal reflux disease Hypertension NSTEMI (non-ST elevated myocardial infarction) Pneumonia Posttraumatic stress disorder Severe anemia Suicide attempt by drug ingestion 16 years ago. Tobacco dependence Type 2 diabetes mellitus Surgical History: Surgical History (Last Updated 10/23/21 @ 21:52 by Nikkie Graff PA-C) No pertinent past surgical history Family History: Family History (Last Updated 10/23/21 @ 21:52 by Nikkie Graff PA-C) Mother Acute myocardial infarction - Social History Social History: Social History (Last Updated 10/23/21 @ 21:53 by Nikkie Graff PA-C) Alcohol Use: Alcohol intake: never Substance Use: Substance use: never Others: Spiritual care concerns: No Smoking Status: Smoking status: Current every day smoker Smoking Pack-years: Smoking packs per day: 1 Smoking cigarettes per day: 20.0 Meds Home Medications Medication Instructions Recorded Confirmed Type clonazepam 1 mg PO TID 10/23/21 10/23/21 History cyclobenzaprine 10 mg PO TID PRN 10/23/21 10/23/21 History dexlansoprazole [Dexilant] 60 mg PO DAILY 10/23/21 10/23/21 History duloxetine 60 mg PO BID 10/23/21 10/23/21 History ergocalciferol (vitamin D2) 50,000 unit PO WEEKLY 10/23/21 10/23/21 History ezetimibe 10 mg PO DAILY 10/23/21 10/23/21 History lancets [Accu-Chek Fastclix Lancet 10/23/21 10/23/21 History Drum] lancets [Micro Thin Lancets] 10/23/21 10/23/21 History lisinopril 40 mg PO DAILY 10/23/21 10/23/21 History meclizine 25 mg PO TID PRN 10/23/21 10/23/21 History metformin 1,000 mg PO BID 10/23/21 10/23/21 History mirtazapine 30 mg PO HS 10/23/21 10/23/21 History quetiapine 600 mg PO HS 10/23/21 10/23/21 History sitagliptin [Januvia] 100 mg PO DAILY 10/23/21 10/23/21 History triamcinolone acetonide 1 applic TOPICAL TID PRN 10/23/21 10/23/21 History Allergies Allergy/AdvReac Type Severity Reaction Status Date / Time codeine Allergy Mild Hives Verified 10/23/21 14:49 Results - Labs CBC & Chem 7: 10/29/21 04:42 10/29/21 04:42 Labs: Short CBC 10/29/21 Range/Units 04:42 WBC 9.2 (4.5-10.0) K/mm3 Hgb 8.1 L (12.0-15.0) g/dL Hct 27.9 L (37.0-47.0) % Plt Count 365 (150-375) k/mm3 BMP 10/29/21 04:42 Sodium 134 L Potassium 4.0 Chloride 99 Carbon Dioxide 29 BUN 20 H Creatinine 0.60 L Glucose 197 H Calcium 9.3 Liver Function 10/29/21 Range/Units 04:42 Total Bilirubin
[2021-10-29] MEDS: PROPOFOL IV EMULSION 100 ML 6.23 MG IV CONT (15:38)
[2021-10-29] MEDS: IRON SUCROSE COMPLEX 500 MG in SODIUM CHLORIDE 0.9% IV 250 ML 78.57 MG IVPB (15:41)
[2021-10-29] MEDS: LIDOCAINE 5% PATCH 1 PATCH TRANSDERM (15:41)
--- NOTE | 2021-10-29 16:47 | PM.IMPN ---
Progress Note: A&P Assessment and Plan (1) Acute respiratory failure: Code(s): J96.00 - Acute respiratory failure, unspecified whether with hypoxia or hypercapnia Status: Acute Assessment and Plan: Acute respiratory failure related to cardiac arrest and PNA. CTA chest on admission showed extensive patchy bilateral airspace disease compatible with pneumonia. COVID swab was negative. Patient was started on IV abx. BCx NGTD. Sputum cx negative. Failed breathing trial earlier today. Propofol added. Wean off mechanical vent as tolerated. Left UE Doppler showing no DVT but thrombosed left basilic and cephalic veins (PICC in the right arm). Add K-pad. Appreciate regional vice president life sales input. (2) Cardiopulmonary arrest with successful resuscitation: Code(s): I46.9 - Cardiac arrest, cause unspecified Status: Acute Assessment and Plan: Patient with cardiopulmonary arrest with successful ROSC after 1 round of epinephrine and 1 amp of bicarb along with CPR. Patient was following commands post ROSC so was not a candidate for targeted temperature management/hypothermia. Etiology could be multifactorial related to the sepsis/PNA, profound anemia and/or underlying CAD with ischemia. Troponiins elevated to 0.148. Echo not showing any WM abnormalities. BP elevated yesterday with episode of sinus tachycardia treated with IV Labetolol; BP elevated again but felt related to failed breathing trial. Metoprolol added 10/28. Cardiology following along and appreciate their input. Continue tele. (3) Sepsis: Code(s): A41.9 - Sepsis, unspecified organism Status: Acute Assessment and Plan: Patient presents with chest pain and found to have tachycardia, tachypnea, leukocytosis, lactic acidosis and now fevers. Sepsis present on admission related to PNA. BCx NGTD. No further fevers since 10/25. WBC normal now. Continue current abx. (4) NSTEMI (non-ST elevated myocardial infarction): Code(s): I21.4 - Non-ST elevation (NSTEMI) myocardial infarction Status: Acute Assessment and Plan: Patient presented with chest pain, SOB and nausea. Trop as high as 0.148. EKG showing possible LAE but no acute ST changes. NSTEMI per cardiology notes. Patient also with cardiac arrest, profound anemia and PNA with sepsis that could be the etiology of the elevated Trop. Echo showing EF 70% with grade II diastolic dysfunction and mild-mod MR but no wall motion abnormalities. Appreciate cardiology recommendation. No ASA due to the possible GI bleed. Add statin therapy when able. Check lipid panel (5) Elevated LFTs: Code(s): R79.89 - Other specified abnormal findings of blood chemistry Status: Acute Assessment and Plan: AST/ALT climbed to 213/136 respectfully on 10/27. No events overnight to explain this and no medications that affects the liver. RUQ US normal and Hepatitis panel negative. levels trending down. (6) Pneumonia: Code(s): J18.9 - Pneumonia, unspecified organism Status: Acute Assessment and Plan: Chest x-ray on admission showing cardiomegaly with interstitial edema but cannot exclude superimposed pneumonia. CTA chest 10/23 showing extensive patchy bilateral airspace disease compatible with pneumonia and small pleural effusion. Started on Rocephin/Azithromycin 10/23 and Vanco added 10/24. Fever developed 10/25 to 102 but afebrile since. Sputum negative. BCx NGTD. Vancomycin stopped. Continue current abx to complete a 7 day course. (7) GI bleed: Code(s): K92.2 - Gastrointestinal hemorrhage, unspecified Status: Acute Assessment and Plan: Patient presented with anemia that could be related to GI bleed. Stool guaiac negative in ED but according to the records, the patient did have some blood streaking when she was wiping her stool. Hgb 6.4 on admission but dropped to 5.5. Iron deficiency anemia noted; B12 level 334 with normal MMA. She may be intermittently bleeding or rel
[2021-10-29] MEDS: dexmedeTOMIDine 400 MCG/100 ML 400 MCG/100 ML BAG 17.13 MCG IV CONT ×2 (16:53→22:23)
[2021-10-29 17:52] LABS: Glucose Point of Care 247 mg/dl (65-105)
[2021-10-29] MEDS: MIRTAZAPINE 30 MG TABLET PO (21:16)
[2021-10-29 23:28] LABS: Glucose Point of Care 202 mg/dl (65-105)
[2021-10-30] VITALS (40 sets, daily range): BP systolic 105–176; BP diastolic 51–97; PULSE 69–117; RESP 23–35; TEMP 37–38.3; O2SAT 92–100
[2021-10-30] MEDS: PROPOFOL IV EMULSION 100 ML 8.3 MG IV CONT ×2 (02:11→13:56)
[2021-10-30] MEDS: ALBUTEROL SULFATE NEB 2.5 MG/0.5 ML INH INHALATION ×2 (02:23→07:48)
[2021-10-30] MEDS: IPRATROPIUM BR 0.02% INH SOLN 0.5 MG/2.5 ML VIAL INHALATION ×4 (02:23→21:22)
[2021-10-30] MEDS: dexmedeTOMIDine 400 MCG/100 ML 400 MCG/100 ML BAG 17.13 MCG IV CONT ×4 (03:59→19:57)
[2021-10-30] MEDS: ACETAMINOPHEN 325 MG TABLET 650 MG PO (04:04)
[2021-10-30 04:49] LABS: Add Urine Microscopic? NO; Appearance Urine Clear (Clear); Bilirubin Urine Negative (Negative); Blood Urine Negative (Negative); Color Urine Straw (Yellow); Glucose Urine UA Negative (Negative); Ketones Urine Negative (Negative); Leukocyte Esterase Ur Negative LEU/UL (Negative); Nitrate Urine Negative (Negative); Protein Urine Negative (Negative); Specific Grav Ur 1.005 (1.001-1.035); Urobilinogen Urine Negative mg/dL (<2.0)
[2021-10-30 05:00] LABS: Basophils Absolute Auto 0.1 K/mm3 (0.0-0.1); Basophils Percent Auto 0.6 % (0.2-1.2); Eosinophils Absolute Auto 0.1 K/mm3 (0-0.3); Eosinophils Percent Auto 0.9 % (0-4.4); Hematocrit 29.8 % (37.0-47.0); Hemoglobin 8.7 g/dL (12.0-15.0); Immature Granulocyte Absolute 0.05 K/mm3 (0.00-0.031); Immature Granulocyte Percent A 0.5 % (0-0.5); Lymphocytes Absolute Auto 1.74 K/mm3 (0.9-3.2); Mean Corpuscular HGB Conc 29.2 g/dl (32-36); Mean Corpuscular Hemoglobin 21.8 pg (26-34); Mean Corpuscular Volume 74.7 fl (80-100); Mean Platelet Volume 10.8 fl (7.4-10.4); Monocytes Percent Auto 9.1 % (2.6-8.5); Neutrophils Absolute Auto 7.9 K/mm3 (1.3-6.7); Neutrophils Percent Auto 72.9 % (45.5-73.1); Platelet Count Result 457 k/mm3 (150-375); Red Blood Count 3.99 M/mm3 (4.2-5.4); White Blood Count 10.9 K/mm3 (4.5-10.0)
[2021-10-30 05:11] LABS: Alanine Aminotransferase 80 U/L (4-35); Albumin Level 3.3 g/dL (3.5-5.1); Alkaline Phosphatase 152 U/L (38-126); Anion Gap 9 mmol/L (8-16); Aspartate Amino Transferase 38 U/L (14-36); Bilirubin,Total 0.5 mg/dL (0.2-1.3); Blood Urea Nitrogen 20 mg/dL (7-17); Calcium 9.8 mg/dL (8.4-10.2); Carbon Dioxide 30 mmol/L (22-30); Chloride 100 mmol/L (98-107); Cholesterol 170 mg/dL (0-200); Estimated CRCL calculation 56 ml/min; Estimated Glomerular Filt Rate > 60; Glucose 280 mg/dL (65-110); HDL Direct 22 mg/dL; Phosphorus 3.8 mg/dL (2.5-4.5); Potassium 3.5 mmol/L (3.4-5.0); Sodium 139 mmol/L (137-145); Triglycerides 205 mg/dL (<150)
[2021-10-30 05:22] LABS: LDL Cholesterol Direct 114 mg/dL
[2021-10-30] MEDS: CENTRAL LINE FLUSH 10 ML IV PUSH ×3 (05:44→21:53)
[2021-10-30] MEDS: INSULIN ASPART (*BKC) 100 UNITS/ML SUB-Q ×3 (05:44→16:51)
[2021-10-30 05:50] LABS: Glucose Point of Care 259 mg/dl (65-105)
[2021-10-30 06:40] LABS: Alveolar/Arterial O2 Gradient 93.6 mmHg; Base Excess ABG 6.9 mEq/l (+/-2.0); Carboxyhemoglobin 0.2 % THb (0-2.0); Fractional Inspired Oxygen 30 %; HCO3 ABG 31.1 mEq/l (22.0-26.0); Methemoglobin ABG 0.2 %THb (0-1.5); Oxygen Content ABG 15.9 %vol (16.0-22.0); Oxygen Saturation ABG 95.1 % (95.0-100.0); Oxyhemoglobin 92.7 % THb (90.0-100.0); PCO2 ABG 42.7 mmHg (35.0-45.0); PO2 ABG 70.1 mmHg (80.0-100.0); PO2 FiO2 Ratio Arterial Blood 2.34 %; Reduced Hemoglobin 6.9 %THb (0-5.0); Total Hemoglobin 12.2 g/dL (12.0-18.0)
[2021-10-30 06:42] LABS: Modified Allen's Test Pass; Site Drawn LEFT RADIAL
[2021-10-30 06:43] LABS: Arterial Blood Gas PEEP 5 cmH2O; Arterial Blood Gas Tidal Volume 320 ml; Arterial Blood Gas Vent Mode CMV; Arterial Blood Gas Ventilator rate 18 /MIN; Device VENTILATOR
[2021-10-30] MEDS: CYANOCOBALAMIN INJ 1,000 MCG/ML VIAL 1000 MCG IM (09:04)
[2021-10-30] MEDS: METOPROLOL TARTRATE 25 MG TABLET PO ×2 (09:04→21:51)
[2021-10-30] MEDS: clonazePAM (*CRX) 0.5 MG TABLET 1 MG PO ×3 (09:04→17:02)
[2021-10-30] MEDS: PANTOPRAZOLE SODIUM IV 40 MG VIAL IV PUSH ×2 (09:05→21:48)
[2021-10-30] MEDS: QUEtiapine FUMARATE 25 MG TABLET 50 MG PO ×2 (09:05→21:48)
[2021-10-30] MEDS: LIDOCAINE 5% PATCH 1 PATCH TRANSDERM (09:32)
[2021-10-30] MEDS: POTASSIUM CHLORIDE 20 MEQ PACKET (FOR LIQUID) 40 MEQ FEED TUBE (09:42)
[2021-10-30 11:22] LABS: Alveolar/Arterial O2 Gradient 96.5 mmHg; Base Excess ABG 8.5 mEq/l (+/-2.0); Carboxyhemoglobin 0.3 % THb (0-2.0); Fractional Inspired Oxygen 30 %; HCO3 ABG 32.5 mEq/l (22.0-26.0); Methemoglobin ABG 0.2 %THb (0-1.5); Oxygen Content ABG 12.5 %vol (16.0-22.0); Oxygen Saturation ABG 94.7 % (95.0-100.0); PCO2 ABG 42.7 mmHg (35.0-45.0); PO2 ABG 67.2 mmHg (80.0-100.0); PO2 FiO2 Ratio Arterial Blood 2.24 %; Reduced Hemoglobin 7.5 %THb (0-5.0); Total Hemoglobin 9.6 g/dL (12.0-18.0); pH ABG 7.499 (7.350-7.450)
[2021-10-30 11:23] LABS: Device VENTILATOR; Modified Allen's Test Unable to perform; Site Drawn LEFT RADIAL
[2021-10-30 11:24] LABS: Arterial Blood Gas PEEP 5 cmH2O; Arterial Blood Gas Pressure Support 5 cmH2O; Arterial Blood Gas Vent Mode SPONTANEOUS
--- NOTE | 2021-10-30 11:25 | PCNFU ---
Nutrition Follow-Up Complete: Inadequate Oral Intake as related to mechanical vent as evidenced by NPO. Goal: Meet estimated nutritional needs Patient is progressing towards goal. We will continue current goal. Pt current nutrition is NPO. Last recorded weight is 71.3 kg, no new weight to report. Bowel Motility:+BM reported 10/30 Labs Reviewed:Glu 280, BUN 20, Alb 3.3,Hct 29.8,Hgb 8.7 Meds Noted:Protonix, Vit B12, Lopressor, Seroquel, Precedex, Rocephin,Remeron, Zithromax. Skin: WNL Additional Notes: Patient is currently on another breathing trial today. Tube feedings are on hold. If patient remains on tube feedings recommend to continue Glucerna 1.2 goal rate at 50 ml/hr over 22 hours with free water flush of 30 ml q 4 hours. Monitoring daily in ICU rounds. Will reassess every Tuesday and Tuesday.
--- NOTE | 2021-10-30 11:33 | WPDINTPN ---
Progress Note: A&P Assessment and Plan (1) Acute respiratory failure: Code(s): J96.00 - Acute respiratory failure, unspecified whether with hypoxia or hypercapnia Status: Acute Assessment and Plan: Acute respiratory failure likely related to cardiac arrest 09/22/2021: CTA chest abdomen and pelvis showed extensive patchy bilateral airspace disease compatible with pneumonia, mediastinal lymphadenopathy, likely reactive, small pleural effusions. -patient has been started on azithromycin, ceftriaxone, vancomycin. Cultures negative hold vancomycin at this time -chest x-ray reviewed -I placed patient on pressure support weaning trial on Precedex this morning but patient failed due to high RSBI. Her respiratory rate was > 35 with tidal volumes of 300. I was able to get a good RSBI with 12/5 which I will continue. This was done on Precedex infusion and patient had a Lidoderm patch on her chest to help with pain from trauma from CPR -continue diuresis -continue bronchodilators -off IV fluids now -patient on clonazepam, Seroquel and mirtazapine which are all home medications (2) Cardiopulmonary arrest with successful resuscitation: Code(s): I46.9 - Cardiac arrest, cause unspecified Status: Acute Assessment and Plan: Patient with cardiopulmonary arrest with successful ROSC after 1 round of epinephrine and 1 amp of bicarb along with CPR. -patient was following commands post ROSC, not a candidate for targeted temperature management/hypothermia -could be multifactorial, proxy a versus coronary artery disease/NSTEMI versus severe anemia. -troponins are elevated, -patient currently hemodynamically stable -cardiology following the patient and plan for further workup depending on EGD results ECHO Summary 1. Left ventricular chamber dimension is normal. 2. Left ventricular systolic function is normal, estimated at >70%. 3. There is no increased left ventricular wall thickness. 4. Left ventricular septal wall motion is normal. 5. The left ventricular diastolic function is grade II diastolic dysfunction. 6. Right ventricular chamber dimension is normal. 7. Right ventricular systolic function is normal. 8. Left atrial chamber dimension is severely enlarged. 9. There is mild to moderate mitral valve regurgitation. (3) Chest pain: Qualifiers: Chest pain type: unspecified Qualified Code(s): R07.9 - Chest pain, unspecified Code(s): R07.9 - Chest pain, unspecified Status: Acute Assessment and Plan: NSTEMI Patient presented with chest pain, shortness of breath, nausea with no vomiting, -elevated troponin, could be related to ischemic event versus cardiac arrest and CPR this was very brief -EKG did not show any ST-T changes -appreciate cardiology recommendation - patient will require further studies and possibly left heart catheterization this admission -not on aspirin due to recent anemia as patient presented with the hemoglobin of 5.5. -continue beta-rajendra (4) Suspected 2018 novel coronavirus infection: Code(s): Z20.822 - Contact with and (suspected) exposure to COVID-19 Status: Acute Assessment and Plan: Chest x-ray and CTA chest shows extensive patchy bilateral airspace disease -SARS-CoV-2 PCR is NEGATIVE -LDH and to is within normal limits -CRP <0.5 -discontinue isolation/precautions (5) Abnormal finding on lung imaging: Code(s): R91.8 - Other nonspecific abnormal finding of lung field Status: Acute Assessment and Plan: Chest x-ray a showed cardiomegaly with interstitial edema, cannot exclude superimposed pneumonia 10/23/2021: CTA chest showed extensive patchy bilateral airspace disease compatible with pneumonia, mediastinal lymphadenopathy, likely reactive, small pleural effusion Continue azithromycin, ceftriaxone (initiated on 10/23/2020) -cultures are negative will hold vancomycin at this time -Lasix for pulmonary edema (6)
[2021-10-30 11:59] LABS: Glucose Point of Care 244 mg/dl (65-105)
[2021-10-30] MEDS: FUROSEMIDE INJ 40 MG/4 ML VIAL IV PUSH (12:02)
[2021-10-30] MEDS: INSULIN GLARGINE (*BKC) 100 UNITS/ML 20 UNITS SUB-Q (12:03)
--- NOTE | 2021-10-30 12:14 | WPDGIPROGNO ---
Progress Note: A&P Assessment and Plan (1) Severe anemia: Code(s): D64.9 - Anemia, unspecified Status: Acute Assessment and Plan: most likely culprit of cardiac event, no overt gib hb low but stable after blood transfusion and hematology now on the case egd and colonoscopy showed erosive gastritis and also AVM in colon but no signs of recent bleeding. Bx showed mild gastritis and adenoma polyps in colon continue with iv protonix [place], call if questions (2) Erosive gastritis: Code(s): K29.60 - Other gastritis without bleeding Status: Acute Assessment and Plan: iv protonix (3) AVM (arteriovenous malformation) of colon: Code(s): K55.20 - Angiodysplasia of colon without hemorrhage Status: Acute Assessment and Plan: non-bleeding avm in colon treated with APC (4) Cardiac arrest: Code(s): I46.9 - Cardiac arrest, cause unspecified Status: Acute (5) NSTEMI (non-ST elevated myocardial infarction): Code(s): I21.4 - Non-ST elevation (NSTEMI) myocardial infarction Status: Acute Assessment and Plan: by cardiology, medical management (6) Pneumonia: Code(s): J18.9 - Pneumonia, unspecified organism Status: Acute Assessment and Plan: still intubated but hope to extubate later today, by size changer Subjective Date/time seen: 10/30/21 12:14 Interval history: still intubated, no report of GIB Review of Systems Review of Systems: All systems reviewed & are unremarkable except as noted in HPI and below Exam Const: Other: intubated and sedated HENMT: General nose exam: Normal nares present Eyes: General: appearance normal, both eyes and all related structures Neck: Neck: supple Resp: Auscultation: no wheezes Other: coarse breath sounds Cardio: Rate: regular rate GI: GI Palp: Yes Soft to palpation, No Tenderness to palpation present (GI) and No Guarding due to palpation present (GI) Auscultation: normal bowel sounds Skin: General skin exam: no rashes or lesions noted Neuro: Other: sedated but open eyes to command Extrem: General: normal to inspection Psych: Other: unable to assess Objective Data Vital Signs Vital Signs: Vital Signs - 24 hr 10/29/21 14:00 10/29/21 14:05 10/29/21 14:12 Temperature Pulse Rate 70 73 71 Respiratory Rate 23 H 17 Blood Pressure 120/56 L Pulse Oximetry 99 99 10/29/21 14:14 10/29/21 15:38 10/29/21 16:00 Temperature 98.9 F Pulse Rate 69 98 81 Respiratory Rate 19 25 H 29 H Blood Pressure 137/61 Pulse Oximetry 97 10/29/21 16:53 10/29/21 17:01 10/29/21 17:21 Temperature Pulse Rate 88 91 97 Respiratory Rate 29 H 35 H Blood Pressure Pulse Oximetry 100 10/29/21 18:00 10/29/21 20:00 10/29/21 20:01 Temperature 98.5 F Pulse Rate 82 68 71 Respiratory Rate 30 H 28 H 29 H Blood Pressure 141/65 H 118/55 L Pulse Oximetry 96 95 10/29/21 20:02 10/29/21 20:15 10/29/21 21:16 Temperature Pulse Rate 66 70 64 Respiratory Rate 25 H Blood Pressure Pulse Oximetry 98 10/29/21 22:00 10/29/21 22:23 10/29/21 23:00 Temperature Pulse Rate 71 71 75 Respiratory Rate 22 H 22 H Blood Pressure 111/54 L Pulse Oximetry 100 99 10/30/21 00:00 10/30/21 02:00 10/30/21 02:11 Temperature 98.6 F Pulse Rate 75 72 72 Respiratory Rate 25 H 27 H 27 H Blood Pressure 126/56 L 122/52 L Pulse Oximetry 99 96 10/30/21 02:24 10/30/21 02:27 10/30/21 02:30 Temperature Pulse Rate 71 81 73 Respiratory Rate 27 H 27 H Blood Pressure Pulse Oximetry 98 10/30/21 03:20 10/30/21 03:59 10/30/21 04:00 Temperature 101 F H Pulse Rate 97 96 Respiratory Rate 33 H 32 H Blood Pressure 159/74 H Pulse Oximetry 97 10/30/21 04:04 10/30/21 04:12 10/30/21 05:04 Temperature 101 F H 99.7 F H Pulse Rate 95 Respiratory Rate 34 H Blood Pressure Pulse Oximetry 10/30/21 06:00 10/30/21 06:06
[2021-10-30] MEDS: IRON SUCROSE COMPLEX 500 MG in SODIUM CHLORIDE 0.9% IV 250 ML 78 MG IVPB (13:58)
--- NOTE | 2021-10-30 14:55 | PM.IMPN ---
Progress Note: A&P Assessment and Plan (1) Acute respiratory failure: Code(s): J96.00 - Acute respiratory failure, unspecified whether with hypoxia or hypercapnia Status: Acute Assessment and Plan: Acute respiratory failure related to cardiac arrest and PNA. CTA chest on admission showed extensive patchy bilateral airspace disease compatible with pneumonia. COVID swab was negative. Patient was started on IV abx. BCx negative. Sputum cx negative. Failed breathing trial again. Propofol added. Wean off mechanical vent as tolerated. Left UE Doppler showing no DVT but thrombosed left basilic and cephalic veins (PICC in the right arm). Appreciate recreation therapy aides teacher input. (2) Cardiopulmonary arrest with successful resuscitation: Code(s): I46.9 - Cardiac arrest, cause unspecified Status: Acute Assessment and Plan: Patient with cardiopulmonary arrest with successful ROSC after 1 round of epinephrine and 1 amp of bicarb along with CPR. Patient was following commands post ROSC so was not a candidate for targeted temperature management/hypothermia. Etiology could be multifactorial related to the sepsis/PNA, profound anemia and/or underlying CAD with ischemia. Troponiins elevated to 0.148. Echo not showing any WM abnormalities. BP elevated and Metoprolol added 10/28. Cardiology following along and appreciate their input. Continue tele. (3) Sepsis: Code(s): A41.9 - Sepsis, unspecified organism Status: Acute Assessment and Plan: Patient presents with chest pain and found to have tachycardia, tachypnea, leukocytosis, lactic acidosis and now fevers. Sepsis present on admission related to PNA. BCx negative. having recurrent fevers now. WBC essentially normal. Completed 7 days of abx. Follow up on 2nd set of BCx. (4) NSTEMI (non-ST elevated myocardial infarction): Code(s): I21.4 - Non-ST elevation (NSTEMI) myocardial infarction Status: Acute Assessment and Plan: Patient presented with chest pain, SOB and nausea. Trop as high as 0.148. EKG showing possible LAE but no acute ST changes. NSTEMI per cardiology notes. Patient also with cardiac arrest, profound anemia and PNA with sepsis that could be the etiology of the elevated Trop. Echo showing EF 70% with grade II diastolic dysfunction and mild-mod MR but no wall motion abnormalities. Appreciate cardiology recommendation. No ASA due to the possible GI bleed. Add statin therapy when able. (5) Elevated LFTs: Code(s): R79.89 - Other specified abnormal findings of blood chemistry Status: Acute Assessment and Plan: AST/ALT climbed to 213/136 respectfully on 10/27. No events overnight to explain this and no medications that affects the liver. RUQ US normal and Hepatitis panel negative. Levels trending down. Follow (6) Pneumonia: Code(s): J18.9 - Pneumonia, unspecified organism Status: Acute Assessment and Plan: Chest x-ray on admission showing cardiomegaly with interstitial edema but cannot exclude superimposed pneumonia. CTA chest 10/23 showing extensive patchy bilateral airspace disease compatible with pneumonia and small pleural effusion. Started on Rocephin/Azithromycin 10/23 and Vanco added 10/24. Fever developed 10/25 to 102 but afebrile since until this morning. Sputum negative. BCx negative. Vancomycin stopped 10/27. Rocephin and Azithro stopped 10/30 after 7 days. Follow up on repeat BCx. (7) GI bleed: Code(s): K92.2 - Gastrointestinal hemorrhage, unspecified Status: Acute Assessment and Plan: Patient presented with anemia that could be related to GI bleed. Stool guaiac negative in ED but according to the records, the patient did have some blood streaking when she was wiping her stool. Hgb 6.4 on admission but dropped to 5.5. Iron deficiency anemia noted; B12 level 334 with normal MMA. She may be intermittently bleeding or related to poor oral intake and malnutrition. Family feels
[2021-10-30 16:50] LABS: Glucose Point of Care 245 mg/dl (65-105)
[2021-10-30 20:19] LABS: Glucose Point of Care 189 mg/dl (65-105)
[2021-10-30] MEDS: MINERAL OIL/WHITE PETROLATUM OINTMENT 1 APPLIC EACH EYE (21:48)
[2021-10-30] MEDS: MIRTAZAPINE 30 MG TABLET PO (21:49)
[2021-10-31] VITALS (37 sets, daily range): BP systolic 98–180; BP diastolic 52–94; PULSE 60–118; RESP 20–35; TEMP 36.4–38.3; O2SAT 94–100
[2021-10-31] MEDS: PROPOFOL IV EMULSION 100 ML 8.3 MG IV CONT ×3 (00:35→18:51)
[2021-10-31 00:40] LABS: Glucose Point of Care 277 mg/dl (65-105)
[2021-10-31] MEDS: ACETAMINOPHEN 325 MG TABLET 650 MG PO (00:41)
[2021-10-31] MEDS: INSULIN ASPART (*BKC) 100 UNITS/ML SUB-Q ×6 (00:41→21:00)
[2021-10-31] MEDS: dexmedeTOMIDine 400 MCG/100 ML 400 MCG/100 ML BAG 17.13 MCG IV CONT ×5 (01:27→21:49)
[2021-10-31] MEDS: IPRATROPIUM BR 0.02% INH SOLN 0.5 MG/2.5 ML VIAL INHALATION ×4 (02:05→20:43)
[2021-10-31 04:03] LABS: Glucose Point of Care 224 mg/dl (65-105)
[2021-10-31 04:10] LABS: Basophils Absolute Auto 0.1 K/mm3 (0.0-0.1); Basophils Percent Auto 0.8 % (0.2-1.2); Eosinophils Absolute Auto 0.3 K/mm3 (0-0.3); Eosinophils Percent Auto 2.1 % (0-4.4); Hemoglobin 9.2 g/dL (12.0-15.0); Immature Granulocyte Absolute 0.12 K/mm3 (0.00-0.031); Immature Granulocyte Percent A 0.9 % (0-0.5); Lymphocytes Absolute Auto 2.93 K/mm3 (0.9-3.2); Lymphocytes Percent Auto 23.2 % (18.3-44.2); Mean Corpuscular HGB Conc 28.8 g/dl (32-36); Mean Corpuscular Volume 76.4 fl (80-100); Mean Platelet Volume 10.7 fl (7.4-10.4); Monocytes Absolute Auto 1.4 K/mm3 (0.1-0.6); Monocytes Percent Auto 11.2 % (2.6-8.5); Neutrophils Absolute Auto 7.8 K/mm3 (1.3-6.7); Neutrophils Percent Auto 61.8 % (45.5-73.1); Platelet Count Result 508 k/mm3 (150-375); Red Blood Count 4.19 M/mm3 (4.2-5.4); Red Cell Distribution Width 25.2 % (11.5-14.5); White Blood Count 12.7 K/mm3 (4.5-10.0)
[2021-10-31] MEDS: CENTRAL LINE FLUSH 10 ML IV PUSH ×3 (04:11→20:55)
[2021-10-31 04:24] LABS: Alanine Aminotransferase 71 U/L (4-35); Albumin Level 3.3 g/dL (3.5-5.1); Alkaline Phosphatase 162 U/L (38-126); Anion Gap 5 mmol/L (8-16); Aspartate Amino Transferase 39 U/L (14-36); Bilirubin,Total 0.3 mg/dL (0.2-1.3); Blood Urea Nitrogen 17 mg/dL (7-17); Calcium 9.7 mg/dL (8.4-10.2); Carbon Dioxide 36 mmol/L (22-30); Chloride 101 mmol/L (98-107); Estimated CRCL calculation 56 ml/min; Estimated Glomerular Filt Rate > 60; Glucose 249 mg/dL (65-110); Potassium 3.7 mmol/L (3.4-5.0); Sodium 142 mmol/L (137-145)
[2021-10-31 04:34] LABS: Platelet Estimate Adequate (Adequate); Poikilocytosis 1+ (NORMAL)
[2021-10-31 04:35] LABS: Atypical Lymphocytes Present; Hypochromasia 1+ (NORMAL)
[2021-10-31 05:11] LABS: Alveolar/Arterial O2 Gradient 74.8 mmHg; Base Excess ABG 10.1 mEq/l (+/-2.0); Carboxyhemoglobin 0.3 % THb (0-2.0); Fractional Inspired Oxygen 30 %; HCO3 ABG 35.6 mEq/l (22.0-26.0); Methemoglobin ABG 0.3 %THb (0-1.5); Oxygen Content ABG 15.2 %vol (16.0-22.0); Oxygen Saturation ABG 95.8 % (95.0-100.0); Oxyhemoglobin 93.4 % THb (90.0-100.0); PCO2 ABG 52.2 mmHg (35.0-45.0); PO2 ABG 77.8 mmHg (80.0-100.0); PO2 FiO2 Ratio Arterial Blood 2.59 %; Total Hemoglobin 11.5 g/dL (12.0-18.0); pH ABG 7.452 (7.350-7.450)
[2021-10-31 05:12] LABS: Arterial Blood Gas Vent Mode CMV; Arterial Blood Gas Ventilator rate 18 /MIN; Device VENTILATOR; Site Drawn LEFT BRACHIAL
[2021-10-31 05:13] LABS: Arterial Blood Gas PEEP 5 cmH2O; Arterial Blood Gas Tidal Volume 320 ml
[2021-10-31] MEDS: LIDOCAINE 5% PATCH 1 PATCH TRANSDERM (08:03)
[2021-10-31] MEDS: METOPROLOL TARTRATE 25 MG TABLET PO ×2 (08:05→20:47)
[2021-10-31] MEDS: QUEtiapine FUMARATE 25 MG TABLET 50 MG PO ×2 (08:05→20:46)
[2021-10-31] MEDS: PANTOPRAZOLE SODIUM IV 40 MG VIAL IV PUSH ×2 (08:06→20:47)
[2021-10-31] MEDS: MINERAL OIL/WHITE PETROLATUM OINTMENT 1 APPLIC EACH EYE ×2 (08:06→20:47)
[2021-10-31] MEDS: CYANOCOBALAMIN INJ 1,000 MCG/ML VIAL 1000 MCG IM (08:09)
[2021-10-31] MEDS: LABETALOL HCL INJ 100 MG/20 ML VIAL 20 MG IV PUSH (08:09)
[2021-10-31] MEDS: clonazePAM (*CRX) 0.5 MG TABLET 1 MG PO ×3 (08:09→16:10)
[2021-10-31] MEDS: INSULIN GLARGINE (*BKC) 100 UNITS/ML 20 UNITS SUB-Q (08:09)
[2021-10-31 08:20] LABS: Glucose Point of Care 248 mg/dl (65-105)
[2021-10-31] MEDS: INSULIN GLARGINE (*BKC) 100 UNITS/ML 10 UNITS SUB-Q (08:54)
[2021-10-31] MEDS: INSULIN GLARGINE (*BKC) 100 UNITS/ML 30 UNITS SUB-Q (10:00)
[2021-10-31 10:41] LABS: Lipase 59 U/L (23-300)
--- NOTE | 2021-10-31 13:02 | WPDINTPN ---
Progress Note: A&P Assessment and Plan (1) Acute respiratory failure: Code(s): J96.00 - Acute respiratory failure, unspecified whether with hypoxia or hypercapnia Status: Acute Assessment and Plan: Acute respiratory failure likely related to cardiac arrest 09/22/2021: CTA chest abdomen and pelvis showed extensive patchy bilateral airspace disease compatible with pneumonia, mediastinal lymphadenopathy, likely reactive, small pleural effusions. -patient has been started on azithromycin, ceftriaxone, vancomycin. Cultures negativehence Vanc was dced -chest x-ray reviewed -I placed patient on pressure support weaning trial on Precedex this morning but patient failed due to high RSBI. Her respiratory rate was > 35 with tidal volumes of 300. I was able to get a good RSBI with 12/5 which I will continue. Patient is on Precedex infusion and has a Lidoderm patch on her chest to help with pain from trauma from CPR -continue diuresis -continue bronchodilators -off IV fluids now -patient on clonazepam, Seroquel and mirtazapine which are all home medications -CT chest (2) Cardiopulmonary arrest with successful resuscitation: Code(s): I46.9 - Cardiac arrest, cause unspecified Status: Acute Assessment and Plan: Patient with cardiopulmonary arrest with successful ROSC after 1 round of epinephrine and 1 amp of bicarb along with CPR. -patient was following commands post ROSC, not a candidate for targeted temperature management/hypothermia -could be multifactorial, proxy a versus coronary artery disease/NSTEMI versus severe anemia. -troponins are elevated, -patient currently hemodynamically stable -cardiology following the patient and plan for further workup depending on EGD results ECHO Summary 1. Left ventricular chamber dimension is normal. 2. Left ventricular systolic function is normal, estimated at >70%. 3. There is no increased left ventricular wall thickness. 4. Left ventricular septal wall motion is normal. 5. The left ventricular diastolic function is grade II diastolic dysfunction. 6. Right ventricular chamber dimension is normal. 7. Right ventricular systolic function is normal. 8. Left atrial chamber dimension is severely enlarged. 9. There is mild to moderate mitral valve regurgitation. (3) Chest pain: Qualifiers: Chest pain type: unspecified Qualified Code(s): R07.9 - Chest pain, unspecified Code(s): R07.9 - Chest pain, unspecified Status: Acute Assessment and Plan: NSTEMI Patient presented with chest pain, shortness of breath, nausea with no vomiting, -elevated troponin, could be related to ischemic event versus cardiac arrest and CPR this was very brief -EKG did not show any ST-T changes -appreciate cardiology recommendation - patient will require further studies and possibly left heart catheterization this admission -not on aspirin due to recent anemia as patient presented with the hemoglobin of 5.5. -continue beta-rajendra (4) Suspected 2018 novel coronavirus infection: Code(s): Z20.822 - Contact with and (suspected) exposure to COVID-19 Status: Acute Assessment and Plan: -SARS-CoV-2 PCR is NEGATIVE (5) Abnormal finding on lung imaging: Code(s): R91.8 - Other nonspecific abnormal finding of lung field Status: Acute Assessment and Plan: Chest x-ray a showed cardiomegaly with interstitial edema, cannot exclude superimposed pneumonia 10/23/2021: CTA chest showed extensive patchy bilateral airspace disease compatible with pneumonia, mediastinal lymphadenopathy, likely reactive, small pleural effusion Continue azithromycin, ceftriaxone (initiated on 10/23/2020) -cultures are negative will hold vancomycin at this time -Lasix for pulmonary edema (6) Anemia: Qualifiers: Anemia type: unspecified type Qualified Code(s): D64.9 - Anemia, unspecified Code(s): D64.9 - Anemia, unspecified St
[2021-10-31 13:04] LABS: Glucose Point of Care 285 mg/dl (65-105)
[2021-10-31 13:04] LABS: Glucose Point of Care 270 mg/dl (65-105)
[2021-10-31] MEDS: IRON SUCROSE COMPLEX 500 MG in SODIUM CHLORIDE 0.9% IV 250 ML 78.5 MG IVPB (14:32)
[2021-10-31 16:15] LABS: Glucose Point of Care 241 mg/dl (65-105)
[2021-10-31] MEDS: ALBUTEROL SULFATE NEB 2.5 MG/0.5 ML INH INHALATION (20:43)
[2021-10-31] MEDS: MIRTAZAPINE 30 MG TABLET PO (20:47)
[2021-10-31 20:50] LABS: Glucose Point of Care 222 mg/dl (65-105)
[2021-11-01] VITALS (34 sets, daily range): BP systolic 127–201; BP diastolic 60–98; PULSE 68–124; RESP 24–36; TEMP 37–38.3; O2SAT 95–100
[2021-11-01 00:22] LABS: Glucose Point of Care 199 mg/dl (65-105)
[2021-11-01] MEDS: ALBUTEROL SULFATE NEB 2.5 MG/0.5 ML INH INHALATION (02:31)
[2021-11-01] MEDS: IPRATROPIUM BR 0.02% INH SOLN 0.5 MG/2.5 ML VIAL INHALATION (02:31)
[2021-11-01] MEDS: dexmedeTOMIDine 400 MCG/100 ML 400 MCG/100 ML BAG 17.13 MCG IV CONT ×4 (03:38→20:43)
[2021-11-01 03:44] LABS: Glucose Point of Care 230 mg/dl (65-105)
[2021-11-01] MEDS: INSULIN ASPART (*BKC) 100 UNITS/ML SUB-Q ×4 (03:56→16:42)
[2021-11-01] MEDS: LABETALOL HCL INJ 100 MG/20 ML VIAL 20 MG IV PUSH (04:16)
[2021-11-01 04:35] LABS: Hematocrit 32.9 % (37.0-47.0); Hemoglobin 9.3 g/dL (12.0-15.0); Mean Corpuscular HGB Conc 28.3 g/dl (32-36); Mean Corpuscular Hemoglobin 22.4 pg (26-34); Mean Corpuscular Volume 79.3 fl (80-100); Mean Platelet Volume 10.6 fl (7.4-10.4); Platelet Count Result 524 k/mm3 (150-375); Red Blood Count 4.15 M/mm3 (4.2-5.4); Red Cell Distribution Width 25.4 % (11.5-14.5); White Blood Count 17.5 K/mm3 (4.5-10.0)
[2021-11-01] MEDS: CENTRAL LINE FLUSH 10 ML IV PUSH ×3 (04:51→21:05)
[2021-11-01 05:00] LABS: Base Excess ABG 5.9 mEq/l (+/-2.0); Carboxyhemoglobin 0.3 % THb (0-2.0); Fractional Inspired Oxygen 30 %; HCO3 ABG 31.3 mEq/l (22.0-26.0); Methemoglobin ABG 0.2 %THb (0-1.5); Oxygen Content ABG 14.5 %vol (16.0-22.0); Oxygen Saturation ABG 93.7 % (95.0-100.0); Oxyhemoglobin 90.9 % THb (90.0-100.0); PCO2 ABG 49.2 mmHg (35.0-45.0); PO2 ABG 68.1 mmHg (80.0-100.0); PO2 FiO2 Ratio Arterial Blood 2.27 %; Reduced Hemoglobin 8.6 %THb (0-5.0); Total Hemoglobin 11.3 g/dL (12.0-18.0); pH ABG 7.421 (7.350-7.450)
[2021-11-01 05:01] LABS: Device VENTILATOR; Site Drawn LEFT RADIAL
[2021-11-01 05:02] LABS: Arterial Blood Gas PEEP 5 cmH2O; Arterial Blood Gas Tidal Volume 320 ml; Arterial Blood Gas Vent Mode CMV; Arterial Blood Gas Ventilator rate 18 /MIN
[2021-11-01 05:08] LABS: Alanine Aminotransferase 53 U/L (4-35); Albumin Level 3.3 g/dL (3.5-5.1); Alkaline Phosphatase 147 U/L (38-126); Anion Gap 4 mmol/L (8-16); Aspartate Amino Transferase 40 U/L (14-36); Bilirubin,Total 0.5 mg/dL (0.2-1.3); Blood Urea Nitrogen 27 mg/dL (7-17); Calcium 9.7 mg/dL (8.4-10.2); Carbon Dioxide 34 mmol/L (22-30); Chloride 104 mmol/L (98-107); Estimated CRCL calculation 72 ml/min; Estimated Glomerular Filt Rate > 60; Glucose 253 mg/dL (65-110); Magnesium 2.1 mg/dL (1.6-2.3); Phosphorus 4.5 mg/dL (2.5-4.5); Potassium 5.1 mmol/L (3.4-5.0); Sodium 142 mmol/L (137-145)
[2021-11-01 08:09] LABS: Glucose Point of Care 248 mg/dl (65-105)
[2021-11-01] MEDS: INSULIN GLARGINE (*BKC) 100 UNITS/ML 30 UNITS SUB-Q (08:12)
[2021-11-01] MEDS: METOPROLOL TARTRATE 25 MG TABLET PO ×2 (08:49→20:46)
[2021-11-01] MEDS: clonazePAM (*CRX) 0.5 MG TABLET 1 MG PO ×3 (08:49→16:42)
[2021-11-01] MEDS: MINERAL OIL/WHITE PETROLATUM OINTMENT 1 APPLIC EACH EYE ×2 (08:49→20:48)
[2021-11-01] MEDS: PANTOPRAZOLE SODIUM IV 40 MG VIAL IV PUSH ×2 (08:49→20:46)
[2021-11-01] MEDS: QUEtiapine FUMARATE 25 MG TABLET 50 MG PO ×2 (08:50→20:49)
[2021-11-01] MEDS: LIDOCAINE 5% PATCH 1 PATCH TRANSDERM (08:50)
[2021-11-01] MEDS: PROPOFOL IV EMULSION 100 ML 6.23 MG IV CONT ×2 (08:59→20:42)
[2021-11-01] MEDS: FUROSEMIDE INJ 40 MG/4 ML VIAL IV PUSH (09:36)
[2021-11-01 11:46] LABS: Glucose Point of Care 279 mg/dl (65-105)
[2021-11-01 11:53] LABS: Add Urine Microscopic? NO; Appearance Urine Clear (Clear); Bilirubin Urine Negative (Negative); Blood Urine Negative (Negative); Color Urine Straw (Yellow); Glucose Urine UA Negative (Negative); Ketones Urine Negative (Negative); Leukocyte Esterase Ur Negative LEU/UL (Negative); Nitrate Urine Negative (Negative); Protein Urine Negative (Negative); Urobilinogen Urine Negative mg/dL (<2.0)
[2021-11-01] MEDS: hydrALAZINE HCL 20 MG/ML VIAL 10 MG IV PUSH (12:03)
--- NOTE | 2021-11-01 12:50 | WPDINTPN ---
Progress Note: A&P Assessment and Plan (1) Acute respiratory failure: Code(s): J96.00 - Acute respiratory failure, unspecified whether with hypoxia or hypercapnia Status: Acute Assessment and Plan: Acute respiratory failure likely related to cardiac arrest 09/22/2021: CTA chest abdomen and pelvis showed extensive patchy bilateral airspace disease compatible with pneumonia, mediastinal lymphadenopathy, likely reactive, small pleural effusions. -patient has been started on azithromycin, ceftriaxone, vancomycin. Cultures negativehence Vanc was dced -chest x-ray reviewed - on last few days, I placed patient on pressure support weaning trial on Precedex this morning but patient failed due to high RSBI. Her respiratory rate was > 35 with tidal volumes of 300. I was able to get a good RSBI with 11/01. - today patient was tachypneic with rate touch ink to 40 on lightening propofol and hence not a candidate for weaning trial - Patient is also on Precedex infusion and has a Lidoderm patch on her chest to help with pain from trauma from CPR -continue diuresis -continue bronchodilators -off IV fluids now -patient on clonazepam, Seroquel and mirtazapine which are all home medications -CT chest reviewed (2) Fever: Code(s): R50.9 - Fever, unspecified Status: Acute Assessment and Plan: Febrile over last 2 days. WBC also increased Initial blood and sputum culture were negative 10/23/2021: CTA chest showed extensive patchy bilateral airspace disease compatible with pneumonia, mediastinal lymphadenopathy, likely reactive, small pleural effusion patient completed a 7 day course of azithromycin, ceftriaxone (initiated on 10/23/2020) Repeat culture sent 10/30 are negative till now Lipase normal 10/31 Started on empiric vancomycin and cefepime Procalcitonin pending Krishna will be changed. Check UA 10/31 CT Sinuses IMPRESSION: 1. Mild mucosal thickening in left maxillary sinus. 2. Leftward deviation of the nasal septum. CT C/A/P IMPRESSION: 1. Small pleural effusions, right worse than left, worsened from 10/23/21. 2. Mild pulmonary edema. 3. Nasogastric tube tip in the proximal duodenum. 4. Small pericardial effusion. 5. Mild mediastinal lymphadenopathy, likely reactive. 6. New gallbladder distention, which may secondary to fasting. (3) Cardiopulmonary arrest with successful resuscitation: Code(s): I46.9 - Cardiac arrest, cause unspecified Status: Acute Assessment and Plan: Patient with cardiopulmonary arrest with successful ROSC after 1 round of epinephrine and 1 amp of bicarb along with CPR. -patient was following commands post ROSC, not a candidate for targeted temperature management/hypothermia -could be multifactorial, proxy a versus coronary artery disease/NSTEMI versus severe anemia. -troponins are elevated, -patient currently hemodynamically stable -cardiology following the patient and plan for further workup depending on EGD results ECHO Summary 1. Left ventricular chamber dimension is normal. 2. Left ventricular systolic function is normal, estimated at >70%. 3. There is no increased left ventricular wall thickness. 4. Left ventricular septal wall motion is normal. 5. The left ventricular diastolic function is grade II diastolic dysfunction. 6. Right ventricular chamber dimension is normal. 7. Right ventricular systolic function is normal. 8. Left atrial chamber dimension is severely enlarged. 9. There is mild to moderate mitral valve regurgitation. (4) Chest pain: Qualifiers: Chest pain type: unspecified Qualified Code(s): R07.9 - Chest pain, unspecified Code(s): R07.9 - Chest pain, unspecified Status: Acute Assessment and Plan: NSTEMI Patient presented with chest pain, shortness of breath, nausea with no vomiting, -elevated troponin, could be related to ischemic event versus cardiac arrest and CPR this was very brief -EKG did not
[2021-11-01] MEDS: IRON SUCROSE COMPLEX 500 MG in SODIUM CHLORIDE 0.9% IV 250 ML 78 MG IVPB (14:09)
[2021-11-01] MEDS: INSULIN GLARGINE (*BKC) 100 UNITS/ML 10 UNITS SUB-Q (14:09)
[2021-11-01 15:52] LABS: Glucose Point of Care 227 mg/dl (65-105)
[2021-11-01] MEDS: ACETAMINOPHEN 325 MG TABLET 650 MG PO (16:42)
[2021-11-01 20:40] LABS: Glucose Point of Care 168 mg/dl (65-105)
[2021-11-01] MEDS: MIRTAZAPINE 30 MG TABLET PO (20:47)
[2021-11-02] VITALS (31 sets, daily range): BP systolic 103–148; BP diastolic 45–63; PULSE 59–98; RESP 20–32; TEMP 36.4–37.6; O2SAT 97–100
[2021-11-02 00:25] LABS: Glucose Point of Care 207 mg/dl (65-105)
[2021-11-02] MEDS: INSULIN ASPART (*BKC) 100 UNITS/ML SUB-Q ×3 (00:45→12:48)
[2021-11-02] MEDS: dexmedeTOMIDine 400 MCG/100 ML 400 MCG/100 ML BAG 17.13 MCG IV CONT ×4 (02:50→20:20)
[2021-11-02 04:31] LABS: Glucose Point of Care 161 mg/dl (65-105)
[2021-11-02 05:03] LABS: Alveolar/Arterial O2 Gradient 81.3 mmHg; Base Excess ABG 8.4 mEq/l (+/-2.0); Carboxyhemoglobin 0.3 % THb (0-2.0); Fractional Inspired Oxygen 30 %; HCO3 ABG 32.2 mEq/l (22.0-26.0); Methemoglobin ABG 0.2 %THb (0-1.5); Oxygen Content ABG 12.2 %vol (16.0-22.0); Oxyhemoglobin 94.5 % THb (90.0-100.0); PCO2 ABG 41.6 mmHg (35.0-45.0); PO2 ABG 83.7 mmHg (80.0-100.0); PO2 FiO2 Ratio Arterial Blood 2.79 %; Total Hemoglobin 9.1 g/dL (12.0-18.0)
[2021-11-02 05:08] LABS: Site Drawn LEFT RADIAL; pH ABG 7.507 (7.350-7.450)
[2021-11-02 05:09] LABS: Arterial Blood Gas Vent Mode CMV; Arterial Blood Gas Ventilator rate 18 /MIN; Device VENTILATOR; Modified Allen's Test Unable to perform
[2021-11-02 05:10] LABS: Arterial Blood Gas PEEP 5 cmH2O; Arterial Blood Gas Tidal Volume 320 ml
[2021-11-02] MEDS: CENTRAL LINE FLUSH 10 ML IV PUSH ×3 (05:13→21:17)
[2021-11-02 05:50] LABS: Estimated CRCL calculation 54 ml/min; Estimated Glomerular Filt Rate > 60
[2021-11-02 08:40] LABS: Alanine Aminotransferase 34 U/L (4-35); Alkaline Phosphatase 139 U/L (38-126); Anion Gap 3 mmol/L (8-16); Aspartate Amino Transferase 29 U/L (14-36); Bilirubin,Total 0.2 mg/dL (0.2-1.3); Blood Urea Nitrogen 26 mg/dL (7-17); Calcium 9.5 mg/dL (8.4-10.2); Carbon Dioxide 36 mmol/L (22-30); Chloride 98 mmol/L (98-107); Estimated CRCL calculation 62 ml/min; Estimated Glomerular Filt Rate > 60; Glucose 214 mg/dL (65-110); Magnesium 2.2 mg/dL (1.6-2.3); Potassium 3.7 mmol/L (3.4-5.0); Sodium 137 mmol/L (137-145)
[2021-11-02 08:46] LABS: Hematocrit 30.4 % (37.0-47.0); Hemoglobin 8.5 g/dL (12.0-15.0); Immature Platelet Fraction Pct 9.6 % (0.9-11.2); Mean Corpuscular Hemoglobin 22.5 pg (26-34); Mean Corpuscular Volume 80.4 fl (80-100); Mean Platelet Volume 10.8 fl (7.4-10.4); Platelet Count Result 201 k/mm3 (150-375); Red Blood Count 3.78 M/mm3 (4.2-5.4); Red Cell Distribution Width 25.9 % (11.5-14.5); White Blood Count 13.3 K/mm3 (4.5-10.0)
--- NOTE | 2021-11-02 08:59 | WPDINTPN ---
Progress Note: A&P Assessment and Plan (1) Acute respiratory failure: Code(s): J96.00 - Acute respiratory failure, unspecified whether with hypoxia or hypercapnia Status: Acute Assessment and Plan: Acute respiratory failure likely related to cardiac arrest 09/22/2021: CTA chest abdomen and pelvis showed extensive patchy bilateral airspace disease compatible with pneumonia, mediastinal lymphadenopathy, likely reactive, small pleural effusions. -patient has been started on azithromycin, ceftriaxone, vancomycin. Cultures negative hence Vanc was dced -chest x-ray reviewed - on last few days, I placed patient on pressure support weaning trial on Precedex but patient failed due to high RSBI. Her respiratory rate was > 35 with tidal volumes of 300. I was able to get a good RSBI with 11/01. - 11/02 patient was again placed on weaning trial this morning after holding propofol and while on Precedex. Within 10 minutes patient's respiratory rate was 40 to 45. Patient was placed back on full mechanical support. - Patient is also on Precedex infusion and has a Lidoderm patch on her chest to help with pain from trauma from CPR -continue diuresis As tolerated -continue bronchodilators -patient on clonazepam, Seroquel and mirtazapine which are all home medications -CT chest reviewed (2) Fever: Code(s): R50.9 - Fever, unspecified Status: Acute Assessment and Plan: Initial blood and sputum culture were negative 10/23/2021: CTA chest showed extensive patchy bilateral airspace disease compatible with pneumonia, mediastinal lymphadenopathy, likely reactive, small pleural effusion patient completed a 7 day course of azithromycin, ceftriaxone (initiated on 10/23/2020) Repeat culture sent 10/30 are negative till now Lipase normal 11/01 - Febrile over last 2 days. WBC also increased Started on empiric vancomycin and cefepime Procalcitonin pending Krishna was changed. Negative UA 10/31 CT Sinuses IMPRESSION: 1. Mild mucosal thickening in left maxillary sinus. 2. Leftward deviation of the nasal septum. CT C/A/P IMPRESSION: 1. Small pleural effusions, right worse than left, worsened from 10/23/21. 2. Mild pulmonary edema. 3. Nasogastric tube tip in the proximal duodenum. 4. Small pericardial effusion. 5. Mild mediastinal lymphadenopathy, likely reactive. 6. New gallbladder distention, which may secondary to fasting. (3) Cardiopulmonary arrest with successful resuscitation: Code(s): I46.9 - Cardiac arrest, cause unspecified Status: Acute Assessment and Plan: Patient with cardiopulmonary arrest with successful ROSC after 1 round of epinephrine and 1 amp of bicarb along with CPR. -patient was following commands post ROSC, not a candidate for targeted temperature management/hypothermia -could be multifactorial, proxy a versus coronary artery disease/NSTEMI versus severe anemia. -troponins are elevated, -patient currently hemodynamically stable -cardiology following the patient and plan for further workup depending on EGD results ECHO Summary 1. Left ventricular chamber dimension is normal. 2. Left ventricular systolic function is normal, estimated at >70%. 3. There is no increased left ventricular wall thickness. 4. Left ventricular septal wall motion is normal. 5. The left ventricular diastolic function is grade II diastolic dysfunction. 6. Right ventricular chamber dimension is normal. 7. Right ventricular systolic function is normal. 8. Left atrial chamber dimension is severely enlarged. 9. There is mild to moderate mitral valve regurgitation. (4) Chest pain: Qualifiers: Chest pain type: unspecified Qualified Code(s): R07.9 - Chest pain, unspecified Code(s): R07.9 - Chest pain, unspecified Status: Acute Assessment and Plan: NSTEMI Patient presented with chest pain, shortness of breath, nausea with no vomiting, -elevated troponin, could be related
[2021-11-02] MEDS: clonazePAM (*CRX) 0.5 MG TABLET 1 MG PO ×3 (09:17→16:06)
[2021-11-02 09:21] LABS: Glucose Point of Care 209 mg/dl (65-105)
[2021-11-02] MEDS: QUEtiapine FUMARATE 25 MG TABLET 50 MG PO ×2 (09:21→20:25)
[2021-11-02] MEDS: METOPROLOL TARTRATE 25 MG TABLET PO ×2 (09:21→20:23)
[2021-11-02] MEDS: PANTOPRAZOLE SODIUM IV 40 MG VIAL IV PUSH ×2 (09:21→20:23)
[2021-11-02] MEDS: MINERAL OIL/WHITE PETROLATUM OINTMENT 1 APPLIC EACH EYE ×2 (09:22→20:25)
[2021-11-02] MEDS: LIDOCAINE 5% PATCH 1 PATCH TRANSDERM (09:22)
[2021-11-02] MEDS: ENOXAPARIN 40 MG/0.4 ML SYRINGE SUB-Q (09:26)
[2021-11-02] MEDS: INSULIN GLARGINE (*BKC) 100 UNITS/ML 40 UNITS SUB-Q (09:31)
--- NOTE | 2021-11-02 11:04 | PCFNICU ---
ICU Rounding Note: Pt current nutrition is Glucerna 1.2 at 50 ml/hr over 22 hours. Last recorded weight is 68.4 kg, down from 71.3 kg on admit. Bowel Motility:+BM reported 11/01 Labs Reviewed:Alb 3.0,Hgb 8.7, Hct 30.4, BUN 26,Glu 214 Meds Noted:Propofol 6.23 ml/nf=696 kcals, Precedex, Lovenox, Remeron, Lopressor, Protonix, Vancomycin. Skin: WNL Additional Notes: Patient remains on mechanical vent with tube feedings of Glucerna 1.2 at 50 ml/hr and tolerating. Recommend increasing tube feedings to 60 ml/hr to better meet caloric needs. Propofol continues to adjusted daily. Agree with diet orders. Following daily in ICU rounds. Will monitor every Tuesday and Tuesday.
[2021-11-02] MEDS: PROPOFOL IV EMULSION 100 ML 6.23 MG IV CONT (12:52)
[2021-11-02 12:55] LABS: Glucose Point of Care 206 mg/dl (65-105)
[2021-11-02] MEDS: IRON SUCROSE COMPLEX 500 MG in SODIUM CHLORIDE 0.9% IV 250 ML 78 MG IVPB (14:35)
--- NOTE | 2021-11-02 15:02 | PM.IMPN ---
Progress Note: A&P Assessment and Plan (1) Acute respiratory failure: Code(s): J96.00 - Acute respiratory failure, unspecified whether with hypoxia or hypercapnia Status: Acute Assessment and Plan: Acute respiratory failure related to cardiac arrest and PNA. CTA chest on admission showed extensive patchy bilateral airspace disease compatible with pneumonia. COVID swab was negative. Patient was started on IV abx. BCx negative. Sputum cx negative. Has failed multiple breathing trials. Patient was off abx for a few days but resumed on 11/01. Left UE Doppler showing no DVT but thrombosed left basilic and cephalic veins (PICC in the right arm). Wean off mechanical vent as tolerated. Appreciate senior net developer architect input. (2) Cardiopulmonary arrest with successful resuscitation: Code(s): I46.9 - Cardiac arrest, cause unspecified Status: Acute Assessment and Plan: Patient with cardiopulmonary arrest with successful ROSC after 1 round of epinephrine and 1 amp of bicarb along with CPR. Patient was following commands post ROSC so was not a candidate for targeted temperature management/hypothermia. Etiology could be multifactorial related to the sepsis/PNA, profound anemia and/or underlying CAD with ischemia. Troponiins elevated to 0.148. Echo not showing any WM abnormalities. BP elevated and Metoprolol added 10/28. Still with runs of NSVT. Cardiology following along and appreciate their input. Continue tele. (3) Sepsis: Code(s): A41.9 - Sepsis, unspecified organism Status: Acute Assessment and Plan: Patient presents with chest pain and found to have tachycardia, tachypnea, leukocytosis, lactic acidosis and now fevers. Sepsis present on admission related to PNA. BCx negative. Having recurrent fevers now. WBC climbed to 17K but better now with the addition of the Cefepime and Vanco. BCx NGTD. (4) Pneumonia: Code(s): J18.9 - Pneumonia, unspecified organism Status: Acute Assessment and Plan: Chest x-ray on admission showing cardiomegaly with interstitial edema but cannot exclude superimposed pneumonia. CTA chest 10/23 showing extensive patchy bilateral airspace disease compatible with pneumonia and small pleural effusion. Started on Rocephin/Azithromycin 10/23 and Vanco added 10/24. Fever developed 10/25 to 102 and remains intermittently febrile. BCx 10/23 negative. Sputum 10/25 and 10/30 negative. BCx 10/30 NGTD. Vancomycin stopped 10/27. Rocephin and Azithro stopped 10/30 after 7 days. Abx resumed on 11/01 with Vanco and Cefepime. (5) NSTEMI (non-ST elevated myocardial infarction): Code(s): I21.4 - Non-ST elevation (NSTEMI) myocardial infarction Status: Acute Assessment and Plan: Patient presented with chest pain, SOB and nausea. Trop as high as 0.148. EKG showing possible LAE but no acute ST changes. NSTEMI per cardiology notes. Patient also with cardiac arrest, profound anemia and PNA with sepsis that could be the etiology of the elevated Trop. Echo showing EF 70% with grade II diastolic dysfunction and mild-mod MR but no wall motion abnormalities. Appreciate cardiology recommendation. No ASA due to the possible GI bleed. Add statin therapy. (6) GI bleed: Code(s): K92.2 - Gastrointestinal hemorrhage, unspecified Status: Acute Assessment and Plan: Patient presented with anemia that could be related to GI bleed. Stool guaiac negative in ED but according to the records, the patient did have some blood streaking when she was wiping her stool. Hgb 6.4 on admission but dropped to 5.5. Iron deficiency anemia noted; B12 level 334 with normal MMA. She may be intermittently bleeding or related to poor oral intake and malnutrition. Family feels patient (who lives alone) makes poor dietary choices. She has received 2 units of packed RBCs on 10/23/2021. No evidence of acute blood loss. 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
[2021-11-02 16:36] LABS: Glucose Point of Care 130 mg/dl (65-105)
[2021-11-02 20:21] LABS: Glucose Point of Care 119 mg/dl (65-105)
[2021-11-02] MEDS: MIRTAZAPINE 30 MG TABLET PO (20:24)
[2021-11-03] VITALS (37 sets, daily range): BP systolic 118–197; BP diastolic 54–88; PULSE 57–132; RESP 10–50; TEMP 36.5–37.4; O2SAT 70–100
[2021-11-03 00:04] LABS: Glucose Point of Care 158 mg/dl (65-105)
[2021-11-03] MEDS: dexmedeTOMIDine 400 MCG/100 ML 400 MCG/100 ML BAG 17.13 MCG IV CONT ×2 (01:57→08:15)
[2021-11-03 04:11] LABS: Glucose Point of Care 143 mg/dl (65-105)
[2021-11-03 04:41] LABS: Alveolar/Arterial O2 Gradient 60.8 mmHg; Base Excess ABG 11.2 mEq/l (+/-2.0); Carboxyhemoglobin 0.4 % THb (0-2.0); Fractional Inspired Oxygen 30 %; HCO3 ABG 36.7 mEq/l (22.0-26.0); Methemoglobin ABG 0.2 %THb (0-1.5); Oxygen Content ABG 15.3 %vol (16.0-22.0); Oxygen Saturation ABG 97.1 % (95.0-100.0); Oxyhemoglobin 95.3 % THb (90.0-100.0); PCO2 ABG 53.2 mmHg (35.0-45.0); PO2 ABG 90.6 mmHg (80.0-100.0); PO2 FiO2 Ratio Arterial Blood 3.02 %; Reduced Hemoglobin 4.1 %THb (0-5.0); Site Drawn LEFT RADIAL; Total Hemoglobin 11.3 g/dL (12.0-18.0); pH ABG 7.457 (7.350-7.450)
[2021-11-03 04:42] LABS: Arterial Blood Gas PEEP 5 cmH2O; Arterial Blood Gas Tidal Volume 320 ml; Arterial Blood Gas Vent Mode CMV; Arterial Blood Gas Ventilator rate 18 /MIN; Device VENTILATOR; Modified Allen's Test Pass
[2021-11-03] MEDS: PROPOFOL IV EMULSION 100 ML 6.23 MG IV CONT (04:51)
[2021-11-03] MEDS: CENTRAL LINE FLUSH 10 ML IV PUSH ×3 (04:52→20:56)
[2021-11-03 05:14] LABS: Hematocrit 30.2 % (37.0-47.0); Hemoglobin 8.4 g/dL (12.0-15.0); Mean Corpuscular HGB Conc 27.8 g/dl (32-36); Mean Corpuscular Volume 82.5 fl (80-100); Mean Platelet Volume 11.1 fl (7.4-10.4); Platelet Count Result 434 k/mm3 (150-375); Red Blood Count 3.66 M/mm3 (4.2-5.4); Red Cell Distribution Width 26.8 % (11.5-14.5); White Blood Count 12.4 K/mm3 (4.5-10.0)
[2021-11-03 05:18] LABS: Alanine Aminotransferase 26 U/L (4-35); Alkaline Phosphatase 125 U/L (38-126); Anion Gap 2 mmol/L (8-16); Aspartate Amino Transferase 28 U/L (14-36); Bilirubin,Total 0.3 mg/dL (0.2-1.3); Blood Urea Nitrogen 26 mg/dL (7-17); Calcium 9.4 mg/dL (8.4-10.2); Carbon Dioxide 38 mmol/L (22-30); Chloride 97 mmol/L (98-107); Estimated CRCL calculation 62 ml/min; Estimated Glomerular Filt Rate > 60; Glucose 149 mg/dL (65-110); Magnesium 2.1 mg/dL (1.6-2.3); Potassium 4.1 mmol/L (3.4-5.0); Sodium 137 mmol/L (137-145)
[2021-11-03] MEDS: clonazePAM (*CRX) 0.5 MG TABLET 1 MG PO ×3 (08:11→17:05)
[2021-11-03] MEDS: METOPROLOL TARTRATE 25 MG TABLET PO ×2 (08:12→20:48)
[2021-11-03 08:13] LABS: Glucose Point of Care 132 mg/dl (65-105)
[2021-11-03] MEDS: PANTOPRAZOLE SODIUM IV 40 MG VIAL IV PUSH ×2 (08:15→20:49)
[2021-11-03] MEDS: QUEtiapine FUMARATE 100 MG TABLET PO ×2 (08:15→20:49)
[2021-11-03] MEDS: ENOXAPARIN 40 MG/0.4 ML SYRINGE SUB-Q (08:17)
[2021-11-03] MEDS: INSULIN GLARGINE (*BKC) 100 UNITS/ML 40 UNITS SUB-Q (08:17)
[2021-11-03] MEDS: LIDOCAINE 5% PATCH 1 PATCH TRANSDERM (08:18)
[2021-11-03] MEDS: MINERAL OIL/WHITE PETROLATUM OINTMENT 1 APPLIC EACH EYE ×2 (08:19→20:47)
--- NOTE | 2021-11-03 09:28 | PM.IMPN ---
Progress Note: A&P Assessment and Plan (1) Acute respiratory failure: Code(s): J96.00 - Acute respiratory failure, unspecified whether with hypoxia or hypercapnia Status: Acute Assessment and Plan: Acute respiratory failure related to cardiac arrest and PNA. CTA chest on admission showed extensive patchy bilateral airspace disease compatible with pneumonia. COVID swab was negative. Patient was started on IV abx. BCx negative. Sputum cx negative. Has failed multiple breathing trials. Patient was off abx for a few days but resumed on 11/01. Left UE Doppler showing no DVT but thrombosed left basilic and cephalic veins (PICC in the right arm). Discussed with cheese cooker and felt that patient is too anxious due to being on lower doses of her home meds for anxiety/depression (was on clonazepam and Remeron doses but on lower doses of her Seroqel). Not felt related to cardiac etiology. Medications advanced to be closer to her home doses. Wean off mechanical vent as tolerated. Appreciate cheese cooker input. (2) Cardiopulmonary arrest with successful resuscitation: Code(s): I46.9 - Cardiac arrest, cause unspecified Status: Acute Assessment and Plan: Patient with cardiopulmonary arrest with successful ROSC after 1 round of epinephrine and 1 amp of bicarb along with CPR. Patient was following commands post ROSC so was not a candidate for targeted temperature management/hypothermia. Etiology could be multifactorial related to the sepsis/PNA, profound anemia and/or underlying CAD with ischemia. Troponins elevated to 0.148. Echo not showing any WM abnormalities. BP elevated and Metoprolol added 10/28; Lipitor also added. No dysrhythmias overnight. Cardiology following along and appreciate their input. Continue tele. Start ASA? (3) Sepsis: Code(s): A41.9 - Sepsis, unspecified organism Status: Acute Assessment and Plan: Patient presents with chest pain and found to have tachycardia, tachypnea, leukocytosis, lactic acidosis and now fevers. Sepsis present on admission related to PNA. BCx negative. COVID swab negative. Was on abx x 7 days then stopped. Was having recurrent fevers and WBC climbed to 17K but better now with the addition of the Cefepime and Vanco. BCx 10/23 negative; BCx 10/30 NGTD. (4) Pneumonia: Code(s): J18.9 - Pneumonia, unspecified organism Status: Acute Assessment and Plan: Chest x-ray on admission showing cardiomegaly with interstitial edema but cannot exclude superimposed pneumonia. CTA chest 10/23 showing extensive patchy bilateral airspace disease compatible with pneumonia and small pleural effusion. Started on Rocephin/Azithromycin 10/23 and Vanco added 10/24. Fever developed 10/25 to 102 and remains intermittently febrile. BCx 10/23 negative. Sputum 10/25 and 10/30 negative. BCx 10/30 NGTD. Vancomycin stopped 10/27. Rocephin and Azithro stopped 10/30 after 7 days. Abx resumed on 11/01 with Vanco and Cefepime due to persistent fevers and elevated WBC. Follow. (5) NSTEMI (non-ST elevated myocardial infarction): Code(s): I21.4 - Non-ST elevation (NSTEMI) myocardial infarction Status: Acute Assessment and Plan: Patient presented with chest pain, SOB and nausea. Trop as high as 0.148. EKG showing possible LAE but no acute ST changes. NSTEMI per cardiology notes. Patient also with cardiac arrest, profound anemia and PNA with sepsis that could be the etiology of the elevated Trop. Echo showing EF 70% with grade II diastolic dysfunction and mild-mod MR but no wall motion abnormalities. Appreciate cardiology recommendation. No ASA due to the possible GI bleed. Add statin therapy. Add ASA now? (6) GI bleed: Code(s): K92.2 - Gastrointestinal hemorrhage, unspecified Status: Acute Assessment and Plan: Patient presented with anemia that could be related to GI bleed. Stool guaiac negative in ED but according to the records, the patient did have robina
[2021-11-03] MEDS: ATORVASTATIN 40 MG TABLET FEED TUBE (09:45)
[2021-11-03 11:18] LABS: Glucose Point of Care 129 mg/dl (65-105)
--- NOTE | 2021-11-03 11:21 | WPDINTPN ---
Progress Note: A&P Assessment and Plan (1) Acute respiratory failure: Code(s): J96.00 - Acute respiratory failure, unspecified whether with hypoxia or hypercapnia Status: Acute Assessment and Plan: Acute respiratory failure likely related to cardiac arrest -intubated 10/23/2021 10/23/2021: CTA chest abdomen and pelvis showed extensive patchy bilateral airspace disease compatible with pneumonia, mediastinal lymphadenopathy, likely reactive, small pleural effusions. -patient status post azithromycin, ceftriaxone, vancomycin. Cultures negative -chest x-ray this morning showed - Stable mild airspace opacities in the lower lung zones, consistent with atelectasis versus pneumonia -last few days patient is in placed on pressure support but has been requiring high pressure support failing to wean. She has been on Precedex but failed because of her high RSBI and high respiratory rate of 35-45 with low tidal volumes. -patient currently on propofol and Precedex infusion, Lidoderm patch ordered chest to help with pain from trauma from CPR -continue bronchodilators -patient on clonazepam, Seroquel and mirtazapine which are all home medications, patient is on Seroquel at home 600 mg q.h.s. -will increase Seroquel to 100 q.12 hours -will diurese again today Will discuss with family regarding tracheostomy and PEG tube placement -CT chest abdomen and pelvis on 10/31/2021 IMPRESSION: 1. Small pleural effusions, right worse than left, worsened from 10/23/21. 2. Mild pulmonary edema. 3. Nasogastric tube tip in the proximal duodenum. 4. Small pericardial effusion. 5. Mild mediastinal lymphadenopathy, likely reactive. 6. New gallbladder distention, which may secondary to fasting. (2) Fever: Code(s): R50.9 - Fever, unspecified Status: Acute Assessment and Plan: Initial blood and sputum culture were negative 10/23/2021: CTA chest showed extensive patchy bilateral airspace disease compatible with pneumonia, mediastinal lymphadenopathy, likely reactive, small pleural effusion patient completed a 7 day course of azithromycin, ceftriaxone (initiated on 10/23/2020) Repeat culture sent 10/30 are negative till now Lipase normal 11/01 - Febrile over last 2 days. WBC also increased Started on empiric vancomycin and cefepime (11/01) Procalcitonin pending Krishna was changed. Negative UA 10/31 CT Sinuses IMPRESSION: 1. Mild mucosal thickening in left maxillary sinus. 2. Leftward deviation of the nasal septum. 11/03: Leukocytosis improving, fevers have defervesced CT C/A/P 10/31/2021 IMPRESSION: 1. Small pleural effusions, right worse than left, worsened from 10/23/21. 2. Mild pulmonary edema. 3. Nasogastric tube tip in the proximal duodenum. 4. Small pericardial effusion. 5. Mild mediastinal lymphadenopathy, likely reactive. 6. New gallbladder distention, which may secondary to fasting. (3) Cardiopulmonary arrest with successful resuscitation: Code(s): I46.9 - Cardiac arrest, cause unspecified Status: Acute Assessment and Plan: Patient with cardiopulmonary arrest with successful ROSC after 1 round of epinephrine and 1 amp of bicarb along with CPR. -patient was following commands post ROSC, not a candidate for targeted temperature management/hypothermia -could be multifactorial, proxy a versus coronary artery disease/NSTEMI versus severe anemia. -troponins are elevated, -patient currently hemodynamically stable -cardiology following the patient and plan for further workup depending on EGD results ECHO Summary 1. Left ventricular chamber dimension is normal. 2. Left ventricular systolic function is normal, estimated at >70%. 3. There is no increased left ventricular wall thickness. 4. Left ventricular septal wall motion is normal. 5. The left ventricular diastolic function is grade II diastolic dysfunction. 6. Right ventricular chamber dimension is normal. 7. Right ventricular systolic functi
--- NOTE | 2021-11-03 11:45 | PCNFU ---
Nutrition Follow-Up Complete: Inadequate Oral Intake as related to mechanical vent as evidenced by NPO. Goal: Meet estimated nutritional needs Patient is progressing towards goal. We will continue current goal. Pt current nutrition is Glucerna 1.2 at 50 ml/hr over 22 hours. Last recorded weight is 71.8 kg, up from 71.3 kg on admit. Bowel Motility:+Bm reported 11/01 Labs Reviewed:Glu 149, BUN 26, Alb 3.0, Hct 30.2,Hgb 8.4 Meds Noted:Lipitor, Vancomycin, Precedex, Remeron, Lovenox, Protonix, Lopressor, Lantus, Klonopin, D5, Seroquel. Skin: WNL Additional Notes: Nutrition follow up. Patient remains on mechanical vent. Possible Trach/Peg. Tube feedings remain at Glucerna 1.2 increasing tube rate to 60 ml/hr over 22 hours providing 1584 kcals/79 gm protein/1063 ml fluid. Agree with diet orders. Will continue to montior daily in ICU rounds. Will monitor every Tuesday and Tuesday.
[2021-11-03] MEDS: FUROSEMIDE INJ 40 MG/4 ML VIAL IV PUSH (12:15)
[2021-11-03] MEDS: dexmedeTOMIDine 400 MCG/100 ML 400 MCG/100 ML BAG 25.69 MCG IV CONT ×3 (13:21→20:43)
[2021-11-03 17:21] LABS: Glucose Point of Care 117 mg/dl (65-105)
[2021-11-03 17:49] LABS: Vancomycin Trough 6.8 ug/mL (10.0-20.0)
[2021-11-03 19:45] LABS: Glucose Point of Care 181 mg/dl (65-105)
[2021-11-03] MEDS: MIRTAZAPINE 30 MG TABLET PO (20:49)
--- NOTE | 2021-11-03 22:19 | PC.NURSE ---
11/03/[address] Young informed of patients restlessness and agitation. Hr 130's RR50 and diaphoretic. orders received to restart propofol
[2021-11-04] VITALS (34 sets, daily range): BP systolic 92–198; BP diastolic 48–82; PULSE 62–139; RESP 22–50; TEMP 35.7–37.6; O2SAT 98–100
[2021-11-04 00:07] LABS: Glucose Point of Care 241 mg/dl (65-105)
[2021-11-04] MEDS: INSULIN ASPART (*BKC) 100 UNITS/ML SUB-Q ×4 (00:08→17:51)
[2021-11-04] MEDS: dexmedeTOMIDine 400 MCG/100 ML 400 MCG/100 ML BAG 17.13 MCG IV CONT ×4 (02:33→22:46)
[2021-11-04] MEDS: ALBUTEROL SULFATE NEB 2.5 MG/0.5 ML INH INHALATION (02:54)
[2021-11-04] MEDS: IPRATROPIUM BR 0.02% INH SOLN 0.5 MG/2.5 ML VIAL INHALATION (02:54)
[2021-11-04 03:44] LABS: Glucose Point of Care 149 mg/dl (65-105)
[2021-11-04 04:29] LABS: Hematocrit 29.1 % (37.0-47.0); Hemoglobin 8.3 g/dL (12.0-15.0); Mean Corpuscular HGB Conc 28.5 g/dl (32-36); Mean Corpuscular Hemoglobin 23.1 pg (26-34); Mean Corpuscular Volume 81.1 fl (80-100); Platelet Count Result 422 k/mm3 (150-375); Red Blood Count 3.59 M/mm3 (4.2-5.4); Red Cell Distribution Width 26.5 % (11.5-14.5); White Blood Count 14.6 K/mm3 (4.5-10.0)
[2021-11-04 04:30] LABS: Base Excess ABG 7.4 mEq/l (+/-2.0); Carboxyhemoglobin 0.6 % THb (0-2.0); Fractional Inspired Oxygen 30 %; HCO3 ABG 29.7 mEq/l (22.0-26.0); Methemoglobin ABG 0.4 %THb (0-1.5); Oxygen Content ABG 12.5 %vol (16.0-22.0); PCO2 ABG 32.8 mmHg (35.0-45.0); PO2 ABG 130.4 mmHg (80.0-100.0); PO2 FiO2 Ratio Arterial Blood 4.35 %
[2021-11-04 04:32] LABS: pH ABG 7.575 (7.350-7.450)
[2021-11-04 04:33] LABS: Device VENTILATOR; Modified Allen's Test Pass; Site Drawn LEFT RADIAL
[2021-11-04 04:36] LABS: Arterial Blood Gas PEEP 5 cmH2O; Arterial Blood Gas Tidal Volume 320 ml; Arterial Blood Gas Vent Mode CMV; Arterial Blood Gas Ventilator rate 18 /MIN
[2021-11-04 04:50] LABS: Alanine Aminotransferase 23 U/L (4-35); Albumin Level 3.1 g/dL (3.5-5.1); Alkaline Phosphatase 123 U/L (38-126); Anion Gap 3 mmol/L (8-16); Aspartate Amino Transferase 37 U/L (14-36); Bilirubin,Total 0.5 mg/dL (0.2-1.3); Blood Urea Nitrogen 29 mg/dL (7-17); Calcium 9.1 mg/dL (8.4-10.2); Carbon Dioxide 36 mmol/L (22-30); Chloride 97 mmol/L (98-107); Estimated CRCL calculation 73 ml/min; Estimated Glomerular Filt Rate > 60; Glucose 178 mg/dL (65-110); Magnesium 2.1 mg/dL (1.6-2.3); Potassium 4.8 mmol/L (3.4-5.0); Sodium 136 mmol/L (137-145)
--- NOTE | 2021-11-04 06:47 | ECG_ITS ---
Measurements Intervals [place] Rate: 138 P: 63 DE: 148 QRS: 53 QRSD: 71 T: 78 QT: 255 QTc: 387 Interpretive Statements SINUS TACHYCARDIA DELAYED PRECORDIAL R/S TRANSITION NONSPECIFIC ST & T-WAVE ABNORMALITY- LAT/HIGH LAT LEADS BASELINE ARTIFACT- II, V2-V6 ABNORMAL ECG Electronically Signed On 11-04-2021 7:58:25 [employer] by Chi Abraham D.O.
[2021-11-04] MEDS: CENTRAL LINE FLUSH 10 ML IV PUSH ×3 (07:43→21:16)
[2021-11-04 08:18] LABS: Glucose Point of Care 304 mg/dl (65-105)
[2021-11-04] MEDS: clonazePAM (*CRX) 0.5 MG TABLET 1 MG PO ×3 (08:36→17:53)
[2021-11-04] MEDS: ATORVASTATIN 40 MG TABLET FEED TUBE (08:36)
[2021-11-04] MEDS: QUEtiapine FUMARATE 100 MG TABLET PO ×2 (08:37→21:02)
[2021-11-04] MEDS: LIDOCAINE 5% PATCH 1 PATCH TRANSDERM (08:37)
[2021-11-04] MEDS: ENOXAPARIN 40 MG/0.4 ML SYRINGE SUB-Q (08:37)
[2021-11-04] MEDS: MINERAL OIL/WHITE PETROLATUM OINTMENT 1 APPLIC EACH EYE ×2 (08:37→21:05)
[2021-11-04] MEDS: PANTOPRAZOLE SODIUM IV 40 MG VIAL IV PUSH ×2 (08:37→21:02)
[2021-11-04] MEDS: INSULIN GLARGINE (*BKC) 100 UNITS/ML 40 UNITS SUB-Q (08:52)
[2021-11-04] MEDS: PROPOFOL IV EMULSION 100 ML 14.53 MG IV CONT (10:24)
[2021-11-04] MEDS: METOPROLOL TARTRATE 25 MG TABLET PO ×2 (10:25→21:02)
--- NOTE | 2021-11-04 10:56 | PM.IMPN ---
Progress Note: A&P Assessment and Plan (1) Acute respiratory failure: Code(s): J96.00 - Acute respiratory failure, unspecified whether with hypoxia or hypercapnia Status: Acute Assessment and Plan: Acute respiratory failure related to cardiac arrest and PNA. CTA chest on admission showed extensive patchy bilateral airspace disease compatible with pneumonia. COVID swab was negative. Patient was started on IV abx. BCx negative. Sputum cx negative. Has failed multiple breathing trials. Patient was off abx for a few days but resumed on 11/01. Left UE Doppler showing no DVT but thrombosed left basilic and cephalic veins (PICC in the right arm). Discussed with front end architect and felt that patient is too anxious due to being on lower doses of her home meds for anxiety/depression (was on clonazepam and Remeron doses but on lower doses of her Seroqel). Not felt related to cardiac etiology. Medications advanced to be closer to her home doses. Lasix IV once today. Plan for trach and PEG now. Appreciate front end architect input. (2) Cardiopulmonary arrest with successful resuscitation: Code(s): I46.9 - Cardiac arrest, cause unspecified Status: Acute Assessment and Plan: Patient with cardiopulmonary arrest with successful ROSC after 1 round of epinephrine and 1 amp of bicarb along with CPR. Patient was following commands post ROSC so was not a candidate for targeted temperature management/hypothermia. Etiology could be multifactorial related to the sepsis/PNA, profound anemia and/or underlying CAD with ischemia. Troponins elevated to 0.148. Echo not showing any WM abnormalities. BP elevated and Metoprolol added 10/28; Lipitor also added. No dysrhythmias overnight. Cardiology following along and appreciate their input. EKG today showing new ST-T wave changes in the lateral and inferior leads. Continue tele. Add ASA since Hgb stable and 7 days since colonoscopy. Consider ischemic workup. (3) Sepsis: Code(s): A41.9 - Sepsis, unspecified organism Status: Acute Assessment and Plan: Patient presents with chest pain and found to have tachycardia, tachypnea, leukocytosis, lactic acidosis and now fevers. Sepsis present on admission related to PNA. BCx negative. COVID swab negative. Was on abx x 7 days then stopped. Was having recurrent fevers and WBC climbed to 17K so Cefepime and Vanco added 11/01. BCx 10/23 negative; BCx 10/30 NGTD. (4) Pneumonia: Code(s): J18.9 - Pneumonia, unspecified organism Status: Acute Assessment and Plan: Chest x-ray on admission showing cardiomegaly with interstitial edema but cannot exclude superimposed pneumonia. CTA chest 10/23 showing extensive patchy bilateral airspace disease compatible with pneumonia and small pleural effusion. Started on Rocephin/Azithromycin 10/23 and Vanco added 10/24. Fever developed 10/25 to 102 and remains intermittently febrile. BCx 10/23 negative. Sputum 10/25 and 10/30 negative. BCx 10/30 NGTD. Vancomycin stopped 10/27. Rocephin and Azithro stopped 10/30 after 7 days. Abx resumed on 11/01 with Vanco and Cefepime due to persistent fevers and elevated WBC. Follow. (5) NSTEMI (non-ST elevated myocardial infarction): Code(s): I21.4 - Non-ST elevation (NSTEMI) myocardial infarction Status: Acute Assessment and Plan: Patient presented with chest pain, SOB and nausea. Trop as high as 0.148. EKG showing possible LAE but no acute ST changes. NSTEMI per cardiology notes. Patient also with cardiac arrest, profound anemia and PNA with sepsis that could be the etiology of the elevated Trop. Echo showing EF 70% with grade II diastolic dysfunction and mild-mod MR but no wall motion abnormalities. Appreciate cardiology recommendation. Continue Lipitor and Lopressor. No ASA due to the possible GI bleed. (6) GI bleed: Code(s): K92.2 - Gastrointestinal hemorrhage, unspecified Status: Acute Assessment and Plan: Patient presente
--- NOTE | 2021-11-04 11:19 | PCFNICU ---
ICU Rounding Note: Pt current nutrition is Glucerna 1.2 at 60 ml/hr over 22 hours. Last recorded weight is 70.8 kg, down from 71.3 kg on admit. Bowel Motility:+BM reported 11/03 Labs Reviewed:Glu 178,Cr 0.6,BUN 29, Na 136, Alb 3.1, Hct 29.1,Hgb 8.3 Meds Noted:Seroquel, Albuterol, Lopressor, Precedex, Lantus, NovoLog, Lipitor, Klonopin, Propofol 14.53 ml/wg=212.6 kcals. Skin: WNL Additional Notes: Patient remains on mechanical vent. PEG/Trach possible. Tube feedings of Glucerna 1.2 being tolerating at 60 ml/hr. Following daily in ICU rounds. Will monitor every Tuesday and Tuesday..
--- NOTE | 2021-11-04 12:02 | WPDCN ---
Assessment and Plan Additional Plan planned tracheotomy HPI Data of Consult Date/Time: 11/04/21 12:02 Requesting Physician: Ken Reddy MD Primary Care Provider: Srinivasan Sotelo MD Consult Narrative Narrative: Albertina Orlando is a 66 year old female prolonged intubation for trache Review of Systems Review of Systems: All systems reviewed & are unremarkable except as noted in HPI and below PMFSH Past Medical History Medical History Acute blood loss anemia Anxiety AVM (arteriovenous malformation) of colon Bipolar disorder Cardiac arrest Chronic obstructive pulmonary disease Depression Dyslipidemia Erosive gastritis Gastroesophageal reflux disease Hypertension NSTEMI (non-ST elevated myocardial infarction) Pneumonia Posttraumatic stress disorder Severe anemia Suicide attempt by drug ingestion 16 years ago. Tobacco dependence Type 2 diabetes mellitus Surgical History Surgical History No pertinent past surgical history Family History Family History Mother Acute myocardial infarction Social History Social History Social History: Surrogate decision maker: Zeinab Carvalho, daughter. Code status: Full code. Smoking packs per day: 1 Smoking cigarettes per day: 20.0 Smoking status: Current every day smoker Alcohol intake: never Substance use: never Additional living arrangements comments: The patient lives in her own home in [place]. Additional occupation/education comments: Retired. Spiritual care concerns: No Meds Home Medications and Allergies Home Medications Medication Instructions Recorded Confirmed Type clonazepam 1 mg PO TID 10/23/21 10/23/21 History cyclobenzaprine 10 mg PO TID PRN 10/23/21 10/23/21 History dexlansoprazole [Dexilant] 60 mg PO DAILY 10/23/21 10/23/21 History duloxetine 60 mg PO BID 10/23/21 10/23/21 History ergocalciferol (vitamin D2) 50,000 unit PO WEEKLY 10/23/21 10/23/21 History ezetimibe 10 mg PO DAILY 10/23/21 10/23/21 History lancets [Accu-Chek Fastclix Lancet 10/23/21 10/23/21 History Drum] lancets [Micro Thin Lancets] 10/23/21 10/23/21 History lisinopril 40 mg PO DAILY 10/23/21 10/23/21 History meclizine 25 mg PO TID PRN 10/23/21 10/23/21 History metformin 1,000 mg PO BID 10/23/21 10/23/21 History mirtazapine 30 mg PO HS 10/23/21 10/23/21 History quetiapine 600 mg PO HS 10/23/21 10/23/21 History sitagliptin [Januvia] 100 mg PO DAILY 10/23/21 10/23/21 History triamcinolone acetonide 1 applic TOPICAL TID PRN 10/23/21 10/23/21 History Allergies Allergy/AdvReac Type Severity Reaction Status Date / Time codeine Allergy Mild Hives Verified 10/23/21 14:49 Vital Signs Vital Signs - 24 hr 11/03/21 12:30 11/03/21 13:21 11/03/21 14:00 Temperature Pulse Rate 78 86 94 Respiratory Rate 16 16 21 H Blood Pressure 161/76 H Pulse Oximetry 98 11/03/21 14:51 11/03/21 16:00 11/03/21 17:04 Temperature 37.4 C Pulse Rate 92 71 58 L Respiratory Rate 12 14 Blood Pressure 118/57 L Pulse Oximetry 100 99 99 11/03/21 18:00 11/03/21 20:00 11/03/21 20:15 Temperature 36.6 C Pulse Rate 57 L 132 H 106 H Respiratory Rate 10 L 50 H Blood Pressure 120/57 L 197/88 H Pulse Oximetry 98 82 L 98 11/03/21 20:43 11/03/21 20:48 11/03/21 20:55 Temperature Pulse Rate 103 H 101 H 103 H Respiratory Rate 26 H 26 H Blood Pressure Pulse Oximetry 11/03/21 22:00 11/03/21 23:20 11/04/21 00:00 Temperature 37.3 C Pulse Rate 96 106 H 70 Respiratory Rate 28 H 26 H Blood Pressure 141/62 H 119/55 L Pulse Oximetry 97 70 L 100 11/04/21 02:00 11/04/21 02:33 11/04/21 02:54 Temperature Pulse Rate 73 75 73 Respiratory Rate 22 H 29 H 27 H Blood Pressure 109/51 L Pulse
[2021-11-04] MEDS: ASPIRIN 81 MG CHEWABLE TABLET FEED TUBE (12:19)
[2021-11-04 12:37] LABS: Glucose Point of Care 276 mg/dl (65-105)
--- NOTE | 2021-11-04 12:55 | WPDGIPROGNO ---
Progress Note: A&P Assessment and Plan (1) Acute respiratory failure: Code(s): J96.00 - Acute respiratory failure, unspecified whether with hypoxia or hypercapnia Status: Acute Assessment and Plan: unfortunately failed several attempts weaning trial will get tracheostomy and then will need G-tube plan to proceed with another egd on Tuesday, this time will place G-tube she has been tolerating tube feeding at 60ml/h using OGT (2) Cardiopulmonary arrest with successful resuscitation: Code(s): I46.9 - Cardiac arrest, cause unspecified Status: Acute Assessment and Plan: still intubated (3) Severe anemia: Code(s): D64.9 - Anemia, unspecified Status: Acute Assessment and Plan: hb stable after initial transfusion probably multifactorial (4) Sepsis: Code(s): A41.9 - Sepsis, unspecified organism Status: Acute Assessment and Plan: treated with antibiotics (5) Pneumonia: Code(s): J18.9 - Pneumonia, unspecified organism Status: Acute (6) Erosive gastritis: Code(s): K29.60 - Other gastritis without bleeding Status: Acute Assessment and Plan: on ppi (7) AVM (arteriovenous malformation) of colon: Code(s): K55.20 - Angiodysplasia of colon without hemorrhage Status: Acute Assessment and Plan: treated when I did her colonoscopy Subjective Date/time seen: 11/04/21 12:55 Interval history: I am called again by primary team for G-tube placement, unfortunately unable to extubate in fact tomorrow ENT will place tracheostomy. No report of GIB and hb remained stable last several days without need of more blood transfusion. Review of Systems Review of Systems: All systems reviewed & are unremarkable except as noted in HPI and below Exam Const: Other: intubated and sedated HENMT: General nose exam: Normal nares present Other: OGT in place Eyes: Sclera: sclerae normal Neck: Neck: supple Resp: Auscultation: no wheezes Other: coarse BS Cardio: Rate: regular rate GI: GI Palp: Yes Soft to palpation, No Tenderness to palpation present (GI) and No Guarding due to palpation present (GI) Auscultation: normal bowel sounds Urinary Catheter: Urinary Catheter: patent and draining Skin: General skin exam: no rashes or lesions noted Neuro: Other: sedated but open eyes to painful stimuli Extrem: General: normal to inspection Psych: Other: unable to assess Objective Data Vital Signs Vital Signs: Vital Signs - 24 hr 11/03/21 13:21 11/03/21 14:00 11/03/21 14:51 Temperature Pulse Rate 86 94 92 Respiratory Rate 16 21 H Blood Pressure 161/76 H Pulse Oximetry 98 100 11/03/21 16:00 11/03/21 17:04 11/03/21 18:00 Temperature 99.4 F Pulse Rate 71 58 L 57 L Respiratory Rate 12 14 10 L Blood Pressure 118/57 L 120/57 L Pulse Oximetry 99 99 98 11/03/21 20:00 11/03/21 20:15 11/03/21 20:43 Temperature 97.8 F Pulse Rate 132 H 106 H 103 H Respiratory Rate 50 H 26 H Blood Pressure 197/88 H Pulse Oximetry 82 L 98 11/03/21 20:48 11/03/21 20:55 11/03/21 22:00 Temperature Pulse Rate 101 H 103 H 96 Respiratory Rate 26 H 28 H Blood Pressure 141/62 H Pulse Oximetry 97 11/03/21 23:20 11/04/21 00:00 11/04/21 02:00 Temperature 99.1 F Pulse Rate 106 H 70 73 Respiratory Rate 26 H 22 H Blood Pressure 119/55 L 109/51 L Pulse Oximetry 70 L 100 100 11/04/21 02:33 11/04/21 02:54 11/04/21 03:03 Temperature Pulse Rate 75 73 72 Respiratory Rate 29 H 27 H 24 H Blood Pressure Pulse Oximetry 11/04/21 04:00 11/04/21 05:13 11/04/21 06:00 Temperature 99.3 F Pulse Rate 88 68 139 H Respiratory Rate 26 H 50 H Blood Pressure 139/60 198/82 H Pulse Oximetry 100 99 98 11/04/21 08:00 11/04/21 08:05 11/04/21 08:32 Temperature 99.7 F H Pulse Rate 126 H 108 H 117 H Respiratory Rate 25 H 34 H Blood Pressure 178/81 H Pulse Oximetry 98 98 11/04/21 0
--- NOTE | 2021-11-04 13:13 | WPDINTPN ---
Progress Note: A&P Assessment and Plan (1) Acute respiratory failure: Code(s): J96.00 - Acute respiratory failure, unspecified whether with hypoxia or hypercapnia Status: Acute Assessment and Plan: Acute respiratory failure likely related to cardiac arrest -intubated 10/23/2021 10/23/2021: CTA chest abdomen and pelvis showed extensive patchy bilateral airspace disease compatible with pneumonia, mediastinal lymphadenopathy, likely reactive, small pleural effusions. -patient status post azithromycin, ceftriaxone, vancomycin. Cultures negative -chest x-ray this morning showed - Stable mild airspace opacities in the lower lung zones, consistent with atelectasis versus pneumonia -last few days patient is in placed on pressure support but has been requiring high pressure support failing to wean. She has been on Precedex but failed because of her high RSBI and high respiratory rate of 35-45 with low tidal volumes. -patient currently on propofol and Precedex infusion, Lidoderm patch ordered chest to help with pain from trauma from CPR -continue bronchodilators -patient on clonazepam, Seroquel and mirtazapine which are all home medications, patient is on Seroquel at home 600 mg q.h.s. -continue Seroquel to 100 q.12 hours Will diuresis today as blood pressures are borderline Discussed with daughter Zeinab and updated her that patient is not weanable from the ventilator will require tracheostomy and PEG tube placement to which she is agreeable -CT chest abdomen and pelvis on 10/31/2021 IMPRESSION: 1. Small pleural effusions, right worse than left, worsened from 10/23/21. 2. Mild pulmonary edema. 3. Nasogastric tube tip in the proximal duodenum. 4. Small pericardial effusion. 5. Mild mediastinal lymphadenopathy, likely reactive. 6. New gallbladder distention, which may secondary to fasting. (2) Fever: Code(s): R50.9 - Fever, unspecified Status: Acute Assessment and Plan: Initial blood and sputum culture were negative 10/23/2021: CTA chest showed extensive patchy bilateral airspace disease compatible with pneumonia, mediastinal lymphadenopathy, likely reactive, small pleural effusion patient completed a 7 day course of azithromycin, ceftriaxone (initiated on 10/23/2020) Repeat culture sent 10/30 are negative till now Lipase normal 11/01 - Febrile over last 2 days. WBC also increased Started on empiric vancomycin and cefepime (11/01) Procalcitonin pending Krishna was changed. Negative UA 10/31 CT Sinuses IMPRESSION: 1. Mild mucosal thickening in left maxillary sinus. 2. Leftward deviation of the nasal septum. 11/03: Leukocytosis improving, fevers have defervesced CT C/A/P 10/31/2021 IMPRESSION: 1. Small pleural effusions, right worse than left, worsened from 10/23/21. 2. Mild pulmonary edema. 3. Nasogastric tube tip in the proximal duodenum. 4. Small pericardial effusion. 5. Mild mediastinal lymphadenopathy, likely reactive. 6. New gallbladder distention, which may secondary to fasting. (3) Cardiopulmonary arrest with successful resuscitation: Code(s): I46.9 - Cardiac arrest, cause unspecified Status: Acute Assessment and Plan: Patient with cardiopulmonary arrest with successful ROSC after 1 round of epinephrine and 1 amp of bicarb along with CPR. -patient was following commands post ROSC, not a candidate for targeted temperature management/hypothermia -could be multifactorial, proxy a versus coronary artery disease/NSTEMI versus severe anemia. -troponins are elevated, -patient currently hemodynamically stable -cardiology following the patient and plan for further workup depending on EGD results ECHO Summary 1. Left ventricular chamber dimension is normal. 2. Left ventricular systolic function is normal, estimated at >70%. 3. There is no increased left ventricular wall thickness. 4. Left ventricular septal wall motion is normal. 5. The left ventricular diastolic function is
[2021-11-04 16:23] LABS: Glucose Point of Care 222 mg/dl (65-105)
[2021-11-04] MEDS: MIRTAZAPINE 30 MG TABLET PO (21:02)
[2021-11-04 21:03] LABS: Glucose Point of Care 194 mg/dl (65-105)
[2021-11-05] VITALS (30 sets, daily range): BP systolic 95–163; BP diastolic 46–74; PULSE 57–111; RESP 18–35; TEMP 35.9–39.2; O2SAT 92–100
[2021-11-05 00:07] LABS: Glucose Point of Care 272 mg/dl (65-105)
[2021-11-05] MEDS: INSULIN ASPART (*BKC) 100 UNITS/ML SUB-Q ×3 (00:24→12:53)
[2021-11-05] MEDS: hydrALAZINE HCL 20 MG/ML VIAL 10 MG IV PUSH (01:17)
[2021-11-05] MEDS: PROPOFOL IV EMULSION 100 ML 16.61 MG IV CONT ×4 (04:11→22:43)
[2021-11-05] MEDS: dexmedeTOMIDine 400 MCG/100 ML 400 MCG/100 ML BAG 17.13 MCG IV CONT (04:13)
[2021-11-05 04:20] LABS: Glucose Point of Care 381 mg/dl (65-105)
[2021-11-05 05:11] LABS: Alveolar/Arterial O2 Gradient 31.3 mmHg; Base Excess ABG 6.9 mEq/l (+/-2.0); Carboxyhemoglobin 0.7 % THb (0-2.0); Fractional Inspired Oxygen 30 %; Methemoglobin ABG 0.3 %THb (0-1.5); Oxygen Content ABG 12.4 %vol (16.0-22.0); Oxygen Saturation ABG 93.8 % (95.0-100.0); PO2 ABG 83.2 mmHg (80.0-100.0); PO2 FiO2 Ratio Arterial Blood 2.77 %; Total Hemoglobin 9.5 g/dL (12.0-18.0)
[2021-11-05 05:18] LABS: pH ABG 7.247 (7.350-7.450)
[2021-11-05 05:19] LABS: Arterial Blood Gas PEEP 5 cmH2O; Arterial Blood Gas Tidal Volume 320 ml; Arterial Blood Gas Vent Mode CMV; Arterial Blood Gas Ventilator rate 18 /MIN; Device VENTILATOR; Modified Allen's Test Unable to perform; PCO2 ABG 84.6 mmHg (35.0-45.0); Site Drawn LEFT RADIAL
[2021-11-05] MEDS: CENTRAL LINE FLUSH 10 ML IV PUSH ×3 (05:46→22:59)
--- NOTE | 2021-11-05 05:52 | PC.NURSE ---
Patient continuously belly breathing and not syncing with the vent. ABG done and the results will be called to
[2021-11-05 06:13] LABS: Hematocrit 29.6 % (37.0-47.0); Hemoglobin 8.2 g/dL (12.0-15.0); Mean Corpuscular HGB Conc 27.7 g/dl (32-36); Mean Corpuscular Hemoglobin 23.7 pg (26-34); Mean Corpuscular Volume 85.5 fl (80-100); Mean Platelet Volume 11.5 fl (7.4-10.4); Platelet Count Result 439 k/mm3 (150-375); Red Blood Count 3.46 M/mm3 (4.2-5.4); Red Cell Distribution Width 26.9 % (11.5-14.5)
--- NOTE | 2021-11-05 06:21 | WPDHPUPDATE1 ---
History and Physical Update Update Date/Time: 11/05/21 06:21 History and Physical has been reviewed, including an updated exam of the patient. There are NO changes in the patient's condition. Risks, benefits, and alternatives have been discussed and questions answered. Patient agrees to proceed with procedure.
[2021-11-05 06:24] LABS: Alanine Aminotransferase 38 U/L (4-35); Albumin Level 3.1 g/dL (3.5-5.1); Alkaline Phosphatase 156 U/L (38-126); Anion Gap 2 mmol/L (8-16); Aspartate Amino Transferase 48 U/L (14-36); Bilirubin,Total 0.4 mg/dL (0.2-1.3); Blood Urea Nitrogen 33 mg/dL (7-17); Carbon Dioxide 38 mmol/L (22-30); Chloride 95 mmol/L (98-107); Estimated CRCL calculation 55 ml/min; Estimated Glomerular Filt Rate > 60; Glucose 357 mg/dL (65-110); Magnesium 2.3 mg/dL (1.6-2.3); Potassium 5.2 mmol/L (3.4-5.0); Sodium 135 mmol/L (137-145)
[2021-11-05 06:59] LABS: Vancomycin Trough 12.7 ug/mL (10.0-20.0)
[2021-11-05] MEDS: METOPROLOL TARTRATE 25 MG TABLET PO (08:40)
[2021-11-05] MEDS: clonazePAM (*CRX) 0.5 MG TABLET 1 MG PO (08:40)
[2021-11-05] MEDS: QUEtiapine FUMARATE 100 MG TABLET PO (08:40)
[2021-11-05] MEDS: ATORVASTATIN 40 MG TABLET FEED TUBE (08:40)
[2021-11-05] MEDS: ASPIRIN 81 MG CHEWABLE TABLET FEED TUBE (08:40)
--- NOTE | 2021-11-05 08:40 | WPDANESEPPF ---
Anes - Initial Pre Proc Eval Procedure: Operation Date: 11/05/21 09:30 Proposed Procedures p Tracheostomy - Tan Traylor MD Date/Time: 11/05/21 08:40 Surgeon: Ken Reddy MD Pre Op Diagnosis: Anemia Patient Data Age: 66 Gender: F Height: 1.59 m Weight: 70 kg Last Vital Signs Temp 35.9 C L 11/05/21 04:00 Pulse 110 H 11/05/21 08:19 Resp 32 H 11/05/21 06:00 BP 132/67 11/05/21 06:00 Pulse Ox 99 11/05/21 08:19 Allergies Allergy/AdvReac Type Severity Reaction Status Date / Time codeine Allergy Mild Hives Verified 10/23/21 14:49 Home Medications Medication Instructions Recorded Confirmed Type clonazepam 1 mg PO TID 10/23/21 10/23/21 History cyclobenzaprine 10 mg PO TID PRN 10/23/21 10/23/21 History dexlansoprazole [Dexilant] 60 mg PO DAILY 10/23/21 10/23/21 History duloxetine 60 mg PO BID 10/23/21 10/23/21 History ergocalciferol (vitamin D2) 50,000 unit PO WEEKLY 10/23/21 10/23/21 History ezetimibe 10 mg PO DAILY 10/23/21 10/23/21 History lancets [Accu-Chek Fastclix Lancet 10/23/21 10/23/21 History Drum] lancets [Micro Thin Lancets] 10/23/21 10/23/21 History lisinopril 40 mg PO DAILY 10/23/21 10/23/21 History meclizine 25 mg PO TID PRN 10/23/21 10/23/21 History metformin 1,000 mg PO BID 10/23/21 10/23/21 History mirtazapine 30 mg PO HS 10/23/21 10/23/21 History quetiapine 600 mg PO HS 10/23/21 10/23/21 History sitagliptin [Januvia] 100 mg PO DAILY 10/23/21 10/23/21 History triamcinolone acetonide 1 applic TOPICAL TID PRN 10/23/21 10/23/21 History Laboratory Tests 11/04/21 11/04/21 11/04/21 12:20 16:10 20:40 WBC RBC Hgb Hct MCV MCH MCHC RDW Plt Count MPV Puncture Site ABG pH ABG pCO2 ABG pO2 ABG PO2/FiO2 Ratio ABG HCO3 ABG O2 Saturation ABG O2 Content ABG Base Excess A-a Gradient Oxyhemoglobin Carboxyhemoglobin Methemoglobin Reduced Hemoglobin Total Hemoglobin O2 Delivery Device O2 Liters/Min Minute Volume Vent Rate Vent Mode FiO2 Tidal Volume PEEP Peak Inspir Pressure Pressure Support Sodium Potassium Chloride Carbon Dioxide Anion Gap BUN Creatinine Estim Creat Clear Calc Estimated GFR Glucose POC Capillary Glucose 276 mg/dl H mg/dl 222 mg/dl H mg/dl 194 mg/dl H mg/dl (65-105) (65-105) (65-105) Calcium Magnesium Total Bilirubin AST ALT Alkaline Phosphatase Total Protein Albumin Vancomycin Trough 11/04/21 11/05/21 11/05/21 23:59 04:17 04:57 WBC RBC Hgb Hct MCV MCH MCHC RDW Plt Count MPV Puncture Site Left radial ABG pH 7.247 L* (7.350-7.450) ABG pCO2 84.6 mmHg H* mmHg (35.0-45.0) ABG pO2 83.2 mmHg mmHg (80.0-100.0) ABG PO2/FiO2 Ratio 2.77 % % ABG HCO3 36.0 mEq/l H mEq/l (22.0-26.0) ABG O2 Saturation 93.8 % L % (95.0-100.0) ABG O2 Content 12.4 %vol L %vol (16.0-22.0) ABG Base Excess 6.9 mEq/l mEq/l (+/-2.0) A-a Gradient 31.3 mmHg mmHg Oxyhemoglobin 92.0 % THb % THb (90.0-100.0) Carboxyhemoglobin 0.7 % THb % THb (0-2.0) Methemoglobin 0.3 %THb %THb (0-1.5) Reduced Hemoglobin 7.0 %THb H %THb (0-5.0) To
[2021-11-05] MEDS: PANTOPRAZOLE SODIUM IV 40 MG VIAL IV PUSH ×2 (08:42→20:30)
[2021-11-05] MEDS: LIDOCAINE 5% PATCH 1 PATCH TRANSDERM (08:42)
[2021-11-05] MEDS: MINERAL OIL/WHITE PETROLATUM OINTMENT 1 APPLIC EACH EYE ×2 (08:42→20:30)
[2021-11-05 08:53] LABS: Glucose Point of Care 285 mg/dl (65-105)
--- NOTE | 2021-11-05 09:02 | WPDINTPN ---
Progress Note: A&P Assessment and Plan (1) Acute respiratory failure: Code(s): J96.00 - Acute respiratory failure, unspecified whether with hypoxia or hypercapnia Status: Acute Assessment and Plan: Acute respiratory failure likely related to cardiac arrest -intubated 10/23/2021 10/23/2021: CTA chest abdomen and pelvis showed extensive patchy bilateral airspace disease compatible with pneumonia, mediastinal lymphadenopathy, likely reactive, small pleural effusions. -patient status post azithromycin, ceftriaxone, vancomycin. Cultures negative -chest x-ray this morning showed - Stable mild airspace opacities in the lower lung zones, consistent with atelectasis versus pneumonia -last few days patient is in placed on pressure support but has been requiring high pressure support failing to wean. She has been on Precedex but failed because of her high RSBI and high respiratory rate of 35-45 with low tidal volumes. -patient currently on propofol and Precedex infusion, Lidoderm patch ordered chest to help with pain from trauma from CPR -continue bronchodilators -patient on clonazepam, Seroquel and mirtazapine which are all home medications, patient is on Seroquel at home 600 mg q.h.s. -continue Seroquel to 100 q.12 hours Discussed with daughter Zeinab and updated her that patient is not weanable from the ventilator will require tracheostomy and PEG tube placement to which she is agreeable Tracheostomy scheduled for today -11/05/2021 PEG tube scheduled for 11/06/2021 (2) Fever: Code(s): R50.9 - Fever, unspecified Status: Acute Assessment and Plan: 11/05/2021 Worsening leukocytosis with worsening airspace opacities in the right lower lung. Worsening ABGs -will switch cefepime to aztreonam (11/05), continue vancomycin (11/01) 10/23/2021: CTA chest showed extensive patchy bilateral airspace disease compatible with pneumonia, mediastinal lymphadenopathy, likely reactive, small pleural effusion patient completed a 7 day course of azithromycin, ceftriaxone (initiated on 10/23/2020) Repeat culture sent 10/30 are negative till now 10/31 CT Sinuses IMPRESSION: 1. Mild mucosal thickening in left maxillary sinus. 2. Leftward deviation of the nasal septum. 11/03: Leukocytosis improving, fevers have defervesced CT C/A/P 10/31/2021 IMPRESSION: 1. Small pleural effusions, right worse than left, worsened from 10/23/21. 2. Mild pulmonary edema. 3. Nasogastric tube tip in the proximal duodenum. 4. Small pericardial effusion. 5. Mild mediastinal lymphadenopathy, likely reactive. 6. New gallbladder distention, which may secondary to fasting. (3) Cardiopulmonary arrest with successful resuscitation: Code(s): I46.9 - Cardiac arrest, cause unspecified Status: Acute Assessment and Plan: Patient with cardiopulmonary arrest with successful ROSC after 1 round of epinephrine and 1 amp of bicarb along with CPR. -patient was following commands post ROSC, not a candidate for targeted temperature management/hypothermia -could be multifactorial, proxy a versus coronary artery disease/NSTEMI versus severe anemia. -troponins are elevated, -patient currently hemodynamically stable -cardiology following the patient and plan for further workup depending on EGD results ECHO Summary 1. Left ventricular chamber dimension is normal. 2. Left ventricular systolic function is normal, estimated at >70%. 3. There is no increased left ventricular wall thickness. 4. Left ventricular septal wall motion is normal. 5. The left ventricular diastolic function is grade II diastolic dysfunction. 6. Right ventricular chamber dimension is normal. 7. Right ventricular systolic function is normal. 8. Left atrial chamber dimension is severely enlarged. 9. There is mild to moderate mitral valve regurgitation. (4) Chest pain: Qualifiers: Chest pain type: unspecified Qualified Code(s): R07.9 - Chest pain
[2021-11-05] MEDS: LIDO 1%/EPINEPHRINE/PF 1:200,000 30 ML VIAL XX (09:45)
--- NOTE | 2021-11-05 10:02 | W.PM.PROC2 ---
Procedure Note - Detailed Date of Procedure 11/05/21 Pre-op Diagnosis Anemia prolonged intubation Post-op Diagnosis same Procedure Performed Tracheotomy Surgeon Tan Traylor MD Description of Procedure Patient was prepped and draped general anesthesia vertical incision was made dissection carried down to the muscles of the trachea was identified incision made in the trachea with tracheal ring 3 with a Trousseau dilator a 8. Shiley tube placed and sutured in place Urine Output 400
--- NOTE | 2021-11-05 11:47 | PCFNICU ---
ICU Rounding Note: Pt current nutrition is Glucerna 1.2 at 60ml/hr over 22 hours. Last recorded weight is 70 kg, down from 71.3 kg on admit. Bowel Motility:+BM reported 11/05 Labs Reviewed:Glu 357, BUN 33, K 5.2,Hct 29.6,Hgb 8.2,Alb 3.1 Meds Noted:Seroquel, Atrovent, Precedex, Rocephin,Albuterol, Lopressor, Klonopin, Zithromax. Propofol 16.61 ml/cb=787 kcals, Remeron, Vancomycin. Skin: WNL Additional Notes: Patient had Trach placed today, PEG 11/06. Tube feedings have been restarted of Glucerna 1.2 at 60ml/hr, Free water flush of 30 ml q 4 hours. Following daily in ICU rounds. Will monitor every Tuesday and Tuesday.
[2021-11-05] MEDS: dexmedeTOMIDine 400 MCG/100 ML 400 MCG/100 ML BAG 17.5 MCG IV CONT ×3 (12:00→22:35)
[2021-11-05] MEDS: AZTREONAM 2 GM in SODIUM CHLORIDE 0.9% IV 100 ML 200 ML IVPB (12:44)
[2021-11-05] MEDS: INSULIN GLARGINE (*BKC) 100 UNITS/ML 54 UNITS SUB-Q (12:53)
[2021-11-05 13:14] LABS: Alveolar/Arterial O2 Gradient 98.2 mmHg; Base Excess ABG 10.4 mEq/l (+/-2.0); Fractional Inspired Oxygen 30 %; HCO3 ABG 33.4 mEq/l (22.0-26.0); Oxygen Content ABG 11.3 %vol (16.0-22.0); Oxygen Saturation ABG 96.2 % (95.0-100.0); Oxyhemoglobin 94.6 % THb (90.0-100.0); PCO2 ABG 37.9 mmHg (35.0-45.0); PO2 ABG 71.2 mmHg (80.0-100.0); PO2 FiO2 Ratio Arterial Blood 2.37 %; Total Hemoglobin 8.4 g/dL (12.0-18.0)
[2021-11-05 13:15] LABS: Glucose Point of Care 291 mg/dl (65-105)
[2021-11-05 13:18] LABS: Device VENTILATOR; Modified Allen's Test Unable to perform; Site Drawn RIGHT RADIAL; pH ABG 7.563 (7.350-7.450)
[2021-11-05 13:19] LABS: Arterial Blood Gas Vent Mode CMV; Arterial Blood Gas Ventilator rate 20 /MIN
[2021-11-05 13:20] LABS: Arterial Blood Gas PEEP 5 cmH2O; Arterial Blood Gas Tidal Volume 360 ml
--- NOTE | 2021-11-05 15:04 | WPDGIPROGNO ---
Progress Note: A&P Assessment and Plan (1) Acute respiratory failure: Code(s): J96.00 - Acute respiratory failure, unspecified whether with hypoxia or hypercapnia Status: Acute Assessment and Plan: unfortunately failed several attempts weaning trial she is now s/p trach and tomorrow will do EGD with G-tube placement for assisted feeding she has been tolerating tube feeding at 60ml/h using OGT (2) Cardiopulmonary arrest with successful resuscitation: Code(s): I46.9 - Cardiac arrest, cause unspecified Status: Acute Assessment and Plan: vent dependent (3) Severe anemia: Code(s): D64.9 - Anemia, unspecified Status: Acute Assessment and Plan: hb stable after initial transfusion probably multifactorial (4) Sepsis: Code(s): A41.9 - Sepsis, unspecified organism Status: Acute Assessment and Plan: treated with antibiotics (5) Pneumonia: Code(s): J18.9 - Pneumonia, unspecified organism Status: Acute (6) Erosive gastritis: Code(s): K29.60 - Other gastritis without bleeding Status: Acute Assessment and Plan: on ppi (7) AVM (arteriovenous malformation) of colon: Code(s): K55.20 - Angiodysplasia of colon without hemorrhage Status: Acute Assessment and Plan: treated when I did her colonoscopy Subjective Date/time seen: 11/05/21 15:04 Interval history: today had tracheostomy without any complications, no major changes otherwise Review of Systems Review of Systems: All systems reviewed & are unremarkable except as noted in HPI and below Exam Const: Other: sedated HENMT: General nose exam: Normal nares present Other: trach in place Eyes: Sclera: sclerae normal Neck: Neck: supple Resp: Auscultation: no wheezes Other: coarse BS Cardio: Rate: regular rate GI: GI Palp: Yes Soft to palpation, No Tenderness to palpation present (GI) and No Guarding due to palpation present (GI) Auscultation: normal bowel sounds Urinary Catheter: Urinary Catheter: patent and draining Skin: General skin exam: no rashes or lesions noted Neuro: Other: sedated but open eyes to painful stimuli Extrem: General: normal to inspection Psych: Other: unable to assess Objective Data Vital Signs Vital Signs: Vital Signs - 24 hr 11/04/21 16:00 11/04/21 16:59 11/04/21 17:22 Temperature 98.4 F Pulse Rate 74 79 78 Respiratory Rate 23 H 35 H Blood Pressure 119/48 L Pulse Oximetry 100 100 11/04/21 18:00 11/04/21 20:00 11/04/21 20:52 Temperature 96.3 F L Pulse Rate 78 77 69 Respiratory Rate 29 H 30 H Blood Pressure 131/53 L 116/48 L Pulse Oximetry 100 100 100 11/04/21 21:02 11/04/21 21:25 11/04/21 22:00 Temperature Pulse Rate 73 73 Respiratory Rate 33 H Blood Pressure 117/54 L Pulse Oximetry 100 100 11/04/21 22:46 11/04/21 23:52 11/05/21 00:00 Temperature 98 F Pulse Rate 78 91 94 Respiratory Rate 33 H 35 H Blood Pressure 158/68 H Pulse Oximetry 99 99 11/05/21 02:00 11/05/21 02:41 11/05/21 04:00 Temperature 96.7 F L Pulse Rate 110 H 106 H 104 H Respiratory Rate 34 H 31 H Blood Pressure 155/74 H 141/65 H Pulse Oximetry 94 95 92 11/05/21 04:11 11/05/21 04:13 11/05/21 04:53 Temperature Pulse Rate 104 H 102 H 100 Respiratory Rate 22 H 22 H Blood Pressure Pulse Oximetry 96 11/05/21 06:00 11/05/21 08:00 11/05/21 08:19 Temperature 98.3 F Pulse Rate 93 111 H 110 H Respiratory Rate 32 H 23 H Blood Pressure 132/67 163/72 H Pulse Oximetry 98 92 99 11/05/21 08:40 11/05/21 10:30 11/05/21 10:45 Temperature Pulse Rate 102 H 84 79 Respiratory Rate 20 20 Blood Pressure 124/67 Pulse Oximetry 100 11/05/21 10:53 11/05/21 12:00 11/05/21 14:00 Temperature 100.1 F H Pulse Rate 93 78 71 Respiratory Rate 18 18 Blood Pressure 131/58 L 110/50 L Pulse Oximetry 100 100 100 11/05/21 14:20 Temperature Pulse Rate 71 R
--- NOTE | 2021-11-05 15:36 | PM.IMPN ---
Progress Note: A&P Assessment and Plan (1) Acute respiratory failure: Code(s): J96.00 - Acute respiratory failure, unspecified whether with hypoxia or hypercapnia Status: Acute Assessment and Plan: Acute respiratory failure related to cardiac arrest and PNA. CTA chest on admission showed extensive patchy bilateral airspace disease compatible with pneumonia. COVID swab was negative. Patient was started on IV abx. BCx negative. Sputum cx negative. Has failed multiple breathing trials. Patient was off abx for a few days but resumed on 11/01. Left UE Doppler showing no DVT but thrombosed left basilic and cephalic veins (PICC in the right arm). Discussed with appliance worker and felt that patient is too anxious due to being on lower doses of her home meds for anxiety/depression (was on clonazepam and Remeron doses but on lower doses of her Seroqel). Medications advanced to be closer to her home doses. She had trach today with PEG planned for tomorrow. ABG this morning felt to be in error with repeat okay. Appreciate appliance worker input. (2) Cardiopulmonary arrest with successful resuscitation: Code(s): I46.9 - Cardiac arrest, cause unspecified Status: Acute Assessment and Plan: Patient with cardiopulmonary arrest with successful ROSC after 1 round of epinephrine and 1 amp of bicarb along with CPR. Patient was following commands post ROSC so was not a candidate for targeted temperature management/hypothermia. Etiology could be multifactorial related to the sepsis/PNA, profound anemia and/or underlying CAD with ischemia. Troponins elevated to 0.148. Echo not showing any WM abnormalities. BP elevated and Metoprolol added 10/28; Lipitor also added. No dysrhythmias overnight. Cardiology following along and appreciate their input. EKG yesterday showing new ST-T wave changes in the lateral and inferior leads; discussed with the appliance worker yesterday. Continue tele. ASA added since Hgb stable and >7 days since colonoscopy. Consider ischemic workup but defer to Cardiology. (3) Sepsis: Code(s): A41.9 - Sepsis, unspecified organism Status: Acute Assessment and Plan: Patient presents with chest pain and found to have tachycardia, tachypnea, leukocytosis, lactic acidosis and now fevers. Sepsis present on admission related to PNA. BCx negative. COVID swab negative. Was on abx x 7 days then stopped. Was having recurrent fevers and WBC elevation so Cefepime and Vanco added 11/01. BCx 10/23, 10/30 negative. BP stable. Continue IV abx. No diarrhea to suggest CDiff (4) Pneumonia: Code(s): J18.9 - Pneumonia, unspecified organism Status: Acute Assessment and Plan: Chest x-ray on admission showing cardiomegaly with interstitial edema but cannot exclude superimposed pneumonia. CTA chest 10/23 showing extensive patchy bilateral airspace disease compatible with pneumonia and small pleural effusion. Started on Rocephin/Azithromycin 10/23 and Vanco added 10/24. BCx 10/23 negative. Sputum 10/25 and 10/30 negative. BCx 10/30 NGTD. Vancomycin stopped 10/27. Rocephin and Azithro stopped 10/30 after 7 days. Abx resumed on 11/01 with Vanco and Cefepime due to persistent fevers and elevated WBC. WBC up to 20K now with temp to 100.1. Cultures were repeated. Continue IV abx. Follow. (5) NSTEMI (non-ST elevated myocardial infarction): Code(s): I21.4 - Non-ST elevation (NSTEMI) myocardial infarction Status: Acute Assessment and Plan: Patient presented with chest pain, SOB and nausea. Trop as high as 0.148. EKG showing possible LAE but no acute ST changes. NSTEMI per cardiology notes. Patient also with cardiac arrest, profound anemia and PNA with sepsis that could be the etiology of the elevated Trop. Echo showing EF 70% with grade II diastolic dysfunction and mild-mod MR but no wall motion abnormalities. Appreciate cardiology recommendation. Continue Lipitor and Lopressor. No ASA due to the possible GI bleed.
[2021-11-05 16:38] LABS: Glucose Point of Care 183 mg/dl (65-105)
[2021-11-05 20:37] LABS: Glucose Point of Care 98 mg/dl (65-105)
[2021-11-05] MEDS: AZTREONAM 2 GM in SODIUM CHLORIDE 0.9% IV 100 ML IVPB (22:49)
[2021-11-06] VITALS (38 sets, daily range): BP systolic 100–166; BP diastolic 44–66; PULSE 56–75; RESP 18–35; TEMP 36.5–37.3; O2SAT 97–100
[2021-11-06 00:39] LABS: Glucose Point of Care 147 mg/dl (65-105)
[2021-11-06 04:09] LABS: Glucose Point of Care 118 mg/dl (65-105)
[2021-11-06] MEDS: PROPOFOL IV EMULSION 100 ML 16.61 MG IV CONT ×4 (04:10→21:43)
[2021-11-06] MEDS: dexmedeTOMIDine 400 MCG/100 ML 400 MCG/100 ML BAG 17.5 MCG IV CONT ×4 (04:12→21:44)
[2021-11-06 04:58] LABS: Hematocrit 24.7 % (37.0-47.0); Hemoglobin 7.1 g/dL (12.0-15.0); Mean Corpuscular HGB Conc 28.7 g/dl (32-36); Mean Corpuscular Hemoglobin 23.4 pg (26-34); Mean Corpuscular Volume 81.5 fl (80-100); Platelet Count Result 403 k/mm3 (150-375); Red Blood Count 3.03 M/mm3 (4.2-5.4); Red Cell Distribution Width 28.9 % (11.5-14.5); White Blood Count 17.4 K/mm3 (4.5-10.0)
[2021-11-06 04:59] LABS: Alveolar/Arterial O2 Gradient 72.5 mmHg; Base Excess ABG 4.4 mEq/l (+/-2.0); Carboxyhemoglobin 0.4 % THb (0-2.0); Fractional Inspired Oxygen 30 %; HCO3 ABG 28.7 mEq/l (22.0-26.0); Methemoglobin ABG 0.4 %THb (0-1.5); Oxygen Content ABG 11.3 %vol (16.0-22.0); Oxygen Saturation ABG 97.4 % (95.0-100.0); Oxyhemoglobin 95.4 % THb (90.0-100.0); PCO2 ABG 41.8 mmHg (35.0-45.0); PO2 ABG 92.3 mmHg (80.0-100.0); PO2 FiO2 Ratio Arterial Blood 3.08 %; Reduced Hemoglobin 3.8 %THb (0-5.0); Total Hemoglobin 8.3 g/dL (12.0-18.0); pH ABG 7.455 (7.350-7.450)
[2021-11-06 05:00] LABS: Device VENTILATOR; Modified Allen's Test Pass; Site Drawn LEFT RADIAL
[2021-11-06 05:01] LABS: Arterial Blood Gas PEEP 5 cmH2O; Arterial Blood Gas Tidal Volume 360 ml; Arterial Blood Gas Vent Mode CMV; Arterial Blood Gas Ventilator rate 18 /MIN
[2021-11-06 05:17] LABS: Alanine Aminotransferase 23 U/L (4-35); Albumin Level 2.7 g/dL (3.5-5.1); Alkaline Phosphatase 114 U/L (38-126); Anion Gap 5 mmol/L (8-16); Aspartate Amino Transferase 31 U/L (14-36); Bilirubin,Total 0.4 mg/dL (0.2-1.3); Blood Urea Nitrogen 36 mg/dL (7-17); Calcium 8.7 mg/dL (8.4-10.2); Carbon Dioxide 33 mmol/L (22-30); Chloride 101 mmol/L (98-107); Estimated CRCL calculation 55 ml/min; Estimated Glomerular Filt Rate > 60; Glucose 112 mg/dL (65-110); Magnesium 2.2 mg/dL (1.6-2.3); Potassium 4.1 mmol/L (3.4-5.0); Sodium 139 mmol/L (137-145)
[2021-11-06] MEDS: AZTREONAM 2 GM in SODIUM CHLORIDE 0.9% IV 100 ML IVPB ×3 (05:38→22:46)
[2021-11-06] MEDS: CENTRAL LINE FLUSH 10 ML IV PUSH ×3 (06:46→22:51)
[2021-11-06] MEDS: MINERAL OIL/WHITE PETROLATUM OINTMENT 1 APPLIC EACH EYE ×2 (08:45→20:37)
[2021-11-06] MEDS: PANTOPRAZOLE SODIUM IV 40 MG VIAL IV PUSH ×2 (08:45→20:30)
[2021-11-06] MEDS: DORNASE ALFA INH SOLN 1 MG/ML 2.5 ML AMP 2.5 MG INHALATION ×2 (09:05→20:18)
[2021-11-06 09:21] LABS: Glucose Point of Care 83 mg/dl (65-105)
[2021-11-06] MEDS: LIDOCAINE 5% PATCH 1 PATCH TRANSDERM (10:30)
[2021-11-06] MEDS: DEXTROSE 50% 25 GM/50 ML SYRINGE IV PUSH (12:43)
--- NOTE | 2021-11-06 12:43 | WPDINTPN ---
Progress Note: A&P Assessment and Plan (1) Acute respiratory failure: Code(s): J96.00 - Acute respiratory failure, unspecified whether with hypoxia or hypercapnia Status: Acute Assessment and Plan: Acute respiratory failure likely related to cardiac arrest -intubated 10/23/2021 10/23/2021: CTA chest abdomen and pelvis showed extensive patchy bilateral airspace disease compatible with pneumonia, mediastinal lymphadenopathy, likely reactive, small pleural effusions. -patient status post azithromycin, ceftriaxone, vancomycin. Cultures negative -chest x-ray this morning showed - Stable mild airspace opacities in the lower lung zones, consistent with atelectasis versus pneumonia -patient has been failing multiple weaning trials, discussed with daughter Zeinab was agreeable to the tracheostomy and PEG tube placement -patient did get a tracheostomy done on 11/05/2021. -PEG tube has been scheduled for today, 11/06/2021 -will start waking up patient and continue to perform weaning trials -patient currently on propofol and Precedex infusion, Lidoderm patch ordered chest to help with pain from trauma from CPR -continue bronchodilators -continue clonazepam, Seroquel and mirtazapine (2) Fever: Code(s): R50.9 - Fever, unspecified Status: Acute Assessment and Plan: 11/05/2021 Worsening leukocytosis with worsening airspace opacities in the right lower lung. Worsening ABGs -will switch cefepime to aztreonam (11/05), continue vancomycin (11/01) -leukocytosis improving, -11/06/2021: Sputum cultures growing gram-positive cocci in clusters -11/05/2021: Urine cultures pending -11/05/2021: Blood cultures negative x2 so far 10/23/2021: CTA chest showed extensive patchy bilateral airspace disease compatible with pneumonia, mediastinal lymphadenopathy, likely reactive, small pleural effusion patient completed a 7 day course of azithromycin, ceftriaxone (initiated on 10/23/2020) Repeat culture sent 10/30 are negative till now 10/31 CT Sinuses IMPRESSION: 1. Mild mucosal thickening in left maxillary sinus. 2. Leftward deviation of the nasal septum. 11/03: Leukocytosis improving, fevers have defervesced CT C/A/P 10/31/2021 IMPRESSION: 1. Small pleural effusions, right worse than left, worsened from 10/23/21. 2. Mild pulmonary edema. 3. Nasogastric tube tip in the proximal duodenum. 4. Small pericardial effusion. 5. Mild mediastinal lymphadenopathy, likely reactive. 6. New gallbladder distention, which may secondary to fasting. (3) Cardiopulmonary arrest with successful resuscitation: Code(s): I46.9 - Cardiac arrest, cause unspecified Status: Acute Assessment and Plan: Patient with cardiopulmonary arrest with successful ROSC after 1 round of epinephrine and 1 amp of bicarb along with CPR. -patient was following commands post ROSC, not a candidate for targeted temperature management/hypothermia -could be multifactorial, proxy a versus coronary artery disease/NSTEMI versus severe anemia. -troponins are elevated, -patient currently hemodynamically stable ECHO Summary 1. Left ventricular chamber dimension is normal. 2. Left ventricular systolic function is normal, estimated at >70%. 3. There is no increased left ventricular wall thickness. 4. Left ventricular septal wall motion is normal. 5. The left ventricular diastolic function is grade II diastolic dysfunction. 6. Right ventricular chamber dimension is normal. 7. Right ventricular systolic function is normal. 8. Left atrial chamber dimension is severely enlarged. 9. There is mild to moderate mitral valve regurgitation. (4) Chest pain: Qualifiers: Chest pain type: unspecified Qualified Code(s): R07.9 - Chest pain, unspecified Code(s): R07.9 - Chest pain, unspecified Status: Acute Assessment and Plan: NSTEMI Patient presented with chest pain, shortness of breath, nausea with no vomitin
[2021-11-06 12:45] LABS: Glucose Point of Care 41 mg/dl (65-105)
--- NOTE | 2021-11-06 12:57 | SUR.OPER ---
ICU nurse Elisa and yacht master monitoring sedation during procedure.
--- NOTE | 2021-11-06 13:03 | PCNFU ---
Nutrition Follow-Up Complete: Inadequate Oral Intake as related to mechanical vent as evidenced by NPO. goal: Meet estimated nutritional needs Patient is progressing towards goal. We will continue with current goal. Pt current nutrition is Glucerna 1.2 on hold. Last recorded weight is 72.9 kg, up from 71.3 kg on admit. Bowel Motility:+BM reported 11/05 Labs Reviewed: Hgb 7.1,Hct 24.7 Meds Noted:Propofol 16.61 ml/xv=905 kcals,Vancomycin, Precedex. Skin: Edema, WNL Additional Notes: Patient current with Trach. Tube feedings on hold for PEG placement today. Recommend tube feeding rate of Glucerna 1.2 at 55 ml/hr due to additional calories from propofol. Will continue to monitor propofol for tube feeding rate changes. Free water flush 30 ml q 4 hours. Monitoring: ICU rounds daily, reassessing every Tuesday and Tuesday.
[2021-11-06 13:14] LABS: Glucose Point of Care 123 mg/dl (65-105)
[2021-11-06 16:02] LABS: Glucose Point of Care 143 mg/dl (65-105)
[2021-11-06 17:15] LABS: Basophils Absolute Auto 0.1 K/mm3 (0.0-0.1); Basophils Percent Auto 0.4 % (0.2-1.2); Eosinophils Percent Auto 0.2 % (0-4.4); Hematocrit 23.9 % (37.0-47.0); Hemoglobin 7.1 g/dL (12.0-15.0); Immature Granulocyte Absolute 0.07 K/mm3 (0.00-0.031); Immature Granulocyte Percent A 0.5 % (0-0.5); Lymphocytes Absolute Auto 2.69 K/mm3 (0.9-3.2); Lymphocytes Percent Auto 19.6 % (18.3-44.2); Mean Corpuscular HGB Conc 29.7 g/dl (32-36); Mean Corpuscular Hemoglobin 24.6 pg (26-34); Mean Corpuscular Volume 82.7 fl (80-100); Mean Platelet Volume 11.8 fl (7.4-10.4); Monocytes Absolute Auto 1.2 K/mm3 (0.1-0.6); Monocytes Percent Auto 8.8 % (2.6-8.5); Neutrophils Absolute Auto 9.7 K/mm3 (1.3-6.7); Neutrophils Percent Auto 70.5 % (45.5-73.1); Platelet Count Result 386 k/mm3 (150-375); Red Blood Count 2.89 M/mm3 (4.2-5.4); Red Cell Distribution Width 29.2 % (11.5-14.5); White Blood Count 13.7 K/mm3 (4.5-10.0)
[2021-11-06 17:30] LABS: Platelet Estimate Increased (Adequate)
[2021-11-06 17:31] LABS: Anisocytosis 1+ (NORMAL); Hypochromasia 1+ (NORMAL); Ovalocytes 1+ (NORMAL)
[2021-11-06 17:32] LABS: Smudge Cells FEW
[2021-11-06 19:57] LABS: Glucose Point of Care 98 mg/dl (65-105)
[2021-11-06] MEDS: METOPROLOL TARTRATE 25 MG TABLET PO (20:30)
[2021-11-06] MEDS: QUEtiapine FUMARATE 100 MG TABLET PO (20:30)
[2021-11-06] MEDS: MIRTAZAPINE 30 MG TABLET PO (20:37)
[2021-11-06 23:47] LABS: Glucose Point of Care 86 mg/dl (65-105)
[2021-11-07] VITALS (32 sets, daily range): BP systolic 110–180; BP diastolic 49–77; PULSE 62–122; RESP 18–38; TEMP 36.6–37.5; O2SAT 95–100
[2021-11-07 03:46] LABS: Glucose Point of Care 162 mg/dl (65-105)
[2021-11-07] MEDS: dexmedeTOMIDine 400 MCG/100 ML 400 MCG/100 ML BAG 17.5 MCG IV CONT ×3 (03:51→15:41)
[2021-11-07] MEDS: PROPOFOL IV EMULSION 100 ML 16.61 MG IV CONT ×2 (03:52→09:51)
[2021-11-07 04:37] LABS: Hematocrit 26.8 % (37.0-47.0); Hemoglobin 7.7 g/dL (12.0-15.0); Mean Corpuscular HGB Conc 28.7 g/dl (32-36); Mean Corpuscular Hemoglobin 23.9 pg (26-34); Mean Corpuscular Volume 83.2 fl (80-100); Mean Platelet Volume 11.7 fl (7.4-10.4); Platelet Count Result 430 k/mm3 (150-375); Red Blood Count 3.22 M/mm3 (4.2-5.4); Red Cell Distribution Width 29.9 % (11.5-14.5); White Blood Count 14.3 K/mm3 (4.5-10.0)
[2021-11-07 04:49] LABS: Alanine Aminotransferase 34 U/L (4-35); Alkaline Phosphatase 194 U/L (38-126); Anion Gap 3 mmol/L (8-16); Aspartate Amino Transferase 60 U/L (14-36); Bilirubin,Total 0.5 mg/dL (0.2-1.3); Blood Urea Nitrogen 28 mg/dL (7-17); Calcium 8.8 mg/dL (8.4-10.2); Carbon Dioxide 32 mmol/L (22-30); Chloride 101 mmol/L (98-107); Estimated CRCL calculation 56 ml/min; Estimated Glomerular Filt Rate > 60; Glucose 178 mg/dL (65-110); Potassium 3.5 mmol/L (3.4-5.0); Sodium 136 mmol/L (137-145)
[2021-11-07 05:28] LABS: Alveolar/Arterial O2 Gradient 70.9 mmHg; Base Excess ABG 4.9 mEq/l (+/-2.0); Carboxyhemoglobin 0.6 % THb (0-2.0); Fractional Inspired Oxygen 30 %; HCO3 ABG 30.1 mEq/l (22.0-26.0); Methemoglobin ABG 0.5 %THb (0-1.5); Oxygen Content ABG 11.4 %vol (16.0-22.0); Oxygen Saturation ABG 96.5 % (95.0-100.0); Oxyhemoglobin 94.3 % THb (90.0-100.0); PCO2 ABG 48.5 mmHg (35.0-45.0); PO2 FiO2 Ratio Arterial Blood 2.87 %; Reduced Hemoglobin 4.6 %THb (0-5.0); Total Hemoglobin 8.5 g/dL (12.0-18.0); pH ABG 7.411 (7.350-7.450)
[2021-11-07] MEDS: CENTRAL LINE FLUSH 10 ML IV PUSH ×2 (05:28→13:34)
[2021-11-07 05:30] LABS: Arterial Blood Gas Ventilator rate 18 /MIN; Device VENTILATOR; Modified Allen's Test Pass; Site Drawn RIGHT RADIAL
[2021-11-07 05:31] LABS: Arterial Blood Gas PEEP 5 cmH2O; Arterial Blood Gas Tidal Volume 360 ml; Arterial Blood Gas Vent Mode CMV
[2021-11-07] MEDS: AZTREONAM 2 GM in SODIUM CHLORIDE 0.9% IV 100 ML IVPB ×3 (05:58→21:29)
[2021-11-07] MEDS: FUROSEMIDE INJ 40 MG/4 ML VIAL IV PUSH (08:06)
[2021-11-07] MEDS: ASPIRIN 81 MG CHEWABLE TABLET FEED TUBE (08:08)
[2021-11-07] MEDS: METOPROLOL TARTRATE 25 MG TABLET PO ×2 (08:09→21:20)
[2021-11-07] MEDS: MINERAL OIL/WHITE PETROLATUM OINTMENT 1 APPLIC EACH EYE (08:09)
[2021-11-07] MEDS: ATORVASTATIN 40 MG TABLET FEED TUBE (08:09)
[2021-11-07] MEDS: PANTOPRAZOLE SODIUM IV 40 MG VIAL IV PUSH ×2 (08:10→21:18)
[2021-11-07] MEDS: ENOXAPARIN 40 MG/0.4 ML SYRINGE SUB-Q (08:12)
[2021-11-07] MEDS: LIDOCAINE 5% PATCH 1 PATCH TRANSDERM (08:13)
[2021-11-07] MEDS: DORNASE ALFA INH SOLN 1 MG/ML 2.5 ML AMP 2.5 MG INHALATION ×2 (08:15→20:40)
[2021-11-07] MEDS: QUEtiapine FUMARATE 25 MG TABLET 50 MG PO ×2 (08:15→21:17)
[2021-11-07] MEDS: QUEtiapine FUMARATE 100 MG TABLET PO ×2 (08:15→21:17)
[2021-11-07 08:17] LABS: Glucose Point of Care 202 mg/dl (65-105)
[2021-11-07] MEDS: clonazePAM (*CRX) 0.5 MG TABLET 1 MG PO ×3 (08:19→17:12)
[2021-11-07] MEDS: INSULIN ASPART (*BKC) 100 UNITS/ML SUB-Q ×2 (08:24→21:15)
[2021-11-07] MEDS: INSULIN GLARGINE (*BKC) 100 UNITS/ML 54 UNITS SUB-Q (08:25)
--- NOTE | 2021-11-07 09:56 | WPDINTPN ---
Progress Note: A&P Assessment and Plan (1) Acute respiratory failure: Code(s): J96.00 - Acute respiratory failure, unspecified whether with hypoxia or hypercapnia Status: Acute Assessment and Plan: Acute respiratory failure likely related to cardiac arrest -intubated 10/23/2021 10/23/2021: CTA chest abdomen and pelvis showed extensive patchy bilateral airspace disease compatible with pneumonia, mediastinal lymphadenopathy, likely reactive, small pleural effusions. -patient status post azithromycin, ceftriaxone, vancomycin. Cultures negative -chest x-ray this morning showed - Stable mild airspace opacities in the lower lung zones, consistent with atelectasis versus pneumonia -patient has been failing multiple weaning trials, discussed with daughter Zeinab was agreeable to the tracheostomy and PEG tube placement -patient did get a tracheostomy done on 11/05/2021. -PEG tube placed on 11/06/2021 -will increase dose of Seroquel and start weaning of propofol and will place patient on breathing trials. -patient currently on propofol and Precedex infusion, Lidoderm patch ordered chest to help with pain from trauma from CPR -continue bronchodilators -continue clonazepam, Seroquel and mirtazapine (2) Fever: Code(s): R50.9 - Fever, unspecified Status: Acute Assessment and Plan: 11/05/2021 Worsening leukocytosis with worsening airspace opacities in the right lower lung. Worsening ABGs -will switch cefepime to aztreonam (11/05), continue vancomycin (11/01) -leukocytosis improving, -11/06/2021: Sputum cultures growing gram-positive cocci in clusters -11/05/2021: Urine cultures pending -11/05/2021: Blood cultures negative x2 so far 11/07: fevers have defervesced 10/23/2021: CTA chest showed extensive patchy bilateral airspace disease compatible with pneumonia, mediastinal lymphadenopathy, likely reactive, small pleural effusion patient completed a 7 day course of azithromycin, ceftriaxone (initiated on 10/23/2020) Repeat culture sent 10/30 are negative till now 10/31 CT Sinuses IMPRESSION: 1. Mild mucosal thickening in left maxillary sinus. 2. Leftward deviation of the nasal septum. CT C/A/P 10/31/2021 IMPRESSION: 1. Small pleural effusions, right worse than left, worsened from 10/23/21. 2. Mild pulmonary edema. 3. Nasogastric tube tip in the proximal duodenum. 4. Small pericardial effusion. 5. Mild mediastinal lymphadenopathy, likely reactive. 6. New gallbladder distention, which may secondary to fasting. (3) Cardiopulmonary arrest with successful resuscitation: Code(s): I46.9 - Cardiac arrest, cause unspecified Status: Acute Assessment and Plan: Patient with cardiopulmonary arrest with successful ROSC after 1 round of epinephrine and 1 amp of bicarb along with CPR. -patient was following commands post ROSC, not a candidate for targeted temperature management/hypothermia -could be multifactorial, proxy a versus coronary artery disease/NSTEMI versus severe anemia. -troponins are elevated, -patient currently hemodynamically stable ECHO Summary 1. Left ventricular chamber dimension is normal. 2. Left ventricular systolic function is normal, estimated at >70%. 3. There is no increased left ventricular wall thickness. 4. Left ventricular septal wall motion is normal. 5. The left ventricular diastolic function is grade II diastolic dysfunction. 6. Right ventricular chamber dimension is normal. 7. Right ventricular systolic function is normal. 8. Left atrial chamber dimension is severely enlarged. 9. There is mild to moderate mitral valve regurgitation. (4) Chest pain: Qualifiers: Chest pain type: unspecified Qualified Code(s): R07.9 - Chest pain, unspecified Code(s): R07.9 - Chest pain, unspecified Status: Acute Assessment and Plan: NSTEMI Patient presented with chest pain, shortness of breath, nausea with no vomiting, -
--- NOTE | 2021-11-07 10:23 | WPDGIPROGNO ---
Progress Note: A&P Assessment and Plan (1) Cardiopulmonary arrest with successful resuscitation: Code(s): I46.9 - Cardiac arrest, cause unspecified Status: Acute Assessment and Plan: s/p trach and PEG, tolerating tube feeding will follow from [place], call if questions (2) Acute respiratory failure: Code(s): J96.00 - Acute respiratory failure, unspecified whether with hypoxia or hypercapnia Status: Acute Assessment and Plan: still on ventilation support (3) Severe anemia: Code(s): D64.9 - Anemia, unspecified Status: Acute Assessment and Plan: hb low but stable EGD yesterday only minimal gastritis, no signs of any bleeding and previous colonoscopy only polyps and 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 hematology has evaluated patient (4) Erosive gastritis: Code(s): K29.60 - Other gastritis without bleeding Status: Acute Assessment and Plan: only mild now, improved Subjective Date/time seen: 11/07/21 10:23 Interval history: PEG placed yesterday and tolerating tube feeding today, no new events Review of Systems Review of Systems: All systems reviewed & are unremarkable except as noted in HPI and below Exam Const: Other: sedated, on mechanical ventilation through trach HENMT: General nose exam: Normal nares present Other: trach in place Eyes: Sclera: sclerae normal Neck: Neck: supple Resp: Auscultation: no wheezes Other: coarse BS Cardio: Rate: regular rate GI: GI Palp: Yes Soft to palpation, No Tenderness to palpation present (GI) and No Guarding due to palpation present (GI) Auscultation: normal bowel sounds Other: G-tube in place, working ok, no drainage Urinary Catheter: Urinary Catheter: patent and draining Skin: General skin exam: no rashes or lesions noted Neuro: Other: sedated but open eyes to painful stimuli Extrem: General: normal to inspection Psych: Other: unable to assess Objective Data Vital Signs Vital Signs: Vital Signs - 24 hr 11/06/21 11:25 11/06/21 12:00 11/06/21 12:37 Temperature 99.2 F Pulse Rate 63 64 64 Respiratory Rate 18 18 Blood Pressure 142/59 H 142/59 H Pulse Oximetry 99 100 99 11/06/21 12:42 11/06/21 12:47 11/06/21 12:52 Temperature Pulse Rate 72 70 71 Respiratory Rate 22 H 20 24 H Blood Pressure 162/62 H 152/61 H 163/55 H Pulse Oximetry 100 98 100 11/06/21 12:57 11/06/21 14:00 11/06/21 14:11 Temperature Pulse Rate 72 63 62 Respiratory Rate 22 H 19 18 Blood Pressure 166/66 H 138/56 L Pulse Oximetry 99 97 11/06/21 14:12 11/06/21 14:40 11/06/21 15:51 Temperature Pulse Rate 63 59 L 59 L Respiratory Rate 19 25 H Blood Pressure Pulse Oximetry 99 11/06/21 15:52 11/06/21 16:00 11/06/21 16:53 Temperature 99.2 F Pulse Rate 58 L 59 L 62 Respiratory Rate 25 H 24 H Blood Pressure 122/53 L Pulse Oximetry 100 11/06/21 17:58 11/06/21 18:14 11/06/21 20:00 Temperature 97.7 F Pulse Rate 64 63 62 Respiratory Rate 30 H 30 H 32 H Blood Pressure 122/53 L 122/54 L Pulse Oximetry 99 99 11/06/21 20:18 11/06/21 20:19 11/06/21 20:30 Temperature Pulse Rate 62 58 L 56 L Respiratory Rate 31 H Blood Pressure Pulse Oximetry 100 11/06/21 21:43 11/06/21 21:44 11/06/21 22:00 Temperature Pulse Rate 67 69 73 Respiratory Rate 18 18 18 Blood Pressure 138/56 L Pulse Oximetry 100 11/07/21 00:00 11/07/21 02:00 11/07/21 02:37 Temperature 98.3 F Pulse Rate 78 65 65 Respiratory Rate 22 H 19 Blood Pressure 160/59 H 145/56 H Pulse Oximetry 98 100 100 11/07/21 03:27 11/07/21 03:51 11/07/21 03:52 Temperature Pulse Rate 98 98 101 H Respiratory Rate 27 H 27 H 22 H Blood Pressure Pulse Oximetry 11/07/21 04:00 11/07/21 05:05 11/07/21 06:00 Temperature 99.5 F Pulse Rate 104 H 64 100 Respiratory Rate 35 H 23 H Blood Pressure 180/72 H 153/65 H Pulse Oximetry 99 100 97 11/07/21 08:00 11/07/21 0
[2021-11-07 12:45] LABS: Glucose Point of Care 170 mg/dl (65-105)
[2021-11-07 16:09] LABS: Glucose Point of Care 187 mg/dl (65-105)
[2021-11-07 19:29] LABS: Glucose Point of Care 251 mg/dl (65-105)
[2021-11-07] MEDS: ALBUTEROL SULFATE NEB 2.5 MG/0.5 ML INH INHALATION (20:40)
[2021-11-07] MEDS: dexmedeTOMIDine 400 MCG/100 ML 400 MCG/100 ML BAG 21 MCG IV CONT (21:10)
[2021-11-07] MEDS: MIRTAZAPINE 30 MG TABLET PO (21:18)
[2021-11-07 23:24] LABS: Glucose Point of Care 235 mg/dl (65-105)
[2021-11-08] VITALS (37 sets, daily range): BP systolic 87–169; BP diastolic 49–98; PULSE 65–144; RESP 19–46; TEMP 36.7–38; O2SAT 91–100
[2021-11-08] MEDS: INSULIN ASPART (*BKC) 100 UNITS/ML SUB-Q ×7 (00:13→23:37)
[2021-11-08] MEDS: dexmedeTOMIDine 400 MCG/100 ML 400 MCG/100 ML BAG 21 MCG IV CONT (01:10)
[2021-11-08 03:24] LABS: Glucose Point of Care 236 mg/dl (65-105)
[2021-11-08] MEDS: fentaNYL CITRATE INJ (*CRX) 100 MCG/2 ML VIAL 50 MCG IV PUSH (04:38)
[2021-11-08] MEDS: hydrALAZINE HCL 20 MG/ML VIAL 10 MG IV PUSH (04:38)
[2021-11-08 04:50] LABS: Basophils Absolute Auto 0.1 K/mm3 (0.0-0.1); Basophils Percent Auto 0.4 % (0.2-1.2); Eosinophils Percent Auto 0.2 % (0-4.4); Hematocrit 30.1 % (37.0-47.0); Hemoglobin 8.5 g/dL (12.0-15.0); Immature Granulocyte Absolute 0.11 K/mm3 (0.00-0.031); Immature Granulocyte Percent A 0.6 % (0-0.5); Lymphocytes Absolute Auto 4.23 K/mm3 (0.9-3.2); Lymphocytes Percent Auto 24.6 % (18.3-44.2); Mean Corpuscular HGB Conc 28.2 g/dl (32-36); Mean Corpuscular Hemoglobin 23.8 pg (26-34); Mean Corpuscular Volume 84.3 fl (80-100); Mean Platelet Volume 11.7 fl (7.4-10.4); Monocytes Absolute Auto 1.6 K/mm3 (0.1-0.6); Monocytes Percent Auto 9.4 % (2.6-8.5); Neutrophils Absolute Auto 11.2 K/mm3 (1.3-6.7); Neutrophils Percent Auto 64.8 % (45.5-73.1); Nucleated Red Blood Cells Perc 0.1 % (0.0-0.2); Platelet Count Result 508 k/mm3 (150-375); Red Blood Count 3.57 M/mm3 (4.2-5.4); Red Cell Distribution Width 30.2 % (11.5-14.5); White Blood Count 17.2 K/mm3 (4.5-10.0)
[2021-11-08] MEDS: CENTRAL LINE FLUSH 10 ML IV PUSH ×4 (05:07→23:30)
[2021-11-08 05:09] LABS: Alanine Aminotransferase 49 U/L (4-35); Albumin Level 3.3 g/dL (3.5-5.1); Alkaline Phosphatase 292 U/L (38-126); Anion Gap 6 mmol/L (8-16); Aspartate Amino Transferase 64 U/L (14-36); Bilirubin,Total 0.7 mg/dL (0.2-1.3); Blood Urea Nitrogen 29 mg/dL (7-17); Calcium 9.5 mg/dL (8.4-10.2); Carbon Dioxide 31 mmol/L (22-30); Chloride 104 mmol/L (98-107); Estimated CRCL calculation 63 ml/min; Estimated Glomerular Filt Rate > 60; Glucose 277 mg/dL (65-110); Magnesium 2.1 mg/dL (1.6-2.3); Phosphorus 2.7 mg/dL (2.5-4.5); Potassium 3.9 mmol/L (3.4-5.0); Sodium 141 mmol/L (137-145)
[2021-11-08] MEDS: PROPOFOL IV EMULSION 100 ML 8.3 MG IV CONT (05:11)
[2021-11-08 05:16] LABS: Alveolar/Arterial O2 Gradient 59.4 mmHg; Base Excess ABG 4.7 mEq/l (+/-2.0); Carboxyhemoglobin 1.1 % THb (0-2.0); Fractional Inspired Oxygen 25 %; HCO3 ABG 30.8 mEq/l (22.0-26.0); Methemoglobin ABG 0.2 %THb (0-1.5); Oxygen Content ABG 14.3 %vol (16.0-22.0); Oxygen Saturation ABG 88.2 % (95.0-100.0); PCO2 ABG 52.9 mmHg (35.0-45.0); PO2 FiO2 Ratio Arterial Blood 2.24 %; Reduced Hemoglobin 12.1 %THb (0-5.0); Total Hemoglobin 11.7 g/dL (12.0-18.0); pH ABG 7.383 (7.350-7.450)
[2021-11-08 05:19] LABS: Modified Allen's Test Pass; Oxyhemoglobin 86.6 % THb (90.0-100.0); Site Drawn RIGHT RADIAL
[2021-11-08 05:20] LABS: Arterial Blood Gas Vent Mode CMV; Arterial Blood Gas Ventilator rate 18 /MIN; Device VENTILATOR
[2021-11-08 05:21] LABS: Arterial Blood Gas PEEP 5 cmH2O; Arterial Blood Gas Tidal Volume 360 ml
[2021-11-08 05:25] LABS: Hypochromasia 1+ (NORMAL); Platelet Estimate Adequate (Adequate); Poikilocytosis 1+ (NORMAL)
[2021-11-08 05:26] LABS: Atypical Lymphocytes Present
[2021-11-08] MEDS: AZTREONAM 2 GM in SODIUM CHLORIDE 0.9% IV 100 ML IVPB ×3 (05:30→21:55)
--- NOTE | 2021-11-08 06:11 | PC.NURSE ---
At about 0420 the patient became very sweaty and not syncing with the ventilator. Her HR was 1 0's and RR in the 40's. She was belly breathing and gasping. I increased her dex to 1.5, gave her a prn fent and hydralzine for a sys of 200. On her blood gas her pao2 was 56 so i increased her fio2 to 65%. She would not calm so I restarted the propofol at 20 and increased it to 40. her heart rate and blood pressure have slowly come down.
[2021-11-08] MEDS: DORNASE ALFA INH SOLN 1 MG/ML 2.5 ML AMP 2.5 MG INHALATION (07:47)
[2021-11-08 08:07] LABS: Glucose Point of Care 316 mg/dl (65-105)
[2021-11-08] MEDS: dexmedeTOMIDine 400 MCG/100 ML 400 MCG/100 ML BAG 17.5 MCG IV CONT ×3 (08:09→19:12)
[2021-11-08] MEDS: METOPROLOL TARTRATE 25 MG TABLET PO ×2 (08:13→21:56)
[2021-11-08] MEDS: ASPIRIN 81 MG CHEWABLE TABLET FEED TUBE (08:13)
[2021-11-08] MEDS: ATORVASTATIN 40 MG TABLET FEED TUBE (08:13)
[2021-11-08] MEDS: ENOXAPARIN 40 MG/0.4 ML SYRINGE SUB-Q (08:14)
[2021-11-08] MEDS: PANTOPRAZOLE SODIUM IV 40 MG VIAL IV PUSH ×2 (08:14→20:16)
[2021-11-08] MEDS: QUEtiapine FUMARATE 25 MG TABLET 50 MG PO ×2 (08:14→20:17)
[2021-11-08] MEDS: QUEtiapine FUMARATE 100 MG TABLET PO ×2 (08:14→20:17)
[2021-11-08] MEDS: LIDOCAINE 5% PATCH 1 PATCH TRANSDERM (08:17)
[2021-11-08] MEDS: MINERAL OIL/WHITE PETROLATUM OINTMENT 1 APPLIC EACH EYE ×2 (08:17→20:14)
[2021-11-08] MEDS: INSULIN GLARGINE (*BKC) 100 UNITS/ML 62 UNITS SUB-Q (08:27)
[2021-11-08] MEDS: clonazePAM (*CRX) 0.5 MG TABLET 1 MG PO ×3 (08:28→16:22)
[2021-11-08] MEDS: PROPOFOL IV EMULSION 100 ML 14.53 MG IV CONT (10:50)
--- NOTE | 2021-11-08 11:34 | WPDINTPN ---
Progress Note: A&P Assessment and Plan (1) Acute respiratory failure: Code(s): J96.00 - Acute respiratory failure, unspecified whether with hypoxia or hypercapnia Status: Acute Assessment and Plan: Acute respiratory failure likely related to cardiac arrest -intubated 10/23/2021 10/23/2021: CTA chest abdomen and pelvis showed extensive patchy bilateral airspace disease compatible with pneumonia, mediastinal lymphadenopathy, likely reactive, small pleural effusions. -patient status post azithromycin, ceftriaxone, vancomycin. Cultures negative -chest x-ray this morning showed - Stable mild airspace opacities in the lower lung zones, consistent with atelectasis versus pneumonia -patient has been failing multiple weaning trials, discussed with daughter Zeinab was agreeable to the tracheostomy and PEG tube placement -patient did get a tracheostomy done on 11/05/2021. -PEG tube placed on 11/06/2021 -will increase dose of Seroquel and may be we can come down on Precedex and propofol. -patient currently on propofol and Precedex infusion, Lidoderm patch ordered chest to help with pain from trauma from CPR -continue bronchodilators -continue clonazepam, Seroquel and mirtazapine (2) Fever: Code(s): R50.9 - Fever, unspecified Status: Acute Assessment and Plan: 11/05/2021 Worsening leukocytosis with worsening airspace opacities in the right lower lung. Worsening ABGs -will switch cefepime to aztreonam (11/05), continue vancomycin (11/01) -leukocytosis improving, -11/06/2021: Sputum cultures MRSA, continue vancomycin -11/05/2021: Urine cultures no growth -11/05/2021: Blood cultures negative x2 so far 11/07: fevers have defervesced 10/23/2021: CTA chest showed extensive patchy bilateral airspace disease compatible with pneumonia, mediastinal lymphadenopathy, likely reactive, small pleural effusion patient completed a 7 day course of azithromycin, ceftriaxone (initiated on 10/23/2020) Repeat culture sent 10/30 are negative till now 10/31 CT Sinuses IMPRESSION: 1. Mild mucosal thickening in left maxillary sinus. 2. Leftward deviation of the nasal septum. CT C/A/P 10/31/2021 IMPRESSION: 1. Small pleural effusions, right worse than left, worsened from 10/23/21. 2. Mild pulmonary edema. 3. Nasogastric tube tip in the proximal duodenum. 4. Small pericardial effusion. 5. Mild mediastinal lymphadenopathy, likely reactive. 6. New gallbladder distention, which may secondary to fasting. (3) Cardiopulmonary arrest with successful resuscitation: Code(s): I46.9 - Cardiac arrest, cause unspecified Status: Acute Assessment and Plan: Patient with cardiopulmonary arrest with successful ROSC after 1 round of epinephrine and 1 amp of bicarb along with CPR. -patient was following commands post ROSC, not a candidate for targeted temperature management/hypothermia -could be multifactorial, proxy a versus coronary artery disease/NSTEMI versus severe anemia. -troponins are elevated, -patient currently hemodynamically stable ECHO Summary 1. Left ventricular chamber dimension is normal. 2. Left ventricular systolic function is normal, estimated at >70%. 3. There is no increased left ventricular wall thickness. 4. Left ventricular septal wall motion is normal. 5. The left ventricular diastolic function is grade II diastolic dysfunction. 6. Right ventricular chamber dimension is normal. 7. Right ventricular systolic function is normal. 8. Left atrial chamber dimension is severely enlarged. 9. There is mild to moderate mitral valve regurgitation. (4) Chest pain: Qualifiers: Chest pain type: unspecified Qualified Code(s): R07.9 - Chest pain, unspecified Code(s): R07.9 - Chest pain, unspecified Status: Acute Assessment and Plan: NSTEMI Patient presented with chest pain, shortness of breath, nausea with no vomiting, -elevated troponin, could be re
[2021-11-08 12:28] LABS: Glucose Point of Care 326 mg/dl (65-105)
[2021-11-08 16:25] LABS: Glucose Point of Care 242 mg/dl (65-105)
[2021-11-08] MEDS: PROPOFOL IV EMULSION 100 ML 16.61 MG IV CONT (17:34)
[2021-11-08] MEDS: ALBUTEROL SULFATE NEB 2.5 MG/0.5 ML INH INHALATION (17:53)
[2021-11-08] MEDS: IPRATROPIUM BR 0.02% INH SOLN 0.5 MG/2.5 ML VIAL INHALATION (17:53)
[2021-11-08] MEDS: MIRTAZAPINE 30 MG TABLET PO (20:16)
[2021-11-08 20:40] LABS: Glucose Point of Care 232 mg/dl (65-105)
[2021-11-08 23:37] LABS: Glucose Point of Care 264 mg/dl (65-105)
[2021-11-09] VITALS (40 sets, daily range): BP systolic 100–155; BP diastolic 47–74; PULSE 61–122; RESP 22–39; TEMP 36.7–37.7; O2SAT 95–100
[2021-11-09] MEDS: dexmedeTOMIDine 400 MCG/100 ML 400 MCG/100 ML BAG 17.5 MCG IV CONT ×4 (00:59→18:21)
[2021-11-09] MEDS: PROPOFOL IV EMULSION 100 ML 8.3 MG IV CONT (02:55)
[2021-11-09 04:17] LABS: Glucose Point of Care 173 mg/dl (65-105)
[2021-11-09 05:35] LABS: Alveolar/Arterial O2 Gradient 72.5 mmHg; Base Excess ABG 7.4 mEq/l (+/-2.0); Carboxyhemoglobin 0.4 % THb (0-2.0); Fractional Inspired Oxygen 30 %; HCO3 ABG 31.6 mEq/l (22.0-26.0); Methemoglobin ABG 0.3 %THb (0-1.5); Oxygen Content ABG 10.1 %vol (16.0-22.0); Oxygen Saturation ABG 97.4 % (95.0-100.0); Oxyhemoglobin 95.7 % THb (90.0-100.0); PCO2 ABG 43.4 mmHg (35.0-45.0); PO2 ABG 90.4 mmHg (80.0-100.0); PO2 FiO2 Ratio Arterial Blood 3.01 %; Reduced Hemoglobin 3.6 %THb (0-5.0)
[2021-11-09 05:38] LABS: Arterial Blood Gas Ventilator rate 18 /MIN; Device VENTILATOR; Modified Allen's Test Pass; Site Drawn RIGHT RADIAL; Total Hemoglobin 7.4 g/dL (12.0-18.0)
[2021-11-09 05:39] LABS: Arterial Blood Gas PEEP 5 cmH2O; Arterial Blood Gas Tidal Volume 360 ml; Arterial Blood Gas Vent Mode CMV
[2021-11-09 05:42] LABS: Basophils Percent Auto 0.4 % (0.2-1.2); Eosinophils Percent Auto 0.1 % (0-4.4); Immature Granulocyte Absolute 0.05 K/mm3 (0.00-0.031); Immature Granulocyte Percent A 0.6 % (0-0.5); Lymphocytes Absolute Auto 2.27 K/mm3 (0.9-3.2); Mean Corpuscular HGB Conc 28.3 g/dl (32-36); Mean Corpuscular Hemoglobin 24.3 pg (26-34); Mean Corpuscular Volume 86.1 fl (80-100); Monocytes Absolute Auto 0.9 K/mm3 (0.1-0.6); Monocytes Percent Auto 10.1 % (2.6-8.5); Neutrophils Absolute Auto 5.8 K/mm3 (1.3-6.7); Neutrophils Percent Auto 63.8 % (45.5-73.1); Platelet Count Result 471 k/mm3 (150-375); Red Blood Count 2.67 M/mm3 (4.2-5.4); Red Cell Distribution Width 31.8 % (11.5-14.5); White Blood Count 9.1 K/mm3 (4.5-10.0)
[2021-11-09 05:59] LABS: Alanine Aminotransferase 60 U/L (4-35); Albumin Level 2.6 g/dL (3.5-5.1); Alkaline Phosphatase 227 U/L (38-126); Anion Gap 3 mmol/L (8-16); Aspartate Amino Transferase 59 U/L (14-36); Bilirubin,Total 0.3 mg/dL (0.2-1.3); Blood Urea Nitrogen 34 mg/dL (7-17); Carbon Dioxide 33 mmol/L (22-30); Chloride 103 mmol/L (98-107); Estimated CRCL calculation 63 ml/min; Estimated Glomerular Filt Rate > 60; Glucose 175 mg/dL (65-110); Magnesium 2.1 mg/dL (1.6-2.3); Phosphorus 2.2 mg/dL (2.5-4.5); Potassium 3.5 mmol/L (3.4-5.0); Sodium 139 mmol/L (137-145)
[2021-11-09] MEDS: CENTRAL LINE FLUSH 10 ML IV PUSH ×3 (06:00→21:11)
[2021-11-09] MEDS: AZTREONAM 2 GM in SODIUM CHLORIDE 0.9% IV 100 ML IVPB (06:00)
[2021-11-09 06:53] LABS: Hemoglobin 6.5 g/dL (12.0-15.0)
[2021-11-09 06:58] LABS: Large Platelets Present; Platelet Estimate Adequate (Adequate)
[2021-11-09 07:02] LABS: Anisocytosis 1+ (NORMAL); Hypochromasia 1+ (NORMAL)
[2021-11-09] MEDS: FUROSEMIDE INJ 40 MG/4 ML VIAL IV PUSH (08:16)
[2021-11-09 08:34] LABS: Hematocrit 22.8 % (37.0-47.0); Mean Corpuscular HGB Conc 27.6 g/dl (32-36); Mean Corpuscular Hemoglobin 23.4 pg (26-34); Mean Corpuscular Volume 84.8 fl (80-100); Mean Platelet Volume 11.7 fl (7.4-10.4); Platelet Count Result 469 k/mm3 (150-375); Red Blood Count 2.69 M/mm3 (4.2-5.4); Red Cell Distribution Width 31.8 % (11.5-14.5); White Blood Count 9.7 K/mm3 (4.5-10.0)
[2021-11-09 08:49] LABS: Hemoglobin 6.3 g/dL (12.0-15.0)
[2021-11-09] MEDS: ATORVASTATIN 40 MG TABLET FEED TUBE (09:17)
[2021-11-09] MEDS: ASPIRIN 81 MG CHEWABLE TABLET FEED TUBE (09:17)
[2021-11-09] MEDS: LIDOCAINE 5% PATCH 1 PATCH TRANSDERM (09:18)
[2021-11-09] MEDS: METOPROLOL TARTRATE 25 MG TABLET PO ×2 (09:18→21:07)
[2021-11-09] MEDS: PANTOPRAZOLE SODIUM IV 40 MG VIAL IV PUSH ×2 (09:18→21:07)
[2021-11-09] MEDS: ENOXAPARIN 40 MG/0.4 ML SYRINGE SUB-Q (09:18)
[2021-11-09] MEDS: MINERAL OIL/WHITE PETROLATUM OINTMENT 1 APPLIC EACH EYE ×2 (09:18→21:11)
[2021-11-09] MEDS: QUEtiapine FUMARATE 100 MG TABLET PO ×2 (09:19→21:08)
[2021-11-09] MEDS: QUEtiapine FUMARATE 25 MG TABLET 50 MG PO ×2 (09:19→21:08)
[2021-11-09] MEDS: clonazePAM (*CRX) 0.5 MG TABLET 1 MG PO ×3 (09:32→16:35)
[2021-11-09] MEDS: INSULIN ASPART (*BKC) 100 UNITS/ML SUB-Q ×4 (09:32→20:04)
[2021-11-09 09:33] LABS: Glucose Point of Care 219 mg/dl (65-105)
[2021-11-09] MEDS: INSULIN GLARGINE (*BKC) 100 UNITS/ML 62 UNITS SUB-Q (09:33)
--- NOTE | 2021-11-09 09:33 | WPDINTPN ---
Progress Note: A&P Assessment and Plan (1) Acute respiratory failure: Code(s): J96.00 - Acute respiratory failure, unspecified whether with hypoxia or hypercapnia Status: Acute Assessment and Plan: Acute respiratory failure likely related to cardiac arrest -intubated 10/23/2021 10/23/2021: CTA chest abdomen and pelvis showed extensive patchy bilateral airspace disease compatible with pneumonia, mediastinal lymphadenopathy, likely reactive, small pleural effusions. -patient status post azithromycin, ceftriaxone, vancomycin. Cultures negative -chest x-ray this morning showed -mild pulmonary edema in the lower lung zones, slight improvement in patchy opacities in the left lower lung zone which could represent atelectasis and/or pneumonia. Will diurese patient again today -placed patient on ASV mode of ventilation, tolerating well, will continue to decrease sedation and will place patient on pressure support ventilation -patient did get a tracheostomy done on 11/05/2021. -PEG tube placed on 11/06/2021 -continue Seroquel, clonazepam, mirtazapine -patient currently on propofol and Precedex infusion, Lidoderm patch ordered chest to help with pain from trauma from CPR -continue bronchodilators - (2) Fever: Code(s): R50.9 - Fever, unspecified Status: Acute Assessment and Plan: 11/05/2021 Worsening leukocytosis with worsening airspace opacities in the right lower lung. Worsening ABGs -will switch cefepime to aztreonam (11/05), continue vancomycin (11/01) -leukocytosis improving, -11/06/2021: Sputum cultures MRSA, continue vancomycin -11/05/2021: Urine cultures no growth -11/05/2021: Blood cultures negative x2 so far 11/07: fevers have defervesced 10/23/2021: CTA chest showed extensive patchy bilateral airspace disease compatible with pneumonia, mediastinal lymphadenopathy, likely reactive, small pleural effusion patient completed a 7 day course of azithromycin, ceftriaxone (initiated on 10/23/2020) Repeat culture sent 10/30 are negative till now 10/31 CT Sinuses IMPRESSION: 1. Mild mucosal thickening in left maxillary sinus. 2. Leftward deviation of the nasal septum. CT C/A/P 10/31/2021 IMPRESSION: 1. Small pleural effusions, right worse than left, worsened from 11/26/21. 2. Mild pulmonary edema. 3. Nasogastric tube tip in the proximal duodenum. 4. Small pericardial effusion. 5. Mild mediastinal lymphadenopathy, likely reactive. 6. New gallbladder distention, which may secondary to fasting. (3) Cardiopulmonary arrest with successful resuscitation: Code(s): I46.9 - Cardiac arrest, cause unspecified Status: Acute Assessment and Plan: Patient with cardiopulmonary arrest with successful ROSC after 1 round of epinephrine and 1 amp of bicarb along with CPR. -patient was following commands post ROSC, not a candidate for targeted temperature management/hypothermia -could be multifactorial, proxy a versus coronary artery disease/NSTEMI versus severe anemia. -troponins are elevated, -patient currently hemodynamically stable ECHO Summary 1. Left ventricular chamber dimension is normal. 2. Left ventricular systolic function is normal, estimated at >70%. 3. There is no increased left ventricular wall thickness. 4. Left ventricular septal wall motion is normal. 5. The left ventricular diastolic function is grade II diastolic dysfunction. 6. Right ventricular chamber dimension is normal. 7. Right ventricular systolic function is normal. 8. Left atrial chamber dimension is severely enlarged. 9. There is mild to moderate mitral valve regurgitation. (4) Chest pain: Qualifiers: Chest pain type: unspecified Qualified Code(s): R07.9 - Chest pain, unspecified Code(s): R07.9 - Chest pain, unspecified Status: Acute Assessment and Plan: NSTEMI Patient presented with chest pain, shortness of breath, nausea with no vomiting, -el
[2021-11-09 11:06] LABS: Vancomycin Trough 14.2 ug/mL (10.0-20.0)
--- NOTE | 2021-11-09 12:01 | PCFNICU ---
ICU Rounding Note: Pt current nutrition is Glucerna 1.2 at 50 ml/hr over 22 hours. Last recorded weight is 69.8 kg up from 71.3 kg on admit. Bowel Motility:+BM reported 11/05 Labs Reviewed: Meds Noted:Seroquel, Propofol 6.23 ml/yw=108 kcals, Lovenox, Precedex, Klonopin, Remeron, Atrovent, Vancomycin, Protonix. Skin:WNL Additional Notes: Patient current with Trach/PEG. Tolerating tube feedings of Glucerna 1.2 at 50ml/hr over 22 hours. Recommend increasing tube feedings to 60 ml/hr 2/2 to propofol decreased to 6.23 ml/hr. Following daily in ICU rounds. Will monitor every Tuesday and Tuesday.
[2021-11-09 12:50] LABS: Glucose Point of Care 314 mg/dl (65-105)
[2021-11-09] MEDS: AZTREONAM 2 GM in SODIUM CHLORIDE 0.9% IV 100 ML 200 ML IVPB ×2 (13:52→21:10)
--- NOTE | 2021-11-09 14:39 | PM.IMPN ---
Progress Note: A&P Assessment and Plan (1) Acute respiratory failure: Code(s): J96.00 - Acute respiratory failure, unspecified whether with hypoxia or hypercapnia Status: Acute Assessment and Plan: Acute respiratory failure related to cardiac arrest and PNA. CTA chest on admission showed extensive patchy bilateral airspace disease compatible with pneumonia. COVID swab was negative. Patient was started on IV abx. Has failed multiple breathing trials. Patient was off abx for a few days but resumed on 11/01. Left UE Doppler showing no DVT but thrombosed left basilic and cephalic veins (PICC in the right arm). [place] that patient is too anxious due to her anxiety/depression. Medications advanced to be closer to her home doses. She has had trach and PEG placed. Wean vent as tolerated. Appreciate quality facilitator input. (2) Cardiopulmonary arrest with successful resuscitation: Code(s): I46.9 - Cardiac arrest, cause unspecified Status: Acute Assessment and Plan: Patient with cardiopulmonary arrest with successful ROSC after 1 round of epinephrine and 1 amp of bicarb along with CPR. Patient was following commands post ROSC so was not a candidate for targeted temperature management/hypothermia. Etiology could be multifactorial related to the sepsis/PNA, profound anemia and/or underlying CAD with ischemia. Troponins elevated to 0.148. Echo not showing any WM abnormalities. BP elevated and Metoprolol added 10/28; Lipitor also added. No dysrhythmias overnight. Cardiology following along and appreciate their input. Continue tele. Continue ASA, Lipitor and Lopressor. Consider ischemic workup but defer to Cardiology. (3) Sepsis: Code(s): A41.9 - Sepsis, unspecified organism Status: Acute Assessment and Plan: Patient presents with chest pain and found to have tachycardia, tachypnea, leukocytosis, lactic acidosis and now fevers. Sepsis present on admission related to PNA. BCx negative. COVID swab negative. Was on abx x 7 days then stopped. Was having recurrent fevers and WBC elevation so Cefepime and Vanco added 11/01 (changed to Aztreonam 11/05). BCx 10/23, 10/30 negative; 11/05 NGTD. BP stable. Continue IV abx. (4) Pneumonia: Code(s): J18.9 - Pneumonia, unspecified organism Status: Acute Assessment and Plan: Chest x-ray on admission showing cardiomegaly with interstitial edema but cannot exclude superimposed pneumonia. CTA chest 10/23 showing extensive patchy bilateral airspace disease compatible with pneumonia and small pleural effusion. Started on Rocephin/Azithromycin 10/23 and Vanco added 10/24. BCx 10/23 negative. Sputum 10/25 and 10/30 negative. BCx 10/30 negative. Vancomycin stopped 10/27. Rocephin and Azithro stopped 10/30 after 7 days. Abx resumed on 11/01 with Vanco and Cefepime due to persistent fevers and elevated WBC (changed from Cefepime to Aztreonam 11/05). WBC was up to 20K but now normal. BCx 11/05 NGTD. UCx negative. Still with low grade temps. Sputum 11/06 growing MRSA. Continue IV abx Day 9. Follow. (5) NSTEMI (non-ST elevated myocardial infarction): Code(s): I21.4 - Non-ST elevation (NSTEMI) myocardial infarction Status: Acute Assessment and Plan: Patient presented with chest pain, SOB and nausea. Trop as high as 0.148. EKG showing possible LAE but no acute ST changes. NSTEMI per cardiology notes. Patient also with cardiac arrest, profound anemia and PNA with sepsis that could be the etiology of the elevated Trop. Echo showing EF 70% with grade II diastolic dysfunction and mild-mod MR but no wall motion abnormalities. Appreciate cardiology recommendation. Continue Lipitor and Lopressor. (6) GI bleed: Code(s): K92.2 - Gastrointestinal hemorrhage, unspecified Status: Acute Assessment and Plan: Patient presented with anemia that could be related to GI bleed. Stool guaiac negative in ED but according to the records, the patient did have some blo
[2021-11-09 16:34] LABS: Glucose Point of Care 268 mg/dl (65-105)
[2021-11-09] MEDS: PROPOFOL IV EMULSION 100 ML 6.23 MG IV CONT (17:08)
[2021-11-09 20:03] LABS: Glucose Point of Care 215 mg/dl (65-105)
[2021-11-09] MEDS: MIRTAZAPINE 30 MG TABLET PO (21:07)
[2021-11-09] MEDS: dexmedeTOMIDine 400 MCG/100 ML 400 MCG/100 ML BAG 15.75 MCG IV CONT (23:54)
[2021-11-10] VITALS (33 sets, daily range): BP systolic 109–164; BP diastolic 51–75; PULSE 79–118; RESP 19–36; TEMP 36.7–39.1; O2SAT 94–100
[2021-11-10 00:11] LABS: Glucose Point of Care 227 mg/dl (65-105)
[2021-11-10] MEDS: INSULIN ASPART (*BKC) 100 UNITS/ML SUB-Q ×6 (01:32→23:57)
[2021-11-10] MEDS: ALBUTEROL SULFATE NEB 2.5 MG/0.5 ML INH INHALATION (02:15)
[2021-11-10] MEDS: IPRATROPIUM BR 0.02% INH SOLN 0.5 MG/2.5 ML VIAL INHALATION (02:15)
[2021-11-10 04:14] LABS: Glucose Point of Care 232 mg/dl (65-105)
[2021-11-10 04:33] LABS: Alveolar/Arterial O2 Gradient 72.7 mmHg; Base Excess ABG 0.9 mEq/l (+/-2.0); Carboxyhemoglobin 0.5 % THb (0-2.0); Device VENTILATOR; Fractional Inspired Oxygen 30 %; HCO3 ABG 25.9 mEq/l (22.0-26.0); Methemoglobin ABG 0.2 %THb (0-1.5); Modified Allen's Test Pass; Oxygen Content ABG 14.5 %vol (16.0-22.0); Oxygen Saturation ABG 96.9 % (95.0-100.0); Oxyhemoglobin 95.4 % THb (90.0-100.0); PCO2 ABG 42.8 mmHg (35.0-45.0); PO2 ABG 90.9 mmHg (80.0-100.0); PO2 FiO2 Ratio Arterial Blood 3.03 %; Reduced Hemoglobin 3.9 %THb (0-5.0); Site Drawn LEFT RADIAL; Total Hemoglobin 10.7 g/dL (12.0-18.0); pH ABG 7.399 (7.350-7.450)
[2021-11-10 04:34] LABS: Arterial Blood Gas PEEP 5 cmH2O; Arterial Blood Gas Tidal Volume 360 ml; Arterial Blood Gas Vent Mode CMV; Arterial Blood Gas Ventilator rate 18 /MIN
[2021-11-10 04:50] LABS: Basophils Percent Auto 0.3 % (0.2-1.2); Hematocrit 23.5 % (37.0-47.0); Immature Granulocyte Percent A 0.8 % (0-0.5); Lymphocytes Absolute Auto 1.56 K/mm3 (0.9-3.2); Lymphocytes Percent Auto 12.8 % (18.3-44.2); Mean Corpuscular HGB Conc 28.1 g/dl (32-36); Mean Corpuscular Volume 85.5 fl (80-100); Mean Platelet Volume 11.3 fl (7.4-10.4); Monocytes Absolute Auto 0.8 K/mm3 (0.1-0.6); Monocytes Percent Auto 6.1 % (2.6-8.5); Neutrophils Absolute Auto 9.8 K/mm3 (1.3-6.7); Platelet Count Result 522 k/mm3 (150-375); Red Blood Count 2.75 M/mm3 (4.2-5.4); Red Cell Distribution Width 31.4 % (11.5-14.5); White Blood Count 12.2 K/mm3 (4.5-10.0)
[2021-11-10 05:09] LABS: Alanine Aminotransferase 65 U/L (4-35); Albumin Level 2.8 g/dL (3.5-5.1); Alkaline Phosphatase 228 U/L (38-126); Anion Gap 1 mmol/L (8-16); Aspartate Amino Transferase 54 U/L (14-36); Bilirubin,Total 0.2 mg/dL (0.2-1.3); Blood Urea Nitrogen 34 mg/dL (7-17); Carbon Dioxide 36 mmol/L (22-30); Chloride 101 mmol/L (98-107); Estimated CRCL calculation 72 ml/min; Estimated Glomerular Filt Rate > 60; Glucose 241 mg/dL (65-110); Phosphorus 3.2 mg/dL (2.5-4.5); Potassium 4.4 mmol/L (3.4-5.0); Sodium 138 mmol/L (137-145)
[2021-11-10 05:20] LABS: Hemoglobin 6.6 g/dL (12.0-15.0); Hypochromasia 1+ (NORMAL); Platelet Estimate Increased (Adequate)
[2021-11-10] MEDS: dexmedeTOMIDine 400 MCG/100 ML 400 MCG/100 ML BAG 15.75 MCG IV CONT ×3 (06:03→20:00)
[2021-11-10] MEDS: AZTREONAM 2 GM in SODIUM CHLORIDE 0.9% IV 100 ML 200 ML IVPB ×3 (06:04→22:55)
[2021-11-10] MEDS: PROPOFOL IV EMULSION 100 ML 6.23 MG IV CONT ×2 (06:39→08:30)
[2021-11-10] MEDS: ACETAMINOPHEN ELIXIR 325 MG/10.15 ML UDC 650 MG PO (09:11)
[2021-11-10] MEDS: PANTOPRAZOLE SODIUM IV 40 MG VIAL IV PUSH ×2 (09:19→20:52)
[2021-11-10] MEDS: LIDOCAINE 5% PATCH 1 PATCH TRANSDERM (09:19)
[2021-11-10] MEDS: MINERAL OIL/WHITE PETROLATUM OINTMENT 1 APPLIC EACH EYE ×2 (09:19→20:52)
[2021-11-10] MEDS: CENTRAL LINE FLUSH 10 ML IV PUSH ×3 (09:20→22:56)
[2021-11-10] MEDS: ASPIRIN 81 MG CHEWABLE TABLET FEED TUBE (09:21)
[2021-11-10] MEDS: ATORVASTATIN 40 MG TABLET FEED TUBE (09:21)
[2021-11-10] MEDS: QUEtiapine FUMARATE 100 MG TABLET PO ×2 (09:22→20:52)
[2021-11-10] MEDS: QUEtiapine FUMARATE 25 MG TABLET 50 MG PO ×2 (09:22→20:52)
[2021-11-10] MEDS: METOPROLOL TARTRATE 25 MG TABLET PO ×2 (09:22→20:52)
[2021-11-10] MEDS: INSULIN GLARGINE (*BKC) 100 UNITS/ML 70 UNITS SUB-Q (09:32)
[2021-11-10 09:35] LABS: Glucose Point of Care 247 mg/dl (65-105)
[2021-11-10] MEDS: clonazePAM (*CRX) 0.5 MG TABLET 1 MG PO ×3 (10:42→17:53)
--- NOTE | 2021-11-10 11:29 | PCNFU ---
Nutrition Follow-Up Complete: Inadequate Oral Intake as related to mechanical vent as evidenced by NPO. goal: Meet estimated nutritional needs Patient is progressing towards goal. We will continue current goal. Pt current nutrition is Glucerna 1.2 at 50 ml/hr over 22 hours. Last recorded weight is 69.6 kg, down from 71.3 kg on admit. Bowel Motility:+BM reported 11/10 Labs Reviewed:Glu 241,BUN 34, Cr 0.6, Alb 2.8 Meds Noted:Vancomycin, Propofol 4.15 ml/ju=328 kcals, Protonix, Serquel, Lantus, NovoLog, Klonopin, Precedex, Remeron, Atrovent. Skin: WNL Additional Notes: Patient current with PEG/Trach. Tube feedings continue of Glucerna 1.2 at 50 ml/hr and tolerating per nursing. Propofol has been decreased to 4.15 ml/hr. Recommend increasing tube feeding to 60 ml/hr of Glucerna 1.2. Total kcal [id number] kcals/79 gms protein/1063 ml water. Agree with diet orders. Monitoring daily in ICU rounds. Will monitor every Tuesday and Tuesday.
[2021-11-10 12:00] LABS: Glucose Point of Care 205 mg/dl (65-105)
--- NOTE | 2021-11-10 12:46 | WPDONCPN ---
Progress Note: A/P - Additional Plan Multifactorial anemia. 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 Recent labs reviewed that showed further decline in hemoglobin down to 6.6. Platelet remains elevated with slight leukocytosis. Issac test is negative. Total bilirubin normal. I will repeat some of the previous labs including iron panel and vitamin B12 level along with haptoglobin and LDH. There is no clear evidence of hemolytic anemia. Could also be bone marrow suppression from infection. She is not a good candidate for bone marrow biopsy at this time. Patient may need to have further iron infusion and B12 injection based on the repeat labs. In the meantime continue supportive blood transfusion as needed. Sepsis and pneumonia. Patient is on broad-spectrum antibiotic coverage. Hypercoagulable state with DVT involving left upper extremity. She is on prophylactic Lovenox. - Time Spent With Patient Total time spent is greater than 50% in coordination of care (as documented) at patient's floor/unit and/or counseling patient: 15 - 25 minutes Subjective Interval history: Multifactorial anemia Review of Systems - Review of Systems Patient remains intubated and sedated. Not status post PEG tube and tracheostomy placement. - Neurologic Reports system reviewed and no additional complaints, except as documented, Reports confusion, Reports weakness Exam Vital signs: Temp Pulse Resp BP Pulse Ox 38.0 C H 114 H 28 H 131/58 L 97 11/10/21 10:11 11/10/21 12:30 11/10/21 12:30 11/10/21 08:00 11/10/21 11:04 PN: Objective Data - Labs CBC & Chem 7: 11/10/21 04:42 11/10/21 04:42 Labs: Laboratory Results - last 24 hr 11/09/21 11/09/21 11/09/21 10:26 12:48 16:33 WBC RBC Hgb Hct MCV MCH MCHC RDW Plt Count MPV Immature Gran % (Auto) Neut % (Auto) Lymph % (Auto) [place] % (Auto) Eos % (Auto) Baso % (Auto) Lymph # (Auto) [place] # (Auto) Eos # (Auto) Baso # (Auto) Abs Immat Gran (auto) Absolute Neuts (auto) Absolute Nucleated RBC Nucleated RBC % Platelet Estimate Hypochromasia Puncture Site ABG pH ABG pCO2 ABG pO2 ABG PO2/FiO2 Ratio ABG HCO3 ABG O2 Saturation ABG O2 Content ABG Base Excess A-a Gradient Oxyhemoglobin Carboxyhemoglobin Methemoglobin Reduced Hemoglobin Total Hemoglobin O2 Delivery Device O2 Liters/Min Minute Volume Vent Rate Vent Mode FiO2 Tidal Volume PEEP Peak Inspir Pressure Pressure Support Sodium Potassium Chloride Carbon Dioxide Anion Gap BUN Creatinine Estim Creat Clear Calc Estimated GFR Glucose POC Capillary Glucose 314 H 268 H Calcium Phosphorus Magnesium Total Bilirubin AST ALT Alkaline Phosphatase Total Protein Albumin SHIRLEY, Complement Interp Not Performed 11/09/21 11/10/21 11/10/21 19:58 00:01 04:03 WBC RBC Hgb Hct MCV MCH MCHC RDW Plt Count MPV Immature Gran % (Auto) Neut % (Auto) Lymph % (Auto) Kidder % (Auto) Eos % (Auto) Baso % (Auto) Lymph # (Auto) Kidder # (Auto) Eos # (Auto) Baso # (Auto) Abs Immat Gran (auto) Absolute Neuts (auto) Absolute Nucleated RBC Nucleated RBC % Platelet Estimate Hypochromasia Puncture Site Left radial ABG pH 7.399 ABG pCO2 42.8 ABG pO2 90.9 ABG PO2/FiO2 Ratio 3.03 ABG HCO3 25.9 ABG O2 Saturation 96.9 ABG O2 Content 14.5 L ABG Base Excess 0.9 A-a Gradient 72.7 Oxyhemoglobin 95.4 Carboxyhemoglobin 0.5 Methemoglobin 0.2 Reduced Hemoglobin 3.9 Total Hemoglobin 10.7 L O2 Delivery Device Ventilator O2 Liters/Min Not Reportable Minute Volume Not Reportable Vent Rate 18 Vent Mode Cmv FiO2 30 Tidal Volume
[2021-11-10 12:55] LABS: Lactate Dehydrogenase 906 U/L (313-618)
[2021-11-10 13:03] LABS: Iron 59 ug/dL (37-170)
[2021-11-10 13:12] LABS: Percent Iron Saturation 24 % (20-50)
--- NOTE | 2021-11-10 13:37 | WPDINTPN ---
Progress Note: A&P Assessment and Plan (1) Acute respiratory failure: Code(s): J96.00 - Acute respiratory failure, unspecified whether with hypoxia or hypercapnia Status: Acute Assessment and Plan: Acute respiratory failure likely related to cardiac arrest -intubated 10/23/2021 10/23/2021: CTA chest abdomen and pelvis showed extensive patchy bilateral airspace disease compatible with pneumonia, mediastinal lymphadenopathy, likely reactive, small pleural effusions. -patient status post azithromycin, ceftriaxone, vancomycin. Cultures negative -chest x-ray reviewed -ABG reviewed -patient did get a tracheostomy done on 11/05/2021. -PEG tube placed on 11/06/2021 -continue Seroquel, clonazepam, mirtazapine -patient currently on propofol and Precedex infusion, Lidoderm patch ordered chest to help with pain from trauma from CPR -sedation holiday -continue bronchodilators (2) Fever: Code(s): R50.9 - Fever, unspecified Status: Acute Assessment and Plan: 11/05/2021 Worsening leukocytosis with worsening airspace opacities in the right lower lung. Worsening ABGs -will switch cefepime to aztreonam (11/05), continue vancomycin (11/01) -leukocytosis improving, -11/06/2021: Sputum cultures MRSA, continue vancomycin -11/05/2021: Urine cultures no growth -11/05/2021: Blood cultures negative x2 so far -continue vancomycin and aztreonam 10/23/2021: CTA chest showed extensive patchy bilateral airspace disease compatible with pneumonia, mediastinal lymphadenopathy, likely reactive, small pleural effusion patient completed a 7 day course of azithromycin, ceftriaxone (initiated on 10/23/2020) Repeat culture sent 10/30 are negative till now 10/31 CT Sinuses IMPRESSION: 1. Mild mucosal thickening in left maxillary sinus. 2. Leftward deviation of the nasal septum. CT C/A/P 10/31/2021 IMPRESSION: 1. Small pleural effusions, right worse than left, worsened from 10/23/21. 2. Mild pulmonary edema. 3. Nasogastric tube tip in the proximal duodenum. 4. Small pericardial effusion. 5. Mild mediastinal lymphadenopathy, likely reactive. 6. New gallbladder distention, which may secondary to fasting. (3) Cardiopulmonary arrest with successful resuscitation: Code(s): I46.9 - Cardiac arrest, cause unspecified Status: Acute Assessment and Plan: Patient with cardiopulmonary arrest with successful ROSC after 1 round of epinephrine and 1 amp of bicarb along with CPR. -patient was following commands post ROSC, not a candidate for targeted temperature management/hypothermia -could be multifactorial, proxy a versus coronary artery disease/NSTEMI versus severe anemia. -troponins are elevated, -patient currently hemodynamically stable ECHO Summary 1. Left ventricular chamber dimension is normal. 2. Left ventricular systolic function is normal, estimated at >70%. 3. There is no increased left ventricular wall thickness. 4. Left ventricular septal wall motion is normal. 5. The left ventricular diastolic function is grade II diastolic dysfunction. 6. Right ventricular chamber dimension is normal. 7. Right ventricular systolic function is normal. 8. Left atrial chamber dimension is severely enlarged. 9. There is mild to moderate mitral valve regurgitation. (4) Chest pain: Qualifiers: Chest pain type: unspecified Qualified Code(s): R07.9 - Chest pain, unspecified Code(s): R07.9 - Chest pain, unspecified Status: Acute Assessment and Plan: NSTEMI Patient presented with chest pain, shortness of breath, nausea with no vomiting, -elevated troponin, could be related to ischemic event versus cardiac arrest and CPR this was very brief -EKG did not show any ST-T changes -appreciate cardiology recommendation - patient will require further studies and possibly left heart catheterization this admission -continue aspirin, atorvastatin, metoprolol (5) Anemia: Quali
[2021-11-10 14:32] LABS: Triglycerides 107 mg/dL (<150)
--- NOTE | 2021-11-10 15:25 | PM.IMPN ---
Progress Note: A&P Assessment and Plan (1) Acute respiratory failure: Code(s): J96.00 - Acute respiratory failure, unspecified whether with hypoxia or hypercapnia Status: Acute Assessment and Plan: Acute respiratory failure related to cardiac arrest and PNA. CTA chest on admission showed extensive patchy bilateral airspace disease compatible with pneumonia. COVID swab was negative. Patient was started on IV abx. Has failed multiple breathing trials. Patient was off abx for a few days but resumed on 11/01. Left UE Doppler showing no DVT but thrombosed left basilic and cephalic veins (PICC in the right arm). [place] that patient is too anxious due to her anxiety/depression. Medications advanced to be closer to her home doses. She has had trach and PEG placed. Wean vent as tolerated. Appreciate alteration manager input. (2) Cardiopulmonary arrest with successful resuscitation: Code(s): I46.9 - Cardiac arrest, cause unspecified Status: Acute Assessment and Plan: Patient with cardiopulmonary arrest with successful ROSC after 1 round of epinephrine and 1 amp of bicarb along with CPR. Patient was following commands post ROSC so was not a candidate for targeted temperature management/hypothermia. Etiology could be multifactorial related to the sepsis/PNA, profound anemia and/or underlying CAD with ischemia. Troponins elevated to 0.148. Echo not showing any WM abnormalities. BP elevated and Metoprolol added 10/28; Lipitor also added. No dysrhythmias overnight. Cardiology following along and appreciate their input. Continue tele. Continue ASA, Lipitor and Lopressor. Consider ischemic workup but defer to Cardiology. (3) Sepsis: Code(s): A41.9 - Sepsis, unspecified organism Status: Acute Assessment and Plan: Patient presents with chest pain and found to have tachycardia, tachypnea, leukocytosis, lactic acidosis and now fevers. Sepsis present on admission related to PNA. BCx negative. COVID swab negative. Was on abx x 7 days then stopped. Was having recurrent fevers and WBC elevation so Cefepime and Vanco added 11/01 (changed to Aztreonam 11/05). BCx 10/23, 10/30 negative; 11/05 NGTD. Still having fevers. BP stable. Continue IV abx. (4) Pneumonia: Code(s): J18.9 - Pneumonia, unspecified organism Status: Acute Assessment and Plan: Chest x-ray on admission showing cardiomegaly with interstitial edema but cannot exclude superimposed pneumonia. CTA chest 10/23 showing extensive patchy bilateral airspace disease compatible with pneumonia and small pleural effusion. Started on Rocephin/Azithromycin 10/23 and Vanco added 10/24. BCx 10/23 negative. Sputum 10/25 and 10/30 negative. BCx 10/30 negative. Vancomycin stopped 10/27. Rocephin and Azithro stopped 10/30 after 7 days. Abx resumed on 11/01 with Vanco and Cefepime due to persistent fevers and elevated WBC (changed from Cefepime to Aztreonam 11/05). WBC was up to 20K but now down to 12K. BCx 11/05 NGTD. UCx negative. Still with fevers. Sputum 11/06 growing MRSA. Continue IV abx Day 10. Follow. (5) NSTEMI (non-ST elevated myocardial infarction): Code(s): I21.4 - Non-ST elevation (NSTEMI) myocardial infarction Status: Acute Assessment and Plan: Patient presented with chest pain, SOB and nausea. Trop as high as 0.148. EKG showing possible LAE but no acute ST changes. NSTEMI per cardiology notes. Patient also with cardiac arrest, profound anemia and PNA with sepsis that could be the etiology of the elevated Trop. Echo showing EF 70% with grade II diastolic dysfunction and mild-mod MR but no wall motion abnormalities. Appreciate cardiology recommendation. Continue ASA, Lipitor and Lopressor. (6) GI bleed: Code(s): K92.2 - Gastrointestinal hemorrhage, unspecified Status: Acute Assessment and Plan: Patient presented with anemia that could be related to GI bleed. Stool guaiac negative in ED but according to the records, the pa
[2021-11-10 17:32] LABS: Glucose Point of Care 204 mg/dl (65-105)
[2021-11-10 20:12] LABS: Glucose Point of Care 188 mg/dl (65-105)
[2021-11-10] MEDS: MIRTAZAPINE 30 MG TABLET PO (20:52)
[2021-11-10] MEDS: SODIUM CHLORIDE 0.9% IV 250 ML 30 ML (23:52)
[2021-11-11] VITALS (32 sets, daily range): BP systolic 134–195; BP diastolic 59–93; PULSE 74–118; RESP 25–38; TEMP 36.6–38.8; O2SAT 92–100
[2021-11-11 00:05] LABS: Glucose Point of Care 228 mg/dl (65-105)
[2021-11-11] MEDS: dexmedeTOMIDine 400 MCG/100 ML 400 MCG/100 ML BAG 15.75 MCG IV CONT ×2 (01:25→07:46)
[2021-11-11 04:26] LABS: Glucose Point of Care 201 mg/dl (65-105)
[2021-11-11 04:31] LABS: Device VENTILATOR; Modified Allen's Test Pass; Site Drawn LEFT RADIAL
[2021-11-11 04:34] LABS: pH ABG 7.341 (7.350-7.450)
[2021-11-11 04:35] LABS: Alveolar/Arterial O2 Gradient 56.2 mmHg; Arterial Blood Gas PEEP 5 cmH2O; Arterial Blood Gas Vent Mode CMV; Arterial Blood Gas Ventilator rate 18 /MIN; Base Excess ABG 7.6 mEq/l (+/-2.0); Carboxyhemoglobin 0.3 % THb (0-2.0); Fractional Inspired Oxygen 30 %; HCO3 ABG 34.7 mEq/l (22.0-26.0); Methemoglobin ABG 0.3 %THb (0-1.5); Oxygen Saturation ABG 94.9 % (95.0-100.0); PCO2 ABG 65.6 mmHg (35.0-45.0); PO2 ABG 80.6 mmHg (80.0-100.0); PO2 FiO2 Ratio Arterial Blood 2.69 %; Reduced Hemoglobin 5.4 %THb (0-5.0)
[2021-11-11 04:36] LABS: Arterial Blood Gas Tidal Volume 360 ml
[2021-11-11] MEDS: INSULIN ASPART (*BKC) 100 UNITS/ML SUB-Q (05:32)
[2021-11-11] MEDS: CENTRAL LINE FLUSH 10 ML IV PUSH ×3 (05:33→21:25)
[2021-11-11] MEDS: AZTREONAM 2 GM in SODIUM CHLORIDE 0.9% IV 100 ML 200 ML IVPB ×2 (05:33→13:09)
[2021-11-11] MEDS: PROPOFOL IV EMULSION 100 ML 4.15 MG IV CONT (05:43)
[2021-11-11 05:57] LABS: Basophils Percent Auto 0.3 % (0.2-1.2); Eosinophils Percent Auto 0.1 % (0-4.4); Hematocrit 27.8 % (37.0-47.0); Hemoglobin 8.1 g/dL (12.0-15.0); Immature Granulocyte Absolute 0.08 K/mm3 (0.00-0.031); Immature Granulocyte Percent A 0.6 % (0-0.5); Mean Corpuscular HGB Conc 29.1 g/dl (32-36); Mean Corpuscular Hemoglobin 25.9 pg (26-34); Mean Corpuscular Volume 88.8 fl (80-100); Mean Platelet Volume 11.3 fl (7.4-10.4); Monocytes Percent Auto 7.7 % (2.6-8.5); Neutrophils Percent Auto 74.3 % (45.5-73.1); Nucleated Red Blood Cells Perc 0.1 % (0.0-0.2); Platelet Count Result 513 k/mm3 (150-375); Red Blood Count 3.13 M/mm3 (4.2-5.4); Red Cell Distribution Width 29.5 % (11.5-14.5); White Blood Count 13.5 K/mm3 (4.5-10.0)
[2021-11-11 06:08] LABS: Alanine Aminotransferase 58 U/L (4-35); Albumin Level 2.8 g/dL (3.5-5.1); Alkaline Phosphatase 218 U/L (38-126); Anion Gap 5 mmol/L (8-16); Aspartate Amino Transferase 42 U/L (14-36); Bilirubin,Total 0.3 mg/dL (0.2-1.3); Blood Urea Nitrogen 34 mg/dL (7-17); Calcium 9.1 mg/dL (8.4-10.2); Carbon Dioxide 33 mmol/L (22-30); Chloride 104 mmol/L (98-107); Estimated CRCL calculation 84 ml/min; Estimated Glomerular Filt Rate > 60; Glucose 210 mg/dL (65-110); Magnesium 1.9 mg/dL (1.6-2.3); Phosphorus 2.9 mg/dL (2.5-4.5); Potassium 4.4 mmol/L (3.4-5.0); Sodium 142 mmol/L (137-145)
--- NOTE | 2021-11-11 07:15 | PC.NURSE ---
Patient diaphoretic, tachypneic and dropping her saturation. Patient bagged for one minute. O2 saturation to 100%.
[2021-11-11 07:26] LABS: Glucose Point of Care 165 mg/dl (65-105)
[2021-11-11] MEDS: INSULIN GLARGINE (*BKC) 100 UNITS/ML 70 UNITS SUB-Q (08:28)
[2021-11-11] MEDS: LIDOCAINE 5% PATCH 1 PATCH TRANSDERM (08:32)
[2021-11-11] MEDS: PANTOPRAZOLE SODIUM IV 40 MG VIAL IV PUSH ×2 (08:33→21:23)
[2021-11-11] MEDS: METOPROLOL TARTRATE 25 MG TABLET PO ×2 (08:33→18:13)
[2021-11-11] MEDS: ATORVASTATIN 40 MG TABLET FEED TUBE (08:33)
[2021-11-11] MEDS: ASPIRIN 81 MG CHEWABLE TABLET FEED TUBE (08:33)
[2021-11-11] MEDS: QUEtiapine FUMARATE 100 MG TABLET PO ×2 (08:34→21:24)
[2021-11-11] MEDS: MINERAL OIL/WHITE PETROLATUM OINTMENT 1 APPLIC EACH EYE ×2 (08:34→21:21)
[2021-11-11] MEDS: QUEtiapine FUMARATE 25 MG TABLET 50 MG PO ×2 (08:34→21:30)
[2021-11-11] MEDS: ACETAMINOPHEN ELIXIR 325 MG/10.15 ML UDC 650 MG PO ×2 (08:41→21:22)
[2021-11-11] MEDS: clonazePAM (*CRX) 0.5 MG TABLET 1 MG PO ×3 (10:03→17:30)
--- NOTE | 2021-11-11 11:30 | PCFNICU ---
ICU Rounding Note: Pt current nutrition is Glucerna 1.2 at 60 ml/hr over 22 hours. Last recorded weight is 70 kg, down from 71.3 kg on admit. Bowel Motility:+BM reported 11/08 Labs Reviewed:Glu 210, BUN 34, Cr 0.5,Alb 2.8,Hct 27.8,Hgb 8.1 Meds Noted:Precedex, Atrovent, Protonix, Klonopin, Seroquel, NovoLog, Lantus, Lopressor, Propofol on hold. Skin: WNL Additional Notes: Patient with Trach/Peg. Glucerna 1.2 at 60 ml/hr and tolerating. Propofol had been at 10 mics (4.15 ml/hr) currently on hold. 1 unit of blood. Fevers. Sputum 11/06 growing MRSA. Following daily in ICU rounds. Will monitor every Tuesday and Tuesday.
[2021-11-11 11:55] LABS: Glucose Point of Care 165 mg/dl (65-105)
[2021-11-11] MEDS: fentaNYL CITRATE INJ (*CRX) 100 MCG/2 ML VIAL 50 MCG IV PUSH ×2 (12:06→15:04)
--- NOTE | 2021-11-11 13:22 | PC.NURSE ---
Updated family via telephone. Daughter states she is frustrated there is no improvements.
--- NOTE | 2021-11-11 13:49 | WPDINTPN ---
Progress Note: A&P Assessment and Plan (1) Acute respiratory failure: Code(s): J96.00 - Acute respiratory failure, unspecified whether with hypoxia or hypercapnia Status: Acute Assessment and Plan: Acute respiratory failure likely related to cardiac arrest -intubated 10/23/2021 10/23/2021: CTA chest abdomen and pelvis showed extensive patchy bilateral airspace disease compatible with pneumonia, mediastinal lymphadenopathy, likely reactive, small pleural effusions. -patient status post azithromycin, ceftriaxone, vancomycin. Cultures negative -chest x-ray reviewed -ABG reviewed. Increase respiratory rate to 22 -patient did get a tracheostomy done on 11/05/2021. -PEG tube placed on 11/06/2021 -continue Seroquel, clonazepam, mirtazapine -patient currently on propofol and Precedex infusion, Lidoderm patch ordered chest to help with pain from trauma from CPR -sedation holiday was performed and I placed patient on weaning trial. Patient failed due to low tidal volumes and high RSBI. Continue to hold propofol at this time. -continue bronchodilators (2) Fever: Code(s): R50.9 - Fever, unspecified Status: Acute Assessment and Plan: 11/05/2021 Worsening leukocytosis with worsening airspace opacities in the right lower lung. Worsening ABGs -will switch cefepime to aztreonam (11/05), continue vancomycin (11/01) -leukocytosis improving, -11/06/2021: Sputum cultures MRS - sensitive to vancomycin -11/05/2021: Urine cultures no growth -11/05/2021: Blood cultures negative x2 so far -continue vancomycin and aztreonam 10/23/2021: CTA chest showed extensive patchy bilateral airspace disease compatible with pneumonia, mediastinal lymphadenopathy, likely reactive, small pleural effusion patient completed a 7 day course of azithromycin, ceftriaxone (initiated on 10/23/2020) 10/31 CT Sinuses IMPRESSION: 1. Mild mucosal thickening in left maxillary sinus. 2. Leftward deviation of the nasal septum. CT C/A/P 10/31/2021 IMPRESSION: 1. Small pleural effusions, right worse than left, worsened from 10/23/21. 2. Mild pulmonary edema. 3. Nasogastric tube tip in the proximal duodenum. 4. Small pericardial effusion. 5. Mild mediastinal lymphadenopathy, likely reactive. 6. New gallbladder distention, which may secondary to fasting. (3) Cardiopulmonary arrest with successful resuscitation: Code(s): I46.9 - Cardiac arrest, cause unspecified Status: Acute Assessment and Plan: Patient with cardiopulmonary arrest with successful ROSC after 1 round of epinephrine and 1 amp of bicarb along with CPR. -patient was following commands post ROSC, not a candidate for targeted temperature management/hypothermia -could be multifactorial, proxy a versus coronary artery disease/NSTEMI versus severe anemia. -troponins are elevated, -patient currently hemodynamically stable ECHO Summary 1. Left ventricular chamber dimension is normal. 2. Left ventricular systolic function is normal, estimated at >70%. 3. There is no increased left ventricular wall thickness. 4. Left ventricular septal wall motion is normal. 5. The left ventricular diastolic function is grade II diastolic dysfunction. 6. Right ventricular chamber dimension is normal. 7. Right ventricular systolic function is normal. 8. Left atrial chamber dimension is severely enlarged. 9. There is mild to moderate mitral valve regurgitation. (4) Chest pain: Qualifiers: Chest pain type: unspecified Qualified Code(s): R07.9 - Chest pain, unspecified Code(s): R07.9 - Chest pain, unspecified Status: Acute Assessment and Plan: NSTEMI Patient presented with chest pain, shortness of breath, nausea with no vomiting, -elevated troponin, could be related to ischemic event versus cardiac arrest and CPR this was very brief -EKG did not show any ST-T changes -appreciate cardiology recommendation - patient will require further
[2021-11-11] MEDS: LORazepam INJ (*CRX) 2 MG/ML VIAL IV PUSH ×2 (15:06→18:21)
[2021-11-11] MEDS: LABETALOL HCL INJ 100 MG/20 ML VIAL 20 MG IV PUSH ×3 (16:14→21:33)
[2021-11-11 16:50] LABS: Glucose Point of Care 178 mg/dl (65-105)
--- NOTE | 2021-11-11 18:42 | PM.IMPN ---
Progress Note: A&P Assessment and Plan (1) Acute respiratory failure: Code(s): J96.00 - Acute respiratory failure, unspecified whether with hypoxia or hypercapnia Status: Acute Assessment and Plan: Acute respiratory failure related to cardiac arrest and PNA. CTA chest on admission showed extensive patchy bilateral airspace disease compatible with pneumonia. COVID swab was negative. Patient was started on IV abx. Has failed multiple breathing trials. Patient was off abx for a few days but resumed on 11/01. Left UE Doppler 10/29 showing no DVT but thrombosed left basilic and cephalic veins (PICC in the right arm). [place] that patient is too anxious due to her anxiety/depression. Medications advanced to be closer to her home doses. She has had trach and PEG placed. Wean vent as tolerated. Appreciate rail tractor operator input. (2) Cardiopulmonary arrest with successful resuscitation: Code(s): I46.9 - Cardiac arrest, cause unspecified Status: Acute Assessment and Plan: Patient with cardiopulmonary arrest with successful ROSC after 1 round of epinephrine and 1 amp of bicarb along with CPR. Patient was following commands post ROSC so was not a candidate for targeted temperature management/hypothermia. Etiology could be multifactorial related to the sepsis/PNA, profound anemia and/or underlying CAD with ischemia. Troponins elevated to 0.148. Echo not showing any WM abnormalities. BP elevated and Metoprolol added 10/28; Lipitor also added. Cardiology following along and appreciate their input. Continue tele. Continue ASA, Lipitor and Lopressor. Consider ischemic workup but defer to Cardiology. (3) Sepsis: Code(s): A41.9 - Sepsis, unspecified organism Status: Acute Assessment and Plan: Patient presents with chest pain and found to have tachycardia, tachypnea, leukocytosis, lactic acidosis and now fevers. Sepsis present on admission related to PNA. BCx negative. COVID swab negative. Was on abx x 7 days then stopped. Was having recurrent fevers and WBC elevation so Cefepime and Vanco added 11/01 (changed to Aztreonam 11/05). BCx 10/23, 10/30, 11/05 negative. Still having fevers - related to abx?. BP stable. Continue IV abx. (4) Pneumonia: Code(s): J18.9 - Pneumonia, unspecified organism Status: Acute Assessment and Plan: Chest x-ray on admission showing cardiomegaly with interstitial edema but cannot exclude superimposed pneumonia. CTA chest 10/23 showing extensive patchy bilateral airspace disease compatible with pneumonia and small pleural effusion. Started on Rocephin/Azithromycin 10/23 and Vanco added 10/24. BCx 10/23 negative. Sputum 10/25 and 10/30 negative. BCx 10/30 negative. Vancomycin stopped 10/27. Rocephin and Azithro stopped 10/30 after 7 days. Abx resumed on 11/01 with Vanco and Cefepime due to persistent fevers and elevated WBC (changed from Cefepime to Aztreonam 11/05). WBC was up to 20K but improved but still mildly elevated. BCx 11/05 negative. UCx negative. Still with fevers. Sputum 11/06 growing MRSA. Continue IV abx. Follow. (5) NSTEMI (non-ST elevated myocardial infarction): Code(s): I21.4 - Non-ST elevation (NSTEMI) myocardial infarction Status: Acute Assessment and Plan: Patient presented with chest pain, SOB and nausea. Trop as high as 0.148. EKG showing possible LAE but no acute ST changes. NSTEMI per cardiology notes. Patient also with cardiac arrest, profound anemia and PNA with sepsis that could be the etiology of the elevated Trop. Echo showing EF 70% with grade II diastolic dysfunction and mild-mod MR but no wall motion abnormalities. Appreciate cardiology recommendation. Continue ASA, Lipitor and Lopressor. (6) GI bleed: Code(s): K92.2 - Gastrointestinal hemorrhage, unspecified Status: Acute Assessment and Plan: Patient presented with anemia that could be related to GI bleed. Stool guaiac negative in ED but according to the records
[2021-11-11 21:20] LABS: Glucose Point of Care 187 mg/dl (65-105)
[2021-11-11] MEDS: MIRTAZAPINE 30 MG TABLET PO (21:23)
[2021-11-11] MEDS: AZTREONAM 2 GM in SODIUM CHLORIDE 0.9% IV 100 ML IVPB (21:25)
[2021-11-12] VITALS (22 sets, daily range): BP systolic 136–186; BP diastolic 56–86; PULSE 70–108; RESP 18–34; TEMP 37.2–38; O2SAT 92–100
[2021-11-12 00:18] LABS: Glucose Point of Care 211 mg/dl (65-105)
[2021-11-12] MEDS: INSULIN ASPART (*BKC) 100 UNITS/ML SUB-Q ×4 (00:20→11:58)
[2021-11-12] MEDS: LABETALOL HCL INJ 100 MG/20 ML VIAL 20 MG IV PUSH ×3 (00:20→05:54)
[2021-11-12] MEDS: fentaNYL CITRATE INJ (*CRX) 100 MCG/2 ML VIAL 50 MCG IV PUSH ×2 (00:22→04:37)
[2021-11-12] MEDS: LORazepam INJ (*CRX) 2 MG/ML VIAL IV PUSH (03:30)
[2021-11-12 04:14] LABS: Alveolar/Arterial O2 Gradient 141.7 mmHg; Base Excess ABG 9.4 mEq/l (+/-2.0); Carboxyhemoglobin 0.2 % THb (0-2.0); Fractional Inspired Oxygen 40 %; HCO3 ABG 36.2 mEq/l (22.0-26.0); Methemoglobin ABG 0.3 %THb (0-1.5); Oxygen Content ABG 12.1 %vol (16.0-22.0); Oxygen Saturation ABG 93.3 % (95.0-100.0); Oxyhemoglobin 92.7 % THb (90.0-100.0); PO2 ABG 70.6 mmHg (80.0-100.0); PO2 FiO2 Ratio Arterial Blood 1.76 %; Reduced Hemoglobin 6.8 %THb (0-5.0); Total Hemoglobin 9.2 g/dL (12.0-18.0); pH ABG 7.374 (7.350-7.450)
[2021-11-12 04:17] LABS: Device VENTILATOR; Modified Allen's Test Pass; PCO2 ABG 63.4 mmHg (35.0-45.0); Site Drawn RIGHT RADIAL
[2021-11-12 04:18] LABS: Arterial Blood Gas PEEP 5 cmH2O; Arterial Blood Gas Tidal Volume 360 ml; Arterial Blood Gas Vent Mode CMV; Arterial Blood Gas Ventilator rate 22 /MIN
[2021-11-12] MEDS: hydrALAZINE HCL 20 MG/ML VIAL 10 MG IV PUSH (04:35)
[2021-11-12 05:44] LABS: Basophils Absolute Auto 0.1 K/mm3 (0.0-0.1); Basophils Percent Auto 0.5 % (0.2-1.2); Eosinophils Percent Auto 0.1 % (0-4.4); Hematocrit 29.6 % (37.0-47.0); Hemoglobin 8.5 g/dL (12.0-15.0); Immature Granulocyte Absolute 0.15 K/mm3 (0.00-0.031); Immature Granulocyte Percent A 0.8 % (0-0.5); Lymphocytes Absolute Auto 2.19 K/mm3 (0.9-3.2); Lymphocytes Percent Auto 11.6 % (18.3-44.2); Mean Corpuscular HGB Conc 28.7 g/dl (32-36); Mean Corpuscular Hemoglobin 25.5 pg (26-34); Mean Corpuscular Volume 88.9 fl (80-100); Mean Platelet Volume 11.1 fl (7.4-10.4); Monocytes Absolute Auto 1.6 K/mm3 (0.1-0.6); Monocytes Percent Auto 8.4 % (2.6-8.5); Neutrophils Absolute Auto 14.9 K/mm3 (1.3-6.7); Neutrophils Percent Auto 78.6 % (45.5-73.1); Nucleated Red Blood Cells Perc 0.1 % (0.0-0.2); Platelet Count Result 563 k/mm3 (150-375); Red Blood Count 3.33 M/mm3 (4.2-5.4); Red Cell Distribution Width 30.3 % (11.5-14.5); White Blood Count 18.9 K/mm3 (4.5-10.0)
[2021-11-12 05:47] LABS: Glucose Point of Care 232 mg/dl (65-105)
[2021-11-12] MEDS: AZTREONAM 2 GM in SODIUM CHLORIDE 0.9% IV 100 ML 200 ML IVPB ×3 (05:47→22:21)
[2021-11-12] MEDS: CENTRAL LINE FLUSH 10 ML IV PUSH ×3 (05:48→22:21)
[2021-11-12 05:57] LABS: Alanine Aminotransferase 63 U/L (4-35); Albumin Level 3.1 g/dL (3.5-5.1); Alkaline Phosphatase 240 U/L (38-126); Anion Gap -1 mmol/L (8-16); Aspartate Amino Transferase 41 U/L (14-36); Bilirubin,Total 0.3 mg/dL (0.2-1.3); Blood Urea Nitrogen 32 mg/dL (7-17); Calcium 9.4 mg/dL (8.4-10.2); Carbon Dioxide 36 mmol/L (22-30); Chloride 104 mmol/L (98-107); Estimated CRCL calculation 84 ml/min; Estimated Glomerular Filt Rate > 60; Glucose 239 mg/dL (65-110); Magnesium 2.1 mg/dL (1.6-2.3); Phosphorus 2.6 mg/dL (2.5-4.5); Potassium 4.2 mmol/L (3.4-5.0); Sodium 139 mmol/L (137-145)
[2021-11-12 06:33] LABS: Anisocytosis 1+ (NORMAL); Hypochromasia 1+ (NORMAL); Platelet Estimate Increased (Adequate); Stomatocytes 1+ (NORMAL)
[2021-11-12] MEDS: clonazePAM (*CRX) 0.5 MG TABLET 1 MG PO ×3 (08:17→16:41)
[2021-11-12] MEDS: ASPIRIN 81 MG CHEWABLE TABLET FEED TUBE (08:17)
[2021-11-12] MEDS: QUEtiapine FUMARATE 100 MG TABLET PO ×2 (08:17→20:33)
[2021-11-12] MEDS: METOPROLOL TARTRATE 25 MG TABLET PO ×2 (08:17→20:31)
[2021-11-12] MEDS: PANTOPRAZOLE SODIUM IV 40 MG VIAL IV PUSH ×2 (08:17→20:32)
[2021-11-12] MEDS: ATORVASTATIN 40 MG TABLET FEED TUBE (08:17)
[2021-11-12] MEDS: QUEtiapine FUMARATE 25 MG TABLET 50 MG PO ×2 (08:18→20:32)
[2021-11-12] MEDS: polyethylene glycoL 3350 17 GM POWD.PACK PO (08:18)
[2021-11-12] MEDS: MINERAL OIL/WHITE PETROLATUM OINTMENT 1 APPLIC EACH EYE ×2 (08:23→20:31)
[2021-11-12] MEDS: LIDOCAINE 5% PATCH 1 PATCH TRANSDERM (08:23)
[2021-11-12] MEDS: INSULIN GLARGINE (*BKC) 100 UNITS/ML 70 UNITS SUB-Q (08:23)
[2021-11-12 08:37] LABS: Glucose Point of Care 240 mg/dl (65-105)
--- NOTE | 2021-11-12 11:14 | PCFNICU ---
ICU Rounding Note: Pt current nutrition Glucerna 1.2 at 60 ml/hr over 22 hours. Last recorded weight is 70 kg, down from 71.3 kg on admit. Bowel Motility:+BM reported 11/10 Labs Reviewed:Glu 239, Cr 0.5,BUN 32, Alb 3.1,Hgb 8.5 Meds Noted:Seroquel, Protonix, Lopressor, NovoLog, Lantus, Klonopin, Precedex, Remeron, Atrovent, Miralax,Vancomycin.. Skin:WNL Additional Notes:Patient propofol has been discontinued. Tube feeding rate to be increased today to 70 ml/hr (goal rate).Tube feeding will provide 1848 kcals/92 gms protein/1240 ml water. 30 ml free water flushes. Agree with diet orders. Following daily in ICU rounds. Will monitor every Tuesday and Tuesday.
--- NOTE | 2021-11-12 12:15 | WPDINTPN ---
Progress Note: A&P Assessment and Plan (1) Acute respiratory failure: Code(s): J96.00 - Acute respiratory failure, unspecified whether with hypoxia or hypercapnia Status: Acute Assessment and Plan: Acute respiratory failure likely related to cardiac arrest -intubated 10/23/2021 10/23/2021: CTA chest abdomen and pelvis showed extensive patchy bilateral airspace disease compatible with pneumonia, mediastinal lymphadenopathy, likely reactive, small pleural effusions. -patient status post course azithromycin, ceftriaxone, vancomycin. Cultures negative -chest x-ray reviewed and shows atelectasis of right lower lobe. Will place patient left side down and increase PEEP -ABG reviewed. Currently rate is at 22 -patient did get a tracheostomy done on 11/05/2021. -PEG tube placed on 11/06/2021 -continue Seroquel, clonazepam, mirtazapine - Lidoderm patch ordered chest to help with pain from trauma from CPR -I completely discontinued both propofol and Precedex infusion and performed a weaning trial which patient failed due to low tidal volumes and high RSBI. Continue to hold continue sedation at this time -continue bronchodilators (2) Fever: Code(s): R50.9 - Fever, unspecified Status: Acute Assessment and Plan: 11/05/2021 Worsening leukocytosis with worsening airspace opacities in the right lower lung. Worsening ABGs -will switch cefepime to aztreonam (11/05), continue vancomycin (11/01) -leukocytosis improving, -purulent discharge from tracheal stoma suggests tracheitis -11/06/2021: Sputum cultures MRSA - sensitive to vancomycin -11/05/2021: Urine cultures no growth -11/05/2021: Blood cultures negative x2 so far -continue vancomycin and aztreonam 10/23/2021: CTA chest showed extensive patchy bilateral airspace disease compatible with pneumonia, mediastinal lymphadenopathy, likely reactive, small pleural effusion patient completed a 7 day course of azithromycin, ceftriaxone (initiated on 10/23/2020) 10/31 CT Sinuses IMPRESSION: 1. Mild mucosal thickening in left maxillary sinus. 2. Leftward deviation of the nasal septum. CT C/A/P 10/31/2021 IMPRESSION: 1. Small pleural effusions, right worse than left, worsened from 10/23/21. 2. Mild pulmonary edema. 3. Nasogastric tube tip in the proximal duodenum. 4. Small pericardial effusion. 5. Mild mediastinal lymphadenopathy, likely reactive. 6. New gallbladder distention, which may secondary to fasting. (3) Cardiopulmonary arrest with successful resuscitation: Code(s): I46.9 - Cardiac arrest, cause unspecified Status: Acute Assessment and Plan: Patient with cardiopulmonary arrest with successful ROSC after 1 round of epinephrine and 1 amp of bicarb along with CPR. -patient was following commands post ROSC, not a candidate for targeted temperature management/hypothermia -could be multifactorial, proxy a versus coronary artery disease/NSTEMI versus severe anemia. -troponins are elevated, -patient currently hemodynamically stable ECHO Summary 1. Left ventricular chamber dimension is normal. 2. Left ventricular systolic function is normal, estimated at >70%. 3. There is no increased left ventricular wall thickness. 4. Left ventricular septal wall motion is normal. 5. The left ventricular diastolic function is grade II diastolic dysfunction. 6. Right ventricular chamber dimension is normal. 7. Right ventricular systolic function is normal. 8. Left atrial chamber dimension is severely enlarged. 9. There is mild to moderate mitral valve regurgitation. (4) Chest pain: Qualifiers: Chest pain type: unspecified Qualified Code(s): R07.9 - Chest pain, unspecified Code(s): R07.9 - Chest pain, unspecified Status: Acute Assessment and Plan: NSTEMI Patient presented with chest pain, shortness of breath, nausea with no vomiting, -elevated troponin, could be related to ischemic event versus cardiac a
[2021-11-12 12:21] LABS: Glucose Point of Care 222 mg/dl (65-105)
[2021-11-12] MEDS: lisinopriL 20 MG TABLET 40 MG PO (12:54)
[2021-11-12] MEDS: INSULIN GLARGINE (*BKC) 100 UNITS/ML 10 UNITS SUB-Q (12:59)
[2021-11-12 17:12] LABS: Glucose Point of Care 157 mg/dl (65-105)
--- NOTE | 2021-11-12 18:54 | PM.IMPN ---
Progress Note: A&P Assessment and Plan (1) Acute respiratory failure: Code(s): J96.00 - Acute respiratory failure, unspecified whether with hypoxia or hypercapnia Status: Acute Assessment and Plan: Acute respiratory failure related to cardiac arrest and PNA. CTA chest on admission showed extensive patchy bilateral airspace disease compatible with pneumonia. COVID swab was negative. Patient was started on IV abx. Has failed multiple breathing trials. Patient was off abx for a few days but resumed on 11/01. Left UE Doppler 10/29 showing no DVT but thrombosed left basilic and cephalic veins (PICC in the right arm). [place] that patient is too anxious due to her anxiety/depression. Medications advanced to be closer to her home doses. She has had trach(11/05) and PEG (11/06) placed. Wean vent as tolerated. Appreciate brazing machine setter input. (2) Cardiopulmonary arrest with successful resuscitation: Code(s): I46.9 - Cardiac arrest, cause unspecified Status: Acute Assessment and Plan: Patient with cardiopulmonary arrest with successful ROSC after 1 round of epinephrine and 1 amp of bicarb along with CPR. Patient was following commands post ROSC so was not a candidate for targeted temperature management/hypothermia. Etiology could be multifactorial related to the sepsis/PNA, profound anemia and/or underlying CAD with ischemia. Troponins elevated to 0.148. Echo not showing any WM abnormalities. BP elevated and Metoprolol added 10/28; Lipitor also added. Cardiology following along and appreciate their input. Continue tele. Continue ASA, Lipitor and Lopressor. Consider ischemic workup but defer to Cardiology. (3) Sepsis: Code(s): A41.9 - Sepsis, unspecified organism Status: Acute Assessment and Plan: Patient presents with chest pain and found to have tachycardia, tachypnea, leukocytosis, lactic acidosis and now fevers. Sepsis present on admission related to PNA. BCx negative. COVID swab negative. Was on abx x 7 days then stopped. Was having recurrent fevers and WBC elevation so Cefepime and Vanco added 11/01 (changed to Aztreonam 11/05). BCx 10/23, 10/30 and 11/05 negative. Still having fevers - related to abx?. BP stable. WBC worse. Continue IV abx. (4) Pneumonia: Code(s): J18.9 - Pneumonia, unspecified organism Status: Acute Assessment and Plan: Chest x-ray on admission showing cardiomegaly with interstitial edema but cannot exclude superimposed pneumonia. CTA chest 10/23 showing extensive patchy bilateral airspace disease compatible with pneumonia and small pleural effusion. Started on Rocephin/Azithromycin 10/23 and Vanco added 10/24. BCx 10/23 negative. Sputum 10/25 and 10/30 negative. BCx 10/30 negative. Vancomycin stopped 10/27. Rocephin and Azithro stopped 10/30 after 7 days. Abx resumed on 11/01 with Vanco and Cefepime due to persistent fevers and elevated WBC (changed from Cefepime to Aztreonam 11/05). WBC was up to 20K but normalized. BCx 11/05 negative. UCx negative. Still with fevers. Sputum 11/06 growing MRSA. WBC higher again back up to 19K. Continue IV abx. Follow. (5) NSTEMI (non-ST elevated myocardial infarction): Code(s): I21.4 - Non-ST elevation (NSTEMI) myocardial infarction Status: Acute Assessment and Plan: Patient presented with chest pain, SOB and nausea. Trop as high as 0.148. EKG showing possible LAE but no acute ST changes. NSTEMI per cardiology notes. Patient also with cardiac arrest, profound anemia and PNA with sepsis that could be the etiology of the elevated Trop. Echo showing EF 70% with grade II diastolic dysfunction and mild-mod MR but no wall motion abnormalities. Appreciate cardiology recommendation. Continue ASA, Lipitor and Lopressor. (6) GI bleed: Code(s): K92.2 - Gastrointestinal hemorrhage, unspecified Status: Acute Assessment and Plan: Patient presented with anemia that could be related to GI bleed. Stool guaiac negati
[2021-11-12 20:32] LABS: Glucose Point of Care 139 mg/dl (65-105)
[2021-11-12] MEDS: MIRTAZAPINE 30 MG TABLET PO (20:32)
[2021-11-13] VITALS (31 sets, daily range): BP systolic 100–172; BP diastolic 47–80; PULSE 88–114; RESP 16–30; TEMP 36.9–38; O2SAT 92–100
[2021-11-13 00:07] LABS: Glucose Point of Care 159 mg/dl (65-105)
[2021-11-13] MEDS: hydrALAZINE HCL 20 MG/ML VIAL 10 MG IV PUSH ×2 (00:40→05:50)
[2021-11-13] MEDS: LABETALOL HCL INJ 100 MG/20 ML VIAL 20 MG IV PUSH (03:00)
[2021-11-13 05:10] LABS: Glucose Point of Care 150 mg/dl (65-105)
[2021-11-13 05:33] LABS: Alveolar/Arterial O2 Gradient 85.6 mmHg; Base Excess ABG 5.9 mEq/l (+/-2.0); Carboxyhemoglobin 0.3 % THb (0-2.0); Fractional Inspired Oxygen 30 %; HCO3 ABG 29.3 mEq/l (22.0-26.0); Methemoglobin ABG 0.4 %THb (0-1.5); Oxygen Content ABG 13.4 %vol (16.0-22.0); Oxygen Saturation ABG 97.1 % (95.0-100.0); Oxyhemoglobin 95.3 % THb (90.0-100.0); PCO2 ABG 37.5 mmHg (35.0-45.0); PO2 ABG 84.2 mmHg (80.0-100.0); PO2 FiO2 Ratio Arterial Blood 2.81 %; Total Hemoglobin 9.9 g/dL (12.0-18.0)
[2021-11-13 05:49] LABS: Device VENTILATOR; Modified Allen's Test Unable to perform; Site Drawn LEFT RADIAL
[2021-11-13 05:50] LABS: Arterial Blood Gas PEEP 8 cmH2O; Arterial Blood Gas Tidal Volume 360 ml; Arterial Blood Gas Vent Mode CMV; Arterial Blood Gas Ventilator rate 22 /MIN
[2021-11-13] MEDS: AZTREONAM 2 GM in SODIUM CHLORIDE 0.9% IV 100 ML 200 ML IVPB ×3 (05:50→22:40)
[2021-11-13] MEDS: CENTRAL LINE FLUSH 10 ML IV PUSH (05:50)
[2021-11-13 07:26] LABS: Glucose Point of Care 159 mg/dl (65-105)
[2021-11-13 08:16] LABS: NT Pro B Type Natriuretic Pept 11700 pg/mL (5-100)
[2021-11-13] MEDS: clonazePAM (*CRX) 0.5 MG TABLET 1 MG PO ×3 (08:17→16:51)
[2021-11-13] MEDS: LIDOCAINE 5% PATCH 1 PATCH TRANSDERM (08:17)
[2021-11-13] MEDS: ASPIRIN 81 MG CHEWABLE TABLET FEED TUBE (08:17)
[2021-11-13] MEDS: MINERAL OIL/WHITE PETROLATUM OINTMENT 1 APPLIC EACH EYE ×2 (08:17→20:08)
[2021-11-13] MEDS: QUEtiapine FUMARATE 100 MG TABLET PO ×2 (08:18→20:08)
[2021-11-13] MEDS: INSULIN GLARGINE (*BKC) 100 UNITS/ML 80 UNITS SUB-Q (08:18)
[2021-11-13] MEDS: lisinopriL 20 MG TABLET 40 MG PO (08:18)
[2021-11-13] MEDS: ATORVASTATIN 40 MG TABLET FEED TUBE (08:18)
[2021-11-13] MEDS: METOPROLOL TARTRATE 25 MG TABLET PO ×2 (08:19→20:08)
[2021-11-13] MEDS: polyethylene glycoL 3350 17 GM POWD.PACK PO (08:19)
[2021-11-13] MEDS: PANTOPRAZOLE SODIUM IV 40 MG VIAL IV PUSH ×2 (08:19→20:08)
[2021-11-13] MEDS: QUEtiapine FUMARATE 25 MG TABLET 50 MG PO ×2 (08:19→20:07)
--- NOTE | 2021-11-13 08:44 | PM.CNPUL ---
Assessment and Plan Assessment and plan (1) Ventilator dependence: Code(s): Z99.11 - Dependence on respirator [ventilator] status Status: Acute Assessment and Plan: 66-year-old female presented with chest pain anemia, underwent CPR for cardiac arrest, currently intubated and mechanically ventilated via tracheostomy, unable to wean from ventilator. The patient has significant abdominal paradox on physical exam which is related to a sternal fracture seen on chest CT done on October 31. It is unclear whether there are additional rib fractures. Radiology will review the CT and provide information as to presence of rib fractures. it appears that the sternal fracture and the unstable chest wall contribute to inability to wean from the ventilator. Latest chest x-ray showed some lung infiltrates bilaterally which could represent pneumonia or congestive heart failure. In addition she may have small bilateral pleural effusions and/or atelectasis which also contribute to inability to liberate from the ventilator. the very elevated BNP on today's testing is suggestive of ongoing congestive heart failure which also contributes to ventilator dependency. The case was discussed with the civil engineering intern. I would switch the patient to full mechanical support using AC mode in order to rest the respiratory muscles and promote sternal fracture healing. The patient will need a chest CT without contrast to assess for pleural effusions, pulmonary congestion related to congestive heart failure or lung infection. Will follow the patient with you. (2) Sternal fracture: Qualifiers: Encounter type: subsequent encounter Fracture healing: with nonunion Fracture type: closed Sternal location: body of sternum Qualified Code(s): S22.22XK - Fracture of body of sternum, subsequent encounter for fracture with nonunion Code(s): S22.20XA - Unspecified fracture of sternum, initial encounter for closed fracture Status: Acute (3) Cardiopulmonary arrest with successful resuscitation: Code(s): I46.9 - Cardiac arrest, cause unspecified Status: Acute (4) Abnormal finding on lung imaging: Code(s): R91.8 - Other nonspecific abnormal finding of lung field Status: Acute (5) CHF (congestive heart failure): Code(s): I50.9 - Heart failure, unspecified Status: Acute History of Present Illness History of Present Illness Consult date: 11/13/21 Chief complaint: Anemia Narrative: This 66-year-old female was admitted into the hospital approximately 3 weeks ago with chest pain that had started the day prior to admission. She also had some nausea but no vomiting. Other symptoms included diarrhea and hematochezia. Patient was found to have severe anemia with a hemoglobin of 5.5 and BNP over 700 and lipase 352; while in the hospital the patient developed tachycardia and subsequently became bradycardic and lost pulse. She had CPR with chest compressions. She recovered in couple of minutes with full ROSC, and was transferred to the intensive care unit where she is still intubated on mechanical ventilation. I was asked to see the patient because of failed weaning trials. Initial chest CT showed extensive patchy bilateral airspace infiltrates compatible with pneumonia, some mediastinal adenopathy possibly reactive and small pleural effusions.Chest x-ray done yesterday showed possible atelectasis right lower lobe. Today's chest x-ray showed resolution of right lower lobe atelectasis. The patient has received antibiotics for positive sputum cultures for MRSA, sensitive to vancomycin. She has been on vancomycin and aztreonam. Also during this hospitalization she underwent EGD that showed gastritis, and also had colonoscopy. She has received PRBCs during hospitalization. Review of Systems Constitutional: Constitutional: Reports as per HPI Comments: Patient complaining of some chest pain. [facility] Past Medical History
[2021-11-13 08:53] LABS: Vancomycin Trough 15.9 ug/mL (10.0-20.0)
--- NOTE | 2021-11-13 10:52 | PCNFU ---
Nutrition Follow-Up Complete: Inadequate Oral Intake as related to mechanical vent as evidenced by NPO. Goal: Meet estimated nutritional needs Patient is progressing towards goal. We will continue current goal. Pt current nutrition is Glucerna 1.2 at 70 ml/hr over 22 hours. Last recorded weight is 74.8 kg, up from 71.3 kg on admit. Bowel Motility:+BM reported 11/13 Labs Reviewed:BNP 42392, POC glucose 159 Meds Noted:Seroquel, Miralax, Protonix Vancomycin, Lantus, Novolog, Atrovent, Remeron, Lipitor, Klonopin, Lopressor Skin:WNL Additional Notes: Patient current with PEG and Trach. PICC removed. Tube feedings of Glucerna 1.2 at goal rate of 70 m/hr providing 1848 kcals/92 gms protein/1240 ml water. Free water flush 30 ml q 4 hours. Tube feedings are being tolerating. Agree with diet orders. Will monitor daily in ICU rounds. Reassessing every Tuesday and Tuesday.
[2021-11-13 11:18] LABS: Glucose Point of Care 147 mg/dl (65-105)
--- NOTE | 2021-11-13 11:46 | WPDINTPN ---
Progress Note: A&P Assessment and Plan (1) Acute respiratory failure: Code(s): J96.00 - Acute respiratory failure, unspecified whether with hypoxia or hypercapnia Status: Acute Assessment and Plan: Acute respiratory failure likely related to cardiac arrest -intubated 10/23/2021 10/23/2021: CTA chest abdomen and pelvis showed extensive patchy bilateral airspace disease compatible with pneumonia, mediastinal lymphadenopathy, likely reactive, small pleural effusions. -patient status post course azithromycin, ceftriaxone, vancomycin. Cultures negative -chest x-ray 11/12 showed atelectasis of right lower lobe. Patient was placed left side down, peep was increased to 8 and CPT was ordered and increase PEEP Chest x-ray done today shows improvement -ABG reviewed. Pulmonary recommends continuing with CMV rather than ASV. Tidal volume decreased to 320 and rate decreased to 18 -patient did get a tracheostomy done on 11/05/2021. -PEG tube placed on 11/06/2021 -continue Seroquel, clonazepam, mirtazapine - Lidoderm patch ordered chest to help with pain from trauma from CPR -patient was placed on pressure support ventilation trial again today and failed with high RSBI and low tidal volume. She was completely off of sedation -continue bronchodilators -repeat chest CT ordered by Pulmonary (2) Fever: Code(s): R50.9 - Fever, unspecified Status: Acute Assessment and Plan: 11/05/2021 Worsening leukocytosis with worsening airspace opacities in the right lower lung. Worsening ABGs -will switch cefepime to aztreonam (11/05), continue vancomycin (11/01) -leukocytosis improving, -purulent discharge from tracheal stoma suggests tracheitis -11/06/2021: Sputum cultures MRSA - sensitive to vancomycin -11/05/2021: Urine cultures no growth -11/05/2021: Blood cultures negative x2 so far -continue vancomycin and aztreonam 10/23/2021: CTA chest showed extensive patchy bilateral airspace disease compatible with pneumonia, mediastinal lymphadenopathy, likely reactive, small pleural effusion patient completed a 7 day course of azithromycin, ceftriaxone (initiated on 10/23/2020) 10/31 CT Sinuses IMPRESSION: 1. Mild mucosal thickening in left maxillary sinus. 2. Leftward deviation of the nasal septum. CT C/A/P 10/31/2021 IMPRESSION: 1. Small pleural effusions, right worse than left, worsened from 10/23/21. 2. Mild pulmonary edema. 3. Nasogastric tube tip in the proximal duodenum. 4. Small pericardial effusion. 5. Mild mediastinal lymphadenopathy, likely reactive. 6. New gallbladder distention, which may secondary to fasting. (3) Cardiopulmonary arrest with successful resuscitation: Code(s): I46.9 - Cardiac arrest, cause unspecified Status: Acute Assessment and Plan: Patient with cardiopulmonary arrest with successful ROSC after 1 round of epinephrine and 1 amp of bicarb along with CPR. -patient was following commands post ROSC, not a candidate for targeted temperature management/hypothermia -could be multifactorial, proxy a versus coronary artery disease/NSTEMI versus severe anemia. -troponins are elevated, -patient currently hemodynamically stable ECHO Summary 1. Left ventricular chamber dimension is normal. 2. Left ventricular systolic function is normal, estimated at >70%. 3. There is no increased left ventricular wall thickness. 4. Left ventricular septal wall motion is normal. 5. The left ventricular diastolic function is grade II diastolic dysfunction. 6. Right ventricular chamber dimension is normal. 7. Right ventricular systolic function is normal. 8. Left atrial chamber dimension is severely enlarged. 9. There is mild to moderate mitral valve regurgitation. (4) Chest pain: Qualifiers: Chest pain type: unspecified Qualified Code(s): R07.9 - Chest pain, unspecified Code(s): R07.9 - Chest pain, unspecified Status: Acute Assessment and Plan:
[2021-11-13 13:15] LABS: Triglycerides 93 mg/dL (<150)
--- NOTE | 2021-11-13 14:36 | PC.NURSE ---
Spoke with Daughter Zeinab this morning and gave update on patient condition, given opportunity for questions and all questions answered to the best of my ability.
[2021-11-13 14:42] LABS: Haptoglobin 87 mg/dL (43-212)
[2021-11-13 16:29] LABS: Glucose Point of Care 144 mg/dl (65-105)
--- NOTE | 2021-11-13 17:46 | PM.IMPN ---
Progress Note: A&P Assessment and Plan (1) Acute respiratory failure: Code(s): J96.00 - Acute respiratory failure, unspecified whether with hypoxia or hypercapnia Status: Acute Assessment and Plan: Acute respiratory failure related to cardiac arrest and PNA. CTA chest on admission showed extensive patchy bilateral airspace disease compatible with pneumonia. COVID swab was negative. Patient was started on IV abx. She failed multiple breathing trials requiring trach (11/05) an PEG (11/06) placement. Left UE Doppler 10/29 showing no DVT but thrombosed left basilic and cephalic veins (PICC was in the right arm). [place] that patient is too anxious due to her anxiety/depression. [place] medications advanced to be closer to her home doses. Able to wean off sedation. Plan to move to LTAC if she fails 3 breathing trials off sedation. Appreciate talent acquisition program manager input. (2) Cardiopulmonary arrest with successful resuscitation: Code(s): I46.9 - Cardiac arrest, cause unspecified Status: Acute Assessment and Plan: Patient with cardiopulmonary arrest with successful ROSC after 1 round of epinephrine and 1 amp of bicarb along with CPR. Patient was following commands post ROSC so was not a candidate for targeted temperature management/hypothermia. Etiology could be multifactorial related to the sepsis/PNA, profound anemia and/or underlying CAD with ischemia. Troponins elevated to 0.148. Echo not showing any WM abnormalities. Cardiology following along and appreciate their input. Continue tele. Continue ASA, Lipitor and Lopressor. Consider ischemic workup but defer to Cardiology. (3) Sepsis: Code(s): A41.9 - Sepsis, unspecified organism Status: Acute Assessment and Plan: Patient presents with chest pain and found to have tachycardia, tachypnea, leukocytosis, lactic acidosis and now fevers. Sepsis present on admission related to PNA. BCx negative. COVID swab negative. Was on abx x 7 days then stopped. Was having recurrent fevers and WBC elevation so Cefepime and Vanco added 11/01 (changed to Aztreonam 11/05). BCx 10/23, 10/30 and 11/05 negative. Still having fevers - related to abx?. BP stable. WBC worse yesterday. Continue IV abx. (4) Rib fractures: Code(s): S22.49XA - Multiple fractures of ribs, unspecified side, initial encounter for closed fracture Status: Acute Assessment and Plan: There are fractures of the anterior right second, third, fourth, fifth, sixth, and seventh ribs. There are fractures of the anterior left third, fourth, fifth, and sixth ribs. The disruption of the sternum on the sagittal images is likely motion artifact and not a fracture. CT chest ordered and will follow-up on results. Lidoderm patch to the chest wall in place. (5) Pneumonia: Code(s): J18.9 - Pneumonia, unspecified organism Status: Acute Assessment and Plan: Chest x-ray on admission showing cardiomegaly with interstitial edema but cannot exclude superimposed pneumonia. CTA chest 10/23 showing extensive patchy bilateral airspace disease compatible with pneumonia and small pleural effusion. Started on Rocephin/Azithromycin 10/23 and Vanco added 10/24. BCx 10/23 negative. Sputum 10/25 and 10/30 negative. BCx 10/30 negative. Vancomycin stopped 10/27. Rocephin and Azithro stopped 10/30 after 7 days. Abx resumed on 11/01 with Vanco and Cefepime due to persistent fevers and elevated WBC (changed from Cefepime to Aztreonam 11/05). WBC was up to 20K but normalized. BCx 11/05 negative. UCx negative. Still with fevers. Sputum 11/06 growing MRSA. WBC higher yesterday 19K. Continue IV abx. CT chest ordered and pending. Follow. (6) NSTEMI (non-ST elevated myocardial infarction): Code(s): I21.4 - Non-ST elevation (NSTEMI) myocardial infarction Status: Acute Assessment and Plan: Patient presented with chest pain, SOB and nausea. Trop as high as 0.148. EKG showing possible LAE but no acute ST changes. N
[2021-11-13] MEDS: MIRTAZAPINE 30 MG TABLET PO (20:08)
[2021-11-13 20:09] LABS: Glucose Point of Care 96 mg/dl (65-105)
[2021-11-13 23:42] LABS: Glucose Point of Care 109 mg/dl (65-105)
[2021-11-14] VITALS (24 sets, daily range): BP systolic 112–162; BP diastolic 49–86; PULSE 77–104; RESP 19–34; TEMP 36.4–38.2; O2SAT 93–100
[2021-11-14] MEDS: AZTREONAM 2 GM in SODIUM CHLORIDE 0.9% IV 100 ML 200 ML IVPB ×3 (05:18→20:47)
[2021-11-14 05:43] LABS: Hematocrit 28.3 % (37.0-47.0); Hemoglobin 8.1 g/dL (12.0-15.0); Mean Corpuscular HGB Conc 28.6 g/dl (32-36); Mean Corpuscular Volume 90.7 fl (80-100); Platelet Count Result 477 k/mm3 (150-375); Red Blood Count 3.12 M/mm3 (4.2-5.4); Red Cell Distribution Width 32.7 % (11.5-14.5); White Blood Count 12.4 K/mm3 (4.5-10.0)
[2021-11-14 05:50] LABS: Alanine Aminotransferase 36 U/L (4-35); Albumin Level 2.7 g/dL (3.5-5.1); Alkaline Phosphatase 176 U/L (38-126); Anion Gap 4 mmol/L (8-16); Aspartate Amino Transferase 37 U/L (14-36); Bilirubin,Total 0.3 mg/dL (0.2-1.3); Blood Urea Nitrogen 34 mg/dL (7-17); Calcium 8.6 mg/dL (8.4-10.2); Carbon Dioxide 32 mmol/L (22-30); Chloride 104 mmol/L (98-107); Estimated CRCL calculation 73 ml/min; Estimated Glomerular Filt Rate > 60; Glucose 142 mg/dL (65-110); Magnesium 2.3 mg/dL (1.6-2.3); Sodium 140 mmol/L (137-145)
[2021-11-14 06:09] LABS: Base Excess ABG 4.8 mEq/l (+/-2.0); Carboxyhemoglobin 0.3 % THb (0-2.0); Device VENTILATOR; Fractional Inspired Oxygen 25 %; HCO3 ABG 28.4 mEq/l (22.0-26.0); Methemoglobin ABG 0.2 %THb (0-1.5); Modified Allen's Test Pass; Oxygen Content ABG 12.1 %vol (16.0-22.0); Oxygen Saturation ABG 96.1 % (95.0-100.0); Oxyhemoglobin 93.8 % THb (90.0-100.0); PO2 ABG 75.1 mmHg (80.0-100.0); Reduced Hemoglobin 5.7 %THb (0-5.0); Site Drawn RIGHT RADIAL; Total Hemoglobin 9.1 g/dL (12.0-18.0); pH ABG 7.492 (7.350-7.450)
[2021-11-14 06:10] LABS: Arterial Blood Gas PEEP 8 cmH2O; Arterial Blood Gas Tidal Volume 320 ml; Arterial Blood Gas Vent Mode CMV; Arterial Blood Gas Ventilator rate 18 /MIN
[2021-11-14 08:07] LABS: Glucose Point of Care 167 mg/dl (65-105)
[2021-11-14] MEDS: ASPIRIN 81 MG CHEWABLE TABLET FEED TUBE (08:30)
[2021-11-14] MEDS: FUROSEMIDE INJ 40 MG/4 ML VIAL IV PUSH (08:30)
[2021-11-14] MEDS: ATORVASTATIN 40 MG TABLET FEED TUBE (08:31)
[2021-11-14] MEDS: clonazePAM (*CRX) 0.5 MG TABLET 1 MG PO ×3 (08:32→16:07)
[2021-11-14] MEDS: LIDOCAINE 5% PATCH 1 PATCH TRANSDERM (08:33)
[2021-11-14] MEDS: lisinopriL 20 MG TABLET 40 MG PO (08:34)
[2021-11-14] MEDS: MINERAL OIL/WHITE PETROLATUM OINTMENT 1 APPLIC EACH EYE ×2 (08:34→20:42)
[2021-11-14] MEDS: PANTOPRAZOLE SODIUM IV 40 MG VIAL IV PUSH ×2 (08:34→20:43)
[2021-11-14] MEDS: METOPROLOL TARTRATE 25 MG TABLET PO ×2 (08:34→20:43)
[2021-11-14] MEDS: QUEtiapine FUMARATE 25 MG TABLET 50 MG PO ×2 (08:36→20:43)
[2021-11-14] MEDS: QUEtiapine FUMARATE 100 MG TABLET PO ×2 (08:36→20:43)
[2021-11-14] MEDS: polyethylene glycoL 3350 17 GM POWD.PACK PO (08:50)
[2021-11-14] MEDS: INSULIN GLARGINE (*BKC) 100 UNITS/ML 80 UNITS SUB-Q (08:50)
--- NOTE | 2021-11-14 09:38 | WPDINTPN ---
Progress Note: A&P Assessment and Plan (1) Acute respiratory failure: Code(s): J96.00 - Acute respiratory failure, unspecified whether with hypoxia or hypercapnia Status: Acute Assessment and Plan: Acute respiratory failure likely related to cardiac arrest -intubated 10/23/2021 10/23/2021: CTA chest abdomen and pelvis showed extensive patchy bilateral airspace disease compatible with pneumonia, mediastinal lymphadenopathy, likely reactive, small pleural effusions. -patient status post course azithromycin, ceftriaxone, vancomycin. Cultures negative -11/[address] IMPRESSION: Mild right and slight left pleural effusion with associated bilateral lower lobe dependent atelectasis with air bronchograms, right greater than left Trace pericardial effusion Anemia is suggested Tracheostomy tube - chest x-ray reviewed -ABG reviewed. Pulmonary recommends continuing with CMV rather than ASV. Tidal volume decreased to 300 and rate decreased to 18 -patient did get a tracheostomy done on 11/05/2021. -PEG tube placed on 11/06/2021 -continue Seroquel, clonazepam, mirtazapine - Lidoderm patch ordered chest to help with pain from trauma from CPR -patient was placed on pressure support ventilation trial again today and and is tolerating 5/8 pressure support at this time. continue as tolerated. She was completely off of sedation -continue bronchodilators - Lasix IV x1 (2) Fever: Code(s): R50.9 - Fever, unspecified Status: Acute Assessment and Plan: 11/05/2021 Worsening leukocytosis with worsening airspace opacities in the right lower lung. Worsening ABGs -will switch cefepime to aztreonam (11/05), continue vancomycin (11/01) -leukocytosis improving, -purulent discharge from tracheal stoma suggests tracheitis -11/06/2021: Sputum cultures MRSA - sensitive to vancomycin -11/05/2021: Urine cultures no growth -11/05/2021: Blood cultures negative x2 so far -continue vancomycin and aztreonam 10/23/2021: CTA chest showed extensive patchy bilateral airspace disease compatible with pneumonia, mediastinal lymphadenopathy, likely reactive, small pleural effusion patient completed a 7 day course of azithromycin, ceftriaxone (initiated on 10/23/2020) 10/31 CT Sinuses IMPRESSION: 1. Mild mucosal thickening in left maxillary sinus. 2. Leftward deviation of the nasal septum. CT C/A/P 10/31/2021 IMPRESSION: 1. Small pleural effusions, right worse than left, worsened from 10/23/21. 2. Mild pulmonary edema. 3. Nasogastric tube tip in the proximal duodenum. 4. Small pericardial effusion. 5. Mild mediastinal lymphadenopathy, likely reactive. 6. New gallbladder distention, which may secondary to fasting. (3) Cardiopulmonary arrest with successful resuscitation: Code(s): I46.9 - Cardiac arrest, cause unspecified Status: Acute Assessment and Plan: Patient with cardiopulmonary arrest with successful ROSC after 1 round of epinephrine and 1 amp of bicarb along with CPR. -patient was following commands post ROSC, not a candidate for targeted temperature management/hypothermia -could be multifactorial, proxy a versus coronary artery disease/NSTEMI versus severe anemia. -troponins are elevated, -patient currently hemodynamically stable ECHO Summary 1. Left ventricular chamber dimension is normal. 2. Left ventricular systolic function is normal, estimated at >70%. 3. There is no increased left ventricular wall thickness. 4. Left ventricular septal wall motion is normal. 5. The left ventricular diastolic function is grade II diastolic dysfunction. 6. Right ventricular chamber dimension is normal. 7. Right ventricular systolic function is normal. 8. Left atrial chamber dimension is severely enlarged. 9. There is mild to moderate mitral valve regurgitation. (4) Chest pain: Qualifiers: Chest pain type: unspecified Qualified Code(s): R07.9 - Chest pain, unspecified Code(s
--- NOTE | 2021-11-14 10:39 | PM.PNPUL ---
Progress Note: A&P Assessment and Plan (1) Ventilator dependence: Code(s): Z99.11 - Dependence on respirator [ventilator] status Status: Acute Assessment and Plan: 66-year-old female, intubated via tracheostomy following cardiac arrest with successful CPR, has bilateral pleural effusions greater on right related to congestive heart failure, also atelectasis right lower lobe related to right pleural effusion, on antibiotic treatment for positive MRSA in sputum, with mild abdominal paradox during spontaneous breathing related to right pleural effusion and sternal nondisplaced fracture. Abdominal paradox is significantly less today. The patient's ventilator dependence is primarily related to congestive heart failure with bilateral pleural effusions, right lower lobe partial atelectasis and possibly to sternal fracture. I would gently diurese patient at this point. Continue with current PEEP and consider placing patient in left lateral decubitus position while on full MV support and PEEP to possibly reexpand RLL atelectasis. Consider pulmonary toilet with nebulized albuterol and nebulized Mucomyst in case of retained bronchial secretions. I would rest patient on full MV at night and continue with weaning trials during the day. Case was discussed with sharepoint trainer. (2) CHF (congestive heart failure): Qualifiers: Heart failure type: unspecified Heart failure chronicity: unspecified Qualified Code(s): I50.9 - Heart failure, unspecified Code(s): I50.9 - Heart failure, unspecified Status: Acute (3) Acute respiratory failure: Qualifiers: Respiratory failure complication: unspecified whether with hypoxia or hypercapnia Qualified Code(s): J96.00 - Acute respiratory failure, unspecified whether with hypoxia or hypercapnia Code(s): J96.00 - Acute respiratory failure, unspecified whether with hypoxia or hypercapnia Status: Acute (4) Cardiopulmonary arrest with successful resuscitation: Code(s): I46.9 - Cardiac arrest, cause unspecified Status: Acute (5) Pleural effusion: Code(s): J90 - Pleural effusion, not elsewhere classified Status: Acute (6) Atelectasis, right: Code(s): J98.11 - Atelectasis Status: Acute Subjective Date/time seen: 11/14/21 10:39 no significant change in respiratory status. Patient was able to tolerate weaning trial with a pressure support of 5 and PEEP of 8 earlier today. Has been on antibiotic treatment for MRSA in sputum. chest CT showed bilateral effusions greater on right, with right lower lobe associated atelectasis. BNP elevated. Review of Systems Review of Systems: All systems reviewed & are unremarkable except as noted in HPI and below ROS unobtainable: Yes other (Tracheostomy in place) Exam Narrative: GENERAL APPEARANCE: Well developed, well nourished, alert and cooperative, intubated via tracheostomy tube, appears to be in mild respiratory distress while n weaning trial with pressure support of 5 SKIN: Inspection of the skin reveals no rashes, ulcerations or petechiae. HEENT: Sclerae anicteric and conjunctivae pink and moist. Extraocular movements were intact and pupils were equal. NECK: Supple. There was no thyroid enlargement, and no tenderness, or masses were felt. CHEST: Normal AP diameter and normal contour without any kyphoscoliosis. Sighificantly less abdominal paradox noted while patient weaning trial. LUNGS: Auscultation of the lungs revealed normal breath sounds anteriorly without any other adventitious sounds or rubs. CARDIAC: There was a regular rate and rhythm without any murmurs, gallops, rubs. ABDOMEN: Soft and nontender with normal bowel sounds. There was no organomegaly. LYMPH NODES: No lymphadenopathy was appreciated in the neck. EXTREMITIES: No cyanosis, clubbing or edema. NEUROLOGIC: Alert and cooperative, answering questions, moving all extremities. Objective Data Vital Signs Vi
[2021-11-14 13:07] LABS: Glucose Point of Care 162 mg/dl (65-105)
[2021-11-14] MEDS: ACETAMINOPHEN ELIXIR 325 MG/10.15 ML UDC 650 MG PO (13:52)
[2021-11-14 16:23] LABS: Glucose Point of Care 101 mg/dl (65-105)
[2021-11-14] MEDS: DEXTROSE 50% 25 GM/50 ML SYRINGE IV PUSH (20:33)
[2021-11-14] MEDS: MIRTAZAPINE 30 MG TABLET PO (20:43)
[2021-11-14 21:03] LABS: Glucose Point of Care 130 mg/dl (65-105)
[2021-11-14 21:03] LABS: Glucose Point of Care 45 mg/dl (65-105)
[2021-11-14 21:03] LABS: Glucose Point of Care 46 mg/dl (65-105)
[2021-11-15] VITALS (24 sets, daily range): BP systolic 118–153; BP diastolic 53–72; PULSE 74–107; RESP 15–26; TEMP 36.8–37.9; O2SAT 96–100
[2021-11-15 00:17] LABS: Glucose Point of Care 135 mg/dl (65-105)
[2021-11-15 04:48] LABS: Alveolar/Arterial O2 Gradient 68.8 mmHg; Base Excess ABG 5.6 mEq/l (+/-2.0); Carboxyhemoglobin 0.6 % THb (0-2.0); Fractional Inspired Oxygen 25 %; HCO3 ABG 29.7 mEq/l (22.0-26.0); Methemoglobin ABG 0.3 %THb (0-1.5); Oxygen Content ABG 14.3 %vol (16.0-22.0); Oxygen Saturation ABG 92.6 % (95.0-100.0); PCO2 ABG 41.4 mmHg (35.0-45.0); PO2 ABG 60.3 mmHg (80.0-100.0); PO2 FiO2 Ratio Arterial Blood 2.41 %; Reduced Hemoglobin 10.1 %THb (0-5.0); Total Hemoglobin 11.4 g/dL (12.0-18.0); pH ABG 7.474 (7.350-7.450)
[2021-11-15 04:53] LABS: Device VENTILATOR; Modified Allen's Test Unable to perform; Site Drawn RIGHT RADIAL
[2021-11-15 04:54] LABS: Arterial Blood Gas Vent Mode SPONTANEOUS
[2021-11-15 04:55] LABS: Arterial Blood Gas PEEP 8 cmH2O; Arterial Blood Gas Pressure Support 5 cmH2O
[2021-11-15 04:56] LABS: Hematocrit 26.7 % (37.0-47.0); Hemoglobin 7.8 g/dL (12.0-15.0); Mean Corpuscular HGB Conc 29.2 g/dl (32-36); Mean Corpuscular Hemoglobin 26.4 pg (26-34); Mean Corpuscular Volume 90.5 fl (80-100); Mean Platelet Volume 10.7 fl (7.4-10.4); Platelet Count Result 429 k/mm3 (150-375); Red Blood Count 2.95 M/mm3 (4.2-5.4); White Blood Count 10.6 K/mm3 (4.5-10.0)
[2021-11-15] MEDS: AZTREONAM 2 GM in SODIUM CHLORIDE 0.9% IV 100 ML 200 ML IVPB (05:03)
[2021-11-15 05:06] LABS: Alanine Aminotransferase 28 U/L (4-35); Albumin Level 2.7 g/dL (3.5-5.1); Alkaline Phosphatase 160 U/L (38-126); Anion Gap 4 mmol/L (8-16); Aspartate Amino Transferase 27 U/L (14-36); Bilirubin,Total 0.3 mg/dL (0.2-1.3); Blood Urea Nitrogen 30 mg/dL (7-17); Calcium 8.6 mg/dL (8.4-10.2); Carbon Dioxide 31 mmol/L (22-30); Chloride 102 mmol/L (98-107); Estimated CRCL calculation 86 ml/min; Estimated Glomerular Filt Rate > 60; Glucose 108 mg/dL (65-110); Magnesium 2.2 mg/dL (1.6-2.3); Potassium 3.8 mmol/L (3.4-5.0); Sodium 137 mmol/L (137-145)
[2021-11-15] MEDS: ASPIRIN 81 MG CHEWABLE TABLET FEED TUBE (08:35)
[2021-11-15] MEDS: LIDOCAINE 5% PATCH 1 PATCH TRANSDERM (08:35)
[2021-11-15] MEDS: ATORVASTATIN 40 MG TABLET FEED TUBE (08:35)
[2021-11-15] MEDS: lisinopriL 20 MG TABLET 40 MG PO (08:36)
[2021-11-15] MEDS: MINERAL OIL/WHITE PETROLATUM OINTMENT 1 APPLIC EACH EYE ×2 (08:36→21:20)
[2021-11-15] MEDS: METOPROLOL TARTRATE 25 MG TABLET PO ×2 (08:36→21:19)
[2021-11-15] MEDS: QUEtiapine FUMARATE 100 MG TABLET PO ×2 (08:37→21:18)
[2021-11-15] MEDS: QUEtiapine FUMARATE 25 MG TABLET 50 MG PO ×2 (08:37→21:18)
[2021-11-15] MEDS: PANTOPRAZOLE SODIUM IV 40 MG VIAL IV PUSH ×2 (08:37→21:19)
--- NOTE | 2021-11-15 08:57 | WPDINTPN ---
Progress Note: A&P Assessment and Plan (1) Acute respiratory failure: Qualifiers: Respiratory failure complication: unspecified whether with hypoxia or hypercapnia Qualified Code(s): J96.00 - Acute respiratory failure, unspecified whether with hypoxia or hypercapnia Code(s): J96.00 - Acute respiratory failure, unspecified whether with hypoxia or hypercapnia Status: Acute Assessment and Plan: Acute respiratory failure likely related to cardiac arrest -intubated 10/23/2021 10/23/2021: CTA chest abdomen and pelvis showed extensive patchy bilateral airspace disease compatible with pneumonia, mediastinal lymphadenopathy, likely reactive, small pleural effusions. -patient status post course azithromycin, ceftriaxone, vancomycin. Cultures negative -11/[address] IMPRESSION: Mild right and slight left pleural effusion with associated bilateral lower lobe dependent atelectasis with air bronchograms, right greater than left Trace pericardial effusion Anemia is suggested Tracheostomy tube - chest x-ray reviewed -ABG reviewed. Pulmonary recommends continuing with CMV rather than ASV. Tidal volume decreased to 300 and rate decreased to 18 -patient did get a tracheostomy done on 11/05/2021. -PEG tube placed on 11/06/2021 -continue Seroquel, clonazepam, mirtazapine - Lidoderm patch ordered chest to help with pain from trauma from CPR - tolerating 5/8 pressure support. Continue as tolerated -continue bronchodilators - continue Lasix (2) Fever: Code(s): R50.9 - Fever, unspecified Status: Acute Assessment and Plan: 11/05/2021 Worsening leukocytosis with worsening airspace opacities in the right lower lung. Worsening ABGs -will switch cefepime to aztreonam (11/05), continue vancomycin (11/01) -leukocytosis improving, -purulent discharge from tracheal stoma suggests tracheitis -11/06/2021: Sputum cultures MRSA - sensitive to vancomycin -11/05/2021: Urine cultures no growth -11/05/2021: Blood cultures negative x2 so far -continue vancomycin but will DC aztreonam 10/23/2021: CTA chest showed extensive patchy bilateral airspace disease compatible with pneumonia, mediastinal lymphadenopathy, likely reactive, small pleural effusion patient completed a 7 day course of azithromycin, ceftriaxone (initiated on 10/23/2020) 10/31 CT Sinuses IMPRESSION: 1. Mild mucosal thickening in left maxillary sinus. 2. Leftward deviation of the nasal septum. CT C/A/P 10/31/2021 IMPRESSION: 1. Small pleural effusions, right worse than left, worsened from 10/23/21. 2. Mild pulmonary edema. 3. Nasogastric tube tip in the proximal duodenum. 4. Small pericardial effusion. 5. Mild mediastinal lymphadenopathy, likely reactive. 6. New gallbladder distention, which may secondary to fasting. (3) Cardiopulmonary arrest with successful resuscitation: Code(s): I46.9 - Cardiac arrest, cause unspecified Status: Acute Assessment and Plan: Patient with cardiopulmonary arrest with successful ROSC after 1 round of epinephrine and 1 amp of bicarb along with CPR. -patient was following commands post ROSC, not a candidate for targeted temperature management/hypothermia -could be multifactorial, proxy a versus coronary artery disease/NSTEMI versus severe anemia. -troponins are elevated, -patient currently hemodynamically stable ECHO Summary 1. Left ventricular chamber dimension is normal. 2. Left ventricular systolic function is normal, estimated at >70%. 3. There is no increased left ventricular wall thickness. 4. Left ventricular septal wall motion is normal. 5. The left ventricular diastolic function is grade II diastolic dysfunction. 6. Right ventricular chamber dimension is normal. 7. Right ventricular systolic function is normal. 8. Left atrial chamber dimension is severely enlarged. 9. There is mild to moderate mitral valve regurgitation. (4) Chest pain: Qualifiers:
[2021-11-15 08:59] LABS: Glucose Point of Care 119 mg/dl (65-105)
[2021-11-15] MEDS: clonazePAM (*CRX) 0.5 MG TABLET 1 MG PO ×3 (09:30→17:38)
[2021-11-15] MEDS: INSULIN GLARGINE (*BKC) 100 UNITS/ML 60 UNITS SUB-Q (09:37)
[2021-11-15] MEDS: FUROSEMIDE INJ 40 MG/4 ML VIAL IV PUSH (09:37)
[2021-11-15] MEDS: polyethylene glycoL 3350 17 GM POWD.PACK PO (09:38)
[2021-11-15] MEDS: ACETAMINOPHEN ELIXIR 325 MG/10.15 ML UDC 650 MG PO (12:00)
[2021-11-15] MEDS: fentaNYL CITRATE INJ (*CRX) 100 MCG/2 ML VIAL 50 MCG IV PUSH (16:01)
[2021-11-15 18:33] LABS: Glucose Point of Care 116 mg/dl (65-105)
[2021-11-15 21:02] LABS: Glucose Point of Care 113 mg/dl (65-105)
[2021-11-15] MEDS: MIRTAZAPINE 30 MG TABLET PO (21:19)
[2021-11-16] VITALS (21 sets, daily range): BP systolic 97–146; BP diastolic 46–83; PULSE 82–113; RESP 14–27; TEMP 36.6–37.6; O2SAT 93–100
[2021-11-16 00:09] LABS: Glucose Point of Care 130 mg/dl (65-105)
[2021-11-16 04:10] LABS: Glucose Point of Care 160 mg/dl (65-105)
[2021-11-16 04:28] LABS: Hematocrit 28.9 % (37.0-47.0); Hemoglobin 8.5 g/dL (12.0-15.0); Mean Corpuscular HGB Conc 29.4 g/dl (32-36); Mean Corpuscular Hemoglobin 26.7 pg (26-34); Mean Corpuscular Volume 90.9 fl (80-100); Mean Platelet Volume 11.3 fl (7.4-10.4); Platelet Count Result 408 k/mm3 (150-375); Red Blood Count 3.18 M/mm3 (4.2-5.4)
[2021-11-16 04:41] LABS: Alanine Aminotransferase 28 U/L (4-35); Albumin Level 2.9 g/dL (3.5-5.1); Alkaline Phosphatase 169 U/L (38-126); Anion Gap 5 mmol/L (8-16); Aspartate Amino Transferase 33 U/L (14-36); Bilirubin,Total 0.3 mg/dL (0.2-1.3); Blood Urea Nitrogen 25 mg/dL (7-17); Calcium 8.7 mg/dL (8.4-10.2); Carbon Dioxide 31 mmol/L (22-30); Chloride 102 mmol/L (98-107); Estimated CRCL calculation 73 ml/min; Estimated Glomerular Filt Rate > 60; Glucose 170 mg/dL (65-110); Magnesium 2.2 mg/dL (1.6-2.3); Potassium 3.9 mmol/L (3.4-5.0); Sodium 138 mmol/L (137-145)
[2021-11-16 05:51] LABS: Alveolar/Arterial O2 Gradient 55.9 mmHg; Base Excess ABG 3.9 mEq/l (+/-2.0); Carboxyhemoglobin 0.3 % THb (0-2.0); Fractional Inspired Oxygen 25 %; HCO3 ABG 27.4 mEq/l (22.0-26.0); Methemoglobin ABG 0.3 %THb (0-1.5); Oxygen Content ABG 11.9 %vol (16.0-22.0); Oxygen Saturation ABG 96.6 % (95.0-100.0); Oxyhemoglobin 94.2 % THb (90.0-100.0); PCO2 ABG 36.5 mmHg (35.0-45.0); PO2 FiO2 Ratio Arterial Blood 3.16 %; Reduced Hemoglobin 5.2 %THb (0-5.0); Total Hemoglobin 8.9 g/dL (12.0-18.0); pH ABG 7.493 (7.350-7.450)
[2021-11-16 06:03] LABS: Arterial Blood Gas Vent Mode SPONTANEOUS; Device VENTILATOR; Modified Allen's Test Pass; Site Drawn RIGHT RADIAL
[2021-11-16 06:04] LABS: Arterial Blood Gas PEEP 8 cmH2O; Arterial Blood Gas Pressure Support 5 cmH2O
[2021-11-16] MEDS: FUROSEMIDE INJ 40 MG/4 ML VIAL IV PUSH (08:32)
[2021-11-16] MEDS: clonazePAM (*CRX) 0.5 MG TABLET 1 MG PO ×3 (08:32→18:18)
[2021-11-16] MEDS: INSULIN GLARGINE (*BKC) 100 UNITS/ML 60 UNITS SUB-Q (08:32)
[2021-11-16 08:33] LABS: Glucose Point of Care 159 mg/dl (65-105)
[2021-11-16] MEDS: LIDOCAINE 5% PATCH 1 PATCH TRANSDERM (08:33)
[2021-11-16] MEDS: MINERAL OIL/WHITE PETROLATUM OINTMENT 1 APPLIC EACH EYE ×2 (08:33→20:07)
[2021-11-16] MEDS: PANTOPRAZOLE SODIUM IV 40 MG VIAL IV PUSH ×2 (08:33→20:07)
[2021-11-16] MEDS: ATORVASTATIN 40 MG TABLET FEED TUBE (08:34)
[2021-11-16] MEDS: lisinopriL 20 MG TABLET 40 MG PO (08:34)
[2021-11-16] MEDS: ASPIRIN 81 MG CHEWABLE TABLET FEED TUBE (08:34)
[2021-11-16] MEDS: QUEtiapine FUMARATE 25 MG TABLET 50 MG PO ×2 (08:34→20:06)
[2021-11-16] MEDS: METOPROLOL TARTRATE 25 MG TABLET PO ×2 (08:34→21:30)
[2021-11-16] MEDS: QUEtiapine FUMARATE 100 MG TABLET PO ×2 (08:34→20:06)
--- NOTE | 2021-11-16 10:54 | PCFNICU ---
ICU Rounding Note: Pt current nutrition is Glucerna 1.2 at 70 ml./hr over 22 hours. Last recorded weight is 72.6 kg, up from 71.3 kg on admit. Bowel Motility:+BM reported 11/15 Labs Reviewed:Glu 170, Cr 0.6,BUN 25, Alb 2.9,Hct 28.9,Hgb 8.5 Meds Noted:Seroquel, Protonix, Klonopin, Precedex, Atrovent, Remeron, Novolog, Lanuts, Vit B12, Lipitor, Vancomycin. Skin: WNL Additional Notes: Patient has Trach and PEG. Tolerating tube feedings of Glucerna 1.2 at 70 ml/hr. Free water flush 30 ml q 4 hours. Agree with diet orders. Following daily in ICU rounds. Will monitor every Tuesday and Tuesday..
--- NOTE | 2021-11-16 11:11 | WPDINTPN ---
Progress Note: A&P Assessment and Plan (1) Acute respiratory failure: Qualifiers: Respiratory failure complication: unspecified whether with hypoxia or hypercapnia Qualified Code(s): J96.00 - Acute respiratory failure, unspecified whether with hypoxia or hypercapnia Code(s): J96.00 - Acute respiratory failure, unspecified whether with hypoxia or hypercapnia Status: Acute Assessment and Plan: Acute respiratory failure likely related to cardiac arrest -intubated 10/23/2021 10/23/2021: CTA chest abdomen and pelvis showed extensive patchy bilateral airspace disease compatible with pneumonia, mediastinal lymphadenopathy, likely reactive, small pleural effusions. -patient status post course azithromycin, ceftriaxone, vancomycin. Cultures negative -11/[address] IMPRESSION: Mild right and slight left pleural effusion with associated bilateral lower lobe dependent atelectasis with air bronchograms, right greater than left Trace pericardial effusion Anemia is suggested Tracheostomy tube - chest x-ray reviewed -ABG reviewed. -patient did get a tracheostomy done on 11/05/2021. -PEG tube placed on 11/06/2021 -continue Seroquel, clonazepam, mirtazapine - Lidoderm patch ordered chest to help with pain from trauma from CPR - tolerating 5/8 pressure support. Continue as tolerated -continue bronchodilators - continue Lasix (2) Fever: Code(s): R50.9 - Fever, unspecified Status: Acute Assessment and Plan: 11/05/2021 Worsening leukocytosis with worsening airspace opacities in the right lower lung. Worsening ABGs -will switch cefepime to aztreonam (11/05), continue vancomycin (11/01) -leukocytosis improving, -purulent discharge from tracheal stoma suggests tracheitis -11/06/2021: Sputum cultures MRSA - sensitive to vancomycin -11/05/2021: Urine cultures no growth -11/05/2021: Blood cultures negative x2 so far -continue vancomycin for 14 days. Patient now off of aztreonam 10/23/2021: CTA chest showed extensive patchy bilateral airspace disease compatible with pneumonia, mediastinal lymphadenopathy, likely reactive, small pleural effusion patient completed a 7 day course of azithromycin, ceftriaxone (initiated on 10/23/2020) 10/31 CT Sinuses IMPRESSION: 1. Mild mucosal thickening in left maxillary sinus. 2. Leftward deviation of the nasal septum. CT C/A/P 10/31/2021 IMPRESSION: 1. Small pleural effusions, right worse than left, worsened from 10/23/21. 2. Mild pulmonary edema. 3. Nasogastric tube tip in the proximal duodenum. 4. Small pericardial effusion. 5. Mild mediastinal lymphadenopathy, likely reactive. 6. New gallbladder distention, which may secondary to fasting. (3) Cardiopulmonary arrest with successful resuscitation: Code(s): I46.9 - Cardiac arrest, cause unspecified Status: Acute Assessment and Plan: Patient with cardiopulmonary arrest with successful ROSC after 1 round of epinephrine and 1 amp of bicarb along with CPR. -patient was following commands post ROSC, not a candidate for targeted temperature management/hypothermia -could be multifactorial, proxy a versus coronary artery disease/NSTEMI versus severe anemia. -troponins are elevated, -patient currently hemodynamically stable ECHO Summary 1. Left ventricular chamber dimension is normal. 2. Left ventricular systolic function is normal, estimated at >70%. 3. There is no increased left ventricular wall thickness. 4. Left ventricular septal wall motion is normal. 5. The left ventricular diastolic function is grade II diastolic dysfunction. 6. Right ventricular chamber dimension is normal. 7. Right ventricular systolic function is normal. 8. Left atrial chamber dimension is severely enlarged. 9. There is mild to moderate mitral valve regurgitation. (4) Chest pain: Qualifiers: Chest pain type: unspecified Qualified Code(s): R07.9 - Chest pain, unspecified Code(s
[2021-11-16] MEDS: LORazepam INJ (*CRX) 2 MG/ML VIAL IV PUSH ×3 (11:29→14:24)
[2021-11-16 12:27] LABS: Glucose Point of Care 155 mg/dl (65-105)
--- NOTE | 2021-11-16 13:03 | PM.PNPUL ---
Progress Note: A&P Assessment and Plan (1) Ventilator dependence: Code(s): Z99.11 - Dependence on respirator [ventilator] status Status: Acute Assessment and Plan: 66-year-old female, intubated via tracheostomy following cardiac arrest with successful CPR, has bilateral pleural effusions greater on right related to congestive heart failure, also atelectasis right lower lobe related to right pleural effusion, on antibiotic treatment for positive MRSA in sputum, with mild abdominal paradox during spontaneous breathing related to right pleural effusion and sternal nondisplaced fracture. The patient's ventilator dependence is primarily related to congestive heart failure with bilateral pleural effusions, right lower lobe partial atelectasis and possibly to sternal fracture. I would continue with gentle diuresis. Patient also on antibiotics for MRSA in sputum. Patient is not weanable at this point. Plans are to transfer patient to a chronic ventilator unit. we will sign off. Call with new questions. (2) CHF (congestive heart failure): Qualifiers: Heart failure type: unspecified Heart failure chronicity: unspecified Qualified Code(s): I50.9 - Heart failure, unspecified Code(s): I50.9 - Heart failure, unspecified Status: Acute (3) Acute respiratory failure: Qualifiers: Respiratory failure complication: unspecified whether with hypoxia or hypercapnia Qualified Code(s): J96.00 - Acute respiratory failure, unspecified whether with hypoxia or hypercapnia Code(s): J96.00 - Acute respiratory failure, unspecified whether with hypoxia or hypercapnia Status: Acute (4) Cardiopulmonary arrest with successful resuscitation: Code(s): I46.9 - Cardiac arrest, cause unspecified Status: Acute (5) Pleural effusion: Code(s): J90 - Pleural effusion, not elsewhere classified Status: Acute (6) Atelectasis, right: Code(s): J98.11 - Atelectasis Status: Acute Subjective Date/time seen: 11/16/21 13:03 No significant change in respiratory status. Patient on a weaning trial this a.m. still with abdominal paradox while on spontaneous breathing with pressure support. Complaining of mild chest pain. Review of Systems Review of Systems: All systems reviewed & are unremarkable except as noted in HPI and below ROS unobtainable: Yes other (Tracheostomy in place) Exam Narrative: GENERAL APPEARANCE: Well developed, well nourished, alert and cooperative, intubated via tracheostomy tube, appears to be in mild respiratory distress while on weaning trial HEENT: Sclerae anicteric and conjunctivae pink and moist. Extraocular movements were intact and pupils were equal. NECK: Supple. Erythematous changes and mild yellowish discharge around the tracheostomy tube. LUNGS: Rhonchi anteriorly. No wheezing CARDIAC: There was a regular rate and rhythm; 3/6 holosystolic murmur ABDOMEN: Soft and nontender with normal bowel sounds; no organomegaly. LYMPH NODES: No lymphadenopathy was appreciated in the neck. EXTREMITIES: No cyanosis, clubbing. NEUROLOGIC: Alert and cooperative, answering questions, moving all extremities. Objective Data Vital Signs Vital Signs: Vital Signs - 24 hr 11/15/21 14:00 11/15/21 14:30 11/15/21 16:00 Temperature 37.3 C 37.3 C Pulse Rate 84 87 89 Respiratory Rate 17 18 Blood Pressure 125/57 L 136/61 Pulse Oximetry 100 100 96 11/15/21 17:08 11/15/21 18:00 11/15/21 20:00 Temperature 37.1 C Pulse Rate 86 88 82 Respiratory Rate 15 20 Blood Pressure 127/58 L 134/53 L Pulse Oximetry 100 100 100 11/15/21 20:11 11/15/21 21:19 11/15/21 22:00 Temperature Pulse Rate 88 92 85 Respiratory Rate 20 Blood Pressure 126/54 L Pulse Oximetry 100 100 11/15/21 23:15 11/16/21 00:00 11/16/21 02:00 Temperature 37.4 C Pulse Rate 74 88 84 Respiratory Rate 22 H 16 Blood Pressure 126/57 L 111/56 L Pulse Oximet
[2021-11-16 14:18] LABS: Triglycerides 121 mg/dL (<150)
[2021-11-16] MEDS: fentaNYL CITRATE INJ (*CRX) 100 MCG/2 ML VIAL 50 MCG IV PUSH (14:24)
[2021-11-16 16:48] LABS: Glucose Point of Care 124 mg/dl (65-105)
--- NOTE | 2021-11-16 17:22 | PM.IMPN ---
Progress Note: A&P Assessment and Plan (1) Acute respiratory failure: Qualifiers: Respiratory failure complication: unspecified whether with hypoxia or hypercapnia Qualified Code(s): J96.00 - Acute respiratory failure, unspecified whether with hypoxia or hypercapnia Code(s): J96.00 - Acute respiratory failure, unspecified whether with hypoxia or hypercapnia Status: Acute Assessment and Plan: Acute respiratory failure related to cardiac arrest and PNA. CTA chest on admission showed extensive patchy bilateral airspace disease compatible with pneumonia. COVID swab was negative. Patient was started on IV abx. She failed multiple breathing trials thus requiring trach (11/05) an PEG (11/06) placement. Left UE Doppler 10/29 showing no DVT but thrombosed left basilic and cephalic veins (PICC was in the right arm). [place] that patient is too anxious due to her anxiety/depression. Home medications advanced to be closer to her home doses. Able to wean off sedation. Plan to move to LTAC when able. Appreciate information consultant input. (2) Cardiopulmonary arrest with successful resuscitation: Code(s): I46.9 - Cardiac arrest, cause unspecified Status: Acute Assessment and Plan: Patient with cardiopulmonary arrest with successful ROSC after 1 round of epinephrine and 1 amp of bicarb along with CPR. Patient was following commands post ROSC so was not a candidate for targeted temperature management/hypothermia. Etiology could be multifactorial related to the sepsis/PNA, profound anemia and/or underlying CAD with ischemia. Troponins elevated to 0.148. Echo not showing any WM abnormalities. Cardiology following along and appreciate their input. Continue tele. Continue ASA, Lipitor and Lopressor. Consider ischemic workup but defer to Cardiology. (3) Sepsis: Code(s): A41.9 - Sepsis, unspecified organism Status: Acute Assessment and Plan: Patient presents with chest pain and found to have tachycardia, tachypnea, leukocytosis, lactic acidosis and now fevers. Sepsis present on admission related to PNA. BCx negative. COVID swab negative. Was on abx x 7 days then stopped. Was having recurrent fevers and WBC elevation so Cefepime and Vanco added 11/01 (changed to Aztreonam 11/05). BCx 10/23, 10/30 and 11/05 negative. Sputum growing MRSA 11/06. Continue IV abx. (4) Rib fractures: Code(s): S22.49XA - Multiple fractures of ribs, unspecified side, initial encounter for closed fracture Status: Acute Assessment and Plan: There are fractures of the anterior right second, third, fourth, fifth, sixth, and seventh ribs. There are fractures of the anterior left third, fourth, fifth, and sixth ribs. The disruption of the sternum on the sagittal images is likely motion artifact and not a fracture. Lidoderm patch to the chest wall in place. (5) Pneumonia: Code(s): J18.9 - Pneumonia, unspecified organism Status: Acute Assessment and Plan: Chest x-ray on admission showing cardiomegaly with interstitial edema but cannot exclude superimposed pneumonia. CTA chest 10/23 showing extensive patchy bilateral airspace disease compatible with pneumonia and small pleural effusion. Started on Rocephin/Azithromycin 10/23 and Vanco added 10/24. BCx 10/23 negative. Sputum 10/25 and 10/30 negative. BCx 10/30 negative. Vancomycin stopped 10/27. Rocephin and Azithro stopped 10/30 after 7 days. Abx resumed on 11/01 with Vanco and Cefepime due to persistent fevers and elevated WBC (changed from Cefepime to Aztreonam 11/05). WBC was up to 20K but normalized. BCx 11/05 negative. UCx negative. Still with fevers. Sputum 11/06 growing MRSA. Continue IV abx with Vanco. Follow. (6) NSTEMI (non-ST elevated myocardial infarction): Code(s): I21.4 - Non-ST elevation (NSTEMI) myocardial infarction Status: Acute Assessment and Plan: Patient presented with chest pain, SOB and nausea. Trop as high as 0.148. EKG
[2021-11-16 19:55] LABS: Glucose Point of Care 105 mg/dl (65-105)
[2021-11-16] MEDS: DULoxetine HCL 60 MG CAPSULE.DR PO (20:06)
[2021-11-16] MEDS: MIRTAZAPINE 30 MG TABLET PO (20:07)
[2021-11-16 23:23] LABS: Vancomycin Trough 15.8 ug/mL (10.0-20.0)
[2021-11-16 23:44] LABS: Glucose Point of Care 130 mg/dl (65-105)
[2021-11-17] VITALS (23 sets, daily range): BP systolic 103–170; BP diastolic 51–77; PULSE 80–112; RESP 15–31; TEMP 36.2–37.5; O2SAT 90–100
--- NOTE | 2021-11-17 01:57 | PC.NURSE ---
0150 Vanc. trough 15.8. orders from pharmacy to give 2300 dose of vancomycin 1 gram
[2021-11-17] MEDS: LORazepam INJ (*CRX) 2 MG/ML VIAL IV PUSH (04:19)
[2021-11-17 04:32] LABS: Glucose Point of Care 201 mg/dl (65-105)
[2021-11-17] MEDS: INSULIN ASPART (*BKC) 100 UNITS/ML SUB-Q (04:32)
[2021-11-17 04:35] LABS: Hematocrit 27.2 % (37.0-47.0); Mean Corpuscular HGB Conc 29.4 g/dl (32-36); Mean Corpuscular Hemoglobin 27.5 pg (26-34); Mean Corpuscular Volume 93.5 fl (80-100); Mean Platelet Volume 11.6 fl (7.4-10.4); Platelet Count Result 433 k/mm3 (150-375); Red Blood Count 2.91 M/mm3 (4.2-5.4); White Blood Count 14.7 K/mm3 (4.5-10.0)
[2021-11-17 04:47] LABS: Alanine Aminotransferase 36 U/L (4-35); Albumin Level 3.1 g/dL (3.5-5.1); Alkaline Phosphatase 168 U/L (38-126); Anion Gap 4 mmol/L (8-16); Aspartate Amino Transferase 43 U/L (14-36); Bilirubin,Total 0.3 mg/dL (0.2-1.3); Blood Urea Nitrogen 26 mg/dL (7-17); Carbon Dioxide 33 mmol/L (22-30); Chloride 101 mmol/L (98-107); Estimated CRCL calculation 86 ml/min; Estimated Glomerular Filt Rate > 60; Glucose 223 mg/dL (65-110); Magnesium 2.2 mg/dL (1.6-2.3); Potassium 4.4 mmol/L (3.4-5.0); Sodium 138 mmol/L (137-145)
[2021-11-17 05:34] LABS: Alveolar/Arterial O2 Gradient 42.1 mmHg; Base Excess ABG 7.7 mEq/l (+/-2.0); Carboxyhemoglobin 0.3 % THb (0-2.0); Fractional Inspired Oxygen 25 %; HCO3 ABG 33.1 mEq/l (22.0-26.0); Methemoglobin ABG 0.4 %THb (0-1.5); Oxyhemoglobin 92.6 % THb (90.0-100.0); PO2 ABG 74.4 mmHg (80.0-100.0); PO2 FiO2 Ratio Arterial Blood 2.98 %; Reduced Hemoglobin 6.7 %THb (0-5.0); Total Hemoglobin 8.4 g/dL (12.0-18.0); pH ABG 7.422 (7.350-7.450)
[2021-11-17 05:44] LABS: Arterial Blood Gas Vent Mode SPONTANEOUS; Device VENTILATOR; Modified Allen's Test Unable to perform; Site Drawn LEFT RADIAL
[2021-11-17 05:45] LABS: Arterial Blood Gas PEEP 8 cmH2O; Arterial Blood Gas Pressure Support 5 cmH2O
[2021-11-17 08:52] LABS: Glucose Point of Care 141 mg/dl (65-105)
[2021-11-17] MEDS: clonazePAM (*CRX) 0.5 MG TABLET 1 MG PO ×3 (08:53→17:19)
[2021-11-17] MEDS: FUROSEMIDE INJ 40 MG/4 ML VIAL IV PUSH (08:53)
[2021-11-17] MEDS: QUEtiapine FUMARATE 25 MG TABLET 50 MG PO ×2 (08:54→20:00)
[2021-11-17] MEDS: INSULIN GLARGINE (*BKC) 100 UNITS/ML 60 UNITS SUB-Q (08:54)
[2021-11-17] MEDS: MINERAL OIL/WHITE PETROLATUM OINTMENT 1 APPLIC EACH EYE ×2 (08:54→20:00)
[2021-11-17] MEDS: lisinopriL 20 MG TABLET 40 MG PO (08:54)
[2021-11-17] MEDS: ASPIRIN 81 MG CHEWABLE TABLET FEED TUBE (08:55)
[2021-11-17] MEDS: QUEtiapine FUMARATE 100 MG TABLET PO ×2 (08:55→20:00)
[2021-11-17] MEDS: ATORVASTATIN 40 MG TABLET FEED TUBE (08:55)
[2021-11-17] MEDS: LIDOCAINE 5% PATCH 1 PATCH TRANSDERM (08:55)
[2021-11-17] MEDS: METOPROLOL TARTRATE 25 MG TABLET PO ×2 (08:55→19:59)
[2021-11-17] MEDS: PANTOPRAZOLE SODIUM IV 40 MG VIAL IV PUSH ×2 (08:55→20:00)
[2021-11-17] MEDS: DULoxetine HCL 60 MG CAPSULE.DR PO ×2 (08:55→20:00)
--- NOTE | 2021-11-17 10:44 | WPDINTPN ---
Progress Note: A&P Assessment and Plan (1) Acute respiratory failure: Qualifiers: Respiratory failure complication: unspecified whether with hypoxia or hypercapnia Qualified Code(s): J96.00 - Acute respiratory failure, unspecified whether with hypoxia or hypercapnia Code(s): J96.00 - Acute respiratory failure, unspecified whether with hypoxia or hypercapnia Status: Acute Assessment and Plan: Acute respiratory failure likely related to cardiac arrest -intubated 10/23/2021 10/23/2021: CTA chest abdomen and pelvis showed extensive patchy bilateral airspace disease compatible with pneumonia, mediastinal lymphadenopathy, likely reactive, small pleural effusions. -patient status post course azithromycin, ceftriaxone, vancomycin. Cultures negative -11/[address] IMPRESSION: Mild right and slight left pleural effusion with associated bilateral lower lobe dependent atelectasis with air bronchograms, right greater than left Trace pericardial effusion Anemia is suggested Tracheostomy tube - chest x-ray reviewed -ABG reviewed. -patient did get a tracheostomy done on 11/05/2021. -PEG tube placed on 11/06/2021 -continue Seroquel, clonazepam, mirtazapine - Lidoderm patch ordered chest to help with pain from trauma from CPR - tolerating 5/8 pressure support. Continue as tolerated. Not on any sedation -continue bronchodilators - continue Lasix (2) Fever: Code(s): R50.9 - Fever, unspecified Status: Acute Assessment and Plan: - purulent discharge from tracheal stoma suggests tracheitis -11/06/2021: Sputum cultures MRSA - sensitive to vancomycin -11/05/2021: Urine cultures no growth -11/05/2021: Blood cultures negative x2 so far -continue vancomycin for 14 days. Patient now off of aztreonam Afebrile at this time 10/23/2021: CTA chest showed extensive patchy bilateral airspace disease compatible with pneumonia, mediastinal lymphadenopathy, likely reactive, small pleural effusion patient completed a 7 day course of azithromycin, ceftriaxone (initiated on 10/23/2020) 10/31 CT Sinuses IMPRESSION: 1. Mild mucosal thickening in left maxillary sinus. 2. Leftward deviation of the nasal septum. CT C/A/P 10/31/2021 IMPRESSION: 1. Small pleural effusions, right worse than left, worsened from 10/23/21. 2. Mild pulmonary edema. 3. Nasogastric tube tip in the proximal duodenum. 4. Small pericardial effusion. 5. Mild mediastinal lymphadenopathy, likely reactive. 6. New gallbladder distention, which may secondary to fasting. (3) Cardiopulmonary arrest with successful resuscitation: Code(s): I46.9 - Cardiac arrest, cause unspecified Status: Acute Assessment and Plan: Patient with cardiopulmonary arrest with successful ROSC after 1 round of epinephrine and 1 amp of bicarb along with CPR. -patient was following commands post ROSC, not a candidate for targeted temperature management/hypothermia -could be multifactorial, proxy a versus coronary artery disease/NSTEMI versus severe anemia. -troponins are elevated, -patient currently hemodynamically stable ECHO Summary 1. Left ventricular chamber dimension is normal. 2. Left ventricular systolic function is normal, estimated at >70%. 3. There is no increased left ventricular wall thickness. 4. Left ventricular septal wall motion is normal. 5. The left ventricular diastolic function is grade II diastolic dysfunction. 6. Right ventricular chamber dimension is normal. 7. Right ventricular systolic function is normal. 8. Left atrial chamber dimension is severely enlarged. 9. There is mild to moderate mitral valve regurgitation. (4) Chest pain: Qualifiers: Chest pain type: unspecified Qualified Code(s): R07.9 - Chest pain, unspecified Code(s): R07.9 - Chest pain, unspecified Status: Acute Assessment and Plan: NSTEMI Patient presented with chest pain, shortness of breath, nausea with n
--- NOTE | 2021-11-17 11:16 | PCNFU ---
Nutrition Follow-Up Complete: Inadequate Oral Intake as related to mechanical vent as evidenced by NPO. Goal: meet estimated nutritional needs Patient is progressing towards goal. We will continue current goal. Pt current nutrition is Glucerna 1.2 at 70 ml/hr over 22 hours. Last recorded weight is 67.8 kg, down from 71.3 kg on admit. Bowel Motility:+BM reported 11/16 Labs Reviewed:Glu 223, BUN 26, Cr 0.5,Alb 3.1,Hct 27.2,Hgb 8.0 Meds Noted:Seroquel, Protonix, Lopressor, Klonopin, Vit B12, Novolog, Lantus, Cymbalta, Lipitor Skin: WNL Additional Notes: Patient current with Trach/PEG. Tolerating tube feedings of Glucerna 1.2 at 70 ml/hr over 22 hours providing 1848 kcals/79 gms protein/79 gms protein/1240 ml water. Free water flush 30 ml q 4 hours. Agree with diet orders. Will monitor ICU rounds, reassessing every Tuesday and Tuesday.
[2021-11-17 11:43] LABS: Glucose Point of Care 192 mg/dl (65-105)
[2021-11-17 17:19] LABS: Glucose Point of Care 128 mg/dl (65-105)
--- NOTE | 2021-11-17 17:30 | PM.IMPN ---
Progress Note: A&P Assessment and Plan (1) Acute respiratory failure: Qualifiers: Respiratory failure complication: unspecified whether with hypoxia or hypercapnia Qualified Code(s): J96.00 - Acute respiratory failure, unspecified whether with hypoxia or hypercapnia Code(s): J96.00 - Acute respiratory failure, unspecified whether with hypoxia or hypercapnia Status: Acute Assessment and Plan: Acute respiratory failure related to cardiac arrest and PNA. CTA chest on admission showed extensive patchy bilateral airspace disease compatible with pneumonia. COVID swab was negative. Patient was started on IV abx. She failed multiple breathing trials thus requiring trach (11/05) an PEG (11/06) placement. Left UE Doppler 10/29 showing no DVT but thrombosed left basilic and cephalic veins (PICC was in the right arm). [place] that patient is too anxious due to her anxiety/depression. Home medications resumed. Able to wean off sedation. Plan to move to LTAC when able. Appreciate associate professor of church music input. (2) Cardiopulmonary arrest with successful resuscitation: Code(s): I46.9 - Cardiac arrest, cause unspecified Status: Acute Assessment and Plan: Patient with cardiopulmonary arrest with successful ROSC after 1 round of epinephrine and 1 amp of bicarb along with CPR. Patient was following commands post ROSC so was not a candidate for targeted temperature management/hypothermia. Etiology could be multifactorial related to the sepsis/PNA, profound anemia and/or underlying CAD with ischemia. Troponins elevated to 0.148. Echo not showing any WM abnormalities. Cardiology following along and appreciate their input. Continue tele. Continue ASA, Lipitor and Lopressor. Appreciate Cardiology input. (3) Sepsis: Code(s): A41.9 - Sepsis, unspecified organism Status: Acute Assessment and Plan: Patient presents with chest pain and found to have tachycardia, tachypnea, leukocytosis, lactic acidosis and now fevers. Sepsis present on admission related to PNA. BCx negative. COVID swab negative. Was on abx x 7 days then stopped. Was having recurrent fevers and WBC elevation so Cefepime and Vanco added 11/01 (changed to Aztreonam 11/05). BCx 10/23, 10/30 and 11/05 negative. Sputum growing MRSA 11/06. Continue IV abx. (4) Rib fractures: Code(s): S22.49XA - Multiple fractures of ribs, unspecified side, initial encounter for closed fracture Status: Acute Assessment and Plan: There are fractures of the anterior right second, third, fourth, fifth, sixth, and seventh ribs. There are fractures of the anterior left third, fourth, fifth, and sixth ribs. The disruption of the sternum on the sagittal images is likely motion artifact and not a fracture. Lidoderm patch to the chest wall in place. (5) Pneumonia: Code(s): J18.9 - Pneumonia, unspecified organism Status: Acute Assessment and Plan: Chest x-ray on admission showing cardiomegaly with interstitial edema but cannot exclude superimposed pneumonia. CTA chest 10/23 showing extensive patchy bilateral airspace disease compatible with pneumonia and small pleural effusion. Started on Rocephin/Azithromycin 10/23 and Vanco added 10/24. BCx 10/23 negative. Sputum 10/25 and 10/30 negative. BCx 10/30 negative. Vancomycin stopped 10/27. Rocephin and Azithro stopped 10/30 after 7 days. Abx resumed on 11/01 with Vanco and Cefepime due to persistent fevers and elevated WBC (changed to Vanco and Aztreonam 11/05). WBC was up to 20K. BCx 11/05 negative. UCx negative. Sputum 11/06 growing MRSA. Fevers waning but WBC higher today. Continue IV abx with Vanco. Follow. (6) NSTEMI (non-ST elevated myocardial infarction): Code(s): I21.4 - Non-ST elevation (NSTEMI) myocardial infarction Status: Acute Assessment and Plan: Patient presented with chest pain, SOB and nausea. Trop as high as 0.148. EKG showing possible LAE but no acute ST changes. NSTEMI pe
[2021-11-17 19:58] LABS: Glucose Point of Care 149 mg/dl (65-105)
[2021-11-17] MEDS: MIRTAZAPINE 30 MG TABLET PO (20:00)
[2021-11-17 23:19] LABS: Glucose Point of Care 134 mg/dl (65-105)
[2021-11-18] VITALS (9 sets, daily range): BP systolic 148–174; BP diastolic 68–98; PULSE 76–112; RESP 16–28; TEMP 36.2; O2SAT 99–100
[2021-11-18] MEDS: LORazepam INJ (*CRX) 2 MG/ML VIAL IV PUSH ×2 (01:36→06:09)
[2021-11-18] MEDS: hydrALAZINE HCL 20 MG/ML VIAL 10 MG IV PUSH (03:33)
[2021-11-18 04:54] LABS: Alanine Aminotransferase 31 U/L (4-35); Albumin Level 3.1 g/dL (3.5-5.1); Alkaline Phosphatase 167 U/L (38-126); Anion Gap 4 mmol/L (8-16); Aspartate Amino Transferase 29 U/L (14-36); Bilirubin,Total 0.3 mg/dL (0.2-1.3); Blood Urea Nitrogen 22 mg/dL (7-17); Calcium 9.1 mg/dL (8.4-10.2); Carbon Dioxide 32 mmol/L (22-30); Chloride 101 mmol/L (98-107); Estimated CRCL calculation 83 ml/min; Estimated Glomerular Filt Rate > 60; Glucose 221 mg/dL (65-110); Magnesium 2.1 mg/dL (1.6-2.3); Potassium 4.1 mmol/L (3.4-5.0); Sodium 137 mmol/L (137-145)
[2021-11-18 05:30] LABS: Alveolar/Arterial O2 Gradient 54.1 mmHg; Base Excess ABG 6.9 mEq/l (+/-2.0); Carboxyhemoglobin 0.1 % THb (0-2.0); Fractional Inspired Oxygen 25 %; HCO3 ABG 30.2 mEq/l (22.0-26.0); Methemoglobin ABG 0.3 %THb (0-1.5); Oxygen Content ABG 12.3 %vol (16.0-22.0); Oxygen Saturation ABG 96.8 % (95.0-100.0); PCO2 ABG 37.8 mmHg (35.0-45.0); PO2 ABG 79.3 mmHg (80.0-100.0); PO2 FiO2 Ratio Arterial Blood 3.17 %; Reduced Hemoglobin 4.6 %THb (0-5.0); Total Hemoglobin 9.1 g/dL (12.0-18.0)
[2021-11-18 05:32] LABS: Arterial Blood Gas PEEP 8 cmH2O; Arterial Blood Gas Pressure Support 5 cmH2O; Arterial Blood Gas Vent Mode SPONTANEOUS; Device VENTILATOR; Modified Allen's Test Pass; Site Drawn RIGHT RADIAL
[2021-11-18] MEDS: ACETAMINOPHEN ELIXIR 325 MG/10.15 ML UDC 650 MG PO (05:40)
[2021-11-18 06:21] LABS: Hematocrit 26.8 % (37.0-47.0); Hemoglobin 7.9 g/dL (12.0-15.0); Mean Corpuscular HGB Conc 29.5 g/dl (32-36); Mean Corpuscular Hemoglobin 27.6 pg (26-34); Mean Corpuscular Volume 93.7 fl (80-100); Mean Platelet Volume 12.3 fl (7.4-10.4); Platelet Count Result 412 k/mm3 (150-375); Red Blood Count 2.86 M/mm3 (4.2-5.4); White Blood Count 10.7 K/mm3 (4.5-10.0)
[2021-11-18] MEDS: INSULIN ASPART (*BKC) 100 UNITS/ML SUB-Q ×2 (06:49→10:04)
[2021-11-18 07:53] LABS: Glucose Point of Care 256 mg/dl (65-105)
[2021-11-18] MEDS: ASPIRIN 81 MG CHEWABLE TABLET FEED TUBE (09:33)
[2021-11-18] MEDS: lisinopriL 20 MG TABLET 40 MG PO (09:33)
[2021-11-18] MEDS: MINERAL OIL/WHITE PETROLATUM OINTMENT 1 APPLIC EACH EYE (09:33)
[2021-11-18] MEDS: ATORVASTATIN 40 MG TABLET FEED TUBE (09:33)
[2021-11-18] MEDS: PANTOPRAZOLE SODIUM IV 40 MG VIAL IV PUSH (09:33)
[2021-11-18] MEDS: QUEtiapine FUMARATE 25 MG TABLET 50 MG PO (09:33)
[2021-11-18] MEDS: METOPROLOL TARTRATE 25 MG TABLET PO (09:33)
[2021-11-18] MEDS: QUEtiapine FUMARATE 100 MG TABLET PO (09:34)
[2021-11-18] MEDS: clonazePAM (*CRX) 0.5 MG TABLET 1 MG PO (09:42)
[2021-11-18] MEDS: INSULIN GLARGINE (*BKC) 100 UNITS/ML 60 UNITS SUB-Q (10:04)
--- NOTE | 2021-11-18 10:35 | PM.DS ---
DS: Admitting Diagnosis Discharge Date 11/18/21 Admitting Diagnosis Chest pain DS: Discharge Diagnosis Discharge Diagnosis (1) Acute respiratory failure: Qualifiers: Respiratory failure complication: unspecified whether with hypoxia or hypercapnia Qualified Code(s): J96.00 - Acute respiratory failure, unspecified whether with hypoxia or hypercapnia Code(s): J96.00 - Acute respiratory failure, unspecified whether with hypoxia or hypercapnia Status: Acute Assessment and Plan: Patient with acute respiratory failure related to cardiac arrest and PNA. CTA chest on admission showed extensive patchy bilateral airspace disease compatible with pneumonia. COVID swab was negative. Patient was started on IV abx. She required intubation. She failed multiple breathing trials thus requiring trach (11/05) an PEG (11/06) placement. Left UE Doppler 10/29 showing no DVT but thrombosed left basilic and cephalic veins (PICC was in the right arm). [place] that patient is too anxious due to her anxiety/depression. Home medications resumed. Able to wean off sedation. Plan to move to LTAC today (2) Cardiopulmonary arrest with successful resuscitation: Code(s): I46.9 - Cardiac arrest, cause unspecified Status: Acute Assessment and Plan: Patient with in-hospital cardiopulmonary arrest with successful ROSC after 1 round of epinephrine and 1 amp of bicarb along with CPR. Patient was following commands post ROSC so was not a candidate for targeted temperature management/hypothermia. Etiology could be multifactorial related to the sepsis/PNA, profound anemia and/or underlying CAD with ischemia. Troponins elevated to 0.148. Echo did not show any WM abnormalities. Cardiology followed along and appreciate their input. Treated with ASA, Lipitor and Lopressor. (3) Sepsis: Code(s): A41.9 - Sepsis, unspecified organism Status: Acute Assessment and Plan: Patient presents with chest pain and found to have tachycardia, tachypnea, leukocytosis, lactic acidosis and fevers. Sepsis present on admission related to PNA. BCx negative. COVID swab negative. Was on abx x 7 days then stopped. Was having recurrent fevers and WBC elevation so Cefepime and Vanco added 11/01 (changed to Aztreonam 11/05). BCx 10/23, 10/30 and 11/05 negative. Sputum growing MRSA 11/06. Remains on antibiotics. (4) Rib fractures: Code(s): S22.49XA - Multiple fractures of ribs, unspecified side, initial encounter for closed fracture Status: Acute Assessment and Plan: There are fractures of the anterior right second, third, fourth, fifth, sixth, and seventh ribs. There are fractures of the anterior left third, fourth, fifth, and sixth ribs by CXR. The disruption of the sternum on the sagittal images is likely motion artifact and not a fracture. Lidoderm patch to the chest wall in place. (5) Pneumonia: Code(s): J18.9 - Pneumonia, unspecified organism Status: Acute Assessment and Plan: Chest x-ray on admission showing cardiomegaly with interstitial edema but cannot exclude superimposed pneumonia. CTA chest 10/23 showing extensive patchy bilateral airspace disease compatible with pneumonia and small pleural effusion. Started on Rocephin/Azithromycin 10/23 and Vanco added 10/24. BCx 10/23 negative. Sputum 10/25 and 10/30 negative. BCx 10/30 negative. Vancomycin stopped 10/27. Rocephin and Azithro stopped 10/30 after 7 days. Abx resumed on 11/01 with Vanco and Cefepime due to persistent fevers and elevated WBC (changed to Vanco and Aztreonam 11/05). WBC was up to 20K. BCx 11/05 negative. UCx negative. Sputum 11/06 growing MRSA. Fevers waning but WBC better. Continue IV abx with Vanco. (6) NSTEMI (non-ST elevated myocardial infarction): Code(s): I21.4 - Non-ST elevation (NSTEMI) myocardial infarction Status: Acute Assessment and Plan: Patient presented with chest pain, SOB and nausea. Trop as hi
--- NOTE | 2021-11-18 15:34 | P.PNINT_ITS ---
Progress Note: A&P Assessment and Plan (1) Acute respiratory failure: Qualifiers: Respiratory failure complication: unspecified whether with hypoxia or hypercapnia Qualified Code(s): J96.00 - Acute respiratory failure, unspecified whether with hypoxia or hypercapnia Code(s): J96.00 - Acute respiratory failure, unspecified whether with hypoxia or hypercapnia Status: Acute Assessment and Plan: Acute respiratory failure likely related to cardiac arrest -intubated 10/23/2021 10/23/2021: CTA chest abdomen and pelvis showed extensive patchy bilateral airspace disease compatible with pneumonia, mediastinal lymphadenopathy, likely reactive, small pleural effusions. -patient status post course azithromycin, ceftriaxone, vancomycin. Cultures negative -11/[address] IMPRESSION: Mild right and slight left pleural effusion with associated bilateral lower lobe dependent atelectasis with air bronchograms, right greater than left Trace pericardial effusion Anemia is suggested Tracheostomy tube - chest x-ray and ABG reviewed. - tracheostomy done on 11/05/2021. -PEG tube placed on 11/06/2021 -continue Seroquel, clonazepam, mirtazapine - Lidoderm patch ordered chest to help with pain from trauma from CPR - tolerating 5/8 pressure support. Continue as tolerated. Not on any sedation -continue bronchodilators - continue Lasix (2) Fever: Code(s): R50.9 - Fever, unspecified Status: Acute Assessment and Plan: - purulent discharge from tracheal stoma suggests tracheitis -11/06/2021: Sputum cultures MRSA - sensitive to vancomycin -11/05/2021: Urine cultures no growth -11/05/2021: Blood cultures negative x2 so far -continue vancomycin for 14 days. Patient now off of aztreonam Afebrile at this time 10/23/2021: CTA chest showed extensive patchy bilateral airspace disease compatible with pneumonia, mediastinal lymphadenopathy, likely reactive, small pleural effusion patient completed a 7 day course of azithromycin, ceftriaxone (initiated on 10/23/2020) 10/31 CT Sinuses IMPRESSION: 1. Mild mucosal thickening in left maxillary sinus. 2. Leftward deviation of the nasal septum. CT C/A/P 10/31/2021 IMPRESSION: 1. Small pleural effusions, right worse than left, worsened from 10/23/21. 2. Mild pulmonary edema. 3. Nasogastric tube tip in the proximal duodenum. 4. Small pericardial effusion. 5. Mild mediastinal lymphadenopathy, likely reactive. 6. New gallbladder distention, which may secondary to fasting. (3) Cardiopulmonary arrest with successful resuscitation: Code(s): I46.9 - Cardiac arrest, cause unspecified Status: Acute Assessment and Plan: Patient with cardiopulmonary arrest with successful ROSC after 1 round of epinephrine and 1 amp of bicarb along with CPR. -patient was following commands post ROSC, not a candidate for targeted t emperature management/hypothermia -could be multifactorial, proxy a versus coronary artery disease/NSTEMI versus severe anemia. -troponins are elevated, -patient currently hemodynamically stable ECHO Summary 1. Left ventricular chamber dimension is normal. 2. Left ventricular systolic function is normal, estimated at >70%. 3. There is no increased left ventricular wall thickness. 4. Left ventricular septal wall motion is normal. 5. The left ventricular diastolic function is grade II diastolic dysfunction. 6. Right ventricular chamber dimension is normal. 7. Right ventricular systolic function is normal. 8. Left atrial chamber dimension is severely enlarged. 9. Ther
== END 2021-11-18 10:57 | DRG 4 ==
LOC: ANHED 12:26 → ANH3MEDSUR 13:27 → ANHICU 17:13 → ANHIMU 11-18 08:35
PROVIDERS: Internal Medicine; Internal Medicine Gastroenterology; Internal Medicine Hematology & Oncology; Otolaryngology; Physician Assistant; Admitting Provider Internal Medicine; Emergency Provider Emergency Medicine; PCP Family Medicine; Visit Provider Internal Medicine
PROC: 0DJ08ZZ Inspection of Upper Intestinal Tract, Via Natural or Artificial Opening Endoscopic (ICD-10-PCS; CPT 43235; principal; 2021-10-27 14:15)
PROC: 0B110F4 Bypass Trachea to Cutaneous with Tracheostomy Device, Open Approach (ICD-10-PCS; principal; 2021-11-05 09:30)
PROC: 0DH63UZ Insertion of Feeding Device into Stomach, Percutaneous Approach (ICD-10-PCS; CPT 43246; 2021-11-06 14:45)
DX: A41.9 Sepsis, unspecified organism (principal); I46.9 Cardiac arrest, cause unspecified; J96.00 Acute respiratory failure, unspecified whether with hypoxia or hypercapnia; I21.4 Non-ST elevation (NSTEMI) myocardial infarction; J18.9 Pneumonia, unspecified organism; J44.0 Chronic obstructive pulmonary disease with (acute) lower respiratory infection; I82.612 Acute embolism and thrombosis of superficial veins of left upper extremity; Z99.11 Dependence on respirator [ventilator] status; J98.11 Atelectasis; M96.89 Other intraoperative and postprocedural complications and disorders of the musculoskeletal system; Y84.8 Other medical procedures as the cause of abnormal reaction of the patient, or of later complication, without mention of misadventure at the time of the procedure; K29.60 Other gastritis without bleeding; K55.20 Angiodysplasia of colon without hemorrhage; I11.0 Hypertensive heart disease with heart failure; I50.9 Heart failure, unspecified; D12.0 Benign neoplasm of cecum; D50.0 Iron deficiency anemia secondary to blood loss (chronic); Z20.822 Contact with and (suspected) exposure to COVID-19; R91.8 Other nonspecific abnormal finding of lung field; R19.7 Diarrhea, unspecified; R79.89 Other specified abnormal findings of blood chemistry; K21.9 Gastro-esophageal reflux disease without esophagitis; E11.9 Type 2 diabetes mellitus without complications; F17.210 Nicotine dependence, cigarettes, uncomplicated; R21 Rash and other nonspecific skin eruption; F41.9 Anxiety disorder, unspecified; F31.9 Bipolar disorder, unspecified; Z79.84 Long term (current) use of oral hypoglycemic drugs; Z79.899 Other long term (current) drug therapy; Z91.81 History of falling
CPT/HCPCS: 31500; 36415; 36430; 36569; 36600; 43246; 70450; 70486; 71045; 71250; 71275; 74018; 74174; 74176; 76705; 80048; 80053; 80061; 80074; 80202; 80307; 81001; 81003; 82010; 82375; 82550; 82565; 82607; 82728; 82746; 82805; 82948; 83010; 83036; 83050; 83540; 83550; 83605; 83615; 83690; 83735; 83880; 83921; 84100; 84145; 84443; 84466; 84478; 84484; 85014; 85018; 85025; 85027; 85046; 85055; 85610; 85730; 86140; 86850; 86870; 86880; 86900; 86901; 86902; 86905; 86920; 86922; 86971; 86972; 87040; 87070; 87077; 87086; 87186; 87205; 88305; 92950; 93005; 93971; 94002; 94003; 94640; 94669; 96365; 96366; 96367; 96368; 96375; 96376; 97167; 99285; A9270; C1751; C8929; C9113; C9803; G0378; J0131; J0171; J0330; J0360; J0456; J0690; J0692; J0696; J1650; J1756; J1815; J1940; J2060; J2250; J2704; J3010; J3370; J3420; J3475; J7050; J7120; P9016; Q9957; Q9967; U0003; U0005

== ENCOUNTER 2022-01-05 10:34 | Outpatient (NON) | payer MEDICARE, SELFPAY ==
[2022-01-05 11:14] LABS: Basophils Absolute Auto 0.03 K/mm3 (0.00-0.10); Basophils Percent Auto 0.5 % (0.0-1.0); Eosinophils Absolute Auto 0.15 K/mm3 (0.02-0.50); Eosinophils Percent Auto 2.5 % (1.0-6.0); Hematocrit 33.4 % (35.0-42.0); Hemoglobin 11.8 g/dL (11.7-13.8); Immature Granulocyte Absolute 0.01 K/mm3 (0.00-0.00); Immature Granulocyte Percent A 0.2 % (0.0-0.0); Lymphocytes Absolute Auto 2.87 K/mm3 (1.10-4.50); Lymphocytes Percent Auto 48.5 % (18.0-42.0); Mean Corpuscular HGB Conc 35.3 g/dL (32.0-36.0); Mean Corpuscular Hemoglobin 31.5 pg (27.0-31.0); Mean Corpuscular Volume 89.1 fL (78.0-102.0); Mean Platelet Volume 11.4 fl (9.2-11.8); Monocytes Percent Auto 8.4 % (2.0-11.0); Neutrophils Absolute Auto 2.4 K/mm3 (1.7-7.2); Neutrophils Percent Auto 39.9 % (50.0-70.0); Platelet Count Result 305 K/mm3 (150-420); Red Blood Count 3.75 M/mm3 (4.20-5.40); Red Cell Distribution Width 12.8 % (11.6-14.4); White Blood Count 5.9 K/mm3 (4.8-10.8)
[2022-01-05 11:41] LABS: Alanine Aminotransferase 35 U/L (14-59); Albumin Level 3.6 g/dL (3.4-5.0); Alkaline Phosphatase 69 U/L (46-116); Anion Gap 14 mmol/L (8-16); Aspartate Amino Transferase 16 U/L (15-37); Bilirubin,Total 0.2 mg/dL (0.00-1.00); Blood Urea Nitrogen 16 mg/dL (7-18); Calcium 9.4 mg/dL (8.5-10.1); Carbon Dioxide 25 mmol/L (21-32); Chloride 102 mmol/L (98-108); Creatine Kinase 22 U/L (26-192); Estimated Glomerular Filt Rate > 60; Ferritin 403 ng/mL (8-252); Glucose 145 mg/dL (70-99); Osmolality Calculated 296 mOsm/kg (285-295); Potassium 3.1 mmol/L (3.5-5.1); Sodium 141 mmol/L (136-145); Total Protein 7.1 g/dL (6.4-8.2)
[2022-01-05 11:49] LABS: Iron 62 ug/dL (50-170); Percent Iron Saturation 23 % (12-57)
== END 2022-01-05 10:35 | disposition home or self-care (01) ==
LOC: CHSLAB 10:41 → CHSHH 10:42
PROVIDERS: Visit Provider Family Medicine
DX: G93.41 Metabolic encephalopathy (principal); R13.10 Dysphagia, unspecified; I82.612 Acute embolism and thrombosis of superficial veins of left upper extremity; I21.4 Non-ST elevation (NSTEMI) myocardial infarction; E11.9 Type 2 diabetes mellitus without complications; J44.9 Chronic obstructive pulmonary disease, unspecified; I10 Essential (primary) hypertension; F31.9 Bipolar disorder, unspecified; F17.200 Nicotine dependence, unspecified, uncomplicated
CPT/HCPCS: 36415; 80053; 82550; 82728; 83540; 83550; 85025

== ENCOUNTER 2022-01-06 13:22 | Outpatient (NON) | payer MEDICARE, SELFPAY ==
[2022-01-06 14:24] LABS: Add Urine Microscopic? NO; Appearance Urine Clear (Clear); Bilirubin Urine Negative (Negative); Blood Urine Negative (Negative); Color Urine Straw (Yellow); Glucose Urine UA Negative (Negative); Ketones Urine Negative (Negative); Leukocyte Esterase Ur Negative LEU/UL (Negative); Nitrate Urine Negative (Negative); Protein Urine Negative (Negative); Urobilinogen Urine Negative mg/dL (<2.0)
== END 2022-01-06 13:23 | disposition home or self-care (01) ==
PROVIDERS: PCP Family Medicine; Visit Provider Family Medicine
DX: D64.9 Anemia, unspecified (principal)
CPT/HCPCS: 81003

== ENCOUNTER 2022-02-02 12:56 | Outpatient (CLI) | payer MEDICARE, SELFPAY ==
--- NOTE | ~2022-02-02 | XR_ITS ---
EXAMINATION: XR shoulder RT min 2V DATE: 02/02/2022 13:16 INDICATION: Right shoulder pain. TECHNIQUE: 4 views of right shoulder were obtained. COMPARISON: None. FINDINGS: Bone alignment is normal. No fracture. There is mild osteoarthritis of glenohumeral joint a nd acromioclavicular joint. IMPRESSION: 1. Mild polyarticular osteoarthritis. Reviewed, dictated and finalized at location A. [facility]
== END 2022-02-02 12:57 | disposition home or self-care (01) ==
LOC: ANHIMG 12:58
PROVIDERS: PCP Family Medicine; Visit Provider Nurse Practitioner Adult Health
DX: M19.011 Primary osteoarthritis, right shoulder (principal)
CPT/HCPCS: 73030

== ENCOUNTER 2022-02-17 13:54 | Outpatient (CLI) | payer MEDICARE, SELFPAY ==
--- NOTE | ~2022-02-17 | CT_ITS ---
EXAMINATION: CT shoulder RT wo con DATE: 02/17/2022 14:21 INDICATION: Right shoulder pain TECHNIQUE: High resolution computed tomography (CT) of the right shoulder was performed without intra venous contrast. Additional sagittal and coronal reconstructions were performed. Automated exposure c ontrol and iterative reconstruction technique were employed. The dose-length product was 92.25 mGy-cm . COMPARISON: Right shoulder radiographs dated 02/02/2022 FINDINGS: Bone alignment is normal. Old healed fractures of the anterolateral right second-fifth ribs. No acute fracture. Mild osteoarthritis at the right acromioclavicular and glenohumeral joints. No evident lashawn nt effusions or other abnormal fluid collections. No asymmetric muscular atrophy of the shoulder gird le or visualized upper arm. No pathologically enlarged right axillary lymphadenopathy. Visualized por tions of the left lung are clear. IMPRESSION: 1. Mild right acromioclavicular and glenohumeral osteoarthritis. No acute osseous abnormality. Reviewed, dictated and finalized at location A. IMPRESSION: 1. Mild right acromioclavicular and glenohumeral osteoarthritis. No acute osseo us abnormality.
== END 2022-02-17 13:55 | disposition home or self-care (01) ==
PROVIDERS: PCP Family Medicine; Visit Provider Nurse Practitioner Adult Health
DX: M19.011 Primary osteoarthritis, right shoulder (principal)
CPT/HCPCS: 73200

== ENCOUNTER 2022-03-06 08:39 | Outpatient (CLI) | payer MEDICARE, SELFPAY ==
--- NOTE | ~2022-03-06 | MR_ITS ---
EXAMINATION: MR shoulder RT wo con DATE: 03/06/2022 09:51 INDICATION: Right shoulder pain. TECHNIQUE: Magnetic resonance imaging (MRI) of the right shoulder was performed without intravenous c ontrast. Sequences included axial PD-weighted FS FSE, coronal oblique PD-weighted FS FSE and T2-weigh alyssia FS FSE, and sagittal oblique T2-weighted FS FSE and T1-weighted FSE. COMPARISON: Right shoulder CT 02/17/2022, radiographs 02/02/2022 FINDINGS: Coracoacromial arch: The acromion undersurface is curved in morphology (type II). There is mild acromioclavicular joint os teoarthritis. There is mild subacromial/subdeltoid bursitis. Rotator cuff: There is severe supraspinatus tendinopathy. There is an articular sided partial-thickness tear of sup raspinatus tendon measuring 5 mm proximal to distal by 7 mm anterior to posterior by 10% tendon thick ness. There is mild infraspinatus tendinopathy. Teres minor tendon is normal. Subscapularis tendon is normal. There is no asymmetric fatty atrophy of the rotator cuff muscle bellies. Biceps tendon and glenoid labrum: Biceps tendon is in bicipital groove. Intra-articular biceps tendon is normal. There is a tear of sup erior glenoid labrum from 11:00 to 12:00 (SLAP tear). Fluid: There is a small glenohumeral joint effusion. Bones/cartilage: There is cartilage surface irregularity of glenoid and humeral head. IMPRESSION: 1. Articular-sided, partial-thickness tear of supraspinatus tendon. 2. Mild acromioclavicular joint osteoarthritis. 3. Mild subacromial/subdeltoid bursitis. 4. Mild glenohumeral joint chondrosis. SLAP tear. 5. Small glenohumeral joint effusion. Reviewed, dictated and finalized at location A.
== END 2022-03-06 08:40 | disposition home or self-care (01) ==
PROVIDERS: PCP Family Medicine; Visit Provider Nurse Practitioner Adult Health
DX: M19.011 Primary osteoarthritis, right shoulder (principal); M25.411 Effusion, right shoulder; M75.51 Bursitis of right shoulder
CPT/HCPCS: 73221

== ENCOUNTER 2023-03-26 01:41 | Inpatient (IN) | payer MEDICARE, SELFPAY ==
[2023-03-26] VITALS (65 sets, daily range): BP systolic 92–209; BP diastolic 57–112; PULSE 73–125; RESP 14–42; TEMP 36.4–36.9; O2SAT 97–100; BMI 24.7
--- NOTE | 2023-03-26 | ECHO_ITS ---
Patient Info Name: Albertina Orlando Age: 67 years : 1955 Gender: Female Ht: 62 in Wt: 130 lbs BSA: 1.62 m2 HR: 98 bpm BP: 170 / 86 mmHg Heart Rhythm: Sinus Rhythm Technical Quality: Fair Exam Date: 03/26/2023 10:25 AM Exam Location: [facility] Pulmonary Exam Room: ICU 11 Patient Status: Inpatient Admit Date: 03/26/2023 Staff Ordering Physician: Nam Reddy MD Fire Production Operator: Lucina Duncan RDCS Attending Provider: Shanell Herron DO Exam Type: CA echo doppler color flow Study Info Indications - CHEST HEAVINESS NSTEMI CHF Complete two-dimensional, color flow and Doppler transthoracic echocardiogram is performed. Summary 1. Left ventricular chamber dimension is normal. 2. There is mildly increased left ventricular wall thickness. 3. Left ventricular systolic function is mildly reduced, estimated at 40-45%. 4. Hypokinesis of the mid anteroseptum, apical septum, mid inferior fernandez. The inferoseptum appears akinetic. 5. Right ventricular systolic function is normal. 6. Left atrial chamber dimension is moderately enlarged. 7. There is mild to moderate mitral valve regurgitation. Left Ventricle Hypokinesis of the mid anteroseptum, apical septum, mid inferior fernandez. The inferoseptum appears akinetic. Left ventricular chamber dimension is normal. Left ventricular systolic function is mildly reduced, estimated at 40-45%. There is mildly increased left ventricular wall thickness. Right Ventricle Right ventricular chamber dimension is normal. Right ventricular systolic function is normal. Left Atria Left atrial chamber dimension is moderately enlarged. Right Atria Right atrial chamber dimension is normal. Atrial Septum Intact interatrial septum visualized by color flow imaging. Aortic Valve The aortic valve is not well visualized. There is no aortic valve stenosis. There is no aortic valve regurgitation. There is mild aortic valve calcification. Pulmonic Valve The pulmonic valve is not well visualized. Mitral Valve There is mild to moderate mitral valve regurgitation. The mitral valve annulus is mildly calcified. Tricuspid Valve There is trace tricuspid valve regurgitation. Pericardium/Pleural There is trivial pericardial effusion. Inferior Vena Cava Normal inferior vena cava with >50% collapse upon inspiration consistent with normal right atrial pressure, 3 mmHg. Aorta The aortic root size at the sinus of Valsalva is normal. Left Ventricular Outflow Tract Name Value Normal LVOT 2D LVOT Diameter 2.0 cm LVOT Doppler LVOT Peak Gradient 5 mmHg LVOT Mean Gradient 3 mmHg LVOT VTI 19 cm LVOT VTI/AV VTI Ratio 0.8 LVOT Stroke Volume 60 ml LVOT CO 14.8 l/min LVOT CI 9.2 l/min/m2 Pulmonic Valve Name Value Normal RVOT Doppler
--- NOTE | ~2023-03-26 | XR_ITS ---
EXAMINATION: XR barium swallow modified DATE: 04/02/2023 12:41 INDICATION: Aspiration pneumonia. TECHNIQUE: The patient was given barium-containing material of multiple consistencies to swallow by t lynda speech pathologist while I performed fluoroscopy. Fluoroscopy exposure time was 1.1 minutes. The n umber of fluoroscopy images saved to the PACS was 1. Dose-area product was 0.731 Gy-cm^2. FINDINGS: There is a reduced laryngeal elevation and vallecular residue. There is trace laryngeal penetration w ith thin liquids via straw. IMPRESSION: 1. Trace laryngeal penetration with thin liquids via straw. No aspiration. 2. Please refer to the speech therapy report for recommendations. Reviewed, dictated and finalized at location A.
--- NOTE | ~2023-03-26 | XR_ITS ---
EXAMINATION: XR barium swallow modified DATE: 03/29/2023 09:57 INDICATION: Pneumonia. TECHNIQUE: The patient was given barium-containing material of multiple consistencies to swallow by t he speech pathologist while I performed fluoroscopy. Fluoroscopy exposure time was 1.1 minutes. The n umber of fluoroscopy images saved to the PACS was 1. Dose-area product was 0.731 Gy-cm^2. FINDINGS: There is a reduced laryngeal elevation. There is trace laryngeal penetration. IMPRESSION: 1. Trace laryngeal penetration. 2. Please refer to the speech therapy report for recommendations. Reviewed, dictated and finalized at location A.
--- NOTE | ~2023-03-26 | XR_ITS ---
EXAMINATION: XR chest 1V portable DATE: 03/27/2023 06:13 INDICATION: respiratory failure TECHNIQUE: frontal view of the chest was obtained. COMPARISON: Chest radiograph dated 03/26/2023 FINDINGS: Again seen is perihilar and lower lung predominant bilateral increased interstitial pattern. Retrocar diac airspace opacities at the medial aspect of the bilateral lower lobes, left greater than right. N o pneumothorax. Possible small left pleural effusion. Cardiomegaly. IMPRESSION: 1. . Congestive heart failure with cardiomegaly and mild pulmonary edema. 2. Opacities at the bilateral lung bases which could represent atelectasis and/or pneumonia possible small left pleural effusion. Reviewed, dictated and finalized at location A. IMPRESSION: 1. . Congestive heart failure with cardiomegaly and mild pulmonary edema. 2. Opacities at the bilateral lung bases which could represent atelectasis and/ or pneumonia possible small left pleural effusion.
--- NOTE | ~2023-03-26 | XR_ITS ---
EXAMINATION: XR chest 1V portable INDICATION: Shortness of breath TECHNIQUE: Portable AP chest at 0207 hours COMPARISON: 11/18/2021 FINDINGS: There are diffuse opacities throughout all lung zones. No pleural effusion or pneumothorax. The cardiomediastinal silhouette is normal. IMPRESSION: 1. Diffuse lung disease, consistent with pneumonia and/or pulmonary edema and/or atelectasis. Reviewed, dictated and finalized at location A. IMPRESSION: 1. Diffuse lung disease, consistent with pneumonia and/or pulmonary edema and/o r atelectasis.
--- NOTE | ~2023-03-26 | XR_ITS ---
EXAMINATION: XR chest PICC line DATE: 03/27/2023 11:25 INDICATION: PICC line placement TECHNIQUE: Portable AP view of the chest was obtained. COMPARISON: Chest radiograph dated 03/27/2023 at 5:59 AM FINDINGS: Right upper extremity peripherally inserted central venous catheter (PICC) tip at the proximal to mi d superior vena cava. Improvement in the prior perihilar opacities with some residual mild infrahilar opacities in the bilateral lower lung zones. No pleural effusion or pneumothorax. Borderline heart size accounting for AP technique. IMPRESSION: 1. Right PICC line tip at the proximal to midsuperior vena cava. 2. Improvement in prior perihilar opacities with residual infrahilar opacities which could represent improving pulmonary edema versus atelectasis or pneumonia. Reviewed, dictated and finalized at location A. IMPRESSION: 1. Right PICC line tip at the proximal to midsuperior vena cava. 2. Improvement in prior perihilar opacities with residual infrahilar opacities which could represent improving pulmonary edema versus atelectasis or pneumonia .
--- NOTE | ~2023-03-26 | XR_ITS ---
EXAMINATION: XR chest 1V portable INDICATION: Increased shortness of breath TECHNIQUE: Portable AP chest at 0826 hours COMPARISON: 0207 hours FINDINGS: There are minimal airspace opacities of the right lung base. No pleural effusion or pneumot horax. Cardiomegaly is noted. IMPRESSION: 1. Right basilar airspace opacity, consistent with atelectasis versus pneumonia. Reviewed, dictated and finalized at location A. IMPRESSION: 1. Right basilar airspace opacity, consistent with atelectasis versus pneumonia .
--- NOTE | ~2023-03-26 | XR_ITS ---
Portable chest x-ray Comparison: 03/27/2023 Clinical History: Respiratory failure Findings: Right-sided PICC line in satisfactory position. Possible minimal bibasilar pulmonary edema . Cardiomediastinal silhouette is stable. Bones and soft tissues are unremarkable. Impression: Possible minimal bibasilar pulmonary edema. Right-sided PICC line in place. Reviewed, dictated and finalized at location . Impression: Possible minimal bibasilar pulmonary edema. Right-sided PICC line in place.
--- NOTE | 2023-03-26 01:47 | ECG_ITS ---
Measurements Intervals [place] Rate: 118 P: 56 TX: 153 QRS: 47 QRSD: 86 T: 49 QT: 314 QTc: 440 Interpretive Statements SINUS TACHYCARDIA POSSIBLE LEFT ATRIAL ENLARGEMENT [-0.1mV P WAVE IN V1/V2] NONSPECIFIC ST & T-WAVE ABNORMALITY ABNORMAL RHYTHM ECG COMPARED TO ECG 11/04/2021 06:51:47 NO SIGNIFICANT CHAGNES Electronically Signed On 03-26-2023 12:15:35 CDT by Teena Lopez M.D.
[2023-03-26] MEDS: NITROGLYCERIN OINTMENT 1 INCH DOSE TRANSDERM (01:59)
[2023-03-26] MEDS: NITROGLYCERIN SL 0.4 MG TABLET SUBLINGUAL (01:59)
--- NOTE | 2023-03-26 02:10 | PCRCNOTE ---
Pt was not able to tolerate BIPAP 15/07, MD informed. RT titrated setting 09/01 pt was still unable to tolerate BIPAP.
[2023-03-26 02:24] LABS: Basophils Absolute Auto 0.1 K/mm3 (0.0-0.1); Basophils Percent Auto 0.8 % (0.2-1.2); Eosinophils Absolute Auto 0.4 K/mm3 (0-0.3); Eosinophils Percent Auto 2.9 % (0-4.4); Immature Granulocyte Absolute 0.03 K/mm3 (0.00-0.031); Immature Granulocyte Percent A 0.2 % (0-0.5); Lymphocytes Absolute Auto 4.06 K/mm3 (0.9-3.2); Mean Corpuscular HGB Conc 25.9 g/dl (32-36); Mean Corpuscular Hemoglobin 17.8 pg (26-34); Mean Corpuscular Volume 68.8 fl (80-100); Mean Platelet Volume 11.1 fl (7.4-10.4); Monocytes Absolute Auto 0.9 K/mm3 (0.1-0.6); Monocytes Percent Auto 6.9 % (2.6-8.5); Neutrophils Absolute Auto 7.6 K/mm3 (1.3-6.7); Neutrophils Percent Auto 58.2 % (45.5-73.1); Nucleated Red Blood Cells Perc 0.2 % (0.0-0.2); Platelet Count Result 726 k/mm3 (150-375); Red Blood Count 2.98 M/mm3 (4.2-5.4); White Blood Count 13.1 K/mm3 (4.5-10.0)
[2023-03-26 02:29] LABS: Alveolar/Arterial O2 Gradient 212.2 mmHg; Base Excess ABG -8.5 mEq/l (+/-2.0); Fractional Inspired Oxygen 40 %; HCO3 ABG 17.2 mEq/l (22.0-26.0); Oxygen Content ABG 4.2 %vol (16.0-22.0); PCO2 ABG 35.5 mmHg (35.0-45.0); PO2 FiO2 Ratio Arterial Blood 0.81 %; pH ABG 7.302 (7.350-7.450)
[2023-03-26 02:33] LABS: Glucose Point of Care 417 mg/dl (65-105)
--- NOTE | 2023-03-26 02:34 | PC.NURSE ---
Patient bedside glucose is 417, ERP notified.
[2023-03-26 02:37] LABS: INR 1.1; Partial Thromboplastin Time 25.4 SECONDS (22.3-36.8); Prothrombin Time 15.2 Seconds (11.1-14.7)
[2023-03-26] MEDS: LORazepam (*CRX) 1 MG TABLET PO (02:52)
[2023-03-26 02:53] LABS: Hemoglobin 5.3 g/dL (12.0-15.0)
[2023-03-26 02:53] LABS: Alveolar/Arterial O2 Gradient 234.3 mmHg; Base Excess ABG -6.1 mEq/l (+/-2.0); Carboxyhemoglobin 1.6 % THb (0-2.0); Fractional Inspired Oxygen 50 %; HCO3 ABG 18.4 mEq/l (22.0-26.0); Methemoglobin ABG 0.2 %THb (0-1.5); Oxygen Saturation ABG 96.5 % (95.0-100.0); PCO2 ABG 31.9 mmHg (35.0-45.0); PO2 ABG 86.3 mmHg (80.0-100.0); PO2 FiO2 Ratio Arterial Blood 1.73 %; Reduced Hemoglobin 5.2 %THb (0-5.0)
--- NOTE | 2023-03-26 02:53 | ED.SOB ---
HPI - SOB/Dyspnea General Chief Complaint: Shortness of Breath/Dyspnea Stated Complaint: sob Time Seen by Provider: 03/26/23 01:42 History of Present Illness HPI Narrative: This is a 67F with history of CHF, respiratory failure and anemia who is brought in by EMS for respiratory distress. The patient states she has had increasing shortness of breath over the past week. This evening though it quickly became worse. She complains of mild chest heaviness and palpitations. She denies loss of consciousness or focal weakness. EMS reports the patient was found at 88% on room air with significant work of breathing. She was placed on nasal cannula at 4L with improvement to the mid 90s. Related Data Home Medications Medication Instructions Recorded Confirmed clonazepam 1 mg tablet 1 mg PO TID 10/23/21 06/16/22 dexlansoprazole 60 mg 60 mg PO DAILY 10/23/21 06/16/22 capsule,biphase delayed release (Dexilant) ergocalciferol (vitamin D2) 1,250 50,000 unit PO WEEKLY 10/23/21 06/16/22 mcg (50,000 unit) capsule lancets (Accu-Chek Fastclix Lancet 10/23/21 06/16/22 Drum) lancets 33 gauge (Micro Thin 10/23/21 06/16/22 Lancets) metformin 1,000 mg tablet 1,000 mg PO BID 10/23/21 06/16/22 mirtazapine 30 mg tablet 30 mg PO HS 10/23/21 06/16/22 aspirin 81 mg tablet,delayed 81 mg PO DAILY 04/08/22 06/16/22 release (Adult Aspirin Regimen) atorvastatin 40 mg tablet 40 mg PO DAILY 04/08/22 06/16/22 lisinopril 40 mg tablet 40 mg PO DAILY 04/08/22 06/16/22 metoprolol tartrate 25 mg tablet 25 mg PO BID 04/08/22 06/16/22 montelukast 10 mg tablet 10 mg PO DAILY 04/08/22 06/16/22 tramadol 50 mg tablet 50 mg PO Q6H PRN 04/08/22 06/16/22 Allergies Allergy/AdvReac Type Severity Reaction Status Date / Time codeine Allergy Mild Hives Verified 03/26/23 01:48 Review of Systems Review of Systems: CONSTITUTIONAL: Denies fever, chills, or sweats. CARDIOVASCULAR: Chest pressure, palpitations, bilateral lower extremity edema RESPIRATORY: Dyspnea Denies cough GASTROINTESTINAL: Denies abdominal pain, nausea vomiting or diarrhea. GENITOURINARY: Denies dysuria or hematuria. SKIN: Denies rash or itching. MUSCULOSKELETAL: Denies back pain, joint pain, or myalgia. NEUROLOGIC: Denies headache, numbness, dizziness, or weakness. PSYCHIATRIC: Denies depression or anxiety PMFSH Past Medical History Medical History Acute blood loss anemia Adenomatous colon polyp Anxiety AVM (arteriovenous malformation) of colon Bipolar disorder Cardiac arrest Chronic obstructive pulmonary disease Contact dermatitis Depression Dyslipidemia Erosive gastritis Gastroesophageal reflux disease Gastrointestinal tube present Hypertension NSTEMI (non-ST elevated myocardial infarction) Pneumonia Posttraumatic stress disorder Severe anemia Suicide attempt by drug ingestion 16 years ago. Tobacco dependence Type 2 diabetes mellitus Surgical History Surgical History No pertinent past surgical history Family History Family History Mother Acute myocardial infarction Heart disease Father Diabetes mellitus Heart disease Social History Social History Social History: Surrogate decision maker: Zeinab Carvalho, daughter. Code status: Full code. Smoking packs per day: 1 Smoking cigarettes per day: 20.0 Smoking status: Former smoker Alcohol intake: never Substance use: never Additional living arrangements comments: The patient lives in her own home in [place]. Additional occupation/education comments: Retired. Spiritual care concerns: No Exam Narrative: GENERAL: Well-developed, well-nourished, in moderate to severe distress HEAD: Normocephalic, atraumatic. EYES: PERRLA and EOMI. ENT: Nares clear, no rhinorrhea or epistax
[2023-03-26 02:54] LABS: Hematocrit 20.5 % (37.0-47.0)
[2023-03-26 02:55] LABS: Alanine Aminotransferase 20 U/L (6-35); Alkaline Phosphatase 101 U/L (38-126); Anion Gap 18 mmol/L (8-16); Aspartate Amino Transferase 16 U/L (14-36); Bilirubin,Total 0.4 mg/dL (0.2-1.3); Blood Urea Nitrogen 14 mg/dL (7-17); Calcium 8.6 mg/dL (8.4-10.2); Carbon Dioxide 17 mmol/L (22-30); Chloride 104 mmol/L (98-107); Estimated CRCL calculation 46 ml/min; Estimated Glomerular Filt Rate > 60; Glucose 442 mg/dL (65-110); Magnesium 1.8 mg/dL (1.6-2.3); Potassium 3.4 mmol/L (3.4-5.0); Sodium 139 mmol/L (137-145)
[2023-03-26 02:57] LABS: PO2 ABG 32.2 mmHg (80.0-100.0)
[2023-03-26 02:57] LABS: Lactic Acid Reflex 6.6 mmol/L (0.7-2.0)
[2023-03-26 02:58] LABS: Oxygen Saturation ABG 56.4 % (95.0-100.0)
[2023-03-26 02:59] LABS: Device NASAL CANNULA; Modified Allen's Test Pass; Oxyhemoglobin 47.9 % THb (90.0-100.0); Site Drawn RIGHT RADIAL; Total Hemoglobin 6.1 g/dL (12.0-18.0)
[2023-03-26 03:00] LABS: Device NASAL CANNULA; Modified Allen's Test Pass; Site Drawn RIGHT RADIAL
[2023-03-26 03:00] LABS: Hypochromasia 2+ (NORMAL); Platelet Estimate Adequate (Adequate)
[2023-03-26 03:01] LABS: Anisocytosis 2+ (NORMAL); Burr Cells 1+ (NORMAL); Macrocytosis 1+ (NORMAL); Ovalocytes 1+ (NORMAL); Poikilocytosis 1+ (NORMAL)
[2023-03-26 03:02] LABS: Acanthocytes 1+ (NORMAL); Crenated RBC 1+ (NORMAL)
[2023-03-26 03:03] LABS: Microcytosis 2+ (NORMAL); Schistocytes None Seen (NORMAL)
[2023-03-26 03:15] LABS: NT Pro B Type Natriuretic Pept 2670 pg/mL (19.9-100); Troponin I 0.081 ng/mL (0.000-0.034)
[2023-03-26] MEDS: FUROSEMIDE INJ 40 MG/4 ML VIAL IV PUSH ×2 (03:59→13:55)
[2023-03-26 04:16] LABS: Appearance Urine Clear (Clear); Bilirubin Urine Negative (Negative); Blood Urine Negative (Negative); Color Urine Yellow (Yellow); Glucose Urine UA 3+ mg/dL (Negative); Ketones Urine Trace mg/dL (Negative); Leukocyte Esterase Ur Negative LEU/UL (Negative); Nitrate Urine Negative (Negative); Protein Urine Negative (Negative); Specific Grav Ur 1.024 (1.001-1.035); Urobilinogen Urine 0.2 mg/dL (<2.0)
--- NOTE | 2023-03-26 04:55 | PC.NURSE ---
called blood bank to get update. They are cross matching blood. Spoke with Tom.
[2023-03-26 05:19] LABS: Add Urine Microscopic? NO
[2023-03-26 05:21] LABS: Reflex Lactic Acid Yes or No Add Lactic
[2023-03-26] MEDS: SODIUM CHLORIDE 0.9% IV 250 ML 30 ML IV CONT (06:05)
[2023-03-26 06:27] LABS: Glucose Point of Care 264 mg/dl (65-105)
--- NOTE | 2023-03-26 06:37 | PC.NURSE ---
VORB per to retime the reflex lactic for 0830 after the first unit of blood infused. VORB to retime the repeat H&H for 1030 after both units of blood infused.
--- NOTE | 2023-03-26 07:25 | PC.NURSE ---
pt pulled up in bed. daughter at bedside. c/o mild sob
--- NOTE | 2023-03-26 08:00 | PC.NURSE ---
called into room by pts daughter. pt noted to be sitting forward, diaphoretic, respirations 40 and labored. crackles throughout flores. states i just know my heart is going to stop . hospitalist notified and will come to see pt in ed.
[2023-03-26] MEDS: FUROSEMIDE INJ 40 MG/4 ML VIAL (08:15)
--- NOTE | 2023-03-26 08:15 | PC.NURSE ---
lasix 40 mg ivp given per verbal orders dr paz. pt placed on bipap. daughter at bedside.
--- NOTE | 2023-03-26 08:38 | PM.IMHP ---
H&P: HPI History of Present Illness Date/Time: 03/26/23 08:38 Chief Complaint: Shortness of breath Narrative: 67yo female with hx of anemia from AVMs, DM, CAD and HTN here for SOB and CP. Called to the ED because patient developed acute respiratory failure prior to be transferred to the floor. Hx limited due to respiratory failure. Hx supplemented by family. Patient with nonproductive cough and low grade fever to 101 prior to admission. Has been having lower abdominal pain and black stools off and on for the past 3 months. Not on oral iron. Last colonoscopy was October 2021. She was hospitalized at that time for respiratory failure requiring intubation and subsequent trach and PEG, anemia from colonic AVMs, NSTEMI and sepsis from PNA. She has been having increasing SOB and CP for the past 2 weeks. Also with pedal edema, orthopnea and PND. Patient presents to the ED. BP 191/97, HR 124 and RR 27 with 97% on 4L. Lactic acid 6.6. CXR consistent with pulmonary edema. EKG showing sinus tachycarida and nonspecific ST-T wave changes. BNP 2670. BCx collected. Hgb 5.3 with microcytosis. ABG 7.38/32/86 on 5L. Glucose was 442 with metabolic gap acidosis. Trop up to 0.081. Treated with NTP, lasix IV and Ativan once. She was refusing the BiPAP. She did receive one unit PRBC. Plan was for IMU admission. Review of Systems Review of Systems: ROS unobtainable: Yes unobtainable due to medical condition PMFSH Past Medical History Medical History (Updated 03/26/23 @ 09:15 by Nam Reddy MD) Acute blood loss anemia Adenomatous colon polyp Anxiety AVM (arteriovenous malformation) of colon Bipolar disorder Cardiac arrest Chronic obstructive pulmonary disease Contact dermatitis Depression Dyslipidemia Erosive gastritis Gastroesophageal reflux disease Gastrointestinal tube present Hypertension NSTEMI (non-ST elevated myocardial infarction) Pneumonia Posttraumatic stress disorder Severe anemia Suicide attempt by drug ingestion 16 years ago. Tobacco dependence Type 2 diabetes mellitus Surgical History Surgical History Hx of tracheostomy No pertinent past surgical history Family History Family History Mother Acute myocardial infarction Heart disease Father Diabetes mellitus Heart disease Social History Social History Social History: Surrogate decision maker: Zeinab Carvalho, daughter. Code status: Full code. Smoking packs per day: 1 Smoking cigarettes per day: 20.0 Smoking status: Former smoker Alcohol intake: never Substance use: never Additional living arrangements comments: The patient lives in her own home in [place]. Additional occupation/education comments: Retired. Spiritual care concerns: No Meds Home Medications and Allergies Home Medications Medication Instructions Recorded Confirmed Type clonazepam 1 mg tablet 1 mg PO TID 10/23/21 06/16/22 History dexlansoprazole 60 mg 60 mg PO DAILY 10/23/21 06/16/22 History capsule,biphase delayed release (Dexilant) ergocalciferol (vitamin D2) 1,250 50,000 unit PO WEEKLY 10/23/21 06/16/22 History mcg (50,000 unit) capsule lancets (Accu-Chek Fastclix Lancet 10/23/21 06/16/22 History Drum) lancets 33 gauge (Micro Thin 10/23/21 06/16/22 History Lancets) metformin 1,000 mg tablet 1,000 mg PO BID 10/23/21 06/16/22 History mirtazapine 30 mg tablet 30 mg PO HS 10/23/21 06/16/22 History aspirin 81 mg tablet,delayed 81 mg PO DAILY 04/08/22 06/16/22 History release (Adult Aspirin Regimen) atorvastatin 40 mg tablet 40 mg PO DAILY 04/08/22 06/16/22 History lisinopril 40 mg tablet 40 mg PO DAILY 04/08/22 06/16/22 History metoprolol tartrate 25 mg tablet 25 mg PO BID 04/08/22 06/16/22 History montelukast 10 mg tablet 10 mg PO DAILY 04/08/22 06/16/22 History tramadol 50 mg
--- NOTE | 2023-03-26 08:48 | PC.NURSE ---
pt tolerating bipap well. skin now cool. decreased use of accessory muscles noted. pt able to speak a few words at a time. states is breathing better. marked improvement noted. pt to be moved from imu to icu status.
[2023-03-26 09:18] LABS: Lactic Acid Reflex 6.6 mmol/L (0.7-2.0)
--- NOTE | 2023-03-26 09:26 | ECG_ITS ---
Measurements Intervals [place] Rate: 99 P: 51 NE: 158 QRS: 56 QRSD: 78 T: 67 QT: 363 QTc: 468 Interpretive Statements SINUS RHYTHM NONSPECIFIC ST AND T WAVE ABNORMALITY COMPARED TO ECG 03/26/2023 01:52:28 SINUS RHYTHM NOW PRESENT Electronically Signed On 03-26-2023 12:18:23 CDT by Teena Lopez M.D.
--- NOTE | 2023-03-26 09:37 | ADMGEN ---
This patient, Albertina Orlando, was admitted to Intensive Care Unit-11 at 0937. Patient/family oriented to hospital policies and general routines including ID bracelet, bed and alarms, visiting hours, pain management, procedures, bathroom and other care routines, personal items, smoking policy, room service/diet, and visiting hours. Information on how to activate the Rapid Response Team has been discussed. Patient/Family are encouraged to report perceived risks to care and to ask questions if they do not understand what they are told or what they should do.
[2023-03-26] MEDS: PANTOPRAZOLE SODIUM IV 40 MG VIAL IV PUSH ×2 (10:08→21:15)
--- NOTE | 2023-03-26 10:16 | WPDCNINT ---
Assessment and Plan Assessment and plan (1) Acute respiratory failure: Qualifiers: Respiratory failure complication: unspecified whether with hypoxia or hypercapnia Qualified Code(s): J96.00 - Acute respiratory failure, unspecified whether with hypoxia or hypercapnia Code(s): J96.00 - Acute respiratory failure, unspecified whether with hypoxia or hypercapnia Status: Acute Assessment and Plan: Acute respiratory failure secondary to flash pulmonary edema, congestive heart failure, possible pneumonia, baseline COPD Patient placed on BiPAP. Currently on 10/5 and 30% FiO2 Check ABG Chest x-ray shows diffuse bilateral infiltrates along with elevated BNP suggestive of pulmonary edema Pneumonia is also possibility-check blood cultures, procalcitonin, empiric vancomycin and Zosyn IV Lasix has been given in will be repeated later today Check echocardiogram Check PCR COVID RSV and influenza (2) GI bleed: Code(s): K92.2 - Gastrointestinal hemorrhage, unspecified Status: Acute Assessment and Plan: Patient reported black stools which have been ongoing for while. 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 She has not repeat procedures done post discharge in 2020 Patient is being transfused 2 units of PRBC Serial hemoglobin IV PPI q.12 hours NPO GI consulted Stool for Hemoccult (3) Sepsis: Code(s): A41.9 - Sepsis, unspecified organism Status: Acute Assessment and Plan: Patient meets criteria for sepsis. Underlying pneumonia could be a possibility Check procalcitonin level Check blood culture Empiric vancomycin and Zosyn at this time (4) NSTEMI (non-ST elevated myocardial infarction): Code(s): I21.4 - Non-ST elevation (NSTEMI) myocardial infarction Status: Acute Assessment and Plan: Patient presented with chest pain and has slightly elevated troponin level She does not have history of coronary disease but does have risk factors Could be secondary to anemia and GI bleed Serial troponins Not a candidate for aspirin or anticoagulation at this time due to GI bleed Check echocardiogram Consult cardiology (5) Flash pulmonary edema: Code(s): J81.0 - Acute pulmonary edema Status: Acute Assessment and Plan: See above (6) Acute blood loss anemia: Code(s): D62 - Acute posthemorrhagic anemia Status: Acute (7) Pneumonia: Code(s): J18.9 - Pneumonia, unspecified organism Status: Acute Assessment and Plan: See above (8) Lactic acidosis: Code(s): E87.2 - Acidosis Status: Acute Assessment and Plan: Likely secondary to anemia and respiratory failure, sepsis of all the possibility Empiric antibiotics, transfusion, BiPAP therapy Not a candidate for IV fluids due to congestive heart failure (9) Hypertension: Code(s): I10 - Essential (primary) hypertension Status: Acute Assessment and Plan: Blood pressure improved with nitroglycerin monitor (10) Chronic obstructive pulmonary disease: Code(s): J44.9 - Chronic obstructive pulmonary disease, unspecified Status: Acute Assessment and Plan: Patient has history of smoking but denies any history of COPD although I see mention in her chart Not in exacerbation (11) CHF (congestive heart failure): Qualifiers: Heart failure type: unspecified Heart failure chronicity: unspecified Qualified Code(s): I50.9 - Heart failure, unspecified Code(s): I50.9 - Heart failure, unspecified Status: Acute Assessment and Plan: See above (12) Chest pain: Code(s): R07.9 - Chest pain, unspecified Status: Acute Assessment and Plan: See above (13) Type 2 diabetes mellitus: Code(s): E11.9 - Type 2 diabetes mellitus without complications Status: Acute Assessment and Plan: U
[2023-03-26] MEDS: INSULIN GLARGINE (*BKC) 100 UNITS/ML 10 UNITS SUB-Q (10:45)
[2023-03-26] MEDS: INSULIN ASPART (*BKC) 100 UNITS/ML SUB-Q ×2 (10:45→16:00)
[2023-03-26 10:47] LABS: Alveolar/Arterial O2 Gradient 75.3 mmHg; Base Excess ABG -3.3 mEq/l (+/-2.0); Fractional Inspired Oxygen 30 %; HCO3 ABG 20.2 mEq/l (22.0-26.0); Oxygen Content ABG 11.7 %vol (16.0-22.0); Oxyhemoglobin 96.1 % THb (90.0-100.0); PCO2 ABG 30.2 mmHg (35.0-45.0); PO2 ABG 103.1 mmHg (80.0-100.0); PO2 FiO2 Ratio Arterial Blood 3.44 %; Total Hemoglobin 8.5 g/dL (12.0-18.0); pH ABG 7.444 (7.350-7.450)
[2023-03-26 10:48] LABS: Device BIPAP; Modified Allen's Test Pass; Site Drawn LEFT RADIAL
[2023-03-26 10:49] LABS: Expiratory Pressure 5 cmH2O; Inspiratory Pressure 10 cmH2O
[2023-03-26 10:59] LABS: Glucose Point of Care 319 mg/dl (65-105)
--- NOTE | 2023-03-26 11:02 | WPDGICN ---
Assessment and Plan Assessment and plan (1) Anemia: Code(s): D64.9 - Anemia, unspecified Status: Acute Assessment and Plan: Patient with rather profound microcytic anemia. This is suspicious for a chronic iron deficiency anemia. Plan to check stool Hemoccult and iron levels. Patient should be transfused as stable hemoglobin. Colonoscopy in EGD will be performed after respiratory status stabilizes. We will cover her empirically for possible gastritis or ulcerations. Patient previously is known to have had gastritis also a history of cecal AVMs and a colon polyp 2 years ago. (2) Epigastric abdominal pain: Code(s): R10.13 - Epigastric pain Status: Acute Assessment and Plan: Patient does have epigastric pain. Plan to cover with pantoprazole for possible ulcerations. She apparently has been on Dexilant according to the medical records recently. (3) Respiratory failure with hypoxia: Code(s): J96.91 - Respiratory failure, unspecified with hypoxia Status: Acute Assessment and Plan: Patient now with significant respiratory difficulties. She has felt to have pneumonia. Has an underlying history of COPD and congestive heart failure. Now in the intensive care unit with concern over flash pulmonary edema. (4) History of colon polyps: Code(s): Z86.010 - Personal history of colonic polyps Status: Acute Assessment and Plan: Large adenomatous colon polyp removed on previous colonoscopy 2020. When stable follow-up colonoscopy an EGD will be performed. Recently followed by Dr. Harish Chapa.. (5) CHF (congestive heart failure): Qualifiers: Heart failure type: unspecified Heart failure chronicity: unspecified Qualified Code(s): I50.9 - Heart failure, unspecified Code(s): I50.9 - Heart failure, unspecified Status: Acute (6) COPD (chronic obstructive pulmonary disease): Code(s): J44.9 - Chronic obstructive pulmonary disease, unspecified Status: Acute GI Consult Note Consult date/time: 03/26/23 11:02 Reason for consult: Anemia HPI: Albertina Orlando is a 67 year old female I am asked to see at the request of the hospitalist service because of profound anemia. This patient recently has had increasing shortness of breath over last 2-3 weeks. This prompted her to go to the emergency room where she was found to have rather profound microcytic anemia with a hemoglobin 5.3. Patient reports that over the last several months she has had intermittent dark and tarry stools. She does have ongoing epigastric pain. Patient's past medical history is significant for an underlying history of COPD, congestive heart failure and diabetes. In September of 2021 because of iron deficiency anemia she underwent a colonoscopy which revealed AVMs in the cecum and a large adenomatous colon polyp. In October of that year she was pad a PEG tube placed and was found to have gastritis. PEG tube ultimately was removed in December of 2021. Patient has apparently been on Dexilant since that time. Also Carafate. She denies any other source of GI bleeding. She does complain heartburn and epigastric burning pain. Family history is noncontributory. No obvious red blood has been identified. Review of Systems Review of Systems: Review of systems noncontributory. [facility] Past Medical History Medical History Acute blood loss anemia Adenomatous colon polyp Anxiety AVM (arteriovenous malformation) of colon Bipolar disorder Cardiac arrest Chronic obstructive pulmonary disease Contact dermatitis Depression Dyslipidemia Erosive gastritis Gastroesophageal reflux disease Gastrointestinal tube present Hypertension NSTEMI (non-ST elevated myocardial infarction) Pneumonia Posttraumatic stress disorder Severe anemia Suicide attempt by drug ingestion 16 years ago. Tobacco dependence Type 2 mukesh
--- NOTE | 2023-03-26 11:12 | PM.CNCAR ---
Assessment and Plan Assessment and plan (1) Flash pulmonary edema: Code(s): J81.0 - Acute pulmonary edema Status: Acute Assessment and Plan: Agree with intermittent IV diuresis. Echo done this morning, will follow up on results. (2) Elevated troponin: Code(s): R77.8 - Other specified abnormalities of plasma proteins Status: Acute Assessment and Plan: In the setting of severe anemia with Hgb of 5.3. Continue to trend troponins until peak. Repeat EKGs as needed. Would resume home statin. Hold ASA given acute on chronic anemia. (3) Acute on chronic anemia: Code(s): D64.9 - Anemia, unspecified Status: Acute Assessment and Plan: Hgb of 5.3. S/p blood transfusions. GI has been consulted. History of Present Illness History of Present Illness Consult date/time: 03/26/23 11:12 Requesting physician: Akash Hough MD Consult reason: Other (Elevated troponin) Reason For Visit: CHF Exacerbation Narrative: We are consulted for elevated troponin / CHF exacerbation. This is a 67-year-old female with past history of GI bleed, gastritis, colon polyps and AVMs, respiratory failure requiring trach in 2020, significant anemia who presented with shortness of breath. Has been having shortness of breath for the past week. Reports orthopnea. Having intermittent left sided chest pain In the ED, patient found to be hypoxic and was initially placed on oxygen. Hgb found to be 5.3. Patient then placed on BIPAP for worsening respiratory status. Placed on BIPAP and given IV Lasix. Lactic acid level of 6. Thus far has gotten 1 unit of blood transfusion. Patient states her breathing feels better now after being on the BIPAP. Patient's initial troponin level was 0.081. Has had elevated troponins in the past with peak of 0.148 back in 2020. CXR with diffuse lung disease. EKG with sinus rhythm with nonspecific STTW changes. Last echo in 2020 with EF >70%, grade 2 diastolic dysfunction, mild-moderate MR. Review of Systems Review of Systems: All systems reviewed & are unremarkable except as noted in HPI and below (HPI) [facility] Past Medical History Medical History Acute blood loss anemia Adenomatous colon polyp Anxiety AVM (arteriovenous malformation) of colon Bipolar disorder Cardiac arrest Chronic obstructive pulmonary disease Contact dermatitis Depression Dyslipidemia Erosive gastritis Gastroesophageal reflux disease Gastrointestinal tube present Hypertension NSTEMI (non-ST elevated myocardial infarction) Pneumonia Posttraumatic stress disorder Severe anemia Suicide attempt by drug ingestion 16 years ago. Tobacco dependence Type 2 diabetes mellitus Surgical History Surgical History Hx of tracheostomy No pertinent past surgical history Family History Family History Mother Acute myocardial infarction Heart disease Father Diabetes mellitus Heart disease Social History Social History Social History: Surrogate decision maker: Zeinab Carvalho, daughter. Code status: Full code. Smoking packs per day: 1 Smoking cigarettes per day: 20.0 Smoking status: Former smoker Alcohol intake: never Substance use: never Substance use type: does not use Lack of Transportation: No Lack of Food: Never True Current Housing: I Have Housing Concerned About Future Housing: No Difficulty Paying Gas/Electric Bills: No Difficulty Paying for Meds: No Currently Unemployed: No Education: Decline to Answer Difficulty w/ Childcare or Family Care: No Additional living arrangements comments: The patient lives in her own home in [place]. Additional occupation/education comments: Retired. Spiritual care concerns: No Meds Home Medications and Allergies Home Medicatio
[2023-03-26 11:24] LABS: Iron 13 ug/dL (37-170)
[2023-03-26 11:33] LABS: Percent Iron Saturation 3 % (20-50)
[2023-03-26 11:39] LABS: Influenza A QL RT-PCR Negative (Negative); Influenza B QL RT-PCR Negative (Negative); RSV RNA, RT-PCR Negative (Negative); SARS-CoV-2 RNA PCR Negative (Negative)
[2023-03-26 12:01] LABS: Ferritin 4.93 ng/mL (11.1-264)
[2023-03-26] MEDS: LORazepam INJ (*CRX) 2 MG/ML VIAL 0.5 MG IV PUSH (13:08)
[2023-03-26] MEDS: dexmedeTOMIDine 400 MCG/100 ML 400 MCG/100 ML BAG IV CONT (13:54)
[2023-03-26 15:15] LABS: Basophils Absolute Auto 0.1 K/mm3 (0.0-0.1); Basophils Percent Auto 0.4 % (0.2-1.2); Hematocrit 32.2 % (37.0-47.0); Hemoglobin 9.7 g/dL (12.0-15.0); Immature Granulocyte Absolute 0.04 K/mm3 (0.00-0.031); Immature Granulocyte Percent A 0.3 % (0-0.5); Lymphocytes Absolute Auto 1.43 K/mm3 (0.9-3.2); Lymphocytes Percent Auto 10.5 % (18.3-44.2); Mean Corpuscular HGB Conc 30.1 g/dl (32-36); Mean Corpuscular Hemoglobin 22.6 pg (26-34); Mean Corpuscular Volume 75.1 fl (80-100); Mean Platelet Volume 11.1 fl (7.4-10.4); Monocytes Absolute Auto 1.1 K/mm3 (0.1-0.6); Monocytes Percent Auto 8.3 % (2.6-8.5); Neutrophils Percent Auto 80.5 % (45.5-73.1); Platelet Count Result 541 k/mm3 (150-375); Red Blood Count 4.29 M/mm3 (4.2-5.4); Red Cell Distribution Width 25.2 % (11.5-14.5); White Blood Count 13.6 K/mm3 (4.5-10.0)
[2023-03-26 15:24] LABS: Alanine Aminotransferase 18 U/L (6-35); Albumin Level 4.2 g/dL (3.5-5.1); Alkaline Phosphatase 84 U/L (38-126); Anion Gap 11 mmol/L (8-16); Aspartate Amino Transferase 20 U/L (14-36); Bilirubin,Total 1.1 mg/dL (0.2-1.3); Blood Urea Nitrogen 16 mg/dL (7-17); Calcium 8.9 mg/dL (8.4-10.2); Carbon Dioxide 24 mmol/L (22-30); Chloride 102 mmol/L (98-107); Estimated CRCL calculation 52 ml/min; Estimated Glomerular Filt Rate > 60; Glucose 350 mg/dL (65-110); Potassium 3.1 mmol/L (3.4-5.0); Sodium 137 mmol/L (137-145)
[2023-03-26 15:28] LABS: Beta-Hydroxybutyrate/Acetoacetate 0.68 mmol/L (0.02-0.27)
[2023-03-26 15:42] LABS: Procalcitonin 0.3 ng/mL
[2023-03-26 15:49] LABS: Platelet Estimate Increased (Adequate)
[2023-03-26 15:50] LABS: Anisocytosis 3+ (NORMAL); Hypochromasia 1+ (NORMAL); Schistocytes None Seen (NORMAL)
[2023-03-26 15:54] LABS: Troponin I 0.855 ng/mL (0.000-0.034)
[2023-03-26 16:05] LABS: Glucose Point of Care 289 mg/dl (65-105)
[2023-03-26] MEDS: POTASSIUM CHLORIDE INJ 40 MEQ in SODIUM CHLORIDE 0.9% IV 500 ML 130 MEQ IVPB (17:10)
[2023-03-26] MEDS: KCL 20 MEQ/SW 100 ML 100 ML 50 MEQ IVPB (21:15)
[2023-03-26 21:25] LABS: Glucose Point of Care 189 mg/dl (65-105)
[2023-03-26 21:40] LABS: Hematocrit 27.5 % (37.0-47.0); Hemoglobin 8.3 g/dL (12.0-15.0)
[2023-03-27] VITALS (100 sets, daily range): BP systolic 103–167; BP diastolic 47–80; PULSE 61–114; RESP 13–26; TEMP 36.8–38.6; O2SAT 96–100
[2023-03-27 00:07] LABS: Potassium 3.7 mmol/L (3.4-5.0)
[2023-03-27 00:33] LABS: Glucose Point of Care 175 mg/dl (65-105)
[2023-03-27] MEDS: KCL 20 MEQ/SW 100 ML 100 ML 50 MEQ IVPB ×2 (01:05→16:33)
[2023-03-27 04:27] LABS: Hematocrit 26.4 % (37.0-47.0); Hemoglobin 7.9 g/dL (12.0-15.0); Mean Corpuscular HGB Conc 29.9 g/dl (32-36); Mean Corpuscular Hemoglobin 22.6 pg (26-34); Mean Corpuscular Volume 75.4 fl (80-100); Mean Platelet Volume 10.5 fl (7.4-10.4); Platelet Count Result 359 k/mm3 (150-375); Red Cell Distribution Width 24.3 % (11.5-14.5); White Blood Count 8.7 K/mm3 (4.5-10.0)
[2023-03-27 04:38] LABS: Alanine Aminotransferase 13 U/L (6-35); Albumin Level 3.2 g/dL (3.5-5.1); Alkaline Phosphatase 60 U/L (38-126); Anion Gap 8 mmol/L (8-16); Aspartate Amino Transferase 15 U/L (14-36); Blood Urea Nitrogen 18 mg/dL (7-17); Calcium 8.1 mg/dL (8.4-10.2); Carbon Dioxide 24 mmol/L (22-30); Chloride 108 mmol/L (98-107); Estimated CRCL calculation 46 ml/min; Estimated Glomerular Filt Rate > 60; Glucose 209 mg/dL (65-110); Magnesium 1.7 mg/dL (1.6-2.3); Potassium 3.8 mmol/L (3.4-5.0); Sodium 140 mmol/L (137-145)
[2023-03-27 04:44] LABS: Hemoglobin A1C 6.6 % (<5.7)
[2023-03-27 05:05] LABS: Acanthocytes 1+ (NORMAL); Anisocytosis 2+ (NORMAL); Band Neutrophils Percent 1 % (0-6); Basophils Absolute Manual 0.17 K/mm3 (0.0-0.1); Basophils Percent Manual 2 % (0-1); Burr Cells 2+ (NORMAL); Hyperchromasia 1+ (NORMAL); Hypochromasia 2+ (NORMAL); Lymphocytes Absolute Manual 1.21 K/mm3 (1.1-4.5); Macrocytosis 1+ (NORMAL); Microcytosis 2+ (NORMAL); Monocytes Absolute Manual 0.43 K/mm3 (0.1-0.90); Monocytes Percent Manual 5 % (3-9); Neutrophils Absolute Manual 6.87 K/mm3 (1.7-7.2); Neutrophils Percent Manual 78 % (46-73); Ovalocytes 1+ (NORMAL); Platelet Estimate Adequate (Adequate); Poikilocytosis 2+ (NORMAL); Schistocytes 1+ (NORMAL); Total Cells Counted 100
[2023-03-27 05:12] LABS: Glucose Point of Care 213 mg/dl (65-105)
[2023-03-27] MEDS: INSULIN ASPART (*BKC) 100 UNITS/ML SUB-Q ×5 (05:18→23:05)
[2023-03-27] MEDS: dexmedeTOMIDine 400 MCG/100 ML 400 MCG/100 ML BAG IV CONT (07:36)
[2023-03-27] MEDS: POTASSIUM CHLORIDE 20 MEQ TABLET 40 MEQ PO (09:18)
[2023-03-27] MEDS: MAGNESIUM SULF 2 GM/WATER 50ML 2 GM/50 ML BAG IVPB (09:18)
[2023-03-27] MEDS: PANTOPRAZOLE SODIUM IV 40 MG VIAL IV PUSH ×2 (09:20→20:51)
--- NOTE | 2023-03-27 09:48 | WPDINTPN ---
Progress Note: A&P Assessment and Plan (1) Acute respiratory failure: Qualifiers: Respiratory failure complication: unspecified whether with hypoxia or hypercapnia Qualified Code(s): J96.00 - Acute respiratory failure, unspecified whether with hypoxia or hypercapnia Code(s): J96.00 - Acute respiratory failure, unspecified whether with hypoxia or hypercapnia Status: Acute Assessment and Plan: Acute respiratory failure secondary to flash pulmonary edema, congestive heart failure, possible pneumonia, baseline COPD Patient was placed on BiPAP on admission. Currently on 10/5 and 30% FiO2 She appears to be clinically improved and I will try nasal cannula and see how patient does. BiPAP p.r.n. Chest x-ray shows diffuse bilateral infiltrates along with elevated BNP suggestive of pulmonary edema and Lasix will be continue Pneumonia is also possibility but less likely as a procalcitonin level was low. Blood cultures are pending Continue empiric vancomycin and Zosyn for another 24 hours Reviewed echocardiogram Negative pCR COVID RSV and influenza (2) GI bleed: Code(s): K92.2 - Gastrointestinal hemorrhage, unspecified Status: Acute Assessment and Plan: Patient reported black stools which have been ongoing for while. 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 She has not repeat procedures done post discharge in 2020 Patient was transfused 2 units of PRBC 03/26 Serial hemoglobin monitoring will be continued. Will transfuse as needed IV PPI q.12 hours NPO GI following Stool for Hemoccult is pending (3) Sepsis: Code(s): A41.9 - Sepsis, unspecified organism Status: Acute Assessment and Plan: Patient met criteria for sepsis on admission to ICU. Underlying pneumonia could be a possibility although her procalcitonin level was low Pending blood culture Continue empiric vancomycin and Zosyn at this time (4) NSTEMI (non-ST elevated myocardial infarction): Code(s): I21.4 - Non-ST elevation (NSTEMI) myocardial infarction Status: Acute Assessment and Plan: Patient presented with chest pain and has slightly elevated troponin level She does not have history of coronary disease but does have risk factors Could be secondary to anemia and GI bleed Serial troponins Not a candidate for aspirin or anticoagulation at this time due to GI bleed Cardiology following Echocardiogram Summary ? 1. Left ventricular chamber dimension is normal. ? 2. There is mildly increased left ventricular wall thickness. ? 3. Left ventricular systolic function is mildly reduced, estimated at 40-45%. ? 4. Hypokinesis of the mid anteroseptum, apical septum, mid inferior fernandez. The inferoseptum appears akinetic. ? 5. Right ventricular systolic function is normal. ? 6. Left atrial chamber dimension is moderately enlarged. ? 7. There is mild to moderate mitral valve regurgitation. (5) Flash pulmonary edema: Code(s): J81.0 - Acute pulmonary edema Status: Acute Assessment and Plan: See above (6) Acute blood loss anemia: Code(s): D62 - Acute posthemorrhagic anemia Status: Acute (7) Pneumonia: Code(s): J18.9 - Pneumonia, unspecified organism Status: Acute Assessment and Plan: See above (8) Lactic acidosis: Code(s): E87.2 - Acidosis Status: Acute Assessment and Plan: Likely secondary to anemia and respiratory failure, sepsis of all the possibility Resolved Empiric antibiotics, transfusion, BiPAP therapy Not a candidate for IV fluids due to congestive heart failure (9) Hypertension: Code(s): I10 - Essential (primary) hypertension Status: Acute Assessment and Plan: Blood pressure improved with nitroglycerin monitor (10) Chronic obstructive pulmonary disease: Code(s): J44.9 - Chronic obstructive pulmonary disease, unspec
[2023-03-27 09:51] LABS: Glucose Point of Care 223 mg/dl (65-105)
--- NOTE | 2023-03-27 10:44 | WPDGIPROGNO ---
Progress Note: A&P Assessment and Plan (1) RETA (iron deficiency anemia): Code(s): D50.9 - Iron deficiency anemia, unspecified Status: Acute Assessment and Plan: Iron indices revealed the patient is indeed iron deficient which undoubtedly contributes to his anemia. This suggests some chronicity to the anemia. Plan to evaluate for both colonoscopy in EGD. GI endoscopy will be deferred until respiratory status has improved. Continue to monitor for signs of acute blood loss. Hemoglobin 7.9 today is improved after transfusion. Patient has a past medical history of gastritis, cecal AVM and colon polyp. Follow-up endoscopy will be arranged electively. When respiratory status improves. (2) History of colon polyps: Code(s): Z86.010 - Personal history of colonic polyps Status: Acute Assessment and Plan: Patient has a prior history of adenomatous colon polyp under the direction Dr. Moreira. Two years ago. (3) Flash pulmonary edema: Code(s): J81.0 - Acute pulmonary edema Status: Acute (4) Respiratory failure with hypoxia: Code(s): J96.91 - Respiratory failure, unspecified with hypoxia Status: Acute (5) Epigastric abdominal pain: Code(s): R10.13 - Epigastric pain Status: Acute Subjective Date/time seen: 03/27/23 10:44 Interval history: Patient alert more comfortable today. No longer on BiPAP mask. Breathing somewhat more easily. No evidence for continued GI bleeding. She denies abdominal pain. No significant bowel movements since admission hospital. Patient does report several months worth of dark stools prior to admission. Review of Systems Review of Systems: Review of systems noncontributory. Exam Narrative: Physical exam reveals patient to be alert. Vital signs stable. HEENT exam is unremarkable. Patient is anicteric. Lungs are clear to auscultation and percussion. Heart without murmur. Abdomen bowel sounds present soft nontender with no organomegaly. Objective Data Vital Signs Vital Signs: Vital Signs - 24 hr 03/26/23 11:30 03/26/23 11:43 03/26/23 11:25 Temperature 98.3 F Pulse Rate 99 98 99 Respiratory Rate 30 H 30 H 27 H Blood Pressure 148/79 H Pulse Oximetry 100 100 100 Oxygen Delivery BiPAP BiPAP Oxygen Flow Rate Fraction of Inspired Oxygen 30 03/26/23 12:00 03/26/23 11:22 03/26/23 12:00 Temperature 98.2 F 98.2 F Pulse Rate 102 H 102 H 99 Respiratory Rate 30 H 32 H Blood Pressure 155/87 H 155/87 H Pulse Oximetry 100 100 Oxygen Delivery Oxygen Flow Rate Fraction of Inspired Oxygen 03/26/23 13:54 03/26/23 14:00 03/26/23 14:00 Temperature Pulse Rate 122 H 123 H 123 H Respiratory Rate 27 H 33 H Blood Pressure 192/112 H Pulse Oximetry 99 Oxygen Delivery Oxygen Flow Rate Fraction of Inspired Oxygen 03/26/23 14:20 03/26/23 14:54 03/26/23 15:27 Temperature Pulse Rate 122 H 105 H 93 Respiratory Rate 29 H 24 H 19 Blood Pressure 119/76 Pulse Oximetry 99 100 Oxygen Delivery BiPAP Oxygen Flow Rate Fraction of Inspired Oxygen 03/26/23 15:32 03/26/23 13:40 03/26/23 15:54 Temperature 98 F Pulse Rate 93 114 H 88 Respiratory Rate 19 35 H 18 Blood Pressure 180/100 H Pulse Oximetry 100 97 Oxygen Delivery BiPAP Oxygen Flow Rate Fraction of Inspired Oxygen 30 03/26/23 16:00 03/26/23 16:00 03/26/23 16:41 Temperature 98 F Pulse Rate 87 87 82 Respiratory Rate 17 17 Blood Pressure 108/63 Pulse Oximetry 100 100 Oxygen Delivery BiPAP Oxygen Flow Rate Fraction of Inspired Oxygen 03/26/23 16:54 03/26/23 17:54 03/26/23 18:00 Temperature Pulse Rate 80 78 78 Respiratory Rate 17 17 Blood Pressure Pulse Oximetry Oxygen Delivery Oxygen Flow Rate Fraction of Inspired Oxygen 03/26/23 18:00 03/26/23 18:54 03/26/23 19:21 Temperature Pulse Rate 78 78 76 Respiratory Rate 17
--- NOTE | 2023-03-27 11:33 | PM.PNCARD ---
Progress Note: A&P Assessment and Plan (1) Flash pulmonary edema: Code(s): J81.0 - Acute pulmonary edema Status: Acute Assessment and Plan: Agree with intermittent IV diuresis. Continue with intermittent IV Lasix. Echo 03/26: LVEF 40-45%, hypokinesis of the mid anteroseptum, apical septum, mid inferior fernandez with akinesis of the inferoseptum, mild-moderate MR. Discussed the echocardiogram findings with the patient. Patient has been having substernal chest pain that worsens with exertion and relieves with rest over the past week. May have underlying coronary artery disease given her risk factors for CAD, with her acute on chronic anemia precipitating anginal symptoms. Discussed with patient that an ischemic evaluation at some point is reasonable, however, cannot be done until her anemia gets addressed first and corrected and patient is able to tolerate antiplatelet agents/anticoagulation for an ischemic eval to be done. (2) Elevated troponin: Code(s): R77.8 - Other specified abnormalities of plasma proteins Status: Acute Assessment and Plan: In the setting of severe anemia with Hgb of 5.3. Troponin trend of 0.081 --> 0.8.55 Would resume home statin. Hold ASA given acute on chronic anemia. (3) Acute on chronic anemia: Code(s): D64.9 - Anemia, unspecified Status: Acute Assessment and Plan: Hgb of 5.3. S/p blood transfusions. GI has been consulted. Subjective Date/time seen: 03/27/23 11:33 Interval history: Reason for visit: Flash pulmonary edema / Elevated troponin HPI: This is a 67-year-old female with past history of GI bleed, gastritis, colon polyps and AVMs, respiratory failure requiring trach in 2020, significant anemia, history of PEA cardiac arrest in 2020, HTN, T2DM, HLD who presented with shortness of breath. Has been having shortness of breath for the past week. Reports orthopnea. Having intermittent left sided chest pain In the ED, patient found to be hypoxic and was initially placed on oxygen. Hgb found to be 5.3. Patient then placed on BIPAP for worsening respiratory status. Placed on BIPAP and given IV Lasix. Lactic acid level of 6. Thus far has gotten 1 unit of blood transfusion. Patient states her breathing feels better now after being on the BIPAP. Patient's initial troponin level was 0.081. Has had elevated troponins in the past with peak of 0.148 back in 2020. CXR with diffuse lung disease. EKG with sinus rhythm with nonspecific STTW changes. Last echo in 2020 with EF >70%, grade 2 diastolic dysfunction, mild-moderate MR. Date of service 03/27: Feeling much better this morning. Shortness of breath has significantly improved with IV Lasix. Off of BIPAP and now on nasal cannula. Review of Systems Review of Systems: 8 point ROS obtained. Negative, unless stated in HPI. Exam Const: General: no acute distress HENMT: Mouth: Yes moist mucous membranes Eyes: General: appearance normal, both eyes and all related structures Sclera: sclerae normal Neck: Neck: supple Resp: Other: On supplemental oxygen via nasal cannula. Decreased breath sounds bilaterally. Cardio: Rate: regular rate Rhythm: regular rhythm GI: GI Palp: Yes Soft to palpation and No Tenderness to palpation present (GI) Skin: General skin exam: normal color Neuro: Speech: normal speech Psych: Mental Status: mental status grossly normal Affect: normal affect Objective Data Vital Signs Vital Signs: Vital Signs - 24 hr 03/26/23 11:43 03/26/23 12:00 03/26/23 12:00 Temperature 36.8 C 36.8 C Pulse Rate 98 102 H 99 Respiratory Rate 30 H 30 H Blood Pressure 148/79 H 155/87 H Pulse Oximetry 100 100 Oxygen Delivery Oxygen Flow Rate Fraction of Inspired Oxygen 03/26/23 13:54 03/26/23 14:00 03/26/23 14:00 Temperature Pulse Rate 122 H 123 H 123 H Respiratory Rate 27 H 33 H Blood Pressure 192/112 H Pulse Oximetry 99 Oxygen Delivery Oxygen Flow Ra
[2023-03-27] MEDS: PIPERACILLIN/TAZOBACTAM SOD 4.5 GM in SODIUM CHLORIDE 0.9% IV 100 ML 200 ML IVPB ×3 (12:47→23:02)
[2023-03-27] MEDS: FUROSEMIDE INJ 40 MG/4 ML VIAL IV PUSH ×2 (12:47→16:43)
[2023-03-27] MEDS: INSULIN GLARGINE (*BKC) 100 UNITS/ML 10 UNITS SUB-Q (12:54)
[2023-03-27 13:01] LABS: Glucose Point of Care 183 mg/dl (65-105)
[2023-03-27 13:10] LABS: Hematocrit 27.1 % (37.0-47.0); Hemoglobin 8.1 g/dL (12.0-15.0)
[2023-03-27] MEDS: ACETAMINOPHEN 325 MG TABLET 650 MG PO (15:40)
[2023-03-27 16:42] LABS: Glucose Point of Care 226 mg/dl (65-105)
--- NOTE | 2023-03-27 16:47 | PM.IMPN ---
Progress Note: A&P Assessment and Plan (1) Acute respiratory failure: Qualifiers: Respiratory failure complication: unspecified whether with hypoxia or hypercapnia Qualified Code(s): J96.00 - Acute respiratory failure, unspecified whether with hypoxia or hypercapnia Code(s): J96.00 - Acute respiratory failure, unspecified whether with hypoxia or hypercapnia Status: Acute Assessment and Plan: Acute respiratory failure secondary to flash pulmonary edema, CHF, possible pneumonia and baseline COPD. BiPAP started on admission. Treated with Lasix IV and broad spectrum abx. Clinically improved and able to be weaned to nasal cannula. Still having fevers. -Influenza, RSV and COVID negative. -CXR today showing improving pulmonary edema. -BCx NGTD -Echo showing EF 40-45%, HK and AK segments, mild-mod MR and LAE. Continue Lasix IV Continue empiric vancomycin and Zosyn (2) GI bleed: Code(s): K92.2 - Gastrointestinal hemorrhage, unspecified Status: Acute Assessment and Plan: Patient reported black stools which have been ongoing for while. Hemoglobin 5.3 on admission. Sep 2021: EGD showed erosive gastritis. 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 Patient was transfused 2 units of PRBC 03/26 Hgb up to 8 range and stable. Continue serial hemoglobin monitoring Continue Protonix IV q.12 hours GI following Stool for Hemoccult is pending (3) Sepsis: Code(s): A41.9 - Sepsis, unspecified organism Status: Acute Assessment and Plan: Patient met criteria for sepsis on admission. Underlying pneumonia could be a possibility although her procalcitonin level was low Pending blood culture Continue empiric vancomycin and Zosyn at this time (4) Elevated troponin: Code(s): R77.8 - Other specified abnormalities of plasma proteins Status: Acute Assessment and Plan: Patient presented with chest pain and has slightly elevated troponin level She does not have history of coronary disease but does have risk factors Echo showing EF 40-45%, HK and AK segments, mild-mod MR and LAE. Last Echo in 2020 showed EF >70% with no wall motion abnormalities and Grade II DD. Not a candidate for aspirin or anticoagulation at this time due to GI bleed Cardiology following COncern for AMI recently or underlying ischemia related to the anemia Will need ischemic evaluation once she is more stable (5) Flash pulmonary edema: Code(s): J81.0 - Acute pulmonary edema Status: Acute Assessment and Plan: [place] related to the severe anemia and poor EF. See above (6) Acute blood loss anemia: Code(s): D62 - Acute posthemorrhagic anemia Status: Acute Assessment and Plan: Related to GI blood loss. No schistocytes on initial CBC. 1+ now but could be from the transfused blood. Follow HH. Transfuse as needed. (7) Pneumonia: Code(s): J18.9 - Pneumonia, unspecified organism Status: Acute Assessment and Plan: Possible PNA See above (8) Lactic acidosis: Code(s): E87.2 - Acidosis Status: Acute Assessment and Plan: Likely secondary to anemia, respiratory failure and/or sepsis Resolved Empiric antibiotics, transfusion, BiPAP therapy Not a candidate for IV fluids due to congestive heart failure (9) Hypertension: Code(s): I10 - Essential (primary) hypertension Status: Acute Assessment and Plan: Blood pressure improved monitor (10) Chronic obstructive pulmonary disease: Code(s): J44.9 - Chronic obstructive pulmonary disease, unspecified Status: Acute Assessment and Plan: Patient has history of smoking Not in exacerbation (11) CHF (congestive heart failure): Qualifiers: Heart failure chronicity: unspecified Heart failure type: unspecified Qualified Code(s): I50.9 - Heart failure, unspecified Code(s): I50.9 - Hear
[2023-03-27] MEDS: clonazePAM (*CRX) 0.5 MG TABLET 1 MG PO (18:03)
[2023-03-27 20:19] LABS: Glucose Point of Care 286 mg/dl (65-105)
[2023-03-27 20:52] LABS: Hemoglobin 7.9 g/dL (12.0-15.0)
--- NOTE | 2023-03-27 21:35 | PC.NURSE ---
Pt transfered to 232 in bed
--- NOTE | 2023-03-27 21:47 | PC.NURSE ---
This patient, Albertina Orlando, was received from [ICU 11] on 03/27/23 at 2130. Patient/family oriented to unit policies and routines
[2023-03-27] MEDS: QUEtiapine FUMARATE 100 MG TABLET 200 MG PO (22:17)
[2023-03-27] MEDS: METOPROLOL TARTRATE 12.5 MG TABLET PO (22:17)
[2023-03-27] MEDS: MIRTAZAPINE 30 MG TABLET PO (22:18)
[2023-03-27 23:05] LABS: Glucose Point of Care 276 mg/dl (65-105)
[2023-03-28] VITALS (16 sets, daily range): BP systolic 117–139; BP diastolic 50–69; PULSE 73–98; RESP 19–24; TEMP 36.2–36.9; O2SAT 98–100
[2023-03-28] MEDS: PIPERACILLIN/TAZOBACTAM SOD 4.5 GM in SODIUM CHLORIDE 0.9% IV 100 ML 200 ML IVPB (05:07)
[2023-03-28] MEDS: INSULIN ASPART (*BKC) 100 UNITS/ML SUB-Q ×5 (05:07→20:54)
[2023-03-28 05:17] LABS: Hematocrit 21.2 % (37.0-47.0); Mean Corpuscular HGB Conc 29.7 g/dl (32-36); Mean Corpuscular Hemoglobin 22.6 pg (26-34); Mean Platelet Volume 10.8 fl (7.4-10.4); Platelet Count Result 282 k/mm3 (150-375); Red Blood Count 2.79 M/mm3 (4.2-5.4); Red Cell Distribution Width 24.6 % (11.5-14.5); White Blood Count 7.4 K/mm3 (4.5-10.0)
[2023-03-28 05:19] LABS: Hemoglobin 6.3 g/dL (12.0-15.0)
[2023-03-28 05:22] LABS: Glucose Point of Care 233 mg/dl (65-105)
[2023-03-28 06:00] LABS: Hematocrit 26.9 % (37.0-47.0); Hemoglobin 7.9 g/dL (12.0-15.0); Mean Corpuscular HGB Conc 29.4 g/dl (32-36); Mean Corpuscular Hemoglobin 21.8 pg (26-34); Mean Corpuscular Volume 74.3 fl (80-100); Mean Platelet Volume 10.5 fl (7.4-10.4); Platelet Count Result 354 k/mm3 (150-375); Red Blood Count 3.62 M/mm3 (4.2-5.4); Red Cell Distribution Width 24.6 % (11.5-14.5)
[2023-03-28 06:23] LABS: Alanine Aminotransferase 13 U/L (6-35); Albumin Level 3.3 g/dL (3.5-5.1); Alkaline Phosphatase 61 U/L (38-126); Anion Gap 5 mmol/L (8-16); Aspartate Amino Transferase 20 U/L (14-36); Bilirubin,Total 0.6 mg/dL (0.2-1.3); Blood Urea Nitrogen 20 mg/dL (7-17); Calcium 8.6 mg/dL (8.4-10.2); Carbon Dioxide 30 mmol/L (22-30); Chloride 104 mmol/L (98-107); Estimated CRCL calculation 26 ml/min; Estimated Glomerular Filt Rate 30; Glucose 240 mg/dL (65-110); Magnesium 1.9 mg/dL (1.6-2.3); Sodium 139 mmol/L (137-145)
[2023-03-28] MEDS: POTASSIUM CHLORIDE 10 MEQ TABLET PO (08:54)
[2023-03-28] MEDS: INSULIN GLARGINE (*BKC) 100 UNITS/ML 10 UNITS SUB-Q (08:54)
[2023-03-28] MEDS: PANTOPRAZOLE SODIUM IV 40 MG VIAL IV PUSH ×2 (08:54→20:44)
[2023-03-28] MEDS: METOPROLOL TARTRATE 12.5 MG TABLET PO ×2 (08:54→20:43)
[2023-03-28] MEDS: ATORVASTATIN 40 MG TABLET PO (08:55)
[2023-03-28] MEDS: clonazePAM (*CRX) 0.5 MG TABLET 1 MG PO ×2 (08:55→18:45)
--- NOTE | 2023-03-28 10:07 | PM.PNCARD ---
Progress Note: A&P Assessment and Plan (1) Flash pulmonary edema: Code(s): J81.0 - Acute pulmonary edema <IVY Granados - Last Filed: 03/28/23 15:05> Status: Acute <IVY Granados - Last Filed: 03/28/23 15:05> Assessment and Plan: Improved. Furosemide has been discontinued because of ZAN. Echo 03/26: LVEF 40-45%, hypokinesis of the mid anteroseptum, apical septum, mid inferior fernandez with akinesis of the inferoseptum, mild-moderate MR. Patient has been having substernal chest pain that worsens with exertion and relieves with rest over the past week. May have underlying coronary artery disease given her risk factors for CAD, with her acute on chronic anemia precipitating anginal symptoms. Reviewed plan for ischemic evaluation when anemia is resolved/ GI work up complete. GI recommending EGD and colonoscopy when respiratory status improves. <IVY Granados - Last Filed: 03/28/23 15:05> (2) Elevated troponin: Code(s): R77.8 - Other specified abnormalities of plasma proteins <IVY Granados - Last Filed: 03/28/23 15:05> Status: Acute <IVY Granados - Last Filed: 03/28/23 15:05> Assessment and Plan: In the setting of severe anemia with Hgb of 5.3. Troponin trend of 0.081 --> 0.8.55 Would resume home statin. Hold ASA given acute on chronic anemia. <IVY Granados - Last Filed: 03/28/23 15:05> (3) Acute on chronic anemia: Code(s): D64.9 - Anemia, unspecified <IVY Granados - Last Filed: 03/28/23 15:05> Status: Acute <IVY Granados - Last Filed: 03/28/23 15:05> Assessment and Plan: Hgb of 5.3. S/p blood transfusions. GI following. <IVY Granados - Last Filed: 03/28/23 15:05> Assessment and Plan: Attending addendum: I agree with the above documentation and plan of care as outlined. <Ugo Hoskins MD - Last Filed: 03/28/23 15:14> Subjective Date/time seen: 03/28/23 10:07 <IVY Granados - Last Filed: 03/28/23 15:05> Interval history: Reason for visit: Flash pulmonary edema / Elevated troponin HPI: This is a 67-year-old female with past history of GI bleed, gastritis, colon polyps and AVMs, respiratory failure requiring trach in 2020, significant anemia, history of PEA cardiac arrest in 2020, HTN, T2DM, HLD who presented with shortness of breath. Has been having shortness of breath for the past week. Reports orthopnea. Having intermittent left sided chest pain In the ED, patient found to be hypoxic and was initially placed on oxygen. Hgb found to be 5.3. Patient then placed on BIPAP for worsening respiratory status. Placed on BIPAP and given IV Lasix. Lactic acid level of 6. Thus far has gotten 1 unit of blood transfusion. Patient states her breathing feels better now after being on the BIPAP. Patient's initial troponin level was 0.081. Has had elevated troponins in the past with peak of 0.148 back in 2020. CXR with diffuse lung disease. EKG with sinus rhythm with nonspecific STTW changes. Last echo in 2020 with EF >70%, grade 2 diastolic dysfunction, mild-moderate MR. Date of service 03/27: Feeling much better this morning. Shortness of breath has significantly improved with IV Lasix. Off of BIPAP and now on nasal cannula. Date of service 03/28/23: Feeling about the same this morning. No shortness of breath. She states she had some chest pain when she removed her oxygen. No chest pain at the tiem of my visit. <IVY Granados - Last Filed: 03/28/23 15:05> Review of Systems Review of Systems: 8 point ROS obtained. Negative, unless stated in HPI. <IVY Granados - Last Filed: 03/28/23 15:05> All systems reviewed & are unremarkable except as noted in HPI and below (HPI) <IVY Granados - Last Filed: 03/28/23 15:05> Exam Const: General: no acute distress <IVY Granados - Last Filed: 03/28/23 15:05> HENMT: Mouth: Ye
--- NOTE | 2023-03-28 10:32 | PCSTNOTE ---
Please refer to the Bedside Swallow Evaluation in the EMR. Please note, silent aspiration cannot be ruled out at bedside.
[2023-03-28 11:27] LABS: Vancomycin Trough 11.1 ug/mL (10.0-20.0)
[2023-03-28] MEDS: PIPERACILLN/TAZ 3.375GM/NS50ML 3.375 GM/50 ML BAG IVPB (12:13)
[2023-03-28 12:30] LABS: Hematocrit 26.2 % (37.0-47.0); Hemoglobin 7.8 g/dL (12.0-15.0)
[2023-03-28 13:20] LABS: Glucose Point of Care 287 mg/dl (65-105)
--- NOTE | 2023-03-28 16:17 | WPDGIPROGNO ---
Progress Note: A&P Assessment and Plan (1) RETA (iron deficiency anemia): Code(s): D50.9 - Iron deficiency anemia, unspecified Status: Acute Assessment and Plan: egd and colonoscopy when respiratory status better, will reassess tomorrow. Patient has a past medical history of gastritis, cecal AVM and colon polyp. (2) Acute on chronic anemia: Code(s): D64.9 - Anemia, unspecified Status: Acute Assessment and Plan: s/p blood transfusion monitor h/h (3) History of colon polyps: Code(s): Z86.010 - Personal history of colonic polyps Status: Acute Assessment and Plan: Two years ago had colonoscopy. (4) Flash pulmonary edema: Code(s): J81.0 - Acute pulmonary edema Status: Acute Assessment and Plan: improving (5) Respiratory failure with hypoxia: Code(s): J96.91 - Respiratory failure, unspecified with hypoxia Status: Acute Assessment and Plan: on treatment, also on abx for pneumonia (6) Epigastric abdominal pain: Code(s): R10.13 - Epigastric pain Status: Acute Subjective Date/time seen: 03/28/23 16:17 Interval history: slowly feeling better but still weak, she would like to wait another day at least before getting scopes. Review of Systems Review of Systems: All systems reviewed & are unremarkable except as noted in HPI and below Exam Const: General: no acute distress HENMT: Mouth: Yes moist mucous membranes Eyes: General: appearance normal, both eyes and all related structures Sclera: sclerae normal Neck: Neck: supple Resp: Auscultation: crackles (bases) Other: On supplemental oxygen via nasal cannula. Decreased breath sounds bilaterally. Cardio: Rate: regular rate Rhythm: regular rhythm Heart sounds: Murmur heart sound present GI: GI Palp: Yes Soft to palpation, No Tenderness to palpation present (GI) and No Guarding due to palpation present (GI) Auscultation: normal bowel sounds Skin: General skin exam: normal color Neuro: Speech: normal speech Extrem: General: normal to inspection Psych: Mental Status: mental status grossly normal Affect: normal affect Objective Data Vital Signs Vital Signs: Vital Signs - 24 hr 03/27/23 16:40 03/27/23 18:00 03/27/23 16:30 Temperature 100 F H Pulse Rate 100 105 H Respiratory Rate 21 H Blood Pressure 143/75 H Pulse Oximetry 98 Oxygen Delivery Oxygen Flow Rate Fraction of Inspired Oxygen 03/27/23 16:31 03/27/23 16:45 03/27/23 17:00 Temperature Pulse Rate 105 H 108 H 106 H Respiratory Rate 22 H 26 H 19 Blood Pressure 161/75 H Pulse Oximetry 99 99 100 Oxygen Delivery Oxygen Flow Rate Fraction of Inspired Oxygen 03/27/23 17:01 03/27/23 17:15 03/27/23 17:30 Temperature Pulse Rate 104 H 104 H 102 H Respiratory Rate 20 20 16 Blood Pressure 149/75 H Pulse Oximetry 99 99 99 Oxygen Delivery Oxygen Flow Rate Fraction of Inspired Oxygen 03/27/23 17:31 03/27/23 17:45 03/27/23 18:00 Temperature Pulse Rate 102 H 98 98 Respiratory Rate 17 16 17 Blood Pressure 141/71 H Pulse Oximetry 99 99 99 Oxygen Delivery Oxygen Flow Rate Fraction of Inspired Oxygen 03/27/23 18:01 03/27/23 18:15 03/27/23 18:30 Temperature Pulse Rate 99 110 H 95 Respiratory Rate 17 25 H 21 H Blood Pressure Pulse Oximetry 98 99 98 Oxygen Delivery Oxygen Flow Rate Fraction of Inspired Oxygen 03/27/23 18:45 03/27/23 19:00 03/27/23 19:01 Temperature Pulse Rate 97 92 92 Respiratory Rate 22 H 21 H 23 H Blood Pressure 125/60 Pulse Oximetry 98 98 98 Oxygen Delivery Oxygen Flow Rate Fraction of Inspired Oxygen 03/27/23 19:15 03/27/23 20:00 03/27/23 20:00 Temperature Pulse Rate 91 91 91 Respiratory Rate 22 H 18 Blood Pressure Pulse Oximetry 99 99 Oxygen Delivery Nasal Cannula Oxygen Flow Rate 2 Fraction of Inspired Oxygen
[2023-03-28 16:47] LABS: Glucose Point of Care 221 mg/dl (65-105)
--- NOTE | 2023-03-28 17:23 | PM.IMPN ---
Progress Note: A&P Assessment and Plan (1) Acute respiratory failure: Qualifiers: Respiratory failure complication: unspecified whether with hypoxia or hypercapnia Qualified Code(s): J96.00 - Acute respiratory failure, unspecified whether with hypoxia or hypercapnia Code(s): J96.00 - Acute respiratory failure, unspecified whether with hypoxia or hypercapnia Status: Acute Assessment and Plan: Acute respiratory failure secondary to flash pulmonary edema, CHF, possible pneumonia and baseline COPD. BiPAP started on admission. Treated with Lasix IV and broad spectrum abx. Clinically improved and able to be weaned to nasal cannula. -Influenza, RSV and COVID negative. -CXR today showing minimal bibasilar edema -ST evaluation showing no concerns for aspiration but pureed diet recommended. -BCx NGTD. MRSA nasal swab positive. -Echo showing EF 40-45%, HK and AK segments, mild-mod MR and LAE. Cr elevated so Lasix IV stopped Continue empiric vancomycin; change Zosyn to cefepime Check MBS (2) Sepsis: Code(s): A41.9 - Sepsis, unspecified organism Status: Acute Assessment and Plan: Patient met criteria for sepsis on admission. WBC 13K. CXR on admission showing right basilar airspace opacities Fevers present on admission. Underlying pneumonia suspected despite her procalcitonin level being low BCx NGTD. MRSA nasal swab positive. WBC normal. Fever free >24hrs now Continue empiric abx (3) GI bleed: Code(s): K92.2 - Gastrointestinal hemorrhage, unspecified Status: Acute Assessment and Plan: Patient reported black stools which have been ongoing for while. Hemoglobin 5.3 on admission. Sep 2021: EGD showed erosive gastritis. 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 Patient was transfused 2 units of PRBC 03/26 Hgb up to 7-8 range and stable (Hgb 6.3 this morning but better on repeat so more likely false value). Continue hemoglobin monitoring Continue Protonix IV q.12 hours GI following Stool for Hemoccult is pending (4) Elevated troponin: Code(s): R77.8 - Other specified abnormalities of plasma proteins Status: Acute Assessment and Plan: Patient presented with chest pain. Troponin level elevated to 0.855 She does not have history of coronary disease but does have risk factors Echo showing EF 40-45%, HK and AK segments, mild-mod MR and LAE. Echo in 2020 showed EF >70% with no wall motion abnormalities and Grade II DD. Not a candidate for aspirin or anticoagulation at this time due to GI bleed Continue Lipitor and metoprolol Cardiology following Concern for AMI recently or underlying ischemia related to the anemia Will need ischemic evaluation once she is more stable Repeat Trop (5) Flash pulmonary edema: Code(s): J81.0 - Acute pulmonary edema Status: Acute Assessment and Plan: [place] related to the severe anemia and poor EF. See above (6) Acute blood loss anemia: Code(s): D62 - Acute posthemorrhagic anemia Status: Acute Assessment and Plan: Related to GI blood loss. No schistocytes on initial CBC. 1+ now but could be from the transfused blood. Follow HH. Transfuse as needed. (7) Pneumonia: Code(s): J18.9 - Pneumonia, unspecified organism Status: Acute Assessment and Plan: Possible PNA See above (8) Lactic acidosis: Code(s): E87.2 - Acidosis Status: Acute Assessment and Plan: Likely secondary to anemia, respiratory failure and/or sepsis Resolved Empiric antibiotics, transfusion, BiPAP therapy Not a candidate for IV fluids due to congestive heart failure (9) Hypertension: Code(s): I10 - Essential (primary) hypertension Status: Acute Assessment and Plan: Patient's blood pressure was reviewed on 03/28 Blood pressure remains well controlled. Will continue to monitor (10) CHF (congestive heart failure):
[2023-03-28 20:28] LABS: Glucose Point of Care 368 mg/dl (65-105)
[2023-03-28] MEDS: CEFEPIME 2 GM/NS 50 ML 2 GM/50 ML BAG IVPB (20:41)
[2023-03-28] MEDS: MIRTAZAPINE 30 MG TABLET PO (20:44)
[2023-03-28] MEDS: QUEtiapine FUMARATE 100 MG TABLET 200 MG PO (20:46)
[2023-03-28 21:19] LABS: Hematocrit 25.8 % (37.0-47.0); Hemoglobin 7.6 g/dL (12.0-15.0)
[2023-03-28 21:43] LABS: Troponin I 0.132 ng/mL (0.000-0.034)
[2023-03-29] VITALS (17 sets, daily range): BP systolic 123–166; BP diastolic 51–68; PULSE 79–97; RESP 18–20; TEMP 36.1–37.2; O2SAT 99–100
[2023-03-29 00:36] LABS: Glucose Point of Care 154 mg/dl (65-105)
[2023-03-29 05:43] LABS: Glucose Point of Care 177 mg/dl (65-105)
[2023-03-29 05:50] LABS: Hematocrit 25.9 % (37.0-47.0); Hemoglobin 7.6 g/dL (12.0-15.0); Mean Corpuscular HGB Conc 29.3 g/dl (32-36); Mean Corpuscular Hemoglobin 22.4 pg (26-34); Mean Corpuscular Volume 76.2 fl (80-100); Mean Platelet Volume 10.8 fl (7.4-10.4); Platelet Count Result 319 k/mm3 (150-375); Red Cell Distribution Width 24.7 % (11.5-14.5); White Blood Count 7.6 K/mm3 (4.5-10.0)
[2023-03-29 05:58] LABS: Alanine Aminotransferase 12 U/L (6-35); Alkaline Phosphatase 60 U/L (38-126); Anion Gap 5 mmol/L (8-16); Aspartate Amino Transferase 15 U/L (14-36); Bilirubin,Total 0.5 mg/dL (0.2-1.3); Blood Urea Nitrogen 17 mg/dL (7-17); Calcium 8.1 mg/dL (8.4-10.2); Carbon Dioxide 30 mmol/L (22-30); Chloride 103 mmol/L (98-107); Estimated CRCL calculation 30 ml/min; Estimated Glomerular Filt Rate 35; Glucose 178 mg/dL (65-110); Magnesium 1.9 mg/dL (1.6-2.3); Potassium 2.7 mmol/L (3.4-5.0); Sodium 138 mmol/L (137-145)
[2023-03-29] MEDS: POTASSIUM CHLORIDE 20 MEQ TABLET 40 MEQ PO (06:58)
[2023-03-29 08:08] LABS: Glucose Point of Care 186 mg/dl (65-105)
--- NOTE | 2023-03-29 09:42 | P.CDI_ITS ---
CDI Query Clarification Request Elevated BNP on 03/26/23 lab work. Patient has received Lasix. Chest xray from 03/26/23 notes pulmonary edema. CHF noted in the assessment and plan. Please specify type and acuity of heart failure if known. * Acute * Chronic * Acute on Chronic * Unknown * Systolic * Diastolic * Combined Systolic and Diastolic * Unknown
--- NOTE | 2023-03-29 09:42 | WPDCDIQUERY2 ---
CDI Query Clarification Request Elevated BNP on 03/26/23 lab work. Patient has received Lasix. Chest xray from 03/26/23 notes pulmonary edema. CHF noted in the assessment and plan. Please specify type and acuity of heart failure if known. Acute Chronic Acute on Chronic Unknown Systolic Diastolic Combined Systolic and Diastolic Unknown
[2023-03-29] MEDS: ATORVASTATIN 40 MG TABLET PO (09:53)
[2023-03-29] MEDS: PANTOPRAZOLE SODIUM IV 40 MG VIAL IV PUSH ×2 (09:53→20:40)
[2023-03-29] MEDS: clonazePAM (*CRX) 0.5 MG TABLET 1 MG PO ×2 (09:55→23:06)
[2023-03-29] MEDS: INSULIN GLARGINE (*BKC) 100 UNITS/ML 15 UNITS SUB-Q (09:56)
[2023-03-29] MEDS: METOPROLOL TARTRATE 12.5 MG TABLET PO ×2 (10:13→20:40)
--- NOTE | 2023-03-29 10:31 | PCSTNOTE ---
Please refer to the Modified Barium Swallow Evaluation in the EMR.
[2023-03-29] MEDS: INSULIN ASPART (*BKC) 100 UNITS/ML SUB-Q ×3 (12:02→20:40)
[2023-03-29 12:05] LABS: Glucose Point of Care 267 mg/dl (65-105)
--- NOTE | 2023-03-29 12:42 | PM.IMPN ---
Progress Note: A&P Assessment and Plan (1) Acute respiratory failure: Qualifiers: Respiratory failure complication: unspecified whether with hypoxia or hypercapnia Qualified Code(s): J96.00 - Acute respiratory failure, unspecified whether with hypoxia or hypercapnia Code(s): J96.00 - Acute respiratory failure, unspecified whether with hypoxia or hypercapnia Status: Acute Assessment and Plan: Acute respiratory failure secondary to flash pulmonary edema, CHF, possible pneumonia and baseline COPD. BiPAP started on admission. Treated with Lasix IV and broad spectrum abx. Clinically improved and able to be weaned to nasal cannula. -Influenza, RSV and COVID negative. -CXR 03/28 showing minimal bibasilar edema -Speech evaluation with MBS (03/29) reviewed. Pureed diet with Level 2 thickened liquid recommended -BCx NGTD. MRSA nasal swab positive. -Echo showing EF 40-45%, HK and AK segments, mild-mod MR and LAE. Cr was elevated so Lasix IV stopped; Cr trending down Continue empiric vancomycin; changed Zosyn to cefepime Wean O2 as tolerated (2) Sepsis: Code(s): A41.9 - Sepsis, unspecified organism Status: Acute Assessment and Plan: Patient met criteria for sepsis on admission. WBC 13K. CXR on admission showing right basilar airspace opacities Fevers present on admission. Underlying pneumonia suspected despite her procalcitonin level being low BCx NGTD. MRSA nasal swab positive. WBC normal. Fever free now Continue current abx (3) GI bleed: Code(s): K92.2 - Gastrointestinal hemorrhage, unspecified Status: Acute Assessment and Plan: Patient reported black stools which have been ongoing for while. Hemoglobin 5.3 on admission. Sep 2021: EGD showed erosive gastritis. 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 Patient was transfused 2 units of PRBC 03/26 Hgb up to 7-8 range and stable Continue hemoglobin monitoring Continue Protonix IV q.12 hours GI following Endoscopy planned for the morning (4) Elevated troponin: Code(s): R77.8 - Other specified abnormalities of plasma proteins Status: Acute Assessment and Plan: Patient presented with chest pain. Troponin level peaked at 0.855 She does not have history of coronary disease but does have risk factors Echo showing EF 40-45%, HK and AK segments, mild-mod MR and LAE. Echo in 2020 showed EF >70% with no wall motion abnormalities and Grade II DD. Not a candidate for aspirin or anticoagulation at this time due to GI bleed Continue Lipitor and metoprolol Cardiology following Concern for AMI recently or underlying ischemia related to the anemia Will need ischemic evaluation once she is more stable (5) Flash pulmonary edema: Code(s): J81.0 - Acute pulmonary edema Status: Acute Assessment and Plan: [place] related to the severe anemia and poor EF. See above (6) Acute blood loss anemia: Code(s): D62 - Acute posthemorrhagic anemia Status: Acute Assessment and Plan: Related to GI blood loss. No schistocytes on initial CBC. 1+ now but could be from the transfused blood. Follow HH. Transfuse as needed. (7) Pneumonia: Code(s): J18.9 - Pneumonia, unspecified organism Status: Acute Assessment and Plan: Possible PNA See above (8) Lactic acidosis: Code(s): E87.2 - Acidosis Status: Acute Assessment and Plan: Likely secondary to anemia, respiratory failure and/or sepsis Resolved Empiric antibiotics, transfusion, BiPAP therapy Not a candidate for IV fluids due to congestive heart failure (9) Hypertension: Code(s): I10 - Essential (primary) hypertension Status: Acute Assessment and Plan: Patient's blood pressure was reviewed on 03/29 Blood pressure remains well controlled. Will continue to monitor (10) CHF (congestive heart failure): Qualifiers: Heart failure chroni
--- NOTE | 2023-03-29 12:45 | WPDGIPROGNO ---
Progress Note: A&P Assessment and Plan (1) RETA (iron deficiency anemia): Code(s): D50.9 - Iron deficiency anemia, unspecified Status: Acute Assessment and Plan: egd and colonoscopy tomorrow because recurrent anemia (last time had gastritis, cecal AVM and colon polyp). no overt gib (2) Acute on chronic anemia: Code(s): D64.9 - Anemia, unspecified Status: Acute Assessment and Plan: s/p blood transfusion monitor h/h (3) History of colon polyps: Code(s): Z86.010 - Personal history of colonic polyps Status: Acute Assessment and Plan: Two years ago had colonoscopy. (4) Flash pulmonary edema: Code(s): J81.0 - Acute pulmonary edema Status: Acute Assessment and Plan: improving (5) Respiratory failure with hypoxia: Code(s): J96.91 - Respiratory failure, unspecified with hypoxia Status: Acute Assessment and Plan: on treatment, also on abx for pneumonia Subjective Date/time seen: 03/29/23 12:45 Interval history: weak but slowly improving, she is sitting up in chair. Family member at bedside Review of Systems Review of Systems: All systems reviewed & are unremarkable except as noted in HPI and below Exam Const: General: no acute distress HENMT: Mouth: Yes moist mucous membranes Eyes: General: appearance normal, both eyes and all related structures Sclera: sclerae normal Neck: Neck: supple Resp: Auscultation: crackles (bases) Other: On supplemental oxygen via nasal cannula. Decreased breath sounds bilaterally. Cardio: Rate: regular rate Rhythm: regular rhythm Heart sounds: Murmur heart sound present GI: GI Palp: Yes Soft to palpation, No Tenderness to palpation present (GI) and No Guarding due to palpation present (GI) Auscultation: normal bowel sounds Skin: General skin exam: normal color Neuro: Speech: normal speech Extrem: General: normal to inspection Psych: Mental Status: mental status grossly normal Affect: normal affect Objective Data Vital Signs Vital Signs: Vital Signs - 24 hr 03/28/23 14:00 03/28/23 15:55 03/28/23 16:00 Temperature 97.1 F L Pulse Rate 83 86 Respiratory Rate 20 Blood Pressure 134/69 Pulse Oximetry 99 Oxygen Delivery Nasal Cannula Oxygen Flow Rate 1 03/28/23 20:00 03/28/23 20:43 03/28/23 16:00 Temperature 97.9 F Pulse Rate 84 84 86 Respiratory Rate 20 Blood Pressure 139/54 L Pulse Oximetry 99 Oxygen Delivery Oxygen Flow Rate 03/28/23 18:00 03/28/23 16:00 03/29/23 00:00 Temperature 97.8 F Pulse Rate 92 82 Respiratory Rate 20 Blood Pressure 123/51 L Pulse Oximetry 100 100 Oxygen Delivery Nasal Cannula Oxygen Flow Rate 2 03/28/23 20:00 03/29/23 00:00 03/29/23 04:00 Temperature Pulse Rate Respiratory Rate Blood Pressure Pulse Oximetry 99 100 99 Oxygen Delivery Nasal Cannula Nasal Cannula Nasal Cannula Oxygen Flow Rate 2 1 1 03/29/23 04:00 03/29/23 08:24 03/28/23 20:00 Temperature 98.9 F 98.4 F Pulse Rate 94 93 85 Respiratory Rate 20 20 Blood Pressure 152/62 H 139/59 L Pulse Oximetry 99 Oxygen Delivery Oxygen Flow Rate 03/28/23 22:00 03/29/23 00:00 03/29/23 02:00 Temperature Pulse Rate 83 83 83 Respiratory Rate Blood Pressure Pulse Oximetry Oxygen Delivery Oxygen Flow Rate 03/29/23 04:00 03/29/23 06:00 03/29/23 10:13 Temperature Pulse Rate 81 88 92 Respiratory Rate Blood Pressure Pulse Oximetry Oxygen Delivery Oxygen Flow Rate 03/29/23 12:26 03/29/23 11:29 Temperature 97.4 F L Pulse Rate 79 Respiratory Rate 18 Blood Pressure 129/61 Pulse Oximetry 99 Oxygen Delivery Nasal Cannula Oxygen Flow Rate 1 Intake/Output Intake/Output: Intake & Output 03/26/23 03/27/23 03/28/23 03/29/23 23:59 23:59 23:59 23:59 Intake Total 2019 2370 1040 360 Output Total 3750 2200 2200 1000 Balance -1730 170 -1
[2023-03-29] MEDS: CENTRAL LINE FLUSH 10 ML IV PUSH ×3 (14:00→20:30)
[2023-03-29 16:24] LABS: Glucose Point of Care 242 mg/dl (65-105)
[2023-03-29] MEDS: BISACODYL 5 MG TABLET EC 20 MG PO (16:50)
[2023-03-29] MEDS: polyethylene glycoL 3350 238 GM BOTTLE PO (16:52)
[2023-03-29 17:12] LABS: Potassium 3.4 mmol/L (3.4-5.0)
[2023-03-29] MEDS: CEFEPIME 1 GM/NS 50 ML 1 GM/50 ML BAG IVPB (18:19)
[2023-03-29 20:32] LABS: Glucose Point of Care 353 mg/dl (65-105)
[2023-03-29] MEDS: QUEtiapine FUMARATE 100 MG TABLET 200 MG PO (20:40)
[2023-03-29] MEDS: MIRTAZAPINE 30 MG TABLET PO (23:07)
[2023-03-30] VITALS (19 sets, daily range): BP systolic 98–158; BP diastolic 48–77; PULSE 75–98; RESP 16–20; TEMP 36.2–37.2; O2SAT 97–100
[2023-03-30 00:08] LABS: Glucose Point of Care 241 mg/dl (65-105)
[2023-03-30 04:57] LABS: Glucose Point of Care 166 mg/dl (65-105)
[2023-03-30] MEDS: CENTRAL LINE FLUSH 10 ML IV PUSH ×4 (05:03→20:15)
[2023-03-30 05:48] LABS: Hematocrit 24.8 % (37.0-47.0); Hemoglobin 7.3 g/dL (12.0-15.0); Mean Corpuscular HGB Conc 29.4 g/dl (32-36); Mean Corpuscular Hemoglobin 22.5 pg (26-34); Mean Corpuscular Volume 76.3 fl (80-100); Mean Platelet Volume 10.9 fl (7.4-10.4); Platelet Count Result 301 k/mm3 (150-375); Red Blood Count 3.25 M/mm3 (4.2-5.4); Red Cell Distribution Width 24.7 % (11.5-14.5); White Blood Count 7.8 K/mm3 (4.5-10.0)
[2023-03-30 06:11] LABS: Alanine Aminotransferase 12 U/L (6-35); Alkaline Phosphatase 67 U/L (38-126); Anion Gap 4 mmol/L (8-16); Aspartate Amino Transferase 14 U/L (14-36); Bilirubin,Total 0.5 mg/dL (0.2-1.3); Blood Urea Nitrogen 11 mg/dL (7-17); Calcium 8.2 mg/dL (8.4-10.2); Carbon Dioxide 27 mmol/L (22-30); Chloride 104 mmol/L (98-107); Estimated CRCL calculation 37 ml/min; Estimated Glomerular Filt Rate 45; Glucose 185 mg/dL (65-110); Magnesium 1.8 mg/dL (1.6-2.3); Potassium 2.8 mmol/L (3.4-5.0); Sodium 135 mmol/L (137-145)
[2023-03-30] MEDS: KCL 40 MEQ/WATER 100 ML 100 ML 25 ML IVPB ×2 (07:31→11:06)
[2023-03-30] MEDS: polyethylene glycoL 3350 238 GM BOTTLE PO (07:40)
[2023-03-30 08:02] LABS: Glucose Point of Care 174 mg/dl (65-105)
[2023-03-30] MEDS: clonazePAM (*CRX) 0.5 MG TABLET 1 MG PO ×2 (08:05→20:15)
[2023-03-30] MEDS: PANTOPRAZOLE SODIUM IV 40 MG VIAL IV PUSH ×2 (08:06→20:15)
[2023-03-30] MEDS: ATORVASTATIN 40 MG TABLET PO (08:06)
[2023-03-30] MEDS: METOPROLOL TARTRATE 12.5 MG TABLET PO ×2 (08:06→20:14)
--- NOTE | 2023-03-30 08:45 | PCOTNOTE ---
Attempted to see Patient this A.M. due to going to have 2 procedures this afternoon. Patient unavailable for treatment due to performing bowel prep for the procedure.
--- NOTE | 2023-03-30 10:33 | WPDANESEPPF ---
Anes - Initial Pre Proc Eval Procedure: Operation Date: 03/30/23 13:45 Proposed Procedures p Esophagogastroduodenoscopy & Colonoscopy - Calin Salamanca MD Date/Time: 03/30/23 10:33 Surgeon: Shanell Herron DO Pre Op Diagnosis: CHF Exacerbation Patient Data Age: 67 Gender: F Height: 1.57 m Weight: 70.2 kg Last Vital Signs Temp 36.6 C 03/30/23 08:32 Pulse 88 03/30/23 08:32 Resp 20 03/30/23 08:32 BP 138/58 L 03/30/23 08:32 Pulse Ox 100 03/30/23 08:32 O2 Del Method Nasal Cannula 03/30/23 04:00 O2 Flow Rate 2 03/30/23 04:00 FiO2 35 03/30/23 00:00 Allergies Allergy/AdvReac Type Severity Reaction Status Date / Time codeine Allergy Mild Hives Verified 03/26/23 01:48 Home Medications Medication Instructions Recorded Confirmed Type clonazepam 1 mg tablet 1 mg PO BID 10/23/21 03/26/23 History metformin 1,000 mg tablet 1,000 mg PO BID 10/23/21 03/26/23 History mirtazapine 30 mg tablet 30 mg PO HS 10/23/21 03/26/23 History aspirin 81 mg tablet,delayed 81 mg PO DAILY 04/08/22 03/26/23 History release (Adult Aspirin Regimen) atorvastatin 40 mg tablet 40 mg PO DAILY 04/08/22 03/26/23 History lisinopril 40 mg tablet 40 mg PO DAILY 04/08/22 03/26/23 History metoprolol tartrate 25 mg tablet 25 mg PO BID 04/08/22 03/26/23 History montelukast 10 mg tablet 10 mg PO DAILY 04/08/22 03/26/23 History quetiapine 200 mg tablet 200 mg PO HS 03/26/23 03/26/23 History Laboratory Tests 03/29/23 03/29/23 03/29/23 11:58 15:00 16:15 WBC RBC Hgb Hct MCV MCH MCHC RDW Plt Count MPV Sodium Potassium 3.4 mmol/L (3.4-5.0) Chloride Carbon Dioxide Anion Gap BUN Creatinine Estim Creat Clear Calc Estimated GFR Glucose POC Capillary Glucose 267 H mg/dl 242 H mg/dl (65-105) (65-105) Calcium Magnesium Total Bilirubin AST ALT Alkaline Phosphatase Total Protein Albumin 03/29/23 03/30/23 03/30/23 20:30 00:05 04:55 WBC RBC Hgb Hct MCV MCH MCHC RDW Plt Count MPV Sodium Potassium Chloride Carbon Dioxide Anion Gap BUN Creatinine Estim Creat Clear Calc Estimated GFR Glucose POC Capillary Glucose 353 H mg/dl 241 H mg/dl 166 H mg/dl (65-105) (65-105) (65-105) Calcium Magnesium Total Bilirubin AST ALT Alkaline Phosphatase Total Protein Albumin 03/30/23 03/30/23 05:35 07:38 WBC 7.8 K/mm3 (4.5-10.0) RBC 3.25 L M/mm3 (4.2-5.4) Hgb 7.3 L g/dL (12.0-15.0) Hct 24.8 L % (37.0-47.0) MCV 76.3 L fl (80-100) MCH 22.5 L pg (26-34) MCHC 29.4 L g/dl (32-36) RDW 24.7 H % (11.5-14.5) Plt Count 301 k/mm3 (150-375) MPV 10.9 H fl (7.4-10.4) Sodium 135 L mmol/L (137-145) Potassium 2.8 L* mmol/L (3.4-5.0) Chloride 104 mmol/L (98-107) Carbon Dioxide 27 mmol/L (22-30) Anion Gap 4 L mmol/L (8-16) BUN 11 D mg/dL (7-17) Creatinine 1.20 H mg/dL (0.7-1.0) Estim Creat Clear Calc 37 ml/min Estimated GFR 45 L (59 - ) Glucose 185 H mg/dL (65-110) POC Capillary Glucose 174 H mg/dl (65-105) Calcium 8.2 L mg/dL (8.4-10.2) Magnesium 1.8 mg/dL (1.6-2.3) Total Bilirubin 0.5 mg/dL (0.2-1.3) AST 14 U/L
[2023-03-30 11:54] LABS: Glucose Point of Care 319 mg/dl (65-105)
[2023-03-30 12:20] LABS: Vancomycin Trough 12.8 ug/mL (10.0-20.0)
[2023-03-30] MEDS: LACTATED RINGERS 1,000 ML 150 ML IV CONT (12:47)
--- NOTE | 2023-03-30 13:04 | SUR.PREOP ---
1300- IV Potassium stopped for procedure. Will restart in recovery.
--- NOTE | 2023-03-30 13:13 | SUR.OPER ---
EGD END TIME: 1308 COLON START TIME: 1312
--- NOTE | 2023-03-30 13:30 | PCOTNOTE ---
Patient unavailable for the afternoon. Patient out of the room, having 2 procedures this P.M.
[2023-03-30 14:16] LABS: Glucose Point of Care 216 mg/dl (65-105)
--- NOTE | 2023-03-30 15:03 | PCPTNOTE ---
Attempted to see patient for PT, however patient declined due to patient wanting to rest. Patient had testing/ procedure this date and just got back to her room.
[2023-03-30] MEDS: INSULIN ASPART (*BKC) 100 UNITS/ML SUB-Q (16:25)
[2023-03-30 16:29] LABS: Glucose Point of Care 264 mg/dl (65-105)
--- NOTE | 2023-03-30 16:33 | PC.NURSE ---
[id number]- pt in GI lab- returned to room -post procedure- no c/o pain -pt awake /alert- family at bedside
--- NOTE | 2023-03-30 17:22 | P.PNIM_ITS ---
Progress Note: A&P Assessment and Plan (1) Acute respiratory failure: Qualifiers: Respiratory failure complication: unspecified whether with hypoxia or hypercapnia Qualified Code(s): J96.00 - Acute respiratory failure, unspecified whether with hypoxia or hypercapnia Code(s): J96.00 - Acute respiratory failure, unspecified whether with hypoxia or hypercapnia Status: Acute Assessment and Plan: Acute respiratory failure secondary to flash pulmonary edema, CHF, possible pneumonia and baseline COPD. BiPAP started on admission. Treated with Lasix IV and broad spectrum abx. Clinically improved and able to be weaned to nasal cannula. -Influenza, RSV and COVID negative. -CXR 03/28 showing minimal bibasilar edema -Speech evaluation with MBS (03/29) reviewed. Pureed diet with Level 2 thickened liquid recommended -BCx NGTD. MRSA nasal swab positive. -Echo showing EF 40-45%, HK and AK segments, mild-mod MR and LAE. Cr was elevated so Lasix IV stopped; Cr trending down Continue empiric vancomycin; changed Zosyn to cefepime Wean O2 as tolerated (2) Sepsis: Code(s): A41.9 - Sepsis, unspecified organism Status: Acute Assessment and Plan: Patient met criteria for sepsis on admission. WBC 13K. CXR on admission showing right basilar airspace opacities Fevers present on admission. Underlying pneumonia suspected despite her procalcitonin level being low BCx NGTD. MRSA nasal swab positive. WBC normal. Fever free now Continue current abx (3) GI bleed: Code(s): K92.2 - Gastrointestinal hemorrhage, unspecified Status: Acute Assessment and Plan: Patient reported black stools which have been ongoing for while. Hemoglobin 5.3 on admission. Sep 2021: EGD showed erosive gastritis. 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 Patient was transfused 2 units of PRBC 03/26 Hgb up to 7-8 range and stable Continue hemoglobin monitoring Continue Protonix IV q.12 hours GI following Endoscopy 03/30 (4) Elevated troponin: Code(s): R77.8 - Other specified abnormalities of plasma proteins Status: Acute Assessment and Plan: Patient presented with chest pain. Troponin level peaked at 0.855 She does not have history of coronary disease but does have risk factors Echo showing EF 40-45%, HK and AK segments, mild-mod MR and LAE. Echo in 2020 showed EF >70% with no wall motion abnormalities and Grade II DD. Not a candidate for aspirin or anticoagulation at this time due to GI bleed Continue Lipitor and metoprolol Cardiology following Concern for AMI recently or underlying ischemia related to the anemia Will need ischemic evaluation once she is more stable (5) Flash pulmonary edema: Code(s): J81.0 - Acute pulmonary edema Status: Acute Assessment and Plan: [place] related to the severe anemia and poor EF. See above (6) Acute blood loss anemia: Code(s): D62 - Acute posthemorrhagic anemia Status: Acute Assessment and Plan: Related to GI blood loss. No schistocytes on initial CBC. 1+ now but could be from the transfused blood. Follow HH. Transfuse as needed. (7) Pneumonia: Code(s): J18.9 - Pneumonia, unspecified organism Status: Acute Assessment and Plan: Possible PNA See above (8) Lactic acidosis: Code(s): E87.2 - Acidosis Status: Acute Assessment and Plan: Likely secondary to anemia, respiratory failure and/or sepsis Res
[2023-03-30] MEDS: CEFEPIME 1 GM/NS 50 ML 1 GM/50 ML BAG IVPB (18:00)
[2023-03-30] MEDS: QUEtiapine FUMARATE 100 MG TABLET 200 MG PO (20:14)
[2023-03-30] MEDS: MIRTAZAPINE 30 MG TABLET PO (20:14)
[2023-03-30 20:52] LABS: Glucose Point of Care 258 mg/dl (65-105)
[2023-03-31] VITALS (17 sets, daily range): BP systolic 133–184; BP diastolic 50–72; PULSE 78–108; RESP 16–21; TEMP 35.9–37.3; O2SAT 97–100
[2023-03-31] MEDS: CENTRAL LINE FLUSH 10 ML IV PUSH ×4 (06:33→21:12)
[2023-03-31 06:35] LABS: Basophils Percent Auto 0.7 % (0.2-1.2); Eosinophils Absolute Auto 0.3 K/mm3 (0-0.3); Eosinophils Percent Auto 4.9 % (0-4.4); Hematocrit 24.8 % (37.0-47.0); Immature Granulocyte Absolute 0.02 K/mm3 (0.00-0.031); Immature Granulocyte Percent A 0.3 % (0-0.5); Lymphocytes Absolute Auto 1.58 K/mm3 (0.9-3.2); Lymphocytes Percent Auto 25.7 % (18.3-44.2); Mean Corpuscular HGB Conc 26.6 g/dl (32-36); Mean Corpuscular Hemoglobin 21.6 pg (26-34); Mean Platelet Volume 11.3 fl (7.4-10.4); Monocytes Absolute Auto 0.8 K/mm3 (0.1-0.6); Monocytes Percent Auto 12.2 % (2.6-8.5); Neutrophils Absolute Auto 3.5 K/mm3 (1.3-6.7); Neutrophils Percent Auto 56.2 % (45.5-73.1); Platelet Count Result 268 k/mm3 (150-375); Red Blood Count 3.06 M/mm3 (4.2-5.4); Red Cell Distribution Width 25.4 % (11.5-14.5); White Blood Count 6.1 K/mm3 (4.5-10.0)
[2023-03-31 06:38] LABS: Alanine Aminotransferase 12 U/L (6-35); Alkaline Phosphatase 67 U/L (38-126); Anion Gap 3 mmol/L (8-16); Aspartate Amino Transferase 16 U/L (14-36); Bilirubin,Total 0.5 mg/dL (0.2-1.3); Blood Urea Nitrogen 11 mg/dL (7-17); Calcium 8.6 mg/dL (8.4-10.2); Carbon Dioxide 27 mmol/L (22-30); Chloride 110 mmol/L (98-107); Estimated CRCL calculation 34 ml/min; Estimated Glomerular Filt Rate 41; Glucose 202 mg/dL (65-110); Magnesium 1.8 mg/dL (1.6-2.3); Potassium 3.6 mmol/L (3.4-5.0); Sodium 140 mmol/L (137-145)
[2023-03-31 06:45] LABS: Hemoglobin 6.6 g/dL (12.0-15.0)
[2023-03-31 07:00] LABS: Platelet Estimate Adequate (Adequate)
[2023-03-31 07:02] LABS: Anisocytosis 2+ (NORMAL); Burr Cells 1+ (NORMAL); Macrocytosis 1+ (NORMAL); Ovalocytes 1+ (NORMAL)
[2023-03-31 07:03] LABS: Schistocytes Rare (NORMAL)
[2023-03-31 08:14] LABS: Glucose Point of Care 235 mg/dl (65-105)
[2023-03-31] MEDS: METOPROLOL TARTRATE 12.5 MG TABLET PO ×2 (09:19→21:11)
[2023-03-31] MEDS: ATORVASTATIN 40 MG TABLET PO (09:19)
[2023-03-31] MEDS: clonazePAM (*CRX) 0.5 MG TABLET 1 MG PO ×2 (09:19→21:11)
[2023-03-31] MEDS: PANTOPRAZOLE SODIUM IV 40 MG VIAL IV PUSH ×2 (09:21→21:11)
[2023-03-31] MEDS: INSULIN ASPART (*BKC) 100 UNITS/ML SUB-Q ×2 (09:21→12:51)
--- NOTE | 2023-03-31 09:31 | PCPTNOTE ---
Attempted to see patient for PT, however patient declined. Patient reported she did not feel well and wanted to rest. Patient's hgb 6.6.
[2023-03-31 12:01] LABS: Glucose Point of Care 229 mg/dl (65-105)
--- NOTE | 2023-03-31 12:10 | P.PNIM_ITS ---
Progress Note: A&P Assessment and Plan (1) Acute respiratory failure: Qualifiers: Respiratory failure complication: unspecified whether with hypoxia or hypercapnia Qualified Code(s): J96.00 - Acute respiratory failure, unspecified whether with hypoxia or hypercapnia Code(s): J96.00 - Acute respiratory failure, unspecified whether with hypoxia or hypercapnia Status: Acute Assessment and Plan: Acute respiratory failure secondary to flash pulmonary edema, CHF, possible pneumonia and baseline COPD. BiPAP started on admission. Treated with Lasix IV and broad spectrum abx. Clinically improved and able to be weaned to nasal cannula. -Influenza, RSV and COVID negative. -CXR 03/28 showing minimal bibasilar edema -Speech evaluation with MBS (03/29) reviewed. Pureed diet with Level 2 thickened liquid recommended -BCx NGTD. MRSA nasal swab positive. -Echo showing EF 40-45%, HK and AK segments, mild-mod MR and LAE. Cr was elevated so Lasix IV stopped; Cr trending down Continue empiric vancomycin; changed Zosyn to cefepime Weaned to room air, all symptoms resolved, still with some aspiration, will need reassessed on an outpatient basis Wean to doxycycline to complete a 10 day course for possible pneumonia (2) Sepsis: Code(s): A41.9 - Sepsis, unspecified organism Status: Acute Assessment and Plan: Patient met criteria for sepsis on admission. WBC 13K. CXR on admission showing right basilar airspace opacities Fevers present on admission. Underlying pneumonia suspected despite her procalcitonin level being low BCx NGTD. MRSA nasal swab positive. WBC normal. Fever free now Continue abx as above (3) GI bleed: Code(s): K92.2 - Gastrointestinal hemorrhage, unspecified Status: Acute Assessment and Plan: Patient reported black stools which have been ongoing for while. Hemoglobin 5.3 on admission. Sep 2021: EGD showed erosive gastritis. 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 Patient was transfused 2 units of PRBC 03/26 Hgb up to 7-8 range and stable Continue hemoglobin monitoring Continue Protonix IV q.12 hours GI following Endoscopy 03/30 showed gastritis and hemorrhoids, cont PPI (4) Elevated troponin: Code(s): R77.8 - Other specified abnormalities of plasma proteins Status: Acute Assessment and Plan: Patient presented with chest pain. Troponin level peaked at 0.855 She does not have history of coronary disease but does have risk factors Echo showing EF 40-45%, HK and AK segments, mild-mod MR and LAE. Echo in 2020 showed EF >70% with no wall motion abnormalities and Grade II DD. Not a candidate for aspirin or anticoagulation at this time due to GI bleed Continue Lipitor and metoprolol Cardiology following Concern for AMI recently or underlying ischemia related to the anemia Will need ischemic evaluation once she is more stable (5) Flash pulmonary edema: Code(s): J81.0 - Acute pulmonary edema Status: Acute Assessment and Plan: [place] related to the severe anemia and poor EF. See above (6) Acute blood loss anemia: Code(s): D62 - Acute posthemorrhagic anemia Status: Acute Assessment and Plan: Related to GI blood loss. No schistocytes on initial CBC. 1+ now but could be from the transfused blood. Follow HH. Transfuse as needed. (7) Pneumonia: Code(s): J18.9 - Pneumonia, unspecified organism Status: Acute Assessment and Plan: Possible PNA See above
--- NOTE | 2023-03-31 12:40 | PCOTNOTE ---
Attempted to see Patient for afternoon treatment session. Patient declined, stated, not feeling well, really tired and sleepy. Per RN, Patient's hemoglobin is low. Patient's daughter present in the room, waiting to speak with the doctor.
--- NOTE | 2023-03-31 13:30 | PCPTNOTE ---
Attempted to see patient for PT, however patient declined. Patient not feeling well this date and hgb 6.6.
[2023-03-31 15:09] LABS: Hematocrit 25.7 % (37.0-47.0); Hemoglobin 7.4 g/dL (12.0-15.0)
[2023-03-31 16:38] LABS: Glucose Point of Care 197 mg/dl (65-105)
--- NOTE | 2023-03-31 17:39 | WPDGIPROGNO ---
Progress Note: A&P Assessment and Plan (1) RETA (iron deficiency anemia): Code(s): D50.9 - Iron deficiency anemia, unspecified Status: Acute Assessment and Plan: probably multifactorial egd with non-bleeding erosive gastritis h/h stable (2) Erosive gastritis: Code(s): K29.60 - Other gastritis without bleeding Status: Acute Assessment and Plan: will need fpc ppi (3) Chronic obstructive pulmonary disease: Code(s): J44.9 - Chronic obstructive pulmonary disease, unspecified Status: Acute Assessment and Plan: by primary Subjective Date/time seen: 03/31/23 17:39 Interval history: egd yesterday erosive gastritis without bleeding, colonoscopy only small polyp she is eating but does not like thickening consistency family at bedside Review of Systems Review of Systems: All systems reviewed & are unremarkable except as noted in HPI and below Exam Narrative: General: No acute distress, alert and oriented per baseline HEENT: Atraumatic, normocephalic, mucous membranes moist CV: Regular rate and rhythm, S1, S2, soft systolic murmur Lungs: Clear to auscultation bilaterally, no rales or crackles noted, no wheezes, good air entry Abdomen: Soft, nontender, nondistended Extremities: Normal to inspection Skin: No rashes noted, no lesions or wounds seen Psych: Euthymic, normal affect Objective Data Vital Signs Vital Signs: Vital Signs - 24 hr 03/30/23 18:00 03/30/23 20:14 03/30/23 20:00 Temperature 99.0 F Pulse Rate 94 90 98 Respiratory Rate 18 Blood Pressure 158/59 H Pulse Oximetry 100 Oxygen Delivery Oxygen Flow Rate 03/30/23 20:00 03/30/23 20:00 03/31/23 00:00 Temperature 98.6 F Pulse Rate 94 89 Respiratory Rate 20 Blood Pressure 133/50 L Pulse Oximetry 100 99 Oxygen Delivery Room Air Oxygen Flow Rate 03/31/23 00:00 03/31/23 00:00 03/30/23 22:10 Temperature Pulse Rate 89 88 Respiratory Rate 20 Blood Pressure Pulse Oximetry 98 100 Oxygen Delivery Room Air BiPAP Oxygen Flow Rate 03/31/23 03:37 03/31/23 04:00 03/31/23 04:00 Temperature 98.4 F Pulse Rate 94 93 Respiratory Rate 20 Blood Pressure 137/54 L Pulse Oximetry 98 100 Oxygen Delivery Room Air Oxygen Flow Rate 03/31/23 08:23 03/31/23 09:19 03/31/23 09:10 Temperature 96.6 F L Pulse Rate 93 78 Respiratory Rate 20 Blood Pressure 149/57 H Pulse Oximetry 98 99 Oxygen Delivery Nasal Cannula Oxygen Flow Rate 1 03/31/23 09:30 03/31/23 08:00 03/31/23 08:00 Temperature Pulse Rate 93 Respiratory Rate Blood Pressure Pulse Oximetry 97 Oxygen Delivery Room Air Room Air Oxygen Flow Rate 03/31/23 10:00 03/31/23 12:10 03/31/23 12:00 Temperature 98.3 F Pulse Rate 91 79 84 Respiratory Rate 18 Blood Pressure 152/61 H Pulse Oximetry 98 Oxygen Delivery Oxygen Flow Rate 03/31/23 12:00 03/31/23 14:00 03/31/23 16:00 Temperature Pulse Rate 92 93 Respiratory Rate Blood Pressure Pulse Oximetry Oxygen Delivery Room Air Oxygen Flow Rate 03/31/23 16:00 Temperature Pulse Rate Respiratory Rate Blood Pressure Pulse Oximetry Oxygen Delivery Room Air Oxygen Flow Rate Intake/Output Intake/Output: Intake & Output 03/28/23 03/29/23 03/30/23 03/31/23 23:59 23:59 23:59 23:59 Intake Total 1040 6488 081 6947 Output Total 2200 2900 1900 2050 Balance -1160 -1650 -1160 -890 Meds/Results Medications: Active Medications Generic Name Dose Route Start Last Admin Trade Name Freq PRN Reason Stop Dose Admin Acetaminophen 650 mg 03/27/23 15:34 03/27/23 15:40 Acetaminophen 325 Mg Tablet PO 650 mg Q6H PRN Administration Mild Pain (1-3) or Fever Atorvastatin Calcium 40 mg 03/28/23 09:00 03/31/23 09:19 Atorvastatin 40 Mg Tablet PO 40 mg DAILY JIMMY Administration Clonazepam 1 mg 03/29/23 21:00 03/31/23
[2023-03-31 20:22] LABS: Glucose Point of Care 298 mg/dl (65-105)
[2023-03-31] MEDS: QUEtiapine FUMARATE 100 MG TABLET 200 MG PO (21:11)
[2023-03-31] MEDS: DOXYCYCLINE HYCLATE 100 MG TABLET PO (21:11)
[2023-03-31] MEDS: MIRTAZAPINE 30 MG TABLET PO (21:11)
[2023-04-01] VITALS (20 sets, daily range): BP systolic 126–188; BP diastolic 54–84; PULSE 84–111; RESP 16–20; TEMP 36.3–37.2; O2SAT 96–100; BMI 28.3
[2023-04-01] MEDS: CENTRAL LINE FLUSH 10 ML IV PUSH ×4 (05:58→21:18)
[2023-04-01 06:10] LABS: Basophils Percent Auto 0.4 % (0.2-1.2); Eosinophils Absolute Auto 0.2 K/mm3 (0-0.3); Eosinophils Percent Auto 3.1 % (0-4.4); Hematocrit 24.3 % (37.0-47.0); Immature Granulocyte Absolute 0.02 K/mm3 (0.00-0.031); Immature Granulocyte Percent A 0.3 % (0-0.5); Lymphocytes Absolute Auto 1.71 K/mm3 (0.9-3.2); Lymphocytes Percent Auto 25.4 % (18.3-44.2); Mean Corpuscular HGB Conc 28.4 g/dl (32-36); Mean Corpuscular Hemoglobin 21.8 pg (26-34); Mean Corpuscular Volume 76.9 fl (80-100); Mean Platelet Volume 11.3 fl (7.4-10.4); Monocytes Absolute Auto 0.8 K/mm3 (0.1-0.6); Monocytes Percent Auto 12.3 % (2.6-8.5); Neutrophils Absolute Auto 3.9 K/mm3 (1.3-6.7); Neutrophils Percent Auto 58.5 % (45.5-73.1); Platelet Count Result 279 k/mm3 (150-375); Red Blood Count 3.16 M/mm3 (4.2-5.4); Red Cell Distribution Width 25.3 % (11.5-14.5); White Blood Count 6.7 K/mm3 (4.5-10.0)
[2023-04-01 06:21] LABS: Alanine Aminotransferase 12 U/L (6-35); Alkaline Phosphatase 73 U/L (38-126); Anion Gap 4 mmol/L (8-16); Aspartate Amino Transferase 17 U/L (14-36); Bilirubin,Total 0.7 mg/dL (0.2-1.3); Blood Urea Nitrogen 12 mg/dL (7-17); Calcium 8.4 mg/dL (8.4-10.2); Carbon Dioxide 30 mmol/L (22-30); Chloride 105 mmol/L (98-107); Estimated CRCL calculation 37 ml/min; Estimated Glomerular Filt Rate 45; Glucose 231 mg/dL (65-110); Potassium 3.1 mmol/L (3.4-5.0); Sodium 139 mmol/L (137-145)
[2023-04-01 06:45] LABS: Hemoglobin 6.9 g/dL (12.0-15.0)
[2023-04-01 06:47] LABS: Anisocytosis 3+ (NORMAL); Hypochromasia 1+ (NORMAL); Microcytosis 1+ (NORMAL); Ovalocytes 1+ (NORMAL); Platelet Estimate Adequate (Adequate); Schistocytes None Seen (NORMAL)
[2023-04-01 07:39] LABS: Glucose Point of Care 253 mg/dl (65-105)
[2023-04-01] MEDS: ACETAMINOPHEN 325 MG TABLET 650 MG PO (07:58)
[2023-04-01] MEDS: ATORVASTATIN 40 MG TABLET PO (08:02)
[2023-04-01] MEDS: METOPROLOL TARTRATE 12.5 MG TABLET PO ×2 (08:03→21:17)
[2023-04-01] MEDS: DOXYCYCLINE HYCLATE 100 MG TABLET PO ×2 (08:03→21:17)
[2023-04-01] MEDS: clonazePAM (*CRX) 0.5 MG TABLET 1 MG PO ×2 (08:05→21:18)
[2023-04-01] MEDS: INSULIN ASPART (*BKC) 100 UNITS/ML SUB-Q ×3 (08:06→16:38)
[2023-04-01] MEDS: PANTOPRAZOLE SODIUM IV 40 MG VIAL IV PUSH ×2 (08:07→21:17)
[2023-04-01 11:27] LABS: Glucose Point of Care 208 mg/dl (65-105)
--- NOTE | 2023-04-01 11:28 | PCOTNOTE ---
Attempted to see Patient at this time. Patient verbalized, she is not feeling well, so exhausted and weak. Patient declining to participate and RN verbalized her hemoglobin is low, Patient's son present in the room.
[2023-04-01 11:52] LABS: Hematocrit 25.2 % (37.0-47.0); Hemoglobin 7.2 g/dL (12.0-15.0)
--- NOTE | 2023-04-01 12:55 | PM.IMPN ---
Progress Note: A&P Assessment and Plan (1) Acute respiratory failure: Qualifiers: Respiratory failure complication: unspecified whether with hypoxia or hypercapnia Qualified Code(s): J96.00 - Acute respiratory failure, unspecified whether with hypoxia or hypercapnia Code(s): J96.00 - Acute respiratory failure, unspecified whether with hypoxia or hypercapnia Status: Acute Assessment and Plan: Acute respiratory failure secondary to flash pulmonary edema, CHF, possible pneumonia and baseline COPD. BiPAP started on admission. Treated with Lasix IV and broad spectrum abx. Clinically improved and able to be weaned to nasal cannula. -Influenza, RSV and COVID negative. -CXR 03/28 showing minimal bibasilar edema -Speech evaluation with MBS (03/29) reviewed. Pureed diet with Level 2 thickened liquid recommended -BCx NGTD. MRSA nasal swab positive. -Echo showing EF 40-45%, HK and AK segments, mild-mod MR and LAE. Cr was elevated so Lasix IV stopped; Cr trending down Continue empiric vancomycin; changed Zosyn to cefepime Weaned to room air, all symptoms resolved, still with some aspiration, will need reassessed on an outpatient basis Wean to doxycycline to complete a 10 day course for possible pneumonia (2) Sepsis: Code(s): A41.9 - Sepsis, unspecified organism Status: Acute Assessment and Plan: Patient met criteria for sepsis on admission. WBC 13K. CXR on admission showing right basilar airspace opacities Fevers present on admission. Underlying pneumonia suspected despite her procalcitonin level being low BCx NGTD. MRSA nasal swab positive. WBC normal. Fever free now Continue abx as above (3) GI bleed: Code(s): K92.2 - Gastrointestinal hemorrhage, unspecified Status: Acute Assessment and Plan: Patient reported black stools which have been ongoing for while. Hemoglobin 5.3 on admission. Sep 2021: EGD showed erosive gastritis. 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 Patient was transfused 2 units of PRBC 03/26 Hgb up to 7-8 range and stable Continue hemoglobin monitoring Continue Protonix IV q.12 hours GI following Endoscopy 03/30 showed gastritis and hemorrhoids, cont PPI Severe iron deficiency noted, will give venofer and initiate ferrous sulfate at discharge (4) Elevated troponin: Code(s): R77.8 - Other specified abnormalities of plasma proteins Status: Acute Assessment and Plan: Patient presented with chest pain. Troponin level peaked at 0.855 She does not have history of coronary disease but does have risk factors Echo showing EF 40-45%, HK and AK segments, mild-mod MR and LAE. Echo in 2020 showed EF >70% with no wall motion abnormalities and Grade II DD. Not a candidate for aspirin or anticoagulation at this time due to GI bleed Continue Lipitor and metoprolol Cardiology following Concern for AMI recently or underlying ischemia related to the anemia Will need ischemic evaluation once she is more stable (5) Flash pulmonary edema: Code(s): J81.0 - Acute pulmonary edema Status: Acute Assessment and Plan: [place] related to the severe anemia and poor EF. See above (6) Acute blood loss anemia: Code(s): D62 - Acute posthemorrhagic anemia Status: Acute Assessment and Plan: Related to GI blood loss. No schistocytes on initial CBC. 1+ now but could be from the transfused blood. Follow HH. Transfuse as needed. (7) Pneumonia: Code(s): J18.9 - Pneumonia, unspecified organism Status: Acute Assessment and Plan: Possible PNA See above (8) Lactic acidosis: Code(s): E87.2 - Acidosis Status: Acute Assessment and Plan: Likely secondary to anemia, respiratory failure and/or sepsis Resolved Empiric antibiotics, transfusion, BiPAP therapy Not a candidate for IV fluids due to congestive heart failure (9) Hypertension: Code(s):
[2023-04-01] MEDS: POTASSIUM CHLORIDE 20 MEQ TABLET 40 MEQ PO (13:22)
[2023-04-01] MEDS: IRON SUCROSE COMPLEX 500 MG in SODIUM CHLORIDE 0.9% IV 250 ML 78.57 MG IVPB (13:46)
--- NOTE | 2023-04-01 14:04 | PCPTNOTE ---
Attempted to see patient for PT, however patient was working with OT.
--- NOTE | 2023-04-01 15:29 | PC.NURSE ---
Dr Lopez has been made aware that pt has completed the EGD/GI work up and Dr Lopez stated she has signed off on this patient today no further work up and no ischemic work with this hospital visit this nurse spoke to Silvia Palmer and told is not appropriate for cath due to HGB not stable and Dr Garland made aware of this as well
[2023-04-01 16:11] LABS: Glucose Point of Care 262 mg/dl (65-105)
[2023-04-01 20:29] LABS: Glucose Point of Care 275 mg/dl (65-105)
[2023-04-01] MEDS: QUEtiapine FUMARATE 100 MG TABLET 200 MG PO (21:17)
[2023-04-01] MEDS: MIRTAZAPINE 30 MG TABLET PO (21:17)
--- NOTE | 2023-04-01 23:49 | PCRCNOTE ---
PT refused to wear CPAP while sleeping. RN notified
[2023-04-02] VITALS (22 sets, daily range): BP systolic 144–199; BP diastolic 60–99; PULSE 82–102; RESP 14–20; TEMP 36.3–37.3; O2SAT 94–100
[2023-04-02 04:30] LABS: Hematocrit 23.1 % (37.0-47.0); Mean Corpuscular Hemoglobin 22.3 pg (26-34); Mean Corpuscular Volume 76.7 fl (80-100); Mean Platelet Volume 11.2 fl (7.4-10.4); Platelet Count Result 299 k/mm3 (150-375); Red Blood Count 3.01 M/mm3 (4.2-5.4); Red Cell Distribution Width 25.4 % (11.5-14.5); White Blood Count 7.1 K/mm3 (4.5-10.0)
[2023-04-02] MEDS: CENTRAL LINE FLUSH 10 ML IV PUSH ×4 (04:37→21:42)
[2023-04-02 04:41] LABS: Alanine Aminotransferase 13 U/L (6-35); Alkaline Phosphatase 72 U/L (38-126); Anion Gap 2 mmol/L (8-16); Aspartate Amino Transferase 23 U/L (14-36); Bilirubin,Total 0.9 mg/dL (0.2-1.3); Blood Urea Nitrogen 14 mg/dL (7-17); Calcium 8.4 mg/dL (8.4-10.2); Carbon Dioxide 32 mmol/L (22-30); Chloride 107 mmol/L (98-107); Estimated CRCL calculation 37 ml/min; Estimated Glomerular Filt Rate 45; Glucose 215 mg/dL (65-110); Potassium 3.3 mmol/L (3.4-5.0); Sodium 141 mmol/L (137-145)
[2023-04-02 05:01] LABS: Hemoglobin 6.7 g/dL (12.0-15.0)
[2023-04-02 05:12] LABS: Anisocytosis 2+ (NORMAL); Band Neutrophils Percent 2 % (0-6); Basophils Absolute Manual 0.07 K/mm3 (0.0-0.1); Basophils Percent Manual 1 % (0-1); Eosinophils Absolute Manual 0.14 K/mm3 (0.02-0.5); Eosinophils Percent Manual 2 % (0-4); Lymphocytes Absolute Manual 1.84 K/mm3 (1.1-4.5); Monocytes Absolute Manual 0.21 K/mm3 (0.1-0.90); Monocytes Percent Manual 3 % (3-9); Myelocytes Percent 2 %; Neutrophils Absolute Manual 4.68 K/mm3 (1.7-7.2); Neutrophils Percent Manual 64 % (46-73); Platelet Estimate Adequate (Adequate); Total Cells Counted 100
[2023-04-02 05:13] LABS: Hypochromasia 3+ (NORMAL); Macrocytosis 1+ (NORMAL); Microcytosis 2+ (NORMAL); Ovalocytes 1+ (NORMAL); Poikilocytosis 1+ (NORMAL); Schistocytes None Seen (NORMAL)
[2023-04-02 08:38] LABS: Glucose Point of Care 231 mg/dl (65-105)
[2023-04-02] MEDS: DOXYCYCLINE HYCLATE 100 MG TABLET PO ×2 (10:00→21:41)
[2023-04-02] MEDS: ATORVASTATIN 40 MG TABLET PO (10:00)
[2023-04-02] MEDS: ACETAMINOPHEN 325 MG TABLET 650 MG PO ×2 (10:00→21:56)
[2023-04-02] MEDS: PANTOPRAZOLE SODIUM IV 40 MG VIAL IV PUSH ×2 (10:00→21:41)
[2023-04-02] MEDS: clonazePAM (*CRX) 0.5 MG TABLET 1 MG PO ×2 (10:00→21:41)
[2023-04-02] MEDS: METOPROLOL TARTRATE 12.5 MG TABLET PO (10:00)
[2023-04-02] MEDS: IRON SUCROSE COMPLEX 500 MG in SODIUM CHLORIDE 0.9% IV 250 ML 79 MG IVPB (10:00)
--- NOTE | 2023-04-02 12:04 | PM.IMPN ---
Progress Note: A&P Assessment and Plan (1) Acute respiratory failure: Qualifiers: Respiratory failure complication: unspecified whether with hypoxia or hypercapnia Qualified Code(s): J96.00 - Acute respiratory failure, unspecified whether with hypoxia or hypercapnia Code(s): J96.00 - Acute respiratory failure, unspecified whether with hypoxia or hypercapnia Status: Acute Assessment and Plan: Acute respiratory failure secondary to flash pulmonary edema, CHF, possible pneumonia and baseline COPD. BiPAP started on admission. Treated with Lasix IV and broad spectrum abx. Clinically improved and able to be weaned to nasal cannula. -Influenza, RSV and COVID negative. -CXR 03/28 showing minimal bibasilar edema -Speech evaluation with MBS (03/29) reviewed. Pureed diet with Level 2 thickened liquid recommended -BCx NGTD. MRSA nasal swab positive. -Echo showing EF 40-45%, HK and AK segments, mild-mod MR and LAE. Cr was elevated so Lasix IV stopped; Cr trending down Continue empiric vancomycin; changed Zosyn to cefepime Weaned to room air, all symptoms resolved, still with some aspiration, repeat MBS 04/02 pending Wean to doxycycline to complete a 10 day course for possible pneumonia, end date 04/06 (2) Sepsis: Code(s): A41.9 - Sepsis, unspecified organism Status: Acute Assessment and Plan: Patient met criteria for sepsis on admission. WBC 13K. CXR on admission showing right basilar airspace opacities Fevers present on admission. Underlying pneumonia suspected despite her procalcitonin level being low BCx NGTD. MRSA nasal swab positive. WBC normal. Fever free now Continue abx as above Resolved (3) GI bleed: Code(s): K92.2 - Gastrointestinal hemorrhage, unspecified Status: Acute Assessment and Plan: Patient reported black stools which have been ongoing for while. Hemoglobin 5.3 on admission. Sep 2021: EGD showed erosive gastritis. 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 Patient was transfused 2 units of PRBC 03/26 Hgb up to 7-8 range and stable Continue hemoglobin monitoring Continue Protonix IV q.12 hours GI following Endoscopy 03/30 showed gastritis and hemorrhoids, cont PPI Severe iron deficiency noted, will give venofer and initiate ferrous sulfate at discharge Heme/onc c/s pending (4) Elevated troponin: Code(s): R77.8 - Other specified abnormalities of plasma proteins Status: Acute Assessment and Plan: Patient presented with chest pain. Troponin level peaked at 0.855 She does not have history of coronary disease but does have risk factors Echo showing EF 40-45%, HK and AK segments, mild-mod MR and LAE. Echo in 2020 showed EF >70% with no wall motion abnormalities and Grade II DD. Not a candidate for aspirin or anticoagulation at this time due to GI bleed Continue Lipitor and metoprolol Cardiology following Concern for AMI recently or underlying ischemia related to the anemia Will need ischemic evaluation once she is more stable (5) Flash pulmonary edema: Code(s): J81.0 - Acute pulmonary edema Status: Acute Assessment and Plan: [place] related to the severe anemia and poor EF. See above (6) Acute blood loss anemia: Code(s): D62 - Acute posthemorrhagic anemia Status: Acute Assessment and Plan: Related to GI blood loss. No schistocytes on initial CBC. 1+ now but could be from the transfused blood. Follow HH. Transfuse as needed. (7) Pneumonia: Code(s): J18.9 - Pneumonia, unspecified organism Status: Acute Assessment and Plan: Possible PNA See above (8) Lactic acidosis: Code(s): E87.2 - Acidosis Status: Acute Assessment and Plan: Likely secondary to anemia, respiratory failure and/or sepsis Resolved Empiric antibiotics, transfusion, BiPAP therapy Not a candidate for IV fluids due to congestive heart failure (9) Hy
--- NOTE | 2023-04-02 12:56 | PCSTNOTE ---
Please refer to the Modified Barium Swallow Evaluation in the EMR.
[2023-04-02 13:23] LABS: Glucose Point of Care 275 mg/dl (65-105)
[2023-04-02] MEDS: INSULIN ASPART (*BKC) 100 UNITS/ML SUB-Q ×2 (13:24→17:55)
[2023-04-02 13:26] LABS: Basophils Absolute Auto 0.1 K/mm3 (0.0-0.1); Basophils Percent Auto 0.7 % (0.2-1.2); Eosinophils Absolute Auto 0.3 K/mm3 (0-0.3); Eosinophils Percent Auto 3.3 % (0-4.4); Hematocrit 25.3 % (37.0-47.0); Hemoglobin 7.2 g/dL (12.0-15.0); Immature Granulocyte Absolute 0.04 K/mm3 (0.00-0.031); Immature Granulocyte Percent A 0.5 % (0-0.5); Lymphocytes Absolute Auto 2.26 K/mm3 (0.9-3.2); Mean Corpuscular HGB Conc 28.5 g/dl (32-36); Mean Corpuscular Hemoglobin 22.2 pg (26-34); Mean Corpuscular Volume 78.1 fl (80-100); Mean Platelet Volume 11.4 fl (7.4-10.4); Monocytes Absolute Auto 0.8 K/mm3 (0.1-0.6); Monocytes Percent Auto 9.6 % (2.6-8.5); Neutrophils Absolute Auto 4.9 K/mm3 (1.3-6.7); Neutrophils Percent Auto 58.9 % (45.5-73.1); Platelet Count Result 302 k/mm3 (150-375); Red Blood Count 3.24 M/mm3 (4.2-5.4); Red Cell Distribution Width 25.5 % (11.5-14.5); White Blood Count 8.4 K/mm3 (4.5-10.0)
[2023-04-02 13:53] LABS: Hypochromasia 2+ (NORMAL); Platelet Estimate Adequate (Adequate); Schistocytes None Seen (NORMAL)
[2023-04-02 13:54] LABS: Anisocytosis 3+ (NORMAL)
[2023-04-02 17:59] LABS: Glucose Point of Care 223 mg/dl (65-105)
[2023-04-02] MEDS: SODIUM CHLORIDE 0.9% IV 250 ML 30 ML IV CONT (18:11)
[2023-04-02] MEDS: METOPROLOL TARTRATE 25 MG TABLET PO (19:34)
[2023-04-02] MEDS: lisinopriL 20 MG TABLET 40 MG PO (19:35)
[2023-04-02 20:25] LABS: Glucose Point of Care 230 mg/dl (65-105)
[2023-04-02 20:27] LABS: IFOB Positive Control Positive; Immunochemical Fecal Occult Bl Negative (N)
[2023-04-02] MEDS: QUEtiapine FUMARATE 100 MG TABLET 200 MG PO (21:41)
[2023-04-02] MEDS: MIRTAZAPINE 30 MG TABLET PO (21:41)
[2023-04-03] VITALS (14 sets, daily range): BP systolic 141–187; BP diastolic 60–75; PULSE 78–95; RESP 14–24; TEMP 36.1–37.3; O2SAT 94–98
[2023-04-03] MEDS: FUROSEMIDE INJ 40 MG/4 ML VIAL IV PUSH (00:03)
[2023-04-03] MEDS: CENTRAL LINE FLUSH 10 ML IV PUSH ×4 (05:00→21:11)
[2023-04-03 05:01] LABS: Basophils Absolute Auto 0.1 K/mm3 (0.0-0.1); Basophils Percent Auto 0.7 % (0.2-1.2); Eosinophils Absolute Auto 0.3 K/mm3 (0-0.3); Hemoglobin 8.9 g/dL (12.0-15.0); Immature Granulocyte Absolute 0.09 K/mm3 (0.00-0.031); Lymphocytes Absolute Auto 2.09 K/mm3 (0.9-3.2); Lymphocytes Percent Auto 22.3 % (18.3-44.2); Mean Corpuscular HGB Conc 29.7 g/dl (32-36); Mean Corpuscular Volume 77.5 fl (80-100); Mean Platelet Volume 11.3 fl (7.4-10.4); Monocytes Percent Auto 10.1 % (2.6-8.5); Neutrophils Absolute Auto 5.9 K/mm3 (1.3-6.7); Neutrophils Percent Auto 62.9 % (45.5-73.1); Platelet Count Result 347 k/mm3 (150-375); Red Blood Count 3.87 M/mm3 (4.2-5.4); Red Cell Distribution Width 24.6 % (11.5-14.5); White Blood Count 9.4 K/mm3 (4.5-10.0)
[2023-04-03 05:30] LABS: Hypochromasia 1+ (NORMAL); Platelet Estimate Adequate (Adequate)
[2023-04-03 05:31] LABS: Schistocytes None Seen (NORMAL)
[2023-04-03 05:32] LABS: Poikilocytosis 1+ (NORMAL)
[2023-04-03 05:34] LABS: Alanine Aminotransferase 15 U/L (6-35); Albumin Level 3.5 g/dL (3.5-5.1); Alkaline Phosphatase 88 U/L (38-126); Anion Gap 3 mmol/L (8-16); Aspartate Amino Transferase 33 U/L (14-36); Bilirubin,Total 1.6 mg/dL (0.2-1.3); Blood Urea Nitrogen 17 mg/dL (7-17); Calcium 8.9 mg/dL (8.4-10.2); Carbon Dioxide 34 mmol/L (22-30); Chloride 101 mmol/L (98-107); Estimated CRCL calculation 37 ml/min; Estimated Glomerular Filt Rate 45; Glucose 223 mg/dL (65-110); Potassium 2.8 mmol/L (3.4-5.0); Sodium 138 mmol/L (137-145)
[2023-04-03] MEDS: METOPROLOL TARTRATE 25 MG TABLET PO ×2 (05:54→21:11)
[2023-04-03] MEDS: lisinopriL 20 MG TABLET 40 MG PO (05:54)
[2023-04-03] MEDS: KCL 40 MEQ/WATER 100 ML 100 ML 25 ML IVPB (06:01)
[2023-04-03 08:14] LABS: Glucose Point of Care 286 mg/dl (65-105)
[2023-04-03] MEDS: IRON SUCROSE COMPLEX 500 MG in SODIUM CHLORIDE 0.9% IV 250 ML 79 MG IVPB (08:30)
[2023-04-03] MEDS: PANTOPRAZOLE SODIUM IV 40 MG VIAL IV PUSH ×2 (08:30→21:11)
[2023-04-03] MEDS: DOXYCYCLINE HYCLATE 100 MG TABLET PO ×2 (08:31→21:10)
[2023-04-03] MEDS: INSULIN ASPART (*BKC) 100 UNITS/ML SUB-Q ×3 (08:31→17:03)
[2023-04-03] MEDS: clonazePAM (*CRX) 0.5 MG TABLET 1 MG PO ×2 (08:31→21:11)
[2023-04-03] MEDS: ATORVASTATIN 40 MG TABLET PO (08:31)
--- NOTE | 2023-04-03 09:24 | PCPTNOTE ---
Pt refused physical therapy session at this time stating she didn't have a good night and she is sore from the therapy yesterday.
[2023-04-03 11:58] LABS: Glucose Point of Care 246 mg/dl (65-105)
--- NOTE | 2023-04-03 12:18 | P.PNIM_ITS ---
Progress Note: A&P Assessment and Plan (1) Acute respiratory failure: Qualifiers: Respiratory failure complication: unspecified whether with hypoxia or hypercapnia Qualified Code(s): J96.00 - Acute respiratory failure, unspecified whether with hypoxia or hypercapnia Code(s): J96.00 - Acute respiratory failure, unspecified whether with hypoxia or hypercapnia Status: Acute Assessment and Plan: Acute respiratory failure secondary to flash pulmonary edema, CHF, possible pneumonia and baseline COPD. BiPAP started on admission. Treated with Lasix IV and broad spectrum abx. Clinically improved and able to be weaned to nasal cannula. Influenza, RSV and COVID negative. CXR 03/28 showing minimal bibasilar edema Speech evaluation with MBS (03/29) reviewed. Pureed diet with Level 2 thickened liquid recommended BCx neg. MRSA nasal swab positive. Echo showing EF 40-45%, HK and AK segments, mild-mod MR and LAE. Cr was elevated so Lasix IV stopped; Cr trending down Continue empiric vancomycin; changed Zosyn to cefepime Weaned to room air, all symptoms resolved, still with some aspiration, repeat MBS 04/02 resolved Wean to doxycycline to complete a 10 day course for possible pneumonia, end date 04/06 (2) Sepsis: Code(s): A41.9 - Sepsis, unspecified organism Status: Acute Assessment and Plan: Patient met criteria for sepsis on admission. WBC 13K. CXR on admission showing right basilar airspace opacities Fevers present on admission. Underlying pneumonia suspected despite her procalcitonin level being low BCx NGTD. MRSA nasal swab positive. WBC normal. Fever free now Continue abx as above Resolved (3) GI bleed: Code(s): K92.2 - Gastrointestinal hemorrhage, unspecified Status: Acute Assessment and Plan: Patient reported black stools which have been ongoing for while. Hemoglobin 5.3 on admission. Sep 2021: EGD showed erosive gastritis. 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 Patient was transfused 2 units of PRBC 03/26 Hgb up to 7-8 range and stable Continue hemoglobin monitoring Continue Protonix IV q.12 hours GI following Endoscopy 03/30 showed gastritis and hemorrhoids, cont PPI Severe iron deficiency noted, will give venofer and initiate ferrous sulfate at discharge Heme/onc c/s pending (4) Elevated troponin: Code(s): R77.8 - Other specified abnormalities of plasma proteins Status: Acute Assessment and Plan: Patient presented with chest pain. Troponin level peaked at 0.855 She does not have history of coronary disease but does have risk factors Echo showing EF 40-45%, HK and AK segments, mild-mod MR and LAE. Echo in 2020 showed EF >70% with no wall motion abnormalities and Grade II DD. Not a candidate for aspirin or anticoagulation at this time due to GI bleed Continue Lipitor and metoprolol Cardiology following Concern for AMI recently or underlying ischemia related to the anemia Will need ischemic evaluation once she is more stable (5) Flash pulmonary edema: Code(s): J81.0 - Acute pulmonary edema Status: Acute Assessment and Plan: Resolved (6) Acute blood loss anemia: Code(s): D62 - Acute posthemorrhagic anemia Status: Acute Assessment and Plan: Related to GI blood loss. No schistocytes on initial CBC. 1+ now but could be from the transfused blood. Follow HH. Transfuse as needed. (7) Pneumonia: Code(s): J18.9 - Pneumonia, unspecified o
[2023-04-03] MEDS: POTASSIUM CHLORIDE 20 MEQ TABLET 80 MEQ PO (14:22)
[2023-04-03] MEDS: ACETAMINOPHEN 325 MG TABLET 650 MG PO (14:25)
[2023-04-03 16:49] LABS: Glucose Point of Care 262 mg/dl (65-105)
[2023-04-03 20:38] LABS: Glucose Point of Care 224 mg/dl (65-105)
[2023-04-03] MEDS: MIRTAZAPINE 30 MG TABLET PO (21:10)
[2023-04-03] MEDS: QUEtiapine FUMARATE 100 MG TABLET 200 MG PO (21:11)
[2023-04-04] VITALS (12 sets, daily range): BP systolic 162–176; BP diastolic 70–98; PULSE 74–97; RESP 18–20; TEMP 35.6–36.5; O2SAT 96–99
[2023-04-04 05:09] LABS: Basophils Absolute Auto 0.1 K/mm3 (0.0-0.1); Basophils Percent Auto 0.5 % (0.2-1.2); Eosinophils Absolute Auto 0.3 K/mm3 (0-0.3); Eosinophils Percent Auto 2.8 % (0-4.4); Hematocrit 27.6 % (37.0-47.0); Hemoglobin 7.9 g/dL (12.0-15.0); Immature Granulocyte Absolute 0.08 K/mm3 (0.00-0.031); Immature Granulocyte Percent A 0.8 % (0-0.5); Lymphocytes Absolute Auto 2.44 K/mm3 (0.9-3.2); Lymphocytes Percent Auto 25.8 % (18.3-44.2); Mean Corpuscular HGB Conc 28.6 g/dl (32-36); Mean Corpuscular Hemoglobin 22.4 pg (26-34); Mean Corpuscular Volume 78.4 fl (80-100); Monocytes Percent Auto 10.8 % (2.6-8.5); Neutrophils Absolute Auto 5.6 K/mm3 (1.3-6.7); Neutrophils Percent Auto 59.3 % (45.5-73.1); Platelet Count Result 362 k/mm3 (150-375); Red Blood Count 3.52 M/mm3 (4.2-5.4); Red Cell Distribution Width 25.3 % (11.5-14.5); White Blood Count 9.5 K/mm3 (4.5-10.0)
[2023-04-04 05:19] LABS: Alanine Aminotransferase 15 U/L (6-35); Albumin Level 3.2 g/dL (3.5-5.1); Alkaline Phosphatase 83 U/L (38-126); Anion Gap 2 mmol/L (8-16); Aspartate Amino Transferase 35 U/L (14-36); Bilirubin,Total 1.2 mg/dL (0.2-1.3); Blood Urea Nitrogen 22 mg/dL (7-17); Calcium 8.5 mg/dL (8.4-10.2); Carbon Dioxide 31 mmol/L (22-30); Chloride 105 mmol/L (98-107); Estimated CRCL calculation 29 ml/min; Estimated Glomerular Filt Rate 41; Glucose 188 mg/dL (65-110); Potassium 3.7 mmol/L (3.4-5.0); Sodium 138 mmol/L (137-145)
[2023-04-04 05:45] LABS: Anisocytosis 2+ (NORMAL); Hypochromasia 2+ (NORMAL); Platelet Estimate Adequate (Adequate); Poikilocytosis 1+ (NORMAL)
[2023-04-04 05:46] LABS: Schistocytes None Seen (NORMAL)
[2023-04-04] MEDS: CENTRAL LINE FLUSH 10 ML IV PUSH ×2 (06:24→14:16)
[2023-04-04 07:57] LABS: Glucose Point of Care 241 mg/dl (65-105)
[2023-04-04] MEDS: INSULIN ASPART (*BKC) 100 UNITS/ML SUB-Q ×2 (09:16→11:59)
[2023-04-04] MEDS: ATORVASTATIN 40 MG TABLET PO (09:17)
[2023-04-04] MEDS: PANTOPRAZOLE SODIUM IV 40 MG VIAL IV PUSH (09:17)
[2023-04-04] MEDS: lisinopriL 20 MG TABLET 40 MG PO (09:17)
[2023-04-04] MEDS: DOXYCYCLINE HYCLATE 100 MG TABLET PO (09:17)
[2023-04-04] MEDS: METOPROLOL TARTRATE 25 MG TABLET PO (09:18)
[2023-04-04] MEDS: clonazePAM (*CRX) 0.5 MG TABLET 1 MG PO (09:23)
[2023-04-04] MEDS: LIDOCAINE 5% PATCH 1 PATCH TRANSDERM (09:26)
--- NOTE | 2023-04-04 11:01 | PM.IMPN ---
Progress Note: A&P Assessment and Plan (1) Acute respiratory failure: Qualifiers: Respiratory failure complication: unspecified whether with hypoxia or hypercapnia Qualified Code(s): J96.00 - Acute respiratory failure, unspecified whether with hypoxia or hypercapnia Code(s): J96.00 - Acute respiratory failure, unspecified whether with hypoxia or hypercapnia Status: Acute Assessment and Plan: Acute respiratory failure secondary to flash pulmonary edema, CHF, possible pneumonia and baseline COPD. BiPAP started on admission. Treated with Lasix IV and broad spectrum abx. Clinically improved and able to be weaned to nasal cannula. Influenza, RSV and COVID negative. CXR 03/28 showing minimal bibasilar edema Speech evaluation with MBS (03/29) reviewed. Pureed diet with Level 2 thickened liquid recommended BCx neg. MRSA nasal swab positive. Echo showing EF 40-45%, HK and AK segments, mild-mod MR and LAE. Cr was elevated so Lasix IV stopped; Cr trending down Continue empiric vancomycin; changed Zosyn to cefepime Weaned to room air, all symptoms resolved, still with some aspiration, repeat MBS 04/02 resolved Wean to doxycycline to complete a 10 day course for possible pneumonia, end date 04/06 (2) Sepsis: Code(s): A41.9 - Sepsis, unspecified organism Status: Acute Assessment and Plan: Patient met criteria for sepsis on admission. WBC 13K. CXR on admission showing right basilar airspace opacities Fevers present on admission. Underlying pneumonia suspected despite her procalcitonin level being low BCx NGTD. MRSA nasal swab positive. WBC normal. Fever free now Continue abx as above Resolved (3) GI bleed: Code(s): K92.2 - Gastrointestinal hemorrhage, unspecified Status: Acute Assessment and Plan: Patient reported black stools which have been ongoing for while. Hemoglobin 5.3 on admission. Sep 2021: EGD showed erosive gastritis. 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 Patient was transfused 2 units of PRBC 03/26 Hgb up to 7-8 range and stable Continue hemoglobin monitoring Continue Protonix IV q.12 hours GI following Endoscopy 03/30 showed gastritis and hemorrhoids, cont PPI Severe iron deficiency noted, will give venofer 500 mg x 3 doses and initiate ferrous sulfate at discharge Heme/onc c/s pending (4) Elevated troponin: Code(s): R77.8 - Other specified abnormalities of plasma proteins Status: Acute Assessment and Plan: Patient presented with chest pain. Troponin level peaked at 0.855 She does not have history of coronary disease but does have risk factors Echo showing EF 40-45%, HK and AK segments, mild-mod MR and LAE. Echo in 2020 showed EF >70% with no wall motion abnormalities and Grade II DD. Not a candidate for aspirin or anticoagulation at this time due to GI bleed Continue Lipitor and metoprolol Cardiology following Concern for AMI recently or underlying ischemia related to the anemia Will need ischemic evaluation once she is more stable (5) Flash pulmonary edema: Code(s): J81.0 - Acute pulmonary edema Status: Acute Assessment and Plan: Resolved (6) Acute blood loss anemia: Code(s): D62 - Acute posthemorrhagic anemia Status: Acute Assessment and Plan: Related to GI blood loss. No schistocytes on initial CBC. 1+ now but could be from the transfused blood. Follow HH. Transfuse as needed. (7) Pneumonia: Code(s): J18.9 - Pneumonia, unspecified organism Status: Acute Assessment and Plan: Possible PNA See above (8) Lactic acidosis: Code(s): E87.2 - Acidosis Status: Acute Assessment and Plan: Resolved (9) Hypertension: Code(s): I10 - Essential (primary) hypertension Status: Acute Assessment and Plan: Patient's blood pressure was reviewed on 04/03 Blood pressure remains well controlle
[2023-04-04 12:01] LABS: Glucose Point of Care 333 mg/dl (65-105)
[2023-04-04] MEDS: SODIUM CHLORIDE 0.9% IV 500 ML 250 ML IV CONT (12:04)
--- NOTE | 2023-04-04 12:48 | PDONCCN ---
[facility] - Date of Consult Date/Time: 04/04/23 12:48 Requesting Physician: Shanell Herron DO Primary Care Provider: Srinivasan Sotelo MD - Consult Narrative Reason for consult: Iron deficiency anemia Narrative: Albertina Orlando is a 67 year old female with history of AVM of the colon, COPD, GERD, hypertension came into the hospital with shortness of breath and chest discomfort. Patient was having some nonproductive cough with low-grade fever. She was complaining of intermittent lower abdominal pain. She was not taking any iron supplements. Labs showed hemoglobin of 5.3. She received 3 units of packed red blood cell. Currently she is getting iron infusion. Patient had EGD done on March 30 that showed gastritis. Colonoscopy on the same date showed internal hemorrhoids. There was no AVM. Other labs showed elevated creatinine of 1.7. Iron was 13 a cough, iron saturation was 3% and ferritin was 4.9. Patient was also treated for pneumonia and congestive heart failure. She remains slightly tired and fatigued with breathing has improved. Review of Systems - Review of Systems All systems reviewed & are unremarkable except as noted in HPI and [facility] Medical History: Medical History (Last Updated 03/31/23 @ 17:41 by Calin Salamanca MD) Acute blood loss anemia Adenomatous colon polyp Anxiety AVM (arteriovenous malformation) of colon Bipolar disorder Cardiac arrest Chronic obstructive pulmonary disease Contact dermatitis Depression Dyslipidemia Erosive gastritis Erosive gastritis Gastroesophageal reflux disease Gastrointestinal tube present Hypertension NSTEMI (non-ST elevated myocardial infarction) Pneumonia Posttraumatic stress disorder Severe anemia Suicide attempt by drug ingestion 16 years ago. Tobacco dependence Type 2 diabetes mellitus Surgical History: Surgical History (Last Reviewed 03/26/23 @ 11:18 by Teena Lopez MD) Hx of tracheostomy No pertinent past surgical history Family History: Family History (Last Reviewed 03/26/23 @ 11:18 by Teena Lopez MD) Mother Acute myocardial infarction Heart disease Father Diabetes mellitus Heart disease - Social History Social History: Social History (Last Reviewed 03/26/23 @ 11:18 by Teena Lopez MD) Alcohol Use: Alcohol intake: never Substance Use: Substance use: never Substance use type: does not use Others: Spiritual care concerns: No Smoking Status: Smoking status: Former smoker Smoking Pack-years: Smoking packs per day: 1 Smoking cigarettes per day: 20.0 Social Determinants of Health: Has the Lack of Transportation Kept You From Medical Appointments or From Getting Medications?: No Within the Past 12 Months, Were You Worried Whether Your Food Would Run Out Before You Got Money to Buy More?: Never True What is Your Housing Situation Today?: I Have Housing Are You Worried That in the Next 2 Months, You May Not Have Your Own Housing to Live In?: No Do You Have Trouble Paying Your Heating Or Electricity Bill?: No Do You Have Trouble Paying For Medicines?: No Are You Currently Unemployed and Looking for Work?: No Highest Level of Education Completed: Decline to Answer Do You Have Trouble With Childcare or the Care of a Family Member?: No Exam - Vital Signs Vital Signs - 24 hr 04/03/23 14:00 04/03/23 16:00 04/03/23 16:00 Temperature 37.3 C Pulse Rate 87 82 82 Respiratory Rate 24 H Blood Pressure 160/75 H Pulse Oximetry 98 Oxygen Delivery 04/03/23 18:00 04/03/23 20:00 04/03/23 20:00 Temperature 36.6 C Pulse Rate 81 86 85 Respiratory Rate 20 Blood Pressure 142/72 H Pulse Oximetry 95 Oxygen Delivery 04/03/23 21:11 04/03/23 22:00 04/03/23 23:08 Temperature 36.5 C Pulse Rate 92 80 83 Respiratory Rate 20 Blood Pressure 187/70 H Pulse Oximetry 98 Oxygen Delivery 04/04/23 00:00
--- NOTE | 2023-04-04 13:06 | PCPTNOTE ---
Patient refused treatment this session. Patient reported she is going home today and did not want to do therapy.
--- NOTE | 2023-04-04 13:24 | PCOTNOTE ---
Attempted to see patient for OT, patient reports she is being d/c today from hospital and declined any OT interventions or mobility. Patient not seen for OT. Will continue plan of care if patient does not d/c.
--- NOTE | 2023-04-04 13:39 | P.DS_ITS ---
DS: Admitting Diagnosis Discharge Date 04/04/23 Admitting Diagnosis sob DS: Discharge Diagnosis Discharge Diagnosis (1) Acute respiratory failure: Qualifiers: Respiratory failure complication: unspecified whether with hypoxia or hypercapnia Qualified Code(s): J96.00 - Acute respiratory failure, unspecified whether with hypoxia or hypercapnia Code(s): J96.00 - Acute respiratory failure, unspecified whether with hypoxia or hypercapnia Status: Acute Assessment and Plan: Acute respiratory failure secondary to flash pulmonary edema, CHF, possible pneumonia and baseline COPD. BiPAP started on admission. Treated with Lasix IV and broad spectrum abx. Clinically improved and able to be weaned to nasal cannula. Influenza, RSV and COVID negative. CXR 03/28 showing minimal bibasilar edema Speech evaluation with MBS (03/29) reviewed. Pureed diet with Level 2 thickened liquid recommended BCx neg. MRSA nasal swab positive. Echo showing EF 40-45%, HK and AK segments, mild-mod MR and LAE. Cr was elevated so Lasix IV stopped; Cr trending down Continue empiric vancomycin; changed Zosyn to cefepime Weaned to room air, all symptoms resolved, still with some aspiration, repeat MBS 04/02 resolved Wean to doxycycline to complete a 10 day course for possible pneumonia, end date 04/06 (2) Sepsis: Code(s): A41.9 - Sepsis, unspecified organism Status: Acute Assessment and Plan: Patient met criteria for sepsis on admission. WBC 13K. CXR on admission showing right basilar airspace opacities Fevers present on admission. Underlying pneumonia suspected despite her procalcitonin level being low BCx NGTD. MRSA nasal swab positive. WBC normal. Fever free now Continue abx as above Resolved (3) GI bleed: Code(s): K92.2 - Gastrointestinal hemorrhage, unspecified Status: Acute Assessment and Plan: Patient reported black stools which have been ongoing for while. Hemoglobin 5.3 on admission. Sep 2021: EGD showed erosive gastritis. 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 Patient was transfused 2 units of PRBC 03/26 Hgb up to 7-8 range and stable Continue hemoglobin monitoring Continue Protonix IV q.12 hours GI following Endoscopy 03/30 showed gastritis and hemorrhoids, cont PPI Severe iron deficiency noted, will give venofer 500 mg x 3 doses and initiate ferrous sulfate at discharge Heme/onc c/s pending (4) Elevated troponin: Code(s): R77.8 - Other specified abnormalities of plasma proteins Status: Acute Assessment and Plan: Patient presented with chest pain. Troponin level peaked at 0.855 She does not have history of coronary disease but does have risk factors Echo showing EF 40-45%, HK and AK segments, mild-mod MR and LAE. Echo in 2020 showed EF >70% with no wall motion abnormalities and Grade II DD. Not a candidate for aspirin or anticoagulation at this time due to GI bleed Continue Lipitor and metoprolol Cardiology following Concern for AMI recently or underlying ischemia related to the anemia Will need ischemic evaluation once she is more stable (5) Flash pulmonary edema: Code(s): J81.0 - Acute pulmonary edema Status: Acute Assessment and Plan: Resolved (6) Acute blood loss anemia: Code(s): D62 - Acute posthemorrhagic anemia Status: Acute Assessment and Plan: Related to GI blood loss. No schistocytes on initial CBC. 1+ now but could be from the transfused blood.
[2023-04-04 14:32] LABS: Anion Gap 3 mmol/L (8-16); Blood Urea Nitrogen 26 mg/dL (7-17); Calcium 8.2 mg/dL (8.4-10.2); Carbon Dioxide 29 mmol/L (22-30); Chloride 105 mmol/L (98-107); Estimated CRCL calculation 32 ml/min; Estimated Glomerular Filt Rate 45; Glucose 229 mg/dL (65-110); Potassium 3.5 mmol/L (3.4-5.0); Sodium 137 mmol/L (137-145)
== END 2023-04-04 15:42 | disposition home health service (06) | DRG 871 ==
LOC: ANHED 02:26 → ANHIMU 07:36 → ANHICU 09:02 → ANHIMU 03-27 21:36
PROVIDERS: Internal Medicine; Internal Medicine Gastroenterology; Admitting Provider Internal Medicine; Emergency Provider Preventive Medicine Aerospace Medicine; PCP Family Medicine; Visit Provider Student in an Organized Health Care Education/Training Program
PROC: 0DJ08ZZ Inspection of Upper Intestinal Tract, Via Natural or Artificial Opening Endoscopic (ICD-10-PCS; CPT 43235; principal; 2023-03-30 13:45)
DX: A41.02 Sepsis due to Methicillin resistant Staphylococcus aureus (principal); J18.9 Pneumonia, unspecified organism; J96.01 Acute respiratory failure with hypoxia; E87.20 Acidosis, unspecified; K29.60 Other gastritis without bleeding; D50.9 Iron deficiency anemia, unspecified; D12.2 Benign neoplasm of ascending colon; E11.69 Type 2 diabetes mellitus with other specified complication; E78.5 Hyperlipidemia, unspecified; F41.9 Anxiety disorder, unspecified; F31.9 Bipolar disorder, unspecified; I25.2 Old myocardial infarction; I25.10 Atherosclerotic heart disease of native coronary artery without angina pectoris; I11.0 Hypertensive heart disease with heart failure; I50.9 Heart failure, unspecified; J44.9 Chronic obstructive pulmonary disease, unspecified; K21.9 Gastro-esophageal reflux disease without esophagitis; K55.20 Angiodysplasia of colon without hemorrhage; K64.8 Other hemorrhoids; R77.8 Other specified abnormalities of plasma proteins; Z20.822 Contact with and (suspected) exposure to COVID-19; Z79.84 Long term (current) use of oral hypoglycemic drugs; Z79.82 Long term (current) use of aspirin; Z86.010 Personal history of colon polyps; Z91.51 Personal history of suicidal behavior; Z87.891 Personal history of nicotine dependence
CPT/HCPCS: 36415; 36430; 36569; 36600; 51702; 71045; 80048; 80053; 80202; 81003; 82010; 82274; 82375; 82728; 82805; 82948; 83036; 83050; 83540; 83550; 83605; 83735; 83880; 84132; 84145; 84484; 85014; 85018; 85025; 85027; 85610; 85730; 86850; 86900; 86901; 86902; 86922; 87040; 87081; 87637; 88305; 88342; 92526; 92610; 92611; 93005; 93306; 94002; 94003; 96374; 97161; 97165; 97530; 97535; 99285; A9270; C1751; C9113; G0378; J0692; J1756; J1815; J1940; J2060; J2543; J2704; J3370; J3475; J3480; J7030; J7040; J7050; J7120; P9016

== ENCOUNTER 2023-04-11 14:50 | Outpatient (NON) | payer MEDICARE, SELFPAY ==
[2023-04-11 15:17] LABS: Basophils Absolute Auto 0.1 K/mm3 (0.0-0.1); Basophils Percent Auto 0.8 % (0.2-1.2); Eosinophils Absolute Auto 0.2 K/mm3 (0-0.3); Eosinophils Percent Auto 2.3 % (0-4.4); Hematocrit 29.5 % (37.0-47.0); Hemoglobin 8.5 g/dL (12.0-15.0); Immature Granulocyte Absolute 0.05 K/mm3 (0.00-0.031); Immature Granulocyte Percent A 0.7 % (0-0.5); Immature Platelet Fraction Pct 5.1 % (0.9-11.2); Lymphocytes Absolute Auto 2.47 K/mm3 (0.9-3.2); Lymphocytes Percent Auto 33.7 % (18.3-44.2); Mean Corpuscular HGB Conc 28.8 g/dl (32-36); Mean Corpuscular Hemoglobin 23.4 pg (26-34); Mean Platelet Volume 11.8 fl (7.4-10.4); Monocytes Absolute Auto 0.7 K/mm3 (0.1-0.6); Monocytes Percent Auto 9.2 % (2.6-8.5); Neutrophils Absolute Auto 3.9 K/mm3 (1.3-6.7); Neutrophils Percent Auto 53.3 % (45.5-73.1); Platelet Count Result 469 k/mm3 (150-375); Red Blood Count 3.64 M/mm3 (4.2-5.4); Red Cell Distribution Width 29.8 % (11.5-14.5); White Blood Count 7.3 K/mm3 (4.5-10.0)
[2023-04-11 15:31] LABS: Anion Gap 12 mmol/L (8-16); Blood Urea Nitrogen 31 mg/dL (7-17); Carbon Dioxide 21 mmol/L (22-30); Chloride 102 mmol/L (98-107); Estimated Glomerular Filt Rate 41; Glucose 186 mg/dL (65-110); Potassium 3.9 mmol/L (3.4-5.0); Sodium 135 mmol/L (137-145)
[2023-04-11 15:52] LABS: Platelet Estimate Increased (Adequate); Schistocytes None Seen (NORMAL)
[2023-04-11 15:53] LABS: Anisocytosis 3+ (NORMAL); Hypochromasia 1+ (NORMAL)
== END 2023-04-11 14:51 | disposition home or self-care (01) ==
PROVIDERS: PCP Family Medicine; Visit Provider Family Medicine
DX: J96.00 Acute respiratory failure, unspecified whether with hypoxia or hypercapnia (principal); J44.0 Chronic obstructive pulmonary disease with (acute) lower respiratory infection; J18.9 Pneumonia, unspecified organism; A41.9 Sepsis, unspecified organism
CPT/HCPCS: 80048; 85025; 85055

== ENCOUNTER 2023-05-11 15:06 | Outpatient (NON) | payer MEDICARE, SELFPAY ==
[2023-05-12 11:13] LABS: Hematocrit 30.8 % (37.0-47.0); Hemoglobin 9.8 g/dL (12.0-15.0); Mean Corpuscular HGB Conc 31.8 g/dl (32-36); Mean Corpuscular Hemoglobin 27.2 pg (26-34); Mean Corpuscular Volume 85.6 fl (80-100); Mean Platelet Volume 11.2 fl (7.4-10.4); Platelet Count Result 266 k/mm3 (150-375); White Blood Count 6.8 K/mm3 (4.5-10.0)
[2023-05-12 11:14] LABS: Basophils Absolute Auto 0.1 K/mm3 (0.0-0.1); Basophils Percent Auto 0.7 % (0.2-1.2); Eosinophils Absolute Auto 0.3 K/mm3 (0-0.3); Eosinophils Percent Auto 4.1 % (0-4.4); Immature Granulocyte Absolute 0.01 K/mm3 (0.00-0.031); Immature Granulocyte Percent A 0.1 % (0-0.5); Lymphocytes Absolute Auto 2.47 K/mm3 (0.9-3.2); Lymphocytes Percent Auto 36.1 % (18.3-44.2); Monocytes Absolute Auto 0.5 K/mm3 (0.1-0.6); Monocytes Percent Auto 7.6 % (2.6-8.5); Neutrophils Absolute Auto 3.5 K/mm3 (1.3-6.7); Neutrophils Percent Auto 51.4 % (45.5-73.1)
[2023-05-12 11:15] LABS: Anisocytosis 3+ (NORMAL); Platelet Estimate Adequate (Adequate)
[2023-05-12 11:16] LABS: Schistocytes None Seen (NORMAL)
[2023-05-12 17:19] LABS: Alanine Aminotransferase 28 U/L (6-35); Albumin Level 4.3 g/dL (3.5-5.1); Alkaline Phosphatase 78 U/L (38-126); Anion Gap 10 mmol/L (8-16); Aspartate Amino Transferase 26 U/L (14-36); Bilirubin,Total 0.2 mg/dL (0.2-1.3); Blood Urea Nitrogen 29 mg/dL (7-17); Calcium 9.3 mg/dL (8.4-10.2); Carbon Dioxide 25 mmol/L (22-30); Chloride 102 mmol/L (98-107); Estimated Glomerular Filt Rate 49; Glucose 113 mg/dL (65-110); Potassium 3.4 mmol/L (3.4-5.0); Sodium 137 mmol/L (137-145)
[2023-05-12 17:20] LABS: Iron 94 ug/dL (37-170); Percent Iron Saturation 29 % (20-50)
[2023-05-13 02:02] LABS: Hemoglobin A1C 5.2 % (<5.7)
[2023-05-17 00:44] LABS: Vitamin D 1,25 (OH)2 Total 15 pg/mL (18-72); Vitamin D2 1,25 (OH)2 15 pg/mL; Vitamin D3 1,25 (OH)2 <8 pg/mL
== END 2023-05-11 15:07 | disposition home or self-care (01) ==
LOC: HOME HLTH 15:11
PROVIDERS: PCP Family Medicine; Visit Provider Nurse Practitioner Gerontology
DX: E55.9 Vitamin D deficiency, unspecified (principal); E11.9 Type 2 diabetes mellitus without complications; D64.9 Anemia, unspecified; E78.5 Hyperlipidemia, unspecified; I10 Essential (primary) hypertension; J96.00 Acute respiratory failure, unspecified whether with hypoxia or hypercapnia; J44.0 Chronic obstructive pulmonary disease with (acute) lower respiratory infection; J18.9 Pneumonia, unspecified organism; A41.9 Sepsis, unspecified organism
CPT/HCPCS: 80053; 82607; 82652; 83036; 83540; 83550; 84443; 85025

== ENCOUNTER 2023-06-08 05:50 | Outpatient (CLI) | payer MEDICARE, SELFPAY ==
[2023-06-08] MEDS: SIMETHICONE ORAL SUSPENSION 20 MG/0.3 ML 30 ML BOTTLE 1.2 ML IRRIGATION (06:46)
--- NOTE | 2023-06-08 06:55 | SUR.OPER ---
Patient brought to GI Lab. Instructions for patient undergoing Capsule Endoscopy reviewed with patient. Consent form signed. Sensor array applied to patient's abdomen and connected to recorded. Patient swallowed capsule with 16 ozs of water infused with Simethicone. Patient instructed they may have clear liquids at 0900 this AM and eat or drink at 1100 this AM. Patient instructed to return to GI Lab at 1500 this afternoon for removal of recording device and to call [phone] or to return to the hospital if any nausea and vomiting or abdominal pain is experienced.
--- NOTE | 2023-06-08 15:10 | SUR.OPER ---
Patient returned to the GI Lab at 1500 for recorder box removal. Patient voiced no complaints. States they have understanding of instructions. Patient left ambulatory.
== END 2023-06-08 05:51 | disposition home or self-care (01) ==
PROVIDERS: PCP Family Medicine; Visit Provider Internal Medicine Gastroenterology
PROC: 0DJ07ZZ Inspection of Upper Intestinal Tract, Via Natural or Artificial Opening (ICD-10-PCS; CPT 91110; principal; 2023-06-08 07:00)
DX: Z01.818 Encounter for other preprocedural examination (principal)
CPT/HCPCS: 91110

== ENCOUNTER 2023-09-06 10:34 | Inpatient (IN) | payer MEDICARE, SELFPAY ==
[2023-09-06] VITALS (43 sets, daily range): BP systolic 64–143; BP diastolic 42–71; PULSE 75–125; RESP 11–26; TEMP 36.3–36.6; O2SAT 95–100; BMI 23.8
--- NOTE | ~2023-09-06 | CT_ITS ---
Clinical Indication: Sepsis CT Scan of the Chest, Abdomen, and Pelvis without Contrast: Technique: Contiguous sections were acquired throughout the chest, abdomen, and pelvis without IV con trast administration. Dose reduction technique was used on this scan by utilizing automated exposure control and iterative reconstruction technique. The dose-length product (DLP) was 506.47 mGy-cm. COMPARISON: 10/31/2021 Findings: There is no evidence of any significant mediastinal, hilar or axillary lymphadenopathy. The mediastin al soft tissues appear normal. There is no evidence of pleural or pericardial effusion. 3 mm right lower lobe groundglass pulmonary nodule noted (axial image 84). There is focal groundglass opacity in the right middle lobe (axial images 70-71). There is a 4 mm groundglass opacity in the li ngula (axial image 63). The liver, spleen, pancreas, gallbladder, adrenals and kidneys are within normal limits. There are at herosclerotic calcifications of the aorta. No lymphadenopathy. No bowel obstruction or bowel wall thickening. There is no evidence to suggest acute appendicitis. Urinary bladder is unremarkable. No adnexal mass seen. No ascites. Impression: Several subcentimeter groundglass nodules/opacities in the lungs, as noted above. This could reflect postinflammatory change versus minimal acute pneumonitis. Correlate clinically. No other significant findings. Reviewed, dictated and finalized at location . Impression: Several subcentimeter groundglass nodules/opacities in the lungs, as noted abov e. This could reflect postinflammatory change versus minimal acute pneumonitis. Correlate clinically. No other significant findings.
--- NOTE | ~2023-09-06 | XR_ITS ---
Clinical Indication: Fatigue AP and lateral views of the chest: Comparison: 03/28/2023 Findings: The lungs are clear, without evidence of focal consolidation or pleural effusion. Cardiome diastinal silhouette is within normal limits. Bones and soft tissues are unremarkable. Impression: Normal chest. Reviewed, dictated and finalized at location . Impression: Normal chest.
--- NOTE | 2023-09-06 10:49 | ECG_ITS ---
Measurements Intervals Crystal Rate: 88 P: 48 WY: 173 QRS: 5 QRSD: 83 T: 57 QT: 348 QTc: 422 Interpretive Statements SINUS RHYTHM COMPARED TO ECG 03/26/2023 10:14:22 NO SIGNIFICANT CHANGES Electronically Signed On 09-06-2023 16:26:40 CDT by Teena Lopez M.D.
--- NOTE | 2023-09-06 12:05 | ED.GENADULT ---
HPI - General Adult General Chief complaint: Altered Mental Status Stated complaint: in kidney failure per PCP Time Seen by Provider: 09/06/23 11:48 History of Present Illness HPI narrative: Patient is a 68-year-old female with history of CHF, GERD, CAD, HTN, DM here with abnormal labs from PCP. patient states that about 4 weeks ago she was diagnosed with COVID-19. She had symptoms including a fever, chills and respiratory symptoms at that time. she was prescribed Paxil of it from her primary care doctor, she took 2 doses of this but it seemed to interact with her medications and she had increased lethargy after taking these doses. At this point she discontinue taking the medication. She notes that she has been having some diarrhea and decreased appetite for the last 3 weeks. She also has noted some decreased urinary output and some dysuria. She follows with Dr. Galan, blood work was ordered last week and performed yesterday. They recalled from the office today stating that her renal function was critically abnormal and she should come to the emergency department for evaluation. She denies any shortness of breath. She does note some lightheadedness. No fever or chills at this point. Related Data Home Medications Medication Instructions Recorded Confirmed linaclotide 145 mcg capsule 145 mcg PO QAM PRN Constipation 05/20/23 09/06/23 (Linzess) mirtazapine 30 mg tablet 15 mg PO HS 05/20/23 09/06/23 clonazepam 1 mg tablet 1 mg PO BID PRN Anxiety 09/06/23 09/06/23 hydroxyzine HCl 25 mg tablet 25 mg PO TID PRN Itching 09/06/23 09/06/23 metformin 1,000 mg tablet 1,000 mg PO BIDWM 09/06/23 09/06/23 pantoprazole 40 mg tablet,delayed 40 mg PO HS 09/06/23 09/06/23 release pregabalin 25 mg capsule (Lyrica) 25 mg PO BID PRN Pain 09/06/23 09/06/23 quetiapine 200 mg tablet 200 mg PO HS 09/06/23 09/06/23 Allergies Allergy/AdvReac Type Severity Reaction Status Date / Time codeine Allergy Intermediate Hives Verified 09/06/23 16:25 Review of Systems Review of Systems: All systems reviewed & are unremarkable except as noted in HPI and below PMFSH Past Medical History Medical History Acute blood loss anemia Adenomatous colon polyp Anxiety AVM (arteriovenous malformation) of colon Bipolar disorder Cardiac arrest Chronic obstructive pulmonary disease Constipation Contact dermatitis Depression Dyslipidemia Erosive gastritis Erosive gastritis Gastroesophageal reflux disease Gastrointestinal tube present Hypertension NSTEMI (non-ST elevated myocardial infarction) Pneumonia Posttraumatic stress disorder Severe anemia Suicide attempt by drug ingestion 16 years ago. Tobacco dependence Type 2 diabetes mellitus Surgical History Surgical History Hx of tracheostomy No pertinent past surgical history Family History Family History (Updated 09/06/23 @ 16:18 by Elisa Gamboa RN) Mother Acute myocardial infarction Heart disease Hypertension Father Diabetes mellitus Heart disease Acute myocardial infarction Hypertension Sibling Asthma Son Lymphoma Social History Social History Social History: Surrogate decision maker: Zeinab Carvalho, daughter. Code status: Full code. Smoking packs per day: 1 Smoking cigarettes per day: 20.0 Smoking status: Former smoker Tobacco type: cigarettes Second hand tobacco smoke exposure: No Alcohol intake: never Substance use: never Substance use type: does not use Lack of Transportation: YES Lack of Food: Often True Current Housing: I Have Housing Concerned About Future Housing: YES Difficulty Paying Gas/Electric Bills: No Difficulty Paying for Meds: YES Currently Unemployed: No Education: High School Diploma/GED Difficulty w/ Childcare or Family Care: No Living arrangements: wi
[2023-09-06 12:22] LABS: Basophils Percent Auto 0.5 % (0.2-1.2); Eosinophils Absolute Auto 0.1 K/mm3 (0-0.3); Eosinophils Percent Auto 1.5 % (0-4.4); Hematocrit 25.8 % (37.0-47.0); Hemoglobin 8.3 g/dL (12.0-15.0); Immature Granulocyte Absolute 0.01 K/mm3 (0.00-0.031); Immature Granulocyte Percent A 0.2 % (0-0.5); Lymphocytes Absolute Auto 2.18 K/mm3 (0.9-3.2); Lymphocytes Percent Auto 36.8 % (18.3-44.2); Mean Corpuscular HGB Conc 32.2 g/dl (32-36); Mean Corpuscular Hemoglobin 29.9 pg (26-34); Mean Corpuscular Volume 92.8 fl (80-100); Mean Platelet Volume 11.8 fl (7.4-10.4); Monocytes Absolute Auto 0.6 K/mm3 (0.1-0.6); Monocytes Percent Auto 9.9 % (2.6-8.5); Neutrophils Percent Auto 51.1 % (45.5-73.1); Platelet Count Result 285 k/mm3 (150-375); Red Blood Count 2.78 M/mm3 (4.2-5.4); Red Cell Distribution Width 12.7 % (11.5-14.5); White Blood Count 5.9 K/mm3 (4.5-10.0)
[2023-09-06 12:33] LABS: Alanine Aminotransferase 13 U/L (6-35); Albumin Level 3.8 g/dL (3.5-5.1); Alkaline Phosphatase 61 U/L (38-126); Anion Gap 16 mmol/L (8-16); Aspartate Amino Transferase 22 U/L (14-36); Bilirubin,Total 0.4 mg/dL (0.2-1.3); Blood Urea Nitrogen 80 mg/dL (7-17); Calcium 8.8 mg/dL (8.4-10.2); Carbon Dioxide 11 mmol/L (22-30); Chloride 109 mmol/L (98-107); Estimated CRCL calculation 4 ml/min; Estimated Glomerular Filt Rate 4; Glucose 98 mg/dL (65-110); Magnesium 1.4 mg/dL (1.6-2.3); Potassium 5.5 mmol/L (3.4-5.0); Sodium 136 mmol/L (137-145)
[2023-09-06 12:43] LABS: INR 1.1; Prothrombin Time 14.5 Seconds (11.1-14.7)
[2023-09-06 12:44] LABS: Partial Thromboplastin Time 32.7 SECONDS (22.3-36.8)
[2023-09-06] MEDS: CALCIUM GLUC 2,000 MG/NS 100ML 2,000 MG/100 ML BAG 100 MG IVPB (12:48)
[2023-09-06] MEDS: SODIUM CHLORIDE 0.9% IV 1,000 ML 999 ML IV CONT (12:48)
[2023-09-06 13:40] LABS: Lipase 154 U/L (23-300)
[2023-09-06 13:41] LABS: Lactic Acid Reflex 1.3 mmol/L (0.7-2.0)
[2023-09-06 13:54] LABS: Troponin I < 0.012 ng/mL (0.000-0.034)
[2023-09-06 14:06] LABS: Appearance Urine Cloudy (Clear); Bacteria Urine None Seen /hpf; Bilirubin Urine Negative (Negative); Blood Urine 1+ (Negative); Color Urine Yellow (Yellow); Glucose Urine UA Negative (Negative); Granular Casts Urine Present /lpf; Ketones Urine Negative (Negative); Leukocyte Esterase Ur Negative LEU/UL (Negative); Nitrate Urine Negative (Negative); Protein Urine Trace mg/dL (Negative); RBC Urine 0-2 /hpf (0-2); Specific Grav Ur 1.009 (1.001-1.035); Squamous Epithelial Cell Urine Few /hpf (Few); Urobilinogen Urine 0.2 mg/dL (<2.0); WBC Urine 0-5 /hpf
[2023-09-06 14:07] LABS: Add Urine Microscopic? YES
[2023-09-06] MEDS: DEXTROSE 50% 25 GM/50 ML SYRINGE IV PUSH (15:11)
[2023-09-06] MEDS: INSULIN HUMAN REGULAR (*BKC) 100 UNITS/ML 10 UNITS IV PUSH (15:12)
[2023-09-06] MEDS: MAGNESIUM SULF 2 GM/WATER 50ML 2 GM/50 ML BAG IVPB (15:12)
[2023-09-06] MEDS: SODIUM POLYSTYRENE SULFONONATE 15 GM/60 ML BTL 30 GM PO (15:12)
[2023-09-06 15:51] LABS: Procalcitonin 0.2 ng/mL
[2023-09-06 16:11] LABS: Anion Gap 15 mmol/L (8-16); Blood Urea Nitrogen 76 mg/dL (7-17); Calcium 8.8 mg/dL (8.4-10.2); Carbon Dioxide 12 mmol/L (22-30); Chloride 111 mmol/L (98-107); Estimated CRCL calculation 4 ml/min; Estimated Glomerular Filt Rate 4; Glucose 160 mg/dL (65-110); Potassium 4.5 mmol/L (3.4-5.0); Sodium 138 mmol/L (137-145)
[2023-09-06 16:24] LABS: Troponin I < 0.012 ng/mL (0.000-0.034)
--- NOTE | 2023-09-06 16:24 | ADMGEN ---
This patient, Albertina Orlando, was admitted to IMU Room 206-02. Patient/family oriented to hospital policies and general routines including ID bracelet, bed and alarms, visiting hours, pain management, procedures, bathroom and other care routines, personal items, smoking policy, room service/diet, and visiting hours. Information on how to activate the Rapid Response Team has been discussed. Patient/Family are encouraged to report perceived risks to care and to ask questions if they do not understand what they are told or what they should do.
[2023-09-06 19:00] LABS: Troponin I < 0.012 ng/mL (0.000-0.034)
--- NOTE | 2023-09-06 19:58 | PM.IMHP ---
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 Patient presents here with 2-3 weeks of intermittent altered mental status, agitation with family, poor appetite, diarrhea, fatigue, new elevation in creatinine, and multiple falls. Majority of history obtained from daughter who was at the bedside, patient contributed as well. Per daughter, patient tested positive for COVID approximately 2-3 weeks ago. She was prescribed Paxlovid. Patient became altered/sedated after initial dose - approximately 10 minutes after administration. Given 2nd dose which had same effect. Medication was discontinued. However, daughter reports that since medication admin and COVID the patient has been more agitated with family, not making sense, or making odd requests with little insight into her own limitations. daughter reports difficulty with persuading patient to be seen, continue with follow-up appointments, and lab work. Patient also reports diarrhea for the last few weeks. No clear onset or potential aggravating factors. Most recent antibiotic use was back in February for PNA.. She has a history of intermittent diarrhea over the last few months, recently saw GI. Patient had capsule endoscopy that was unremarkable. Colonoscopy in march showed no AVM, signs of bleeding, and a small TA polyp was removed. EGD done in March did not show bleeding or H pylori, +erosive gastritis. reports dark stools, currently on iron for anemia but has hx of GI bleed. patient currently lives at home alone, family has been alternating in shifts to make sure she has help at all times. Daughter reports that despite their help she has fallen 4 times in the last few weeks. Patient denies any current pain, loss of consciousness, and does not have any obvious signs of trauma. Normally ambulatory without assistive device, currently using walker. February 2023 - Presented with SOB. Admitted for GI bleed, hemoglobin was 6.9 at arrival, transfused 3 units. EGD at that time showed 2 ulcers which were the presumed source of bleeding. She was also diagnosed with pulmonary edema and pneumonia. She was discharged on probiotics, carafate, and protonix. September 2021 - Patient presented to the emergency department with chest pain with some associated nausea, no vomiting. Scant blood on tissue after BM. Workup revealed hemoglobin of 6.4. after admission patient became unresponsive with bradycardia and agonal breathing. Pulse lost shortly after discovery of symptoms and code blue called. Patient in PEA when provider arrived at bedside. 1 mg of epi given with ROSC achieved shortly after. She was intubated and transfused. Diagnosed with pneumonia, erosive gastritis, AVM in cecum, and NSTEMI. required trach and PEG which have since been reversed. Discharged in October to a LT[facility]. Review of Systems Review of Systems: All systems reviewed & are unremarkable except as noted in HPI and below PMFSH Past Medical History Medical History (Updated 09/07/23 @ 00:26 by Nano Jackson, JENNY) Acute blood loss anemia Adenomatous colon polyp Anxiety AVM (arteriovenous malformation) of colon Bipolar disorder Cardiac arrest Chronic obstructive pulmonary disease Constipation Contact dermatitis Depression Dyslipidemia Erosive gastritis Gastroesophageal reflux disease Hypertension NSTEMI (non-ST elevated myocardial infarction) Pneumonia Posttraumatic stress disorder Severe anemia Suicide attempt by drug ingestion 16 years ago. Tobacco dependence Type 2 diabetes mellitus Surgical History Surgical History (Updated 09/07/23 @ 00:12 by Nano Jackson, JENNY) History of gastrostomy tube placement reversed. Hx of tracheostomy reversed. Family History Family Hi
[2023-09-06 21:11] LABS: Glucose Point of Care 157 mg/dl (65-105)
[2023-09-06] MEDS: LACTATED RINGERS 1,000 ML 100 ML IV CONT (21:24)
[2023-09-06] MEDS: PANTOPRAZOLE 40 MG TABLET PO (21:25)
[2023-09-06] MEDS: QUEtiapine FUMARATE 100 MG TABLET 200 MG PO (21:25)
[2023-09-06] MEDS: MIRTAZAPINE SOLTAB 15 MG TAB.DISPER PO (21:25)
[2023-09-07] VITALS (14 sets, daily range): BP systolic 109–118; BP diastolic 45–59; PULSE 79–112; RESP 16–18; TEMP 36.4–36.8; O2SAT 97–100; BMI 24.6
[2023-09-07 04:30] LABS: Creatinine Urine 59.8 mg/dL; Total Protein Urine Random 30 mg/dL; Urea Random Urine 352 MG/DL
[2023-09-07 04:34] LABS: Creatinine Urine 60.1 mg/dL
[2023-09-07 04:43] LABS: Sodium Urine Random 57 meq/L
[2023-09-07 05:04] LABS: Eosinophil Urine None Seen % (None Seen)
[2023-09-07 05:05] LABS: Urine Eos QC 2nd Tech Confirmed
[2023-09-07 05:24] LABS: Ammonia < 9 umol/L (9-30); Basophils Percent Auto 0.6 % (0.2-1.2); Eosinophils Absolute Auto 0.1 K/mm3 (0-0.3); Eosinophils Percent Auto 1.5 % (0-4.4); Hemoglobin 7.9 g/dL (12.0-15.0); Immature Granulocyte Absolute 0.01 K/mm3 (0.00-0.031); Immature Granulocyte Percent A 0.2 % (0-0.5); Lymphocytes Absolute Auto 1.71 K/mm3 (0.9-3.2); Lymphocytes Percent Auto 36.5 % (18.3-44.2); Mean Corpuscular HGB Conc 31.6 g/dl (32-36); Mean Corpuscular Volume 95.1 fl (80-100); Monocytes Absolute Auto 0.5 K/mm3 (0.1-0.6); Monocytes Percent Auto 10.2 % (2.6-8.5); Neutrophils Absolute Auto 2.4 K/mm3 (1.3-6.7); Platelet Count Result 264 k/mm3 (150-375); Red Blood Count 2.63 M/mm3 (4.2-5.4); White Blood Count 4.7 K/mm3 (4.5-10.0)
[2023-09-07 05:32] LABS: Alanine Aminotransferase 12 U/L (6-35); Albumin Level 3.6 g/dL (3.5-5.1); Alkaline Phosphatase 58 U/L (38-126); Anion Gap 15 mmol/L (8-16); Aspartate Amino Transferase 17 U/L (14-36); Bilirubin,Total 0.4 mg/dL (0.2-1.3); Blood Urea Nitrogen 67 mg/dL (7-17); Calcium 8.7 mg/dL (8.4-10.2); Carbon Dioxide 13 mmol/L (22-30); Chloride 113 mmol/L (98-107); Creatine Kinase 75 U/L (30-135); Estimated CRCL calculation 5 ml/min; Estimated Glomerular Filt Rate 5; Glucose 103 mg/dL (65-110); Hemoglobin A1C 6.5 % (<5.7); Potassium 4.6 mmol/L (3.4-5.0); Sodium 141 mmol/L (137-145)
[2023-09-07 08:06] LABS: Glucose Point of Care 105 mg/dl (65-105)
[2023-09-07] MEDS: MONTELUKAST SODIUM 10 MG TABLET PO (08:14)
[2023-09-07] MEDS: ATORVASTATIN 40 MG TABLET PO (08:14)
[2023-09-07 12:02] LABS: Glucose Point of Care 115 mg/dl (65-105)
[2023-09-07 12:04] LABS: Albumin Level 3.8 g/dL (3.5-5.1); Anion Gap 12 mmol/L (8-16); Blood Urea Nitrogen 61 mg/dL (7-17); Calcium 8.8 mg/dL (8.4-10.2); Carbon Dioxide 16 mmol/L (22-30); Chloride 111 mmol/L (98-107); Estimated CRCL calculation 5 ml/min; Estimated Glomerular Filt Rate 6; Glucose 122 mg/dL (65-110); Phosphorus 5.6 mg/dL (2.5-4.5); Potassium 4.4 mmol/L (3.4-5.0); Sodium 139 mmol/L (137-145)
--- NOTE | 2023-09-07 12:45 | PM.CNNEP ---
Assessment and Plan Assessment and plan (1) ZAN (acute kidney injury): Code(s): N17.9 - Acute kidney failure, unspecified Status: Acute Assessment and Plan: mild improvement noted baseline creatinine normal earlier this year more recently, was running ~ 1.1 - 1.3mg/dl suspicion falls on hypovolemia and hypotension acutely worsened by ongoing BP mediation use including lisinopril evaluation to date: urine eosinophils negative urine electrolytes slightly prerenal CPK normal UA not indicative of infection admission CT without evidene of obstruction continue gentle IVF hydration follow repeat labs and UOP (2) Hyperkalemia: Code(s): E87.5 - Hyperkalemia Status: Acute Assessment and Plan: resolved s/p medical management follow repeat K+ levels (3) Hypotension: Code(s): I95.9 - Hypotension, unspecified Status: Acute Assessment and Plan: thought to be secondary to volume depletion and ongoing BP medication use improvement noted with IVF resuscitation follow trend of BP readings (4) Altered mental status: Code(s): R41.82 - Altered mental status, unspecified Status: Acute Assessment and Plan: clinically better secondary to ZAN/ARF(?) follow mentation (5) Anemia: Qualifiers: Anemia type: iron deficiency Iron deficiency anemia type: chronic blood loss Qualified Code(s): D50.0 - Iron deficiency anemia secondary to blood loss (chronic) Code(s): D64.9 - Anemia, unspecified Status: Chronic Assessment and Plan: known history follow trend of H/H I will continue to follow the patient with you while she remains hospitalized make further recommendations as needed. Thank you for allowing me to participate in care of this patient. History of Present Illness Reason for Consult Consult date: 09/07/23 Reason for consult: acute renal failure (on chronic kidney disease) Chief Complaint Chief complaint: acute renal failure History of Present Illness Narrative: The patient is 68-year-old female with a past medical history as outlined below who presented to [facility] Emergency room for further evaluation of abnormal labs. Apparently, for last few weeks the patient has been having ongoing issues with poor appetite, on and off diarrhea, fatigue, and altered mental status. The symptoms seem to correlate with her recent diagnosis of COVID-19. Her family has also noticed the patient becoming more agitated along with a change in her mental status as mentioned. Given these ongoing symptoms, the patient saw her primary care physician and routine blood work was ordered. Her primary care physician's office called her on the day of admission to report that her renal function was quite abnormal and that she should go to the ER for further assessment. Workup and evaluation in the emergency room demonstrated the patient be relatively hypotensive but in no acute distress. She responded to IV fluid boluses with improvement in her blood pressure. Repeat blood work was done which demonstrated / confirmed over her acute kidney injury/acute renal failure in association with mild hyperkalemia. She received medical management for the potassium and was continued on IV fluid resuscitation given her hypotension on presentation. Her CBC was notable for anemia but this apparently is a chronic issue as she has known iron deficiency anemia and has seen Hematology in the past. Given her constellation of symptoms in association with her laboratory abnormalities, the patient was admitted to the hospital for further evaluation and therapy. Since her admission, the patient's renal function has improved with stability in her blood pressure and reasonable urine output. Her mentation seems to doing a bit better as well. Renal consultation was requested due to her acute kidney injury/acute renal failure. From review of h
--- NOTE | 2023-09-07 13:14 | P.CDI_ITS ---
severe protein calorie malnutrition CDI Query Clarification Request BMI 24.6 Nutritional Diagnostic Statement Severe protein calorie malnutrition related to loss of appetite, as evidenced by weight loss -14%/6 months, report of intakes <50% needs > 1 week, and NFPE fi ndings of moderate muscle wasting and fat loss Please refer to the comprehensive nutrition assessment for further information. Please clarify severity of protein calorie malnutrition if known: * Mild * Moderate * Severe * Other/Unspecified
--- NOTE | 2023-09-07 17:32 | PM.IMPN ---
Progress Note: A&P Assessment and Plan (1) Altered mental status: Code(s): R41.82 - Altered mental status, unspecified Status: Acute (2) Acute renal failure: Qualifiers: Acute renal failure type: unspecified Qualified Code(s): N17.9 - Acute kidney failure, unspecified Code(s): N17.9 - Acute kidney failure, unspecified Status: Acute (3) Hypotension due to hypovolemia: Code(s): I95.89 - Other hypotension; E86.1 - Hypovolemia Status: Acute (4) Tarry stool: Code(s): K92.1 - Melena Status: Acute Plan 68F w/ PMH HF w/ borderline reduced EF, GERD, hx of GI bleed, gastritis, AVMS, HTN, HLD presented with diarrhea, falls, AMS 1) acute encephalopathy - resolved, multifactorial. polypharmacy, diarrhea, dehydration, anemia - ctm. review meds upon discharge again - fall at home. CT head pending. no complaints of pain otherwise 2) tarry stool - hx of GI bleed. HB baseline low in 7's. CTM. - thin liquid diet. protonix 40mg IV BID - consult GI 3) chronic diarrhea - mention of mucous in diarrhea. consult GI. stool C diff lactoferrin and culture 4) acute kidney injury 2/2 hypovolemia - restart fluids. NS @ 100ml/hr. hx of CHF. constant monitoring - nephrology consulted. - sCR on admission 9.7, now trending down to 7.2 DNR stable thin liquids SCD's only, risk of bleeding Subjective Date/time seen: 09/07/23 17:32 Interval history: NAOE. patient is able to tolerate diet. she has mild abdominal discomfort. Review of Systems Cardiovascular: Cardiovascular: Denies chest pain and Denies dyspnea Respiratory: Respiratory: Denies cough and Denies dyspnea Gastrointestinal: Gastrointestinal: Denies abdominal pain and Denies vomiting Exam Const: General: no acute distress, alert and Physically active Resp: Effort & Inspection: normal respiratory effort Auscultation: clear to auscultation bilaterally Cardio: Rate: regular rate Rhythm: regular rhythm Heart sounds: S1 normal heart sound present and S2 normal heart sound present GI: Inspection: non-distended GI Palp: No abdominal tenderness Auscultation: normal bowel sounds Extrem: Right upper extremity: no edema Objective Data Vital Signs Vital Signs: Vital Signs - 24 hr 09/06/23 18:00 09/06/23 20:00 09/06/23 20:00 Temperature 97.4 F L Pulse Rate 106 H 98 101 H Respiratory Rate 16 Blood Pressure 100/60 Pulse Oximetry 97 Oxygen Delivery 09/06/23 20:00 09/06/23 22:00 09/06/23 23:41 Temperature Pulse Rate 101 H 96 100 Respiratory Rate 16 Blood Pressure Pulse Oximetry 97 Oxygen Delivery Room Air 09/06/23 23:41 09/06/23 23:57 09/07/23 02:00 Temperature 97.4 F L Pulse Rate 100 105 H 102 H Respiratory Rate 16 16 Blood Pressure 103/52 L Pulse Oximetry 97 97 Oxygen Delivery Room Air 09/07/23 04:00 09/07/23 04:00 09/07/23 04:00 Temperature 97.8 F Pulse Rate 99 99 94 Respiratory Rate 16 16 Blood Pressure 109/48 L Pulse Oximetry 97 99 Oxygen Delivery Room Air 09/07/23 06:00 09/07/23 07:39 09/07/23 08:00 Temperature 97.6 F Pulse Rate 98 112 H Respiratory Rate 18 Blood Pressure 115/47 L Pulse Oximetry 99 99 Oxygen Delivery Room Air 09/07/23 08:00 09/07/23 10:00 09/07/23 11:43 Temperature 98.2 F Pulse Rate 96 90 87 Respiratory Rate 16 Blood Pressure 118/59 L Pulse Oximetry 99 Oxygen Delivery 09/07/23 15:54 09/07/23 12:00 Temperature 98.1 F Pulse Rate 79 Respiratory Rate 18 Blood Pressure 109/50 L Pulse Oximetry 100 100 Oxygen Delivery Room Air Intake/Output Intake/Output: Intake & Output 09/04/23 09/05/23 09/06/23 09/07/23 23:59 23:59 23:59 23:59 Intake Total 1270 560 Output Total 1300 1800 Balance -30 -1240 Meds/Results Medications: Active Medications Generic Name Dose Route Start Last Admin Trade Name Freq PRN Reason Stop Dose Admin Atorvastatin Calcium 40 mg
[2023-09-07 17:36] LABS: Glucose Point of Care 165 mg/dl (65-105)
[2023-09-07] MEDS: SODIUM CHLORIDE 0.9% IV 1,000 ML 100 ML IV CONT (17:54)
[2023-09-07] MEDS: MIRTAZAPINE SOLTAB 15 MG TAB.DISPER PO (20:44)
[2023-09-07] MEDS: PANTOPRAZOLE SODIUM IV 40 MG VIAL IV PUSH (20:44)
[2023-09-07 21:39] LABS: Glucose Point of Care 219 mg/dl (65-105)
[2023-09-08] VITALS (16 sets, daily range): BP systolic 114–173; BP diastolic 47–78; PULSE 76–102; RESP 16–18; TEMP 36.3–37.1; O2SAT 91–100
[2023-09-08] MEDS: SODIUM CHLORIDE 0.9% IV 1,000 ML 100 ML IV CONT ×3 (04:50→23:48)
[2023-09-08 05:21] LABS: Hematocrit 24.9 % (37.0-47.0); Mean Corpuscular HGB Conc 32.1 g/dl (32-36); Mean Corpuscular Hemoglobin 29.7 pg (26-34); Mean Corpuscular Volume 92.6 fl (80-100); Mean Platelet Volume 11.9 fl (7.4-10.4); Platelet Count Result 280 k/mm3 (150-375); Red Blood Count 2.69 M/mm3 (4.2-5.4); Red Cell Distribution Width 12.8 % (11.5-14.5); White Blood Count 5.4 K/mm3 (4.5-10.0)
[2023-09-08 05:42] LABS: Anion Gap 12 mmol/L (8-16); Blood Urea Nitrogen 44 mg/dL (7-17); Calcium 8.4 mg/dL (8.4-10.2); Carbon Dioxide 16 mmol/L (22-30); Chloride 112 mmol/L (98-107); Estimated CRCL calculation 8 ml/min; Estimated Glomerular Filt Rate 9; Glucose 145 mg/dL (65-110); Magnesium 1.5 mg/dL (1.6-2.3); Potassium 3.9 mmol/L (3.4-5.0); Sodium 140 mmol/L (137-145)
[2023-09-08] MEDS: ATORVASTATIN 40 MG TABLET PO (08:16)
[2023-09-08] MEDS: MONTELUKAST SODIUM 10 MG TABLET PO (08:16)
[2023-09-08] MEDS: PANTOPRAZOLE SODIUM IV 40 MG VIAL IV PUSH ×2 (08:16→20:39)
[2023-09-08 11:13] LABS: Glucose Point of Care 254 mg/dl (65-105)
[2023-09-08] MEDS: ACETAMINOPHEN 325 MG TABLET 650 MG PO (12:04)
[2023-09-08] MEDS: INSULIN ASPART (*BKC) 100 UNITS/ML SUB-Q ×2 (12:05→20:48)
[2023-09-08 12:36] LABS: Glucose Point of Care 155 mg/dl (65-105)
--- NOTE | 2023-09-08 12:55 | P.PNNP_ITS ---
Progress Note: A&P Assessment and Plan (1) ZAN (acute kidney injury): Code(s): N17.9 - Acute kidney failure, unspecified Status: Acute Assessment and Plan: * slow improvement noted * baseline creatinine normal earlier this year * more recently, was running ~ 1.1 - 1.3mg/dl * suspicion falls on hypovolemia and hypotension acutely worsened by ongoing BP mediation use including lisinopril * evaluation to date: * urine eosinophils negative * urine electrolytes slightly prerenal * CPK normal * UA not indicative of infection * admission CT without evidene of obstruction * continue gentle IVF hydration * follow repeat labs and UOP (2) Hyperkalemia: Code(s): E87.5 - Hyperkalemia Status: Acute Assessment and Plan: * resolved s/p medical management * follow repeat K+ levels (3) Hypotension: Code(s): I95.9 - Hypotension, unspecified Status: Acute Assessment and Plan: * resolved * thought to be secondary to volume depletion and ongoing BP medication use * improvement noted with IVF resuscitation * follow trend of BP readings (4) Altered mental status: Code(s): R41.82 - Altered mental status, unspecified Status: Acute Assessment and Plan: * clinically better * secondary to ZAN/ARF(?) * follow mentation (5) Anemia: Qualifiers: Anemia type: iron deficiency Iron deficiency anemia type: chronic blood loss Qualified Code(s): D50.0 - Iron deficiency anemia secondary to blood loss (chronic) Code(s): D64.9 - Anemia, unspecified Status: Chronic Assessment and Plan: * known history * follow trend of H/H Will continue to follow. Subjective Date/time seen: 09/08/23 12:55 Interval history: Follow-up for acute kidney injury/acute renal failure. Overall, she states she is feeling better; renal function contiues to slowly improve with ongoing interventions/therapy; no apparent distress noted; no other issues/events overnight or earlier this AM. Exam Narrative: General: elderly female in NAD Heart: normal S1 and S2; no rub Lungs: clear to auscultation Abdomen: soft, nontender, nondistended, positive bowel sounds Extremities: no cyanosis or clubbing; no edema Skin: warm and dry Objective Data Vital Signs Vital Signs: Vital Signs Temp Pulse Resp BP Pulse Ox O2 Del Method 09/08/23 11:37 97.5 F L 89 18 173/71 H 100 09/08/23 08:00 Room Air 09/08/23 10:00 84 09/08/23 08:00 92 09/08/23 08:17 97.4 F L 91 18 150/66 H 100 09/08/23 06:00 78 09/08/23 04:00 98.2 F 81 18 115/47 L 91 09/08/23 04:00 102 H 18 97 Room Air 09/08/23 04:00 102 H 09/08/23 02:00 84 09/08/23 00:00 84 18 97 Room Air 09/08/23 00:00 84 09/08/23 00:45 97.6 F 81 18 114/50 L 97 09/07/23 22:00 84 09/07/23 20:00 82 18 98 Room Air 09/07/23 20:00 82 09/07/23 20:00 97.6 F 81 18 110/45 L 98 09/07/23 18:00 95 09/07/23 16:00 88 09/07/23 14:00 85 09/07/23 16:00 100 Room Air 09/07/23 15:54 98.1 F 79 18 109/50 L 100 Intake/Output Intake/Output:
--- NOTE | 2023-09-08 12:55 | PM.PNNEP ---
Progress Note: A&P Assessment and Plan (1) ZAN (acute kidney injury): Code(s): N17.9 - Acute kidney failure, unspecified Status: Acute Assessment and Plan: slow improvement noted baseline creatinine normal earlier this year more recently, was running ~ 1.1 - 1.3mg/dl suspicion falls on hypovolemia and hypotension acutely worsened by ongoing BP mediation use including lisinopril evaluation to date: urine eosinophils negative urine electrolytes slightly prerenal CPK normal UA not indicative of infection admission CT without evidene of obstruction continue gentle IVF hydration follow repeat labs and UOP (2) Hyperkalemia: Code(s): E87.5 - Hyperkalemia Status: Acute Assessment and Plan: resolved s/p medical management follow repeat K+ levels (3) Hypotension: Code(s): I95.9 - Hypotension, unspecified Status: Acute Assessment and Plan: resolved thought to be secondary to volume depletion and ongoing BP medication use improvement noted with IVF resuscitation follow trend of BP readings (4) Altered mental status: Code(s): R41.82 - Altered mental status, unspecified Status: Acute Assessment and Plan: clinically better secondary to ZAN/ARF(?) follow mentation (5) Anemia: Qualifiers: Anemia type: iron deficiency Iron deficiency anemia type: chronic blood loss Qualified Code(s): D50.0 - Iron deficiency anemia secondary to blood loss (chronic) Code(s): D64.9 - Anemia, unspecified Status: Chronic Assessment and Plan: known history follow trend of H/H Will continue to follow. Subjective Date/time seen: 09/08/23 12:55 Interval history: Follow-up for acute kidney injury/acute renal failure. Overall, she states she is feeling better; renal function contiues to slowly improve with ongoing interventions/therapy; no apparent distress noted; no other issues/events overnight or earlier this AM. Exam Narrative: General: elderly female in NAD Heart: normal S1 and S2; no rub Lungs: clear to auscultation Abdomen: soft, nontender, nondistended, positive bowel sounds Extremities: no cyanosis or clubbing; no edema Skin: warm and dry Objective Data Vital Signs Vital Signs: Vital Signs Temp Pulse Resp BP Pulse Ox O2 Del Method 09/08/23 11:37 97.5 F L 89 18 173/71 H 100 09/08/23 08:00 Room Air 09/08/23 10:00 84 09/08/23 08:00 92 09/08/23 08:17 97.4 F L 91 18 150/66 H 100 09/08/23 06:00 78 09/08/23 04:00 98.2 F 81 18 115/47 L 91 09/08/23 04:00 102 H 18 97 Room Air 09/08/23 04:00 102 H 09/08/23 02:00 84 09/08/23 00:00 84 18 97 Room Air 09/08/23 00:00 84 09/08/23 00:45 97.6 F 81 18 114/50 L 97 09/07/23 22:00 84 09/07/23 20:00 82 18 98 Room Air 09/07/23 20:00 82 09/07/23 20:00 97.6 F 81 18 110/45 L 98 09/07/23 18:00 95 09/07/23 16:00 88 09/07/23 14:00 85 09/07/23 16:00 100 Room Air 09/07/23 15:54 98.1 F 79 18 109/50 L 100 Intake/Output Intake/Output: Intake & Output 09/05/23 09/06/23 09/07/23 09/08/23 23:59 23:59 23:59 23:59 Intake Total 1270 1880 2050 Output Total 1300 3000 1100 Balance -30 -1120 950 Meds/Results Medications: Active Medications Generic Name Dose Route Start Last Admin Trade Name Freq PRN Reason Stop Dose Admin Acetaminophen 650 mg 09/08/23 11:39 09/08/23 12:04 Acetaminophen 325 Mg Tablet PO 650 mg Q4H PRN Administration Pain Rated 1-3 Atorvastatin Calcium 40 mg 09/07/23 09:00 09/08/23 08:16 Atorvastatin 40 Mg Tablet PO 40 mg DAILY JIMMY Administration Clonazepam 1 mg 09/08/23 13:20 Clonazepam (*Crx) 0.5 Mg Tablet PO QHS PRN Anxiety Dextrose 12.5 gm 09/06/23 20:05 Dextrose 50% 25 Gm/50 Ml Syringe IV PUSH PRN PRN
--- NOTE | 2023-09-08 13:23 | PM.IMPN ---
Progress Note: A&P Assessment and Plan (1) Tarry stool: Code(s): K92.1 - Melena Status: Acute (2) Altered mental status: Code(s): R41.82 - Altered mental status, unspecified Status: Acute (3) Acute renal failure: Qualifiers: Acute renal failure type: unspecified Qualified Code(s): N17.9 - Acute kidney failure, unspecified Code(s): N17.9 - Acute kidney failure, unspecified Status: Acute Plan 68F w/ PMH HF w/ borderline reduced EF, GERD, hx of GI bleed, gastritis, AVMS, HTN, HLD presented with diarrhea, falls and AMS. 1) acute encephalopathy - resolved, multifactorial. polypharmacy, diarrhea, dehydration, anemia 2) tarry stool - hx of GI bleed. HB baseline low in 7's. CTM. - thin liquid diet. protonix 40mg IV BID - consult GI, reportedly plan to go for scope on 09/09 3) chronic diarrhea - mention of mucous in diarrhea. consult GI. stool C diff lactoferrin and culture pending - resolved currently 4) acute kidney injury 2/2 hypovolemia - fluids at 100ml/hr does not appear hypervolemic. ctm closely. - nephrology consulted. - greatly improved. scr down from 9 to 4 5) hypomagnesemia - replace and recheck in AM 6) anxiety - greatly anxious today. i counseled the patient on the risks of taking xanax, including falls and recurrent AMS. she is adamant about taking it because she is overly anxious, and accept the risks. 7) HF borderline reduced EF - ctm fluid status DNR stable NPO at midnight SCD's only, risk of bleeding More than 35 minutes spent on chart review, patient interaction and assessment and plan. Subjective Date/time seen: 09/08/23 13:23 Interval history: NAOE. pt admit to feeling anxious, especially since she didn't get her nighttime anxiety pill. she denies shortness of breath or leg swelling. she is able to tolerate foods. she denies chest pain Review of Systems Constitutional: Constitutional: Reports as per HPI Cardiovascular: Cardiovascular: Denies chest pain and Denies dyspnea Respiratory: Respiratory: Denies cough and Denies dyspnea Gastrointestinal: Gastrointestinal: Denies abdominal pain and Denies vomiting Exam Const: General: no acute distress, alert and Physically active Resp: Effort & Inspection: normal respiratory effort Auscultation: clear to auscultation bilaterally Cardio: Rate: regular rate Rhythm: regular rhythm Heart sounds: S1 normal heart sound present and S2 normal heart sound present GI: Inspection: non-distended GI Palp: No abdominal tenderness Auscultation: normal bowel sounds Extrem: Right upper extremity: no edema Objective Data Vital Signs Vital Signs: Vital Signs - 24 hr 09/07/23 15:54 09/07/23 16:00 09/07/23 14:00 Temperature 98.1 F Pulse Rate 79 85 Respiratory Rate 18 Blood Pressure 109/50 L Pulse Oximetry 100 100 Oxygen Delivery Room Air 09/07/23 16:00 09/07/23 18:00 09/07/23 20:00 Temperature 97.6 F Pulse Rate 88 95 81 Respiratory Rate 18 Blood Pressure 110/45 L Pulse Oximetry 98 Oxygen Delivery 09/07/23 20:00 09/07/23 20:00 09/07/23 22:00 Temperature Pulse Rate 82 82 84 Respiratory Rate 18 Blood Pressure Pulse Oximetry 98 Oxygen Delivery Room Air 09/08/23 00:45 09/08/23 00:00 09/08/23 00:00 Temperature 97.6 F Pulse Rate 81 84 84 Respiratory Rate 18 18 Blood Pressure 114/50 L Pulse Oximetry 97 97 Oxygen Delivery Room Air 09/08/23 02:00 09/08/23 04:00 09/08/23 04:00 Temperature Pulse Rate 84 102 H 102 H Respiratory Rate 18 Blood Pressure Pulse Oximetry 97 Oxygen Delivery Room Air 09/08/23 04:00 09/08/23 06:00 09/08/23 08:17 Temperature 98.2 F 97.4 F L Pulse Rate 81 78 91 Respiratory Rate 18 18 Blood Pressure 115/47 L 150/66 H Pulse Oximetry 91 100 Oxygen Delivery 09/08/23 08:00 09/08/23 10:00 09/08/23 08:00 Temperature Pulse Rate 92 84 Respiratory Rate Blood Pressure
[2023-09-08] MEDS: MAGNESIUM SULF 2 GM/WATER 50ML 2 GM/50 ML BAG IVPB (14:19)
--- NOTE | 2023-09-08 15:57 | WPDGICN ---
Assessment and Plan Assessment and plan (1) Tarry stool: Code(s): K92.1 - Melena Status: Acute Assessment and Plan: she has known chronic anemia, work up in the past included colonoscopy, egd and even SBCE given dark stools with recent COVID and worsening renal failure, will evaluate with egd tomorrow to check for gastritis, ulcers, etc (2) Acute renal failure: Qualifiers: Acute renal failure type: unspecified Qualified Code(s): N17.9 - Acute kidney failure, unspecified Code(s): N17.9 - Acute kidney failure, unspecified Status: Acute Assessment and Plan: slowly improving renal on board (3) Altered mental status: Code(s): R41.82 - Altered mental status, unspecified Status: Acute Assessment and Plan: improved (4) Chronic anemia: Code(s): D64.9 - Anemia, unspecified Status: Acute Assessment and Plan: known problem probably aggravated but acute renal failure, covid, etc GI Consult Note Consult date/time: 09/08/23 15:57 Reason for consult: dark stool, anemia HPI: Albertina Orlando is a 68 year old female who I met originally when she was admitted for respiratory failure and symptomatic anemia in 2020- she was in icu, required trach and peg placement, egd with gastritis and colonoscopy with avm in cecum- treated with apc and large polyps removed. She had chronic anemia for which repeated colonoscopy no avm, no signs of bleeding, only small TA polyp removed, egd with non-bleeding erosive gastritis and negative h pylori.?Then had SB capsule endoscopy because of anemia that was negative. This time she was admitted with 2-3 weeks of intermittent altered mental status, agitation, poor appetite, diarrhea, fatigue, new elevation in creatinine with renal failure. She tested positive for COVID approximately 3 weeks ago, given Paxlovid.? Patient became altered/sedated after initial dose. Also noted dark stools but she denies any recent stool. hgb ~ 8, creat down to 4 from 7.5 (nephrology on board) Review of Systems Constitutional: Constitutional: Reports fatigue Eyes: Eyes: Denies blurry vision ENT: Reports Normal hearing present Cardiovascular: Cardiovascular: Denies chest pain Respiratory: Respiratory: Denies cough Gastrointestinal: Gastrointestinal: Denies abdominal pain Musculoskeletal: Musculoskeletal: Denies back pain Integumentary/Breasts: Skin/Breast: Denies rash Neurologic: Denies Abnormal speech present Psychiatric: Psychiatric: Denies depression [facility] Past Medical History Medical History (Updated 09/08/23 @ 16:03 by Calin Salamanca MD) Acute blood loss anemia Adenomatous colon polyp Anxiety AVM (arteriovenous malformation) of colon Bipolar disorder Cardiac arrest Chronic anemia Chronic obstructive pulmonary disease Constipation Contact dermatitis Depression Dyslipidemia Erosive gastritis Gastroesophageal reflux disease Hypertension NSTEMI (non-ST elevated myocardial infarction) Pneumonia Posttraumatic stress disorder Severe anemia Suicide attempt by drug ingestion 16 years ago. Tobacco dependence Type 2 diabetes mellitus Surgical History Surgical History (Updated 09/07/23 @ 00:12 by Nano Jackson APRN) History of gastrostomy tube placement reversed. Hx of tracheostomy reversed. Family History Family History (Updated 09/06/23 @ 16:18 by Elisa Gamboa RN) Mother Acute myocardial infarction Heart disease Hypertension Father Diabetes mellitus Heart disease Acute myocardial infarction Hypertension Sibling Asthma Son Lymphoma Social History Social History (Updated 09/07/23 @ 00:13 by Nano Jackson APRN) Social History: Currently lives at home alone. Family takes shifts to help make sure she is not alone/has help at all times. Surrogate decision maker: Zeinab Carvalho, daughter. Code status: DNR Smoking packs per day: 1 Smoking cigarettes per day:
[2023-09-08 17:01] LABS: Glucose Point of Care 141 mg/dl (65-105)
--- NOTE | 2023-09-08 18:06 | PC.NURSE ---
This patient, Albertina Orlando, was transferred to [[facility] ] on 09/08/23 at 1749. Personal belongings sent with patient. Report given to [Cinad ]. Appropriate documentation sent with patient.
--- NOTE | 2023-09-08 18:12 | PC.NURSE ---
This patient, Albertina Orlando, was received from IMU on 09/08/23 at 1805. Patient/family oriented to unit policies and routines
[2023-09-08] MEDS: clonazePAM (*CRX) 0.5 MG TABLET 1 MG PO (20:39)
[2023-09-08] MEDS: MIRTAZAPINE SOLTAB 15 MG TAB.DISPER PO (20:39)
[2023-09-08 21:54] LABS: Glucose Point of Care 285 mg/dl (65-105)
[2023-09-09] VITALS (14 sets, daily range): BP systolic 115–182; BP diastolic 49–93; PULSE 75–96; RESP 16–35; TEMP 36.4–37.2; O2SAT 99–100
[2023-09-09 05:26] LABS: Hematocrit 24.2 % (37.0-47.0); Hemoglobin 7.8 g/dL (12.0-15.0); Mean Corpuscular HGB Conc 32.2 g/dl (32-36); Mean Corpuscular Volume 93.1 fl (80-100); Mean Platelet Volume 11.4 fl (7.4-10.4); Platelet Count Result 276 k/mm3 (150-375); Red Cell Distribution Width 12.8 % (11.5-14.5); White Blood Count 7.3 K/mm3 (4.5-10.0)
[2023-09-09 06:02] LABS: Anion Gap 7 mmol/L (8-16); Blood Urea Nitrogen 23 mg/dL (7-17); Calcium 7.8 mg/dL (8.4-10.2); Carbon Dioxide 21 mmol/L (22-30); Chloride 114 mmol/L (98-107); Estimated CRCL calculation 16 ml/min; Estimated Glomerular Filt Rate 20; Glucose 142 mg/dL (65-110); Magnesium 1.5 mg/dL (1.6-2.3); Potassium 3.5 mmol/L (3.4-5.0); Sodium 142 mmol/L (137-145)
[2023-09-09 06:14] LABS: INR 1.1; Prothrombin Time 15.1 Seconds (11.1-14.7)
[2023-09-09 08:24] LABS: Glucose Point of Care 138 mg/dl (65-105)
[2023-09-09] MEDS: PANTOPRAZOLE SODIUM IV 40 MG VIAL IV PUSH (08:56)
[2023-09-09] MEDS: DEXTROSE 5%/0.9% SOD CHL 1,000 ML 50 ML IV CONT (10:59)
--- NOTE | 2023-09-09 11:03 | PC.NURSE ---
To GI lab. Report given to ATILIO Soriano.
--- NOTE | 2023-09-09 11:20 | PM.PNNEP ---
Progress Note: A&P Assessment and Plan (1) ZAN (acute kidney injury): Code(s): N17.9 - Acute kidney failure, unspecified Status: Acute Assessment and Plan: slow improvement noted baseline creatinine normal earlier this year more recently, was running ~ 1.1 - 1.3mg/dl suspicion falls on hypovolemia and hypotension acutely worsened by ongoing BP mediation use including lisinopril evaluation to date: urine eosinophils negative urine electrolytes slightly prerenal CPK normal UA not indicative of infection admission CT without evidene of obstruction continue gentle IVF hydration follow repeat labs and UOP (2) Hyperkalemia: Code(s): E87.5 - Hyperkalemia Status: Acute Assessment and Plan: resolved s/p medical management follow repeat K+ levels (3) Hypotension: Code(s): I95.9 - Hypotension, unspecified Status: Acute Assessment and Plan: resolved thought to be secondary to volume depletion and ongoing BP medication use improvement noted with IVF resuscitation follow trend of BP readings (4) Altered mental status: Code(s): R41.82 - Altered mental status, unspecified Status: Acute Assessment and Plan: clinically better secondary to ZAN/ARF(?) follow mentation (5) Anemia: Qualifiers: Anemia type: iron deficiency Iron deficiency anemia type: chronic blood loss Qualified Code(s): D50.0 - Iron deficiency anemia secondary to blood loss (chronic) Code(s): D64.9 - Anemia, unspecified Status: Chronic Assessment and Plan: known history follow trend of H/H GI following - plan for EGD today Will continue to follow. Subjective Date/time seen: 09/09/23 11:20 Interval history: Follow-up for acute kidney injury/acute renal failure. Continues to make slow and steady improvement with regard to renal function; noted plans for EGD given ongoing issues with anemia; no apparent distress voiced at the time of my visit. Exam Narrative: General: elderly female in NAD Heart: normal S1 and S2; no rub Lungs: clear to auscultation Abdomen: soft, nontender, nondistended, positive bowel sounds Extremities: no cyanosis or clubbing; no edema Skin: warm and intact Objective Data Vital Signs Vital Signs: Vital Signs Temp Pulse Resp BP Pulse Ox O2 Del Method 09/09/23 11:12 97.5 F L 94 20 160/64 H 100 Room Air 09/09/23 08:00 86 09/09/23 08:53 Room Air 09/09/23 09:38 100 Room Air 09/09/23 06:00 98.9 F 90 18 115/49 L 100 09/09/23 04:00 78 09/09/23 00:04 75 09/08/23 20:00 88 09/08/23 20:52 98.7 F 88 18 137/77 100 Intake/Output Intake/Output: Intake & Output 09/06/23 09/07/23 09/08/23 09/09/23 23:59 23:59 23:59 23:59 Intake Total 1270 1880 4610 1800 Output Total 1300 3000 1850 Balance -30 -1120 2760 1800 Meds/Results Medications: Active Medications Generic Name Dose Route Start Last Admin Trade Name Freq PRN Reason Stop Dose Admin Acetaminophen 650 mg 09/08/23 11:39 09/08/23 12:04 Acetaminophen 325 Mg Tablet PO 650 mg Q4H PRN Administration Pain Rated 1-3 Atorvastatin Calcium 40 mg 09/07/23 09:00 09/09/23 08:52 Atorvastatin 40 Mg Tablet PO Not Given DAILY JIMMY Clonazepam 1 mg 09/08/23 13:20 09/08/23 20:39 Clonazepam (*Crx) 0.5 Mg Tablet PO 1 mg QHS PRN Administration Anxiety Dextrose 12.5 gm 09/06/23 20:05 Dextrose 50% 25 Gm/50 Ml Syringe IV PUSH PRN PRN Hypoglycemia Protocol Glucagon 1 mg 09/06/23 20:05 Glucagon For Inj 1 Mg Vial IM PRN PRN Hypoglycemia Protocol Glucose 15 gm 09/06/23 20:05 Glucose Oral Gel 15 Gm Of Glucse In 37.5 Gm Tube PO PRN PRN Hypoglycemia Protocol Dextrose 1,000 mls @ 100 mls/hr 09/06/23 20:05 Dextrose 5% 1,000 Ml IVPB PRN PRN Hypoglycemia
--- NOTE | 2023-09-09 11:20 | P.PNNP_ITS ---
Progress Note: A&P Assessment and Plan (1) ZAN (acute kidney injury): Code(s): N17.9 - Acute kidney failure, unspecified Status: Acute Assessment and Plan: * slow improvement noted * baseline creatinine normal earlier this year * more recently, was running ~ 1.1 - 1.3mg/dl * suspicion falls on hypovolemia and hypotension acutely worsened by ongoing BP mediation use including lisinopril * evaluation to date: * urine eosinophils negative * urine electrolytes slightly prerenal * CPK normal * UA not indicative of infection * admission CT without evidene of obstruction * continue gentle IVF hydration * follow repeat labs and UOP (2) Hyperkalemia: Code(s): E87.5 - Hyperkalemia Status: Acute Assessment and Plan: * resolved s/p medical management * follow repeat K+ levels (3) Hypotension: Code(s): I95.9 - Hypotension, unspecified Status: Acute Assessment and Plan: * resolved * thought to be secondary to volume depletion and ongoing BP medication use * improvement noted with IVF resuscitation * follow trend of BP readings (4) Altered mental status: Code(s): R41.82 - Altered mental status, unspecified Status: Acute Assessment and Plan: * clinically better * secondary to ZAN/ARF(?) * follow mentation (5) Anemia: Qualifiers: Anemia type: iron deficiency Iron deficiency anemia type: chronic blood loss Qualified Code(s): D50.0 - Iron deficiency anemia secondary to blood loss (chronic) Code(s): D64.9 - Anemia, unspecified Status: Chronic Assessment and Plan: * known history * follow trend of H/H * GI following - plan for EGD today Will continue to follow. Subjective Date/time seen: 09/09/23 11:20 Interval history: Follow-up for acute kidney injury/acute renal failure. Continues to make slow and steady improvement with regard to renal function; noted plans for EGD given ongoing issues with anemia; no apparent distress voiced at the time of my visit. Exam Narrative: General: elderly female in NAD Heart: normal S1 and S2; no rub Lungs: clear to auscultation Abdomen: soft, nontender, nondistended, positive bowel sounds Extremities: no cyanosis or clubbing; no edema Skin: warm and intact Objective Data Vital Signs Vital Signs: Vital Signs Temp Pulse Resp BP Pulse Ox O2 Del Method 09/09/23 11:12 97.5 F L 94 20 160/64 H 100 Room Air 09/09/23 08:00 86 09/09/23 08:53 Room Air 09/09/23 09:38 100 Room Air 09/09/23 06:00 98.9 F 90 18 115/49 L 100 09/09/23 04:00 78 09/09/23 00:04 75 09/08/23 20:00 88 09/08/23 20:52 98.7 F 88 18 137/77 100 Intake/Output Intake/Output: Intake & Output 09/06/23 09/07/23 09/08/23 09/09/23 23:59 23:59 23:59 23:59 Intake Total 1270 1880 4610 1800 Output Total 1300 3000 1850 Balance -30 -1120 2760 1800 Meds/Results Medications: Active Medications Generic Name Dose Route Start Last Admin Trade Name Freq PRN Reason Stop Dose Admin Acetaminophen 650 mg 09/08/23 11:39 09/08/23 12:04
[2023-09-09] MEDS: LACTATED RINGERS 1,000 ML 150 ML IV CONT (11:38)
[2023-09-09 11:44] LABS: Glucose Point of Care 144 mg/dl (65-105)
--- NOTE | 2023-09-09 12:04 | WPDANESEPPF ---
Anes - Initial Pre Proc Eval Procedure: Operation Date: 09/09/23 12:30 Proposed Procedures p Esophagogastroduodenoscopy - Calin Salamanca MD Date/Time: 09/09/23 12:04 Surgeon: Hugo Draper MD Pre Op Diagnosis: acute renal failure Patient Data Age: 68 Gender: F Height: 1.57 m Weight: 60.1 kg Last Vital Signs Temp 97.5 F L 09/09/23 11:32 Pulse 94 09/09/23 11:32 Resp 20 09/09/23 11:32 BP 160/64 H 09/09/23 11:32 Pulse Ox 100 09/09/23 11:32 O2 Del Method Room Air 09/09/23 11:32 Allergies Allergy/AdvReac Type Severity Reaction Status Date / Time codeine Allergy Intermediate Hives Verified 09/09/23 11:27 Home Medications Medication Instructions Recorded Confirmed Type atorvastatin 40 mg tablet 40 mg PO DAILY #100 tabs 04/19/23 09/06/23 Rx lisinopril 40 mg tablet 40 mg PO DAILY #100 tabs 04/19/23 09/06/23 Rx metoprolol tartrate 25 mg tablet 25 mg PO BID #180 tabs 04/19/23 09/06/23 Rx montelukast 10 mg tablet 10 mg PO DAILY #100 tabs 04/19/23 09/06/23 Rx linaclotide 145 mcg capsule 145 mcg PO QAM PRN Constipation 05/20/23 09/06/23 History (Linzess) mirtazapine 30 mg tablet 15 mg PO HS 05/20/23 09/06/23 History clonazepam 1 mg tablet 1 mg PO BID PRN Anxiety 09/06/23 09/06/23 History hydroxyzine HCl 25 mg tablet 25 mg PO TID PRN Itching 09/06/23 09/06/23 History metformin 1,000 mg tablet 1,000 mg PO BIDWM 09/06/23 09/06/23 History pantoprazole 40 mg tablet,delayed 40 mg PO HS 09/06/23 09/06/23 History release pregabalin 25 mg capsule (Lyrica) 25 mg PO BID PRN Pain 09/06/23 09/06/23 History quetiapine 200 mg tablet 200 mg PO HS 09/06/23 09/06/23 History Laboratory Tests 09/08/23 09/08/23 09/08/23 11:40 15:59 20:27 WBC RBC Hgb Hct MCV MCH MCHC RDW Plt Count MPV PT INR Sodium Potassium Chloride Carbon Dioxide Anion Gap BUN Creatinine Estim Creat Clear Calc Estimated GFR Glucose POC Capillary Glucose 155 H mg/dl 141 H mg/dl 285 H mg/dl (65-105) (65-105) (65-105) Calcium Magnesium 09/09/23 09/09/23 09/09/23 04:43 08:17 11:24 WBC 7.3 K/mm3 (4.5-10.0) RBC 2.60 L M/mm3 (4.2-5.4) Hgb 7.8 L g/dL (12.0-15.0) Hct 24.2 L % (37.0-47.0) MCV 93.1 fl (80-100) MCH 30.0 pg (26-34) MCHC 32.2 g/dl (32-36) RDW 12.8 % (11.5-14.5) Plt Count 276 k/mm3 (150-375) MPV 11.4 H fl (7.4-10.4) PT 15.1 H Seconds (11.1-14.7) INR 1.1 Sodium 142 mmol/L (137-145) Potassium 3.5 mmol/L (3.4-5.0) Chloride 114 H mmol/L (98-107) Carbon Dioxide 21 L mmol/L (22-30) Anion Gap 7 L mmol/L (8-16) BUN 23 H D mg/dL (7-17) Creatinine 2.40 H mg/dL (0.7-1.0) Estim Creat Clear Calc 16 ml/min Estimated GFR 20 L (59 - ) Glucose 142 H mg/dL (65-110) POC Capillary Glucose 138 H mg/dl 144 H mg/dl (65-105) (65-105) Calcium 7.8 L mg/dL (8.4-10.2) Magnesium 1.5 L mg/dL (1.6-2.3) Patient hx anesthesia problems: none Family hx anesthesia problems: none Results Review: All pre-operative results and documents have been reviewed as part of the pre-operative evaluation. [facility] Past Medical History Medical History (Updated 09/09/23 @ 05:56 by Alex Silver MD) Acute blood loss anemia Adenomatous colon polyp Anxiety AVM (arteriovenous malformation) of colon Bipolar disorder Cardiac arrest Chronic anemia Chronic obstructive pulmonary disease Constipation Contact dermatitis Depression Dyslipidemia Er
--- NOTE | 2023-09-09 12:26 | PM.IMPN ---
Progress Note: A&P Assessment and Plan (1) Tarry stool: Code(s): K92.1 - Melena Status: Acute (2) Altered mental status: Code(s): R41.82 - Altered mental status, unspecified Status: Acute (3) Acute renal failure: Qualifiers: Acute renal failure type: unspecified Qualified Code(s): N17.9 - Acute kidney failure, unspecified Code(s): N17.9 - Acute kidney failure, unspecified Status: Acute Plan 68F w/ PMH HF w/ borderline reduced EF, GERD, hx of GI bleed, gastritis, AVMs, NIDDM, HTN, HLD presented with diarrhea, falls and AMS. 1) acute encephalopathy - resolved, multifactorial. polypharmacy, diarrhea, dehydration, anemia 2) tarry stool - hx of GI bleed. HB baseline low in 7's. CTM. - thin liquid diet. protonix 40mg IV BID - consult GI, EGD today 3) chronic diarrhea - mention of mucous in diarrhea. consult GI. stool C diff lactoferrin and culture pending - resolved 4) acute kidney injury 2/2 hypovolemia - volume resuscitated - nephrology consulted. - greatly improved. scr down from 9 to 4 to 2 5) hypomagnesemia - replace and recheck in AM 6) HF borderline reduced EF - ctm fluid status - compensated 7) hyperchloremic metabolic acidosis - likely for large volume infusion - switch NS to D5NS and down the rate DNR stable NPO SCD's only, risk of bleeding More than 35 minutes spent on chart review, patient interaction and assessment and plan. Subjective Date/time seen: 09/09/23 12:26 Interval history: NAOE. pt to go for EGD Review of Systems Review of Systems: All systems reviewed & are unremarkable except as noted in HPI and below Constitutional: Constitutional: Reports as per HPI Cardiovascular: Cardiovascular: Denies chest pain and Denies dyspnea Respiratory: Respiratory: Denies cough and Denies dyspnea Gastrointestinal: Gastrointestinal: Denies abdominal pain and Denies vomiting Exam Narrative: lying in hospital bed, daughter at bedside. Const: General: no acute distress, alert, Physically active and uncomfortable HENMT: Mouth: Yes dry mucous membranes Eyes: Sclera: sclerae normal Pupils: Equal, round and reactive pupils present Other: Sunken, otherwise normal appearance/structure. Resp: Effort & Inspection: normal respiratory effort Auscultation: clear to auscultation bilaterally Cardio: Rate: regular rate and tachycardic Rhythm: regular rhythm Heart sounds: S1 normal heart sound present, S2 normal heart sound present and Murmur heart sound present Other: grade 4. GI: Inspection: non-distended Auscultation: normal bowel sounds and abnormal bowel sounds Other: hyperactive. Tender in all quadrants, primarily near umbilicus. No hepatomegaly or splenomegaly. Skin: General skin exam: no rashes or lesions noted Wounds: no wounds Other: +pallor. Neuro: Cranial nerves: Yes Equal, round and reactive pupils present Speech: normal speech Sensory Exam: normal sensation Other: A/Ox self and place. Incorrect time and some confusion with situation/events. Extrem: General: normal to inspection Right upper extremity: no edema Other: No peripheral edema. Psych: Other: Blunted affect, poor insight and judgment. Objective Data Vital Signs Vital Signs: Vital Signs - 24 hr 09/08/23 14:00 09/08/23 15:57 09/08/23 16:00 Temperature 97.8 F Pulse Rate 79 78 76 Respiratory Rate 18 Blood Pressure 144/66 H Pulse Oximetry 100 Oxygen Delivery 09/08/23 18:13 09/08/23 18:10 09/08/23 20:52 Temperature 98.1 F 98.7 F Pulse Rate 86 88 Respiratory Rate 16 18 Blood Pressure 141/78 H 137/77 Pulse Oximetry 100 100 Oxygen Delivery Room Air 09/08/23 20:00 09/09/23 00:04 09/09/23 04:00 Temperature Pulse Rate 88 75 78 Respiratory Rate Blood Pressure Pulse Oximetry Oxygen Delivery 09/09/23 06:00 09/09/23 09:38 09/09/23 08:53 Temperature
--- NOTE | 2023-09-09 12:44 | PCNFU ---
Nutrition Follow-Up Complete: Severe protein calorie malnutrition related to loss of appetite, as evidenced by weight loss -14 %/6 months, report of intakes <50% needs >1 week, and NFPE findings of moderate muscle wasting and fat loss. Improve PO intakes to at least 50% meals Maintain weight during follow up period Goal: Pt current nutrition is NPO for EGD today. Previous renal diet, intakes 25-100. Nutrition recommendation: Advance diet to previous renal diet after procedure per MD Last recorded weight is 60.1 kg. Bowel Motility: Last BM recorded 09/02/23 Labs Reviewed: Hgb 7.8, Hct 24.2, GFR 20, BUN 23, Cre 2.4 (improved from 8.4) Meds Noted: Mirtazipine, protonix, seroquel Skin: WNL Additional Notes: Improvement to labs and intake. Pt having EGD today. Continue to follow. Monitoring intakes, weights, labs plan of care Follow up in 3 days
[2023-09-09 12:57] LABS: Glucose Point of Care 148 mg/dl (65-105)
[2023-09-09] MEDS: MAGNESIUM SULF 2 GM/WATER 50ML 2 GM/50 ML BAG IVPB (13:54)
[2023-09-09 17:09] LABS: Glucose Point of Care 172 mg/dl (65-105)
[2023-09-09 19:34] LABS: Osmolality, Urine 299 mOsm/kg (50-1200)
[2023-09-09] MEDS: MIRTAZAPINE SOLTAB 15 MG TAB.DISPER PO (20:06)
[2023-09-09] MEDS: SULFAMETHOXAZOLE/TRIMETHOPRIM 800/160 MG DS TABLET 1 TAB PO (20:06)
[2023-09-09 22:12] LABS: Glucose Point of Care 184 mg/dl (65-105)
[2023-09-10 00:04] VITALS: PULSE 79
[2023-09-10 04:00] VITALS: PULSE 74
[2023-09-10 05:21] VITALS: BP 171/65; PULSE 78; RESP 14; TEMP 36.9; O2SAT 99
[2023-09-10 05:36] LABS: Hematocrit 22.3 % (37.0-47.0); Hemoglobin 7.3 g/dL (12.0-15.0); Mean Corpuscular HGB Conc 32.7 g/dl (32-36); Mean Corpuscular Hemoglobin 29.9 pg (26-34); Mean Corpuscular Volume 91.4 fl (80-100); Mean Platelet Volume 11.5 fl (7.4-10.4); Platelet Count Result 233 k/mm3 (150-375); Red Blood Count 2.44 M/mm3 (4.2-5.4); Red Cell Distribution Width 12.9 % (11.5-14.5); White Blood Count 6.5 K/mm3 (4.5-10.0)
[2023-09-10 05:48] LABS: Anion Gap 5 mmol/L (8-16); Blood Urea Nitrogen 14 mg/dL (7-17); Calcium 7.8 mg/dL (8.4-10.2); Carbon Dioxide 22 mmol/L (22-30); Chloride 114 mmol/L (98-107); Estimated CRCL calculation 22 ml/min; Estimated Glomerular Filt Rate 30; Glucose 181 mg/dL (65-110); Magnesium 1.6 mg/dL (1.6-2.3); Potassium 3.3 mmol/L (3.4-5.0); Sodium 141 mmol/L (137-145)
[2023-09-10 08:00] VITALS: PULSE 76
[2023-09-10 08:34] LABS: Glucose Point of Care 165 mg/dl (65-105)
[2023-09-10] MEDS: ATORVASTATIN 40 MG TABLET PO (08:44)
[2023-09-10] MEDS: MONTELUKAST SODIUM 10 MG TABLET PO (08:45)
[2023-09-10] MEDS: PANTOPRAZOLE 40 MG TABLET PO (08:45)
[2023-09-10] MEDS: SULFAMETHOXAZOLE/TRIMETHOPRIM 800/160 MG DS TABLET 1 TAB PO (08:45)
--- NOTE | 2023-09-10 10:46 | PM.DS ---
DS: Admitting Diagnosis Discharge Date 09/10 Admitting Diagnosis altered mental status DS: Discharge Diagnosis Discharge Diagnosis (1) ZAN (acute kidney injury): Code(s): N17.9 - Acute kidney failure, unspecified Status: Acute (2) Chronic anemia: Code(s): D64.9 - Anemia, unspecified Status: Acute (3) Tarry stool: Code(s): K92.1 - Melena Status: Acute (4) Altered mental status: Code(s): R41.82 - Altered mental status, unspecified Status: Acute (5) Acute renal failure: Qualifiers: Acute renal failure type: unspecified Qualified Code(s): N17.9 - Acute kidney failure, unspecified Code(s): N17.9 - Acute kidney failure, unspecified Status: Acute DS: Summary Hospital Course Hospital Course: 68F w/ PMH HF w/ borderline reduced EF, GERD, hx of GI bleed, gastritis, AVMs, iron deficiency anemia, NIDDM, HTN, HLD presented with diarrhea, falls and AMS. She was admitted for acute renal failure, diarrhea, AMS, and chronic anemia. See below: 1) acute encephalopathy - resolved, multifactorial. polypharmacy, diarrhea, dehydration 2) tarry stool and diarrhea - hx of GI bleed. EGD performed 09/09. nothing seen to explain anemia - diarrhea and tarry stools resolved spontaneously - Linzess stopped, may have been the culprit 3) acute kidney injury 2/2 hypovolemia - presented with SCR 9. discharged date back down below 2. volume resuscitated, improved greatly. repeat BMP in 3 days 4) cellulitis left hand - at pIV site. started bactrim 09/09 and already improving, d/c on another 4 days of bactrim. repeat bmp in 3 days stable for discharge to home with home health. f/u with PCP within 1 week. DNR Time Spent with Patient Time attestation: Total time spent providing and/or coordinating discharge services: Exam Const: General: comfortable and no acute distress Eyes: Pupils: Equal, round and reactive pupils present Resp: Effort & Inspection: normal respiratory effort Cardio: Rate: regular rate Rhythm: regular rhythm GI: Inspection: non-distended GI Palp: Yes Soft to palpation Extrem: General: no edema DS: Data Data Completed and Pending Labs on day of discharge: Labs from last 24 hours 09/10/23 09/10/23 09/09/23 08:31 05:04 20:16 WBC 6.5 RBC 2.44 L Hgb 7.3 L Hct 22.3 L MCV 91.4 MCH 29.9 MCHC 32.7 RDW 12.9 Plt Count 233 MPV 11.5 H Sodium 141 Potassium 3.3 L Chloride 114 H Carbon Dioxide 22 Anion Gap 5 L BUN 14 D Creatinine 1.70 H Estim Creat Clear Calc 22 Estimated GFR 30 L Glucose 181 H POC Capillary Glucose 165 H 184 H Calcium 7.8 L Ionized Calcium Eddie Pending Magnesium 1.6 Urine Osmolality 09/09/23 09/09/23 09/09/23 17:04 12:54 11:24 WBC RBC Hgb Hct MCV MCH MCHC RDW Plt Count MPV Sodium Potassium Chloride Carbon Dioxide Anion Gap BUN Creatinine Estim Creat Clear Calc Estimated GFR Glucose POC Capillary Glucose 172 H 148 H 144 H Calcium Ionized Calcium Eddie Magnesium Urine Osmolality 09/07/23 04:02 WBC RBC Hgb Hct MCV MCH MCHC RDW Plt Count MPV Sodium Potassium Chloride Carbon Dioxide Anion Gap BUN Creatinine Estim Creat Clear Calc Estimated GFR Glucose POC Capillary Glucose Calcium Ionized Calcium Eddie Magnesium Urine Osmolality 299 Preliminary micro results at discharge 09/06/23 13:24 Blood Culture - Preliminary Blood 09/06/23 13:24 Blood Culture - Preliminary Blood Discharge Plan Discharge Attending physician on discharge: Andreia Sue Consulting providers: Alex Silver; Calin Salamanca Discharging Clinician: Andreia Sue Patient Disposition: Home Health Service Activity: march shower Diet: as tolerated Discharge Instructions: Per Ca
[2023-09-10 12:15] LABS: Glucose Point of Care 165 mg/dl (65-105)
--- NOTE | 2023-09-10 12:21 | P.PNNP_ITS ---
Progress Note: A&P Assessment and Plan (1) ZAN (acute kidney injury): Code(s): N17.9 - Acute kidney failure, unspecified Status: Acute Assessment and Plan: * acute kidney injury. * baseline creatinine normal earlier this year * more recently, was running ~ 1.1 - 1.3mg/dl * evaluation to date: * urine eosinophils negative * urine electrolytes slightly prerenal * CPK normal * UA not indicative of infection * admission CT without evidene of obstruction * Most likely due to dehydration * continue gentle IVF hydration with D5 sodium chloride at50cc/hour. * follow repeat labs and UOP (2) Hyperkalemia: Code(s): E87.5 - Hyperkalemia Status: Acute Assessment and Plan: * Resolved. In fact the potassium is low today. * Will give 1 dose of supplement. (3) Hypotension: Code(s): I95.9 - Hypotension, unspecified Status: Acute Assessment and Plan: * resolved (4) Altered mental status: Code(s): R41.82 - Altered mental status, unspecified Status: Acute Assessment and Plan: * Mental status looks good. (5) Anemia: Qualifiers: Anemia type: iron deficiency Iron deficiency anemia type: chronic blood loss Qualified Code(s): D50.0 - Iron deficiency anemia secondary to blood loss (chronic) Code(s): D64.9 - Anemia, unspecified Status: Chronic Assessment and Plan: * known history * Hemoglobin is down slightly to 7.3. * GI following - EGD done and was negative. Will continue to follow. Subjective Date/time seen: 09/10/23 12:21 Interval history: Albertina is feeling better. She does not have much of an appetite. She does have some nausea from the antibiotics. She is eating some lunch. Exam Narrative: General: elderly female in NAD Heart: normal S1 and S2; no rub or gallops Lungs: clear to auscultation Abdomen: soft, nontender, nondistended, positive bowel sounds Extremities: no cyanosis or clubbing; no edema Skin: No rash Objective Data Vital Signs Vital Signs: Vital Signs - 24 hr 09/09/23 12:44 09/09/23 12:54 09/09/23 13:04 Temperature Pulse Rate 91 96 92 Respiratory Rate 35 H 24 H 26 H Blood Pressure 177/88 H 182/93 H 176/93 H Pulse Oximetry 100 100 100 Oxygen Delivery Room Air Room Air Room Air 09/09/23 14:00 09/09/23 13:14 09/09/23 16:00 Temperature 98.1 F Pulse Rate 87 94 84 Respiratory Rate 16 Blood Pressure 168/80 H Pulse Oximetry 100 Oxygen Delivery 09/09/23 20:22 09/09/23 20:00 09/10/23 00:04 Temperature 98.6 F Pulse Rate 88 88 79 Respiratory Rate 16 Blood Pressure 178/76 H Pulse Oximetry 99 Oxygen Delivery 09/10/23 04:00 09/10/23 05:21 09/10/23 08:41 Temperature 98.4 F Pulse Rate 74 78 Respiratory Rate 14 Blood Pressure 171/65 H Pulse Oximetry 99 Oxygen Delivery Room Air 09/10/23 09:18 09/10/23 08:00 Temperature Pulse Rate 76 Respiratory Rate Blood Pressure Pulse Oximetry Oxygen Delivery
--- NOTE | 2023-09-10 12:21 | PM.PNNEP ---
Progress Note: A&P Assessment and Plan (1) ZAN (acute kidney injury): Code(s): N17.9 - Acute kidney failure, unspecified Status: Acute Assessment and Plan: acute kidney injury. baseline creatinine normal earlier this year more recently, was running ~ 1.1 - 1.3mg/dl evaluation to date: urine eosinophils negative urine electrolytes slightly prerenal CPK normal UA not indicative of infection admission CT without evidene of obstruction Most likely due to dehydration continue gentle IVF hydration with D5 sodium chloride at50cc/hour. follow repeat labs and UOP (2) Hyperkalemia: Code(s): E87.5 - Hyperkalemia Status: Acute Assessment and Plan: Resolved. In fact the potassium is low today. Will give 1 dose of supplement. (3) Hypotension: Code(s): I95.9 - Hypotension, unspecified Status: Acute Assessment and Plan: resolved (4) Altered mental status: Code(s): R41.82 - Altered mental status, unspecified Status: Acute Assessment and Plan: Mental status looks good. (5) Anemia: Qualifiers: Anemia type: iron deficiency Iron deficiency anemia type: chronic blood loss Qualified Code(s): D50.0 - Iron deficiency anemia secondary to blood loss (chronic) Code(s): D64.9 - Anemia, unspecified Status: Chronic Assessment and Plan: known history Hemoglobin is down slightly to 7.3. GI following - EGD done and was negative. Will continue to follow. Subjective Date/time seen: 09/10/23 12:21 Interval history: Albertina is feeling better. She does not have much of an appetite. She does have some nausea from the antibiotics. She is eating some lunch. Exam Narrative: General: elderly female in NAD Heart: normal S1 and S2; no rub or gallops Lungs: clear to auscultation Abdomen: soft, nontender, nondistended, positive bowel sounds Extremities: no cyanosis or clubbing; no edema Skin: No rash Objective Data Vital Signs Vital Signs: Vital Signs - 24 hr 09/09/23 12:44 09/09/23 12:54 09/09/23 13:04 Temperature Pulse Rate 91 96 92 Respiratory Rate 35 H 24 H 26 H Blood Pressure 177/88 H 182/93 H 176/93 H Pulse Oximetry 100 100 100 Oxygen Delivery Room Air Room Air Room Air 09/09/23 14:00 09/09/23 13:14 09/09/23 16:00 Temperature 98.1 F Pulse Rate 87 94 84 Respiratory Rate 16 Blood Pressure 168/80 H Pulse Oximetry 100 Oxygen Delivery 09/09/23 20:22 09/09/23 20:00 09/10/23 00:04 Temperature 98.6 F Pulse Rate 88 88 79 Respiratory Rate 16 Blood Pressure 178/76 H Pulse Oximetry 99 Oxygen Delivery 09/10/23 04:00 09/10/23 05:21 09/10/23 08:41 Temperature 98.4 F Pulse Rate 74 78 Respiratory Rate 14 Blood Pressure 171/65 H Pulse Oximetry 99 Oxygen Delivery Room Air 09/10/23 09:18 09/10/23 08:00 Temperature Pulse Rate 76 Respiratory Rate Blood Pressure Pulse Oximetry Oxygen Delivery Room Air Intake/Output Intake/Output: Intake & Output 09/07/23 09/08/23 09/09/23 09/10/23 23:59 23:59 23:59 23:59 Intake Total 1880 4610 2460 460 Output Total 3000 1850 Balance -1120 2760 2460 460 Meds/Results Medications: Active Medications Generic Name Dose Route Start Last Admin Trade Name Freq PRN Reason Stop Dose Admin Acetaminophen 650 mg 09/08/23 11:39 09/08/23 12:04 Acetaminophen 325 Mg Tablet PO 650 mg Q4H PRN Administration Pain Rated 1-3 Atorvastatin Calcium 40 mg 09/07/23 09:00 09/10/23 08:44 Atorvastatin 40 Mg Tablet PO 40 mg DAILY JIMMY Administration Clonazepam 1 mg 09/08/23 13:20 09/08/23 20:39 Clonazepam (*Crx) 0.5 Mg Tablet PO 1 mg QHS PRN Administration Anxiety Dextrose 12.5 gm 09/06/23 20:05 Dextrose 50% 25 Gm/50 Ml Syringe IV PUSH PRN PRN Hypoglycemia Protocol Glucagon 1 mg 09/06/23
[2023-09-10] MEDS: POTASSIUM CHLORIDE 20 MEQ ER TABLET PO (13:20)
--- NOTE | 2023-09-10 13:47 | PCPTNOTE ---
Patient has discharge orders and is according to nursing will be leaving in less than an hour. Talk to patient and she is wishy washy stating she is fine and will be fine with home health and then stating she would prefer inpatient rehab. Patient declined doing therapy at this time.
[2023-09-13 14:51] LABS: Ionized Calcium 4.7 mg/dL (4.7-5.5)
== END 2023-09-10 14:55 | disposition home health service (06) | DRG 682 ==
LOC: ANHED 12:04 → ANHIMU 16:24 → ANH2MED 09-09 11:28 → ANHIMU 09-12 14:18
PROVIDERS: Internal Medicine Gastroenterology; Internal Medicine Nephrology; Student in an Organized Health Care Education/Training Program; Admitting Provider Chiropractor; Emergency Provider Student in an Organized Health Care Education/Training Program; PCP Family Medicine; Visit Provider General Practice
PROC: 0DJ08ZZ Inspection of Upper Intestinal Tract, Via Natural or Artificial Opening Endoscopic (ICD-10-PCS; CPT 43235; principal; 2023-09-09 12:30)
DX: N17.9 Acute kidney failure, unspecified (principal); E43 Unspecified severe protein-calorie malnutrition; G93.40 Encephalopathy, unspecified; I50.22 Chronic systolic (congestive) heart failure; K92.1 Melena; L03.114 Cellulitis of left upper limb; T82.7XXA Infection and inflammatory reaction due to other cardiac and vascular devices, implants and grafts, initial encounter; I11.0 Hypertensive heart disease with heart failure; I25.10 Atherosclerotic heart disease of native coronary artery without angina pectoris; J44.9 Chronic obstructive pulmonary disease, unspecified; D50.0 Iron deficiency anemia secondary to blood loss (chronic); E83.42 Hypomagnesemia; E87.5 Hyperkalemia; E78.5 Hyperlipidemia, unspecified; E11.9 Type 2 diabetes mellitus without complications; I95.89 Other hypotension; E86.1 Hypovolemia; K52.9 Noninfective gastroenteritis and colitis, unspecified; K21.9 Gastro-esophageal reflux disease without esophagitis; R29.6 Repeated falls; I25.2 Old myocardial infarction; F43.10 Post-traumatic stress disorder, unspecified; F41.9 Anxiety disorder, unspecified; F17.210 Nicotine dependence, cigarettes, uncomplicated; F31.9 Bipolar disorder, unspecified; Z86.010 Personal history of colon polyps; Z86.74 Personal history of sudden cardiac arrest
CPT/HCPCS: 36415; 71046; 71250; 74176; 80048; 80053; 80069; 81001; 81050; 82140; 82330; 82550; 82570; 82948; 83036; 83605; 83690; 83735; 83935; 84145; 84156; 84300; 84484; 84540; 85025; 85027; 85610; 85730; 85999; 87040; 93005; 96365; 97165; 99291; A9270; C9113; J0613; J1815; J2001; J2704; J3475; J7030; J7042; J7120

== ENCOUNTER 2023-09-13 10:12 | Outpatient (CLI) | payer MEDICARE, SELFPAY ==
[2023-09-13 11:27] LABS: Anion Gap 9 mmol/L (8-16); Blood Urea Nitrogen 16 mg/dL (7-17); Calcium 8.9 mg/dL (8.4-10.2); Carbon Dioxide 26 mmol/L (22-30); Chloride 100 mmol/L (98-107); Estimated Glomerular Filt Rate 30; Glucose 176 mg/dL (65-110); Potassium 3.2 mmol/L (3.4-5.0); Sodium 135 mmol/L (137-145)
== END 2023-09-13 10:13 | disposition home or self-care (01) ==
LOC: ANHLAB 10:15
PROVIDERS: PCP Family Medicine; Visit Provider General Practice
DX: N17.9 Acute kidney failure, unspecified (principal)
CPT/HCPCS: 36415; 80048

== ENCOUNTER 2024-04-24 15:30 | Outpatient (CLI) | payer MEDICARE, SELFPAY ==
--- NOTE | ~2024-04-24 | CT_ITS ---
CT Scan of the Chest without Contrast: Clinical Indication: Prior abnormal chest CT Technique: Contiguous sections were acquired throughout the chest without intravenous contrast. Dose reduction technique was used on this scan by utilizing automated exposure control and iterative recon struction technique. The dose-length product (DLP) was 214.75 mGy-cm. COMPARISON: 09/06/2023 Findings: There is no evidence of any significant mediastinal, hilar or axillary lymphadenopathy. The mediastin al soft tissues appear normal. There is no evidence of pleural or pericardial effusion. Several scattered subcentimeter nodules and groundglass nodules are similar to prior exam. No new/acu te pulmonary abnormality seen. Images through the upper abdomen reveal no abnormalities. Impression: Stable scattered subcentimeter nodules and groundglass nodules. Reviewed, dictated and finalized at [facility]. Impression: Stable scattered subcentimeter nodules and groundglass nodules.
== END 2024-04-24 15:31 | disposition home or self-care (01) ==
LOC: ANHIMG 15:31
PROVIDERS: PCP Family Medicine; Visit Provider Physician Assistant
DX: R93.89 Abnormal findings on diagnostic imaging of other specified body structures (principal)
CPT/HCPCS: 71250

== ENCOUNTER 2024-08-22 14:08 | Outpatient (CLI) | payer MEDICARE, SELFPAY ==
[2024-08-22 14:41] LABS: Alanine Aminotransferase 23 U/L (6-35); Albumin Level 4.2 g/dL (3.5-5.1); Alkaline Phosphatase 64 U/L (38-126); Anion Gap 10 mmol/L (4-12); Aspartate Amino Transferase 23 U/L (14-36); Bilirubin,Total 0.4 mg/dL (0.2-1.3); Blood Urea Nitrogen 25 mg/dL (7-17); Calcium 9.2 mg/dL (8.4-10.2); Carbon Dioxide 23 mmol/L (22-30); Chloride 104 mmol/L (98-107); Estimated Glomerular Filt Rate 49; Glucose 160 mg/dL (65-110); Potassium 3.9 mmol/L (3.4-5.0); Sodium 137 mmol/L (137-145)
[2024-08-22 15:18] LABS: Hemoglobin A1C 7.6 % (<5.7)
[2024-08-22 18:04] LABS: Creatinine Urine 60.7 mg/dL
[2024-08-22 18:09] LABS: MALB Creatinine Ratio 57.8 mg/g (0-30); Microalbumin Urine Random 35.1 mg/L (0-16.7)
== END 2024-08-22 14:09 | disposition home or self-care (01) ==
PROVIDERS: PCP Family Medicine; Visit Provider Student in an Organized Health Care Education/Training Program
DX: E11.9 Type 2 diabetes mellitus without complications (principal); N18.9 Chronic kidney disease, unspecified
CPT/HCPCS: 36415; 80053; 82043; 83036

== ENCOUNTER 2024-12-27 12:31 | Outpatient (CLI) | payer MEDICARE, SELFPAY ==
--- NOTE | ~2024-12-27 | XR_ITS ---
EXAMINATION: XR chest 2V 12/27/2024 12:59 INDICATION: Cough PROCEDURE: 2 view chest COMPARISON: 09/07/2023 FINDINGS: The lungs are clear. The cardiomediastinal silhouette is within normal limits. There are no pleural effusions. There is no pneumothorax suspected. IMPRESSION: 1: NO ACUTE CARDIOPULMONARY DISEASE. Reviewed, dictated and finalized at location [facility]. [employer] [facility]
== END 2024-12-27 12:32 | disposition home or self-care (01) ==
PROVIDERS: PCP Family Medicine; Visit Provider Physician Assistant Medical
DX: R05.9 Cough, unspecified (principal); R06.02 Shortness of breath
CPT/HCPCS: 71046

== ENCOUNTER 2025-02-15 14:46 | Outpatient (CLI) | payer MEDICARE, SELFPAY ==
[2025-02-15 15:20] LABS: Alanine Aminotransferase 16 U/L (6-35); Albumin Level 4.4 g/dL (3.5-5.1); Alkaline Phosphatase 66 U/L (38-126); Anion Gap 14 mmol/L (4-12); Aspartate Amino Transferase 18 U/L (14-36); Bilirubin,Total 0.5 mg/dL (0.2-1.3); Blood Urea Nitrogen 23 mg/dL (7-17); Calcium 10.2 mg/dL (8.4-10.2); Carbon Dioxide 18 mmol/L (22-30); Chloride 108 mmol/L (98-107); Estimated Glomerular Filt Rate 31; Glucose 153 mg/dL (65-110); Potassium 4.9 mmol/L (3.4-5.0); Sodium 140 mmol/L (137-145)
== END 2025-02-15 14:47 | disposition home or self-care (01) ==
PROVIDERS: PCP Family Medicine; Visit Provider Student in an Organized Health Care Education/Training Program
DX: I10 Essential (primary) hypertension (principal)
CPT/HCPCS: 36415; 80053